=== PATIENT | male | born 1935 | race Caucasian/White ===

== ENCOUNTER 2017-01-06 12:54 | Emergency (ER) | payer MEDICARE, OTHER ==
--- NOTE | 2017-01-06 13:32 | ED Physician Chart ---
Chief Complaint/HPI - Patient Information Date Seen:: 01/06/17 Time Seen:: 13:15 Chief Complaint:: HIGH BLOOD SUGAR History of Present Illness:: BLOOD GLUCOSE IN 309 WHEN WHEN CHECKED AT [facility]. HAS A HISTORY OF DIABETES. CAME FROM [place] AND TAKES METFORMIN AT NIGHT TIME, PT DENIES AND CHEST OR ABDOMINAL PAIN. HE HAS GENERALIZED WEAKNESS WHICH IS CHRONIC. ALSO HAS CHRONIC DIZZINESS. NO DYSURIA OR URINARY FREQUENCY. NO NAUSEA, VOMITING OR DIARRHEA. Allergies:: Allergies Allergy/AdvReac Type Severity Reaction Status Date / Time No Known Allergies Allergy Verified 01/06/17 13:11 Vitals:: Vital Signs - 8 hr 01/06/17 13:11 Temp 97.7 F HR 86 RR 14 BP 131/86 O2 Sat % 96 Review of Systems - Review of Systems General/Constitutional: No fever, No chills, No diaphoresis Skin: No skin lesions Head: No headache, Light headed Eyes: No loss of vision, No diplopia ENT: No earache, No sore throat Neck: No neck pain, No swelling, No mass noted Cardio Vascular: No chest pain, No palpitations Pulmonary: No SOB, No cough, No sputum, Other (no hemoptysis.) GI: No nausea, No vomiting, No diarrhea, No pain G/U: No dysuria, No frequency, No hematuria Musculoskeletal: No bone or joint pain, No back pain, No muscle pain Psychiatric: No suicidal ideation Hematopoietic: No bruising, No lymphadenopathy Allergic/Immuno: No urticaria, No angioedema Neurological: No syncope, No focal symptoms, Weakness, No paresthesia, No seizure, No confusion, No vertigo Past Medical History - Past Medical History Past Medical History: DM Social History: Non Smoker, No Alcohol, No Drug Use, Employment:: Lives with his . Family Medical History - Family Member Daughter Other Medical History: bipolar , schizoaffective Physical Exam - Physical Examination General/Constitutional: Awake, Well-developed, well-nourished, Alert, No distress, Non-toxic appearing Other Gen/Cons comments:: Ambulatory with cane. Head: Atraumatic Eyes: Lids, conjuctiva normal, PERRL, EOMI Other Eyes comments:: Bilateral lens implants. The sclera are not icteric. No nystagmus. Skin: No rash, No skin lesions, No ecchymosis ENMT: External ears, nose nl Other ENMT comments:: Good hydration of oral mucosa. No inflammation in the posterior pharynx. Neck: Nontender, Full ROM w/o pain, No JVD, No nuchal rigidity, No mass, No stridor Respiratory: Nl effort/Exclusion (patient has occasional wheezes with no rhonchi or rales.) Cardio Vascular: RRR, No murmur, gallop, rubs, NL S1 S2 GI: No tenderness/rebounding/guarding, No organomegaly, No hernia, Normal BS's, Nondistended Other GI comments:: Well-healed surgical scar in the lower abdomen. : No CVA tenderness, No discharge Extremities: No tenderness or effusion, Full ROM, normal strength in all extremities, No edema Other Extremities comments:: No calf tenderness. Other Neuro/Psych comments:: Alert but not oriented to time. Sensation is intact to light touch. Good emergency management specialist both upper extremities. Able to lift lower extremities off the examination gurney. Labs/Radiology/EKG Results - Lab Results Results: Laboratory Tests 01/06/17 13:11 POC Glucose 317 H Laboratory Tests 01/06/17 01/06/17 01/06/17 13:11 13:26 13:26 WBC 6.9 RBC 4.83 Hgb 15.4 Hct 46.2 MCV 95.7 MCH 31.9 H MCHC Differential 33.4 RDW 14.9 Plt Count 168 MPV 7.5 Neutrophils % 77.5 Lymphocytes % 13.1 L Monocytes % 7.9 Eosinophils % 0.4 Basophils % 1.1 Sodium 134 L Potassium 4.5 Chloride 103 Carbon Dioxide 24.5 Anion Gap 11.0 BUN 30 H Creatinine 0.8 Est GFR ( Amer) TNP Est GFR (Non-Af Amer) TNP BUN/Creatinine Ratio 37.5 Glucose 321 H POC Glucose 317 H Hemoglobin A1c % Whole Bld Lactic Acid Calcium 9.5 Total Bilirubin 0.7 AST 19 ALT 22 Alkaline Phosphatase 91 Troponin I Total Protein 6.6 Albumin 4.0 L Globulin 2.6 Albumin/Globulin Ratio 1.5 Amylase 37 Lipase 12 Urine Source Urine Color Urine Clarity Urine pH Ur Specific [place] Urine Protein Urine Glucose (UA) Urine Ketones Urine Blood Urine Nitrate Urine Bilirubin Urine Urobilinogen Ur Leukocyte Esterase Urine RBC Urine WBC Ur Epithelial Cells Urine Bacteria Serum Ketones 01/06/17 01/06/17 01/06/17 13:26 13:26 13:26 WBC RBC Hgb Hct MCV MCH MCHC Differential RDW Plt Count MPV Neutrophils % Lymphocytes % Monocytes % Eosinophils % Basophils % Sodium Potassium Chloride Carbon Dioxide Anion Gap BUN Creatinine Est GFR ( Amer) Est GFR (Non-Af Amer) BUN/Creatinine Ratio Glucose POC Glucose Hemoglobin A1c % Whole Bld Lactic Acid 2.57 H* Calcium Total Bilirubin AST ALT Alkaline Phosphatase Troponin I < 0.01 L Total Protein Albumin Globulin Albumin/Globulin Ratio Amylase Lipase Urine Source Urine Color Urine Clarity Urine pH Ur Specific [place] Urine Protein Urine Glucose (UA) Urine Ketones Urine Blood Urine Nitrate Urine Bilirubin Urine Urobilinogen Ur Leukocyte Esterase Urine RBC Urine WBC Ur Epithelial Cells Urine Bacteria Serum Ketones NEGATIVE 01/06/17 01/06/17 01/06/17 13:26 13:57 14:30 WBC RBC Hgb Hct MCV MCH MCHC Differential RDW Plt Count MPV Neutrophils % Lymphocytes % Monocytes % Eosinophils % Basophils % Sodium Potassium Chloride Carbon Dioxide Anion Gap BUN Creatinine Est GFR ( Amer) Est GFR (Non-Af Amer) BUN/Creatinine Ratio Glucose POC Glucose Hemoglobin A1c % 6.7 H Whole Bld Lactic Acid 1.53 Calcium Total Bilirubin AST ALT Alkaline Phosphatase Troponin I Total Protein Albumin Globulin Albumin/Globulin Ratio Amylase Lipase Urine Source RANDOM Urine Color YELLOW Urine Clarity CLEAR Urine pH 5.5 Ur Specific [place] 1.020 Urine Protein NEGATIVE Urine Glucose (UA) >=1000 H Urine Ketones NEGATIVE Urine Blood NEGATIVE Urine Nitrate NEGATIVE Urine Bilirubin NEGATIVE Urine Urobilinogen 0.2 Ur Leukocyte Esterase NEGATIVE Urine RBC NONE SEEN Urine WBC 0-2 Ur Epithelial Cells RARE Urine Bacteria FEW Serum Ketones 01/06/17 15:28 WBC RBC Hgb Hct MCV MCH MCHC Differential RDW Plt Count MPV Neutrophils % Lymphocytes % Monocytes % Eosinophils % Basophils % Sodium Potassium Chloride Carbon Dioxide Anion Gap BUN Creatinine Est GFR ( Amer) Est GFR (Non-Af Amer) BUN/Creatinine Ratio Glucose POC Glucose 166 H Hemoglobin A1c % Whole Bld Lactic Acid Calcium Total Bilirubin AST ALT Alkaline Phosphatase Troponin I Total Protein Albumin Globulin Albumin/Globulin Ratio Amylase Lipase Urine Source Urine Color Urine Clarity Urine pH Ur Specific [place] Urine Protein Urine Glucose (UA) Urine Ketones Urine Blood Urine Nitrate Urine Bilirubin Urine Urobilinogen Ur Leukocyte Esterase Urine RBC Urine WBC Ur Epithelial Cells Urine Bacteria Serum Ketones Laboratory Tests 01/06/17 01/06/17 01/06/17 13:11 13:26 13:26 WBC 6.9 RBC 4.83 Hgb 15.4 Hct 46.2 MCV 95.7 MCH 31.9 H MCHC Differential 33.4 RDW 14.9 Plt Count 168 MPV 7.5 Neutrophils % 77.5 Lymphocytes % 13.1 L Monocytes % 7.9 Eosinophils % 0.4 Basophils % 1.1 Sodium 134 L Potassium 4.5 Chloride 103 Carbon Dioxide 24.5 Anion Gap 11.0 BUN 30 H Creatinine 0.8 Est GFR ( Amer) TNP Est GFR (Non-Af Amer) TNP BUN/Creatinine Ratio 37.5 Glucose 321 H POC Glucose 317 H Hemoglobin A1c % Whole Bld Lactic Acid Calcium 9.5 Total Bilirubin 0.7 AST 19 ALT 22 Alkaline Phosphatase 91 Troponin I Total Protein 6.6 Albumin 4.0 L Globulin 2.6 Albumin/Globulin Ratio 1.5 Amylase 37 Lipase 12 Urine Source Urine Color Urine Clarity Urine pH Ur Specific [place] Urine Protein Urine Glucose (UA) Urine Ketones Urine Blood Urine Nitrate Urine Bilirubin Urine Urobilinogen Ur Leukocyte Esterase Urine RBC Urine WBC Ur Epithelial Cells Urine Bacteria Serum Ketones 01/06/17 01/06/17 01/06/17 13:26 13:26 13:26 WBC RBC Hgb Hct MCV MCH MCHC Differential RDW Plt Count MPV Neutrophils % Lymphocytes % Monocytes % Eosinophils % Basophils % Sodium Potassium Chloride Carbon Dioxide Anion Gap BUN Creatinine Est GFR ( Amer) Est GFR (Non-Af Amer) BUN/Creatinine Ratio Glucose POC Glucose Hemoglobin A1c % Whole Bld Lactic Acid 2.57 H* Calcium Total Bilirubin AST ALT Alkaline Phosphatase Troponin I < 0.01 L Total Protein Albumin Globulin Albumin/Globulin Ratio Amylase Lipase Urine Source Urine Color Urine Clarity Urine pH Ur Specific [place] Urine Protein Urine Glucose (UA) Urine Ketones Urine Blood Urine Nitrate Urine Bilirubin Urine Urobilinogen Ur Leukocyte Esterase Urine RBC Urine WBC Ur Epithelial Cells Urine Bacteria Serum Ketones NEGATIVE 01/06/17 01/06/17 01/06/17 13:26 13:57 14:30 WBC RBC Hgb Hct MCV MCH MCHC Differential RDW Plt Count MPV Neutrophils % Lymphocytes % Monocytes % Eosinophils % Basophils % Sodium Potassium Chloride Carbon Dioxide Anion Gap BUN Creatinine Est GFR ( Amer) Est GFR (Non-Af Amer) BUN/Creatinine Ratio Glucose POC Glucose Hemoglobin A1c % 6.7 H Whole Bld Lactic Acid 1.53 Calcium Total Bilirubin AST ALT Alkaline Phosphatase Troponin I Total Protein Albumin Globulin Albumin/Globulin Ratio Amylase Lipase Urine Source RANDOM Urine Color YELLOW Urine Clarity CLEAR Urine pH 5.5 Ur Specific [place] 1.020 Urine Protein NEGATIVE Urine Glucose (UA) >=1000 H Urine Ketones NEGATIVE Urine Blood NEGATIVE Urine Nitrate NEGATIVE Urine Bilirubin NEGATIVE Urine Urobilinogen 0.2 Ur Leukocyte Esterase NEGATIVE Urine RBC NONE SEEN Urine WBC 0-2 Ur Epithelial Cells RARE Urine Bacteria FEW Serum Ketones 01/06/17 15:28 WBC RBC Hgb Hct MCV MCH MCHC Differential RDW Plt Count MPV Neutrophils % Lymphocytes % Monocytes % Eosinophils % Basophils % Sodium Potassium Chloride Carbon Dioxide Anion Gap BUN Creatinine Est GFR ( Amer) Est GFR (Non-Af Amer) BUN/Creatinine Ratio Glucose POC Glucose 166 H Hemoglobin A1c % Whole Bld Lactic Acid Calcium Total Bilirubin AST ALT Alkaline Phosphatase Troponin I Total Protein Albumin Globulin Albumin/Globulin Ratio Amylase Lipase Urine Source Urine Color Urine Clarity Urine pH Ur Specific [place] Urine Protein Urine Glucose (UA) Urine Ketones Urine Blood Urine Nitrate Urine Bilirubin Urine Urobilinogen Ur Leukocyte Esterase Urine RBC Urine WBC Ur Epithelial Cells Urine Bacteria Serum Ketones Assessment - Assessment General Assessment: CASE SUMMARY: This 81 year old male was sent to the ED for a blood glucose in the 330 range. The patient was hydrated with 2 L of normal saline. The serum glucose went from the 330 range to 166. The patient's vital signs were stable and laboratory studies showed a normal white count and hemoglobin level. Renal and liver function studies were normal. The urinalysis was negative for any evidence of UTI. Patient was referred back to [facility] and was medically cleared for admission. MDM DDX HYPER GLYCEMIA: NOT DKA BASED ON LABORATORY STUDIES. NOT HYPER OSMOLAR HYPERGLYCEMIA BASED ON LAB STUDIES. NOT UTI BASED ON YOUR UA RESULTS. NOT SEPSIS Based on vital signs and laboratory results. ED Septic Shock - . Is Septic Shock (SBP<90, OR Lactate>4 mmol\L) present?: No - <6hrs of presentation: Vital Signs: Vital Signs - 8 hr 01/06/17 13:11 Temp 97.7 F HR 86 RR 14 BP 131/86 O2 Sat % 96 Reassessment (Disposition) - Reassessment Reassessment Condition:: Improved - Diagnosis Diagnosis:: DIABETES WITH MILD HYPERGLYCEMIA - Patient Disposition Discharge/Transfer:: Residential/Boarding Care ED Discharge Plan - Patient Disposition Admit/Discharge/Transfer: PT DISCHARGED HOME Condition at Disposition: Stable Instructions: Type 2 Diabetes Mellitus, Adult
[2017-01-06 13:36] LABS: % BASOPHILS 1.1 % (0.0-2.0); % EOSINOPHILS 0.4 % (0.0-5.0); % LYMPHOCYTES 13.1 % (20.0-50.0); % MONOCYTES 7.9 % (2.0-10.0); % NEUTROPHILS 77.5 % (40.0-80.0); HEMATOCRIT 46.2 % (39.0-49.0); HEMOGLOBIN 15.4 gm/dL (12.6-17.4); MEAN CELL VOLUME 95.7 fl (80-99); MEAN CORPUSCULAR HEMOGLOBIN 31.9 pg (27.0-31.0); MEAN CORPUSCULAR HGB CONC 33.4 pg (28.0-36.0); MEAN PLATELET VOLUME 7.5 fl; NEUTROPHILE ABSOLUTE 5.4 Th/cmm (1.8-8.0); PLATELET COUNT 168 Th/cmm (150-400); RED BLOOD COUNT 4.83 Mil/cmm (3.80-5.80); RED CELL DISTRIBUTION WIDTH 14.9 % (11.5-20.0); WHITE BLOOD COUNT 6.9 Th/cmm (4.8-10.8)
[2017-01-06] MEDS ORDERED: Sodium Chloride 0.9% 1,000 ML IV ONE ×2 (13:41→14:25)
[2017-01-06 14:03] LABS: ALB/GLOB RATIO 1.5 (1.0-1.8); ALKALINE PHOSPHATASE 91 U/L (34-104); AMYLASE SERUM 37 U/L (29-103); BILIRUBIN,TOTAL 0.7 mg/dL (0.3-1.0); BUN - UREA NITROGEN 30 mg/dL (7-25); BUN/CREATININE RATIO 37.5; CALCIUM SERUM 9.5 mg/dL (8.6-10.3); CARBON DIOXIDE 24.5 mEq/L (21.0-31.0); CHLORIDE 103 mEq/L (98-107); CREATININE - SERUM 0.8 mg/dL (0.7-1.3); GLUCOSE 321 mg/dL (70-105); LIPASE 12 U/L (11-82); POTASSIUM SERUM 4.5 mEq/L (3.5-5.1); SGOT 19 U/L (13-39); SGPT/ALT 22 U/L (7-52); SODIUM SERUM 134 mEq/L (136-145)
[2017-01-06 14:58] LABS: URINE BILIRUBIN NEGATIVE (NEGATIVE); URINE BLOOD NEGATIVE (NEGATIVE); URINE COLOR YELLOW; URINE GLUCOSE (UA) >=1000 mg/dL (NEGATIVE); URINE KETONE NEGATIVE (NEGATIVE); URINE PH 5.5; URINE PROTEIN NEGATIVE (NEGATIVE); URINE UROBILINOGEN 0.2 E.U./dL (0.2 - 1.0)
[2017-01-06 14:59] LABS: URINE BACTERIA FEW /hpf (NONE SEEN); URINE EPITHELIAL CELLS RARE /lpf (FEW); URINE RBC NONE SEEN /hpf (0-5); URINE WBC 0-2 /hpf (0-5)
== END 2017-01-06 16:17 | disposition home or self-care (01) ==
LOC: ER 12:54
DX: E11.65 Type 2 diabetes mellitus with hyperglycemia (principal)
CPT/HCPCS: 36415-UA; 80053-TC; 81001-TC; 82010-TC; 82150-TC; 82948-90; 83036-90; 83605; 83690-TC; 84484-TC; 85025-TC; 93005; J7030

== ENCOUNTER 2017-01-08 14:57 | Inpatient (IN) | payer MEDICARE, OTHER ==
[2017-01-08 15:26] LABS: % EOSINOPHILS 0.4 % (0.0-5.0); % LYMPHOCYTES 18.2 % (20.0-50.0); % MONOCYTES 6.4 % (2.0-10.0); HEMATOCRIT 46.2 % (39.0-49.0); HEMOGLOBIN 15.4 gm/dL (12.6-17.4); MEAN CELL VOLUME 95.3 fl (80-99); MEAN CORPUSCULAR HEMOGLOBIN 31.8 pg (27.0-31.0); MEAN CORPUSCULAR HGB CONC 33.4 pg (28.0-36.0); MEAN PLATELET VOLUME 8.2 fl; NEUTROPHILE ABSOLUTE 5.7 Th/cmm (1.8-8.0); PLATELET COUNT 167 Th/cmm (150-400); RED BLOOD COUNT 4.85 Mil/cmm (3.80-5.80); RED CELL DISTRIBUTION WIDTH 14.3 % (11.5-20.0); WHITE BLOOD COUNT 7.6 Th/cmm (4.8-10.8)
[2017-01-08 15:39] LABS: INR 0.95 (0.5-1.4); PROTHROMBIN TIME (TEST) 9.9 SECONDS (9.5-11.5)
[2017-01-08 15:42] LABS: ALB/GLOB RATIO 1.7 (1.0-1.8); ALKALINE PHOSPHATASE 95 U/L (34-104); ANION GAP 9.6 (7.0-16.0); BUN - UREA NITROGEN 25 mg/dL (7-25); BUN/CREATININE RATIO 31.3; CALCIUM SERUM 9.7 mg/dL (8.6-10.3); CARBON DIOXIDE 22.6 mEq/L (21.0-31.0); CHLORIDE 104 mEq/L (98-107); CREATININE - SERUM 0.8 mg/dL (0.7-1.3); GLUCOSE 231 mg/dL (70-105); POTASSIUM SERUM 4.2 mEq/L (3.5-5.1); SGOT 18 U/L (13-39); SGPT/ALT 24 U/L (7-52); SODIUM SERUM 132 mEq/L (136-145)
[2017-01-08 15:43] LABS: CHOLESTEROL 162 mg/dL (<200); TRIGLYCERIDES 182 mg/dL (<150)
[2017-01-08 15:43] LABS: pH 7.45 (7.35-7.45)
[2017-01-08 15:44] LABS: ABG SOURCE Arterial; ALLEN TEST YES; BE(B) 1.2 mEq/L (-3.0-3.0); CRITICAL VALUES REPORTED BY SH; FIO2 21; HCO3 25.8 mEq/L (20.0-26.0)
[2017-01-08 16:14] LABS: URINE COLOR YELLOW
[2017-01-08 16:15] LABS: URINE BACTERIA FEW /hpf (NONE SEEN); URINE BILIRUBIN NEGATIVE (NEGATIVE); URINE BLOOD NEGATIVE (NEGATIVE); URINE EPITHELIAL CELLS RARE /lpf (FEW); URINE GLUCOSE (UA) 250 mg/dL (NEGATIVE); URINE KETONE NEGATIVE (NEGATIVE); URINE PH 5.5; URINE PROTEIN NEGATIVE (NEGATIVE); URINE RBC NONE SEEN /hpf (0-5); URINE UROBILINOGEN 0.2 E.U./dL (0.2 - 1.0); URINE WBC 0-2 /hpf (0-5)
--- NOTE | 2017-01-08 16:58 | ED Physician Chart ---
Chief Complaint/HPI - Patient Information Date Seen:: 01/08/17 Time Seen:: 15:06 Chief Complaint:: WEAKNESS History of Present Illness:: THIS IS AN 81 YEAR OLD MALE BIB HIS DAUGHTER STATING THAT SHE CAN NO LONGER TAKE CARE OF HER FATHER BECAUSE HE IS TOO ILL. THE PATIENT IS VERY WITH AND WITH A FAST HEART AND SOB. SHE STATES THAT HE HAS HYPERTENSION AND DIABETES WITH A BAD HEART. SHE WANT HIM PLACED IN A RESIDENTIAL FOR CARE. Allergies:: Allergies Allergy/AdvReac Type Severity Reaction Status Date / Time No Known Allergies Allergy Verified 01/06/17 13:11 Vitals:: Vital Signs - 8 hr 01/08/17 15:05 Temp 98.9 F HR 102 RR 21 BP 140/88 O2 Sat % 96 Historian:: Patient, Family Member (DAUGHTER) Review:: Nurse's Note Reviewed, Old Chart Reviewed Review of Systems - Review of Systems General/Constitutional: No fever, No chills, Weight loss, Weakness, No diaphoresis, No edema, No loss of appetite Skin: No skin lesions, No rash, No bruising Head: No headache, No light-headedness Eyes: No loss of vision, No pain, No diplopia ENT: No earache, No nasal drainage, No sore throat, No tinnitus Neck: No neck pain, No swelling, No thyromegaly, No stiffness, No mass noted Cardio Vascular: No chest pain, Palpitations, No PND, No orthopnea, No edema Pulmonary: SOB, No cough, No sputum, No wheezing GI: No nausea, No vomiting, No diarrhea, No pain, No melena, No hematochezia, No constipation, No hematemesis G/U: No dysuria, No frequency, No hematuria Musculoskeletal: No bone or joint pain, No back pain, No muscle pain Endocrine: No polyuria, No polydipsia Psychiatric: No prior psych history, No depression, No anxiety, No suicidal ideation Hematopoietic: No bruising, No lymphadenopathy Allergic/Immuno: No urticaria, No angioedema Neurological: No syncope, No focal symptoms, No weakness, No paresthesia, No headache, No seizure, No dizziness, No confusion, No vertigo Past Medical History - Past Medical History Obtainable: Yes Past Medical History: HTN, DM, CAD, Dyslipidemia Family History: None Social History: Non Smoker, No Alcohol, No Drug Use Surgical History: other (ABDOMINAL SURGERY) Family Medical History - Family Member Mother History Unknown: Yes Physical Exam - Physical Examination General/Constitutional: Awake, Well-developed, well-nourished, Alert, No distress, GCS 15, Non-toxic appearing, Ambulatory Other Gen/Cons comments:: WEAK AND LETHARGIC Head: Atraumatic Eyes: Lids, conjuctiva normal, PERRL, EOMI Skin: Nl inspection, No rash, No skin lesions, No ecchymosis, Well hydrated, No lymphadenopathy ENMT: External ears, nose nl, Nasal exam nl, Lips, teeth, gums nl Neck: Nontender, Full ROM w/o pain, No JVD, No nuchal rigidity, No bruit, No mass, No stridor Respiratory: Nl effort/Exclusion, Clear to Auscultation Other Respiratory comments:: BILATERAL WHEEZES HEARD Cardio Vascular: No murmur, gallop, rubs, NL S1 S2 Other Cardio Vascular comments:: TACHYCARDIA 112 GI: No tenderness/rebounding/guarding, No organomegaly, No hernia, Normal BS's, Nondistended, No mass/bruits, No McBurney tenderness : No CVA tenderness Extremities: No tenderness or effusion, Full ROM, normal strength in all extremities, No edema, Normal digits & nails Neuro/Psych: Alert/oriented, DTR's symmetric, Normal sensory exam, Normal motor strength, Judgement/insight normal, Mood normal, Normal gait, No focal deficits Misc: normal gait, Normal back, No paraspinal tenderness Labs/Radiology/EKG Results - Lab Results Results: Laboratory Tests 01/08/17 01/08/17 01/08/17 15:00 15:16 15:18 WBC RBC Hgb Hct MCV MCH MCHC Differential RDW Plt Count MPV Neutrophils % Lymphocytes % Monocytes % Eosinophils % Basophils % PT 9.9 INR 0.95 PTT (Actin FS) 22.9 L Specimen Source Sample Site pH pCO2 pO2 HCO3 Base Excess O2 Saturation Paddy Test Vent Rate Inspired O2 Tidal Volume PEEP Pressure (ins/psv/peep) Critical Value Sodium Potassium Chloride Carbon Dioxide Anion Gap BUN Creatinine Est GFR ( Amer) Est GFR (Non-Af Amer) BUN/Creatinine Ratio Glucose POC Glucose 195 H Calcium Total Bilirubin AST ALT Alkaline Phosphatase Troponin I Total Protein Albumin Globulin Albumin/Globulin Ratio Triglycerides Cholesterol LDL Cholesterol Direct HDL Cholesterol TSH Urine Source CLEAN C Urine Color YELLOW Urine Clarity CLEAR Urine pH 5.5 Ur Specific [place] 1.025 Urine Protein NEGATIVE Urine Glucose (UA) 250 H Urine Ketones NEGATIVE Urine Blood NEGATIVE Urine Nitrate NEGATIVE Urine Bilirubin NEGATIVE Urine Urobilinogen 0.2 Ur Leukocyte Esterase NEGATIVE Urine RBC NONE SEEN Urine WBC 0-2 Ur Epithelial Cells RARE Urine Bacteria FEW Urine Mucus FEW 01/08/17 01/08/17 01/08/17 15:18 15:18 15:18 WBC 7.6 RBC 4.85 Hgb 15.4 Hct 46.2 MCV 95.3 MCH 31.8 H MCHC Differential 33.4 RDW 14.3 Plt Count 167 MPV 8.2 Neutrophils % 75.0 Lymphocytes % 18.2 L Monocytes % 6.4 Eosinophils % 0.4 Basophils % 0.0 PT INR PTT (Actin FS) Specimen Source Sample Site pH pCO2 pO2 HCO3 Base Excess O2 Saturation Paddy Test Vent Rate Inspired O2 Tidal Volume PEEP Pressure (ins/psv/peep) Critical Value Sodium 132 L Potassium 4.2 Chloride 104 Carbon Dioxide 22.6 Anion Gap 9.6 BUN 25 Creatinine 0.8 Est GFR ( Amer) TNP Est GFR (Non-Af Amer) TNP BUN/Creatinine Ratio 31.3 Glucose 231 H POC Glucose Calcium 9.7 Total Bilirubin 1.0 AST 18 ALT 24 Alkaline Phosphatase 95 Troponin I Total Protein 6.9 Albumin 4.3 Globulin 2.6 Albumin/Globulin Ratio 1.7 Triglycerides 182 H Cholesterol 162 LDL Cholesterol Direct 89 HDL Cholesterol 54 TSH Urine Source Urine Color Urine Clarity Urine pH Ur Specific [place] Urine Protein Urine Glucose (UA) Urine Ketones Urine Blood Urine Nitrate Urine Bilirubin Urine Urobilinogen Ur Leukocyte Esterase Urine RBC Urine WBC Ur Epithelial Cells Urine Bacteria Urine Mucus 01/08/17 01/08/17 01/08/17 15:18 15:18 15:32 WBC RBC Hgb Hct MCV MCH MCHC Differential RDW Plt Count MPV Neutrophils % Lymphocytes % Monocytes % Eosinophils % Basophils % PT INR PTT (Actin FS) Specimen Source Arterial Sample Site Right Radial pH 7.45 pCO2 36.0 pO2 77.0 L HCO3 25.8 Base Excess 1.2 O2 Saturation 96.0 Paddy Test YES Vent Rate NAN Inspired O2 21 Tidal Volume NA PEEP NA Pressure (ins/psv/peep) NA Critical Value SH Sodium Potassium Chloride Carbon Dioxide Anion Gap BUN Creatinine Est GFR ( Amer) Est GFR (Non-Af Amer) BUN/Creatinine Ratio Glucose POC Glucose Calcium Total Bilirubin AST ALT Alkaline Phosphatase Troponin I 0.01 Total Protein Albumin Globulin Albumin/Globulin Ratio Triglycerides Cholesterol LDL Cholesterol Direct HDL Cholesterol TSH 0.07 L Urine Source Urine Color Urine Clarity Urine pH Ur Specific [place] Urine Protein Urine Glucose (UA) Urine Ketones Urine Blood Urine Nitrate Urine Bilirubin Urine Urobilinogen Ur Leukocyte Esterase Urine RBC Urine WBC Ur Epithelial Cells Urine Bacteria Urine Mucus - Radiology Results Results: CHEST X-RAY = CM - EKG Interpretations EKG Time:: 15:19 Rate & Rhythm: 93 SINUS [place]: LEFT Assessment - Assessment General Assessment: HYPOXEMIA DIABETES MELLITUS ED Septic Shock - . Is Septic Shock (SBP<90, OR Lactate>4 mmol\L) present?: No - <6hrs of presentation: Vital Signs: Vital Signs - 8 hr 01/08/17 15:05 Temp 98.9 F HR 102 RR 21 BP 140/88 O2 Sat % 96 Reassessment (Disposition) - Reassessment Reassessment Condition:: Unchanged - Diagnosis Diagnosis:: HYPOXEMIA DIABETES - Patient Disposition Discharge/Transfer:: Acute Care w/in this hosp Admitting Medical Physician:: Ryder Lorenz Condition at Disposition:: Unchanged ED Discharge Plan - Patient Disposition Admit/Discharge/Transfer: Acute Care w/in this hosp Condition at Disposition: Guarded
[2017-01-08] MEDS ORDERED: INSULIN ASPART, RECOMBINANT 100 UNITS/ML SUBQ ONE (20:45)
[2017-01-08] MEDS: INSULIN ASPART, RECOMBINANT 100 UNITS/ML SUBQ SCH (20:55)
[2017-01-09] MEDS: INSULIN ASPART, RECOMBINANT 100 UNITS/ML SUBQ SCH ×4 (06:30→20:44)
--- NOTE | 2017-01-09 09:00 | History and Physical ---
History of Present Illness - HPI Chief Complaint: weakness and fatigue HPI: 81 year old male who was brought to [facility] ER for increasing fatigue and weakness and failure to thrive. Patient's daughter is unable to care for her father. Her father has been ill for a while now. He has a history of hypertension and diabetes mellitus. While in the ER patient was found to have shortness and breath. Vital Signs: Last Vital Signs Temp 97.8 F 01/09/17 04:00 Pulse 73 01/09/17 04:00 Resp 19 01/09/17 04:00 BP 125/85 01/09/17 04:00 Pulse Ox 96 01/09/17 04:00 Past Medical History Cardiovascular: Report: CAD, HTN, Hyperlipidemia Pulmonary: Report: No Pertinent Hx [employer]: Report: No Pertinent Hx GI: Denies: Constipation, Gastritis Psych: Report: No Pertinent Hx Musculoskeletal: Report: No Pertinent Hx Rheumatologic: Report: No pertinent Hx Infectious Disease: Report: No Pertinent Hx Renal/: Report: No Pertinent Hx Endocrine: Report: Diabetes Dermatology: Report: No Pertinent Hx Family Medical History - Family Member Mother History Unknown: Yes Ethnicity: Social History Smoke: No Alcohol: None Drugs: None Lives: With Family - Medications Home Medications: Home Medication Medication Instructions Recorded Type Unobtainable [Unobtainable] 01/08/17 History - Allergies Allergies/Adverse Reactions: Allergies Allergy/AdvReac Type Severity Reaction Status Date / Time No Known Allergies Allergy Verified 01/06/17 13:11 Review of Systems - Review of Systems Constitutional: Report: Weakness, Malaise Eyes: Report: No Significant ENT: Report: No Significant Respiratory: Report: No Significant Cardiovascular: Report: No Significant Gastrointestinal: Report: No Significant Genitourinary: Report: No Significant Skin: Report: Rash Neurological: Report: No Significant Physical Exam - Physical Exam HEENT: Report: Ears Nose Throat within normal limits, Pharnyx within normal limits, Pale Conjunctiva Neck: Report: Within normal limits Cardiovascular Systems: Report: +s1/s2 noted, Regular, Rate and Rhythm Respiratory: Report: Breath Sounds are within normal limits Abdomen: Report: Non-tender to palpation Extremities: Report: Non-tender to palpation. Skin: Report: Skin Rash noted (groin and rectum) Neuro/Psych: Report: Mood affect is within normal limits - Lab Results All Lab Results last 24 hours: Laboratory Last Values WBC 7.6 Th/cmm (4.8-10.8) 01/08/17 15:18 RBC 4.85 Mil/cmm (3.80-5.80) 01/08/17 15:18 Hgb 15.4 gm/dL (12.6-17.4) 01/08/17 15:18 Hct 46.2 % (39.0-49.0) 01/08/17 15:18 MCV 95.3 fl (80-99) 01/08/17 15:18 MCH 31.8 pg (27.0-31.0) H 01/08/17 15:18 MCHC Differential 33.4 pg (28.0-36.0) 01/08/17 15:18 RDW 14.3 % (11.5-20.0) 01/08/17 15:18 Plt Count 167 Th/cmm (150-400) 01/08/17 15:18 MPV 8.2 fl 01/08/17 15:18 Neutrophils % 75.0 % (40.0-80.0) 01/08/17 15:18 Lymphocytes % 18.2 % (20.0-50.0) L 01/08/17 15:18 Monocytes % 6.4 % (2.0-10.0) 01/08/17 15:18 Eosinophils % 0.4 % (0.0-5.0) 01/08/17 15:18 Basophils % 0.0 % (0.0-2.0) 01/08/17 15:18 PT 9.9 SECONDS (9.5-11.5) 01/08/17 15:18 INR 0.95 (0.5-1.4) 01/08/17 15:18 PTT (Actin FS) 22.9 SECONDS (26.0-38.0) L 01/08/17 15:18 Specimen Source Arterial 01/08/17 15:32 Sample Site Right Radial 01/08/17 15:32 pH 7.45 (7.35-7.45) 01/08/17 15:32 pCO2 36.0 mmHg (35.0-45.0) 01/08/17 15:32 pO2 77.0 mmHg (80.0-100.0) L 01/08/17 15:32 HCO3 25.8 mEq/L (20.0-26.0) 01/08/17 15:32 Base Excess 1.2 mEq/L (-3.0-3.0) 01/08/17 15:32 O2 Saturation 96.0 % (92.0-100.0) 01/08/17 15:32 Paddy Test YES 01/08/17 15:32 Vent Rate NAN 01/08/17 15:32 Inspired O2 21 01/08/17 15:32 Tidal Volume NA 01/08/17 15:32 PEEP NA 01/08/17 15:32 Pressure (ins/psv/peep) NA 01/08/17 15:32 Critical Value SH 01/08/17 15:32 Sodium 132 mEq/L (136-145) L 01/08/17 15:18 Potassium 4.2 mEq/L (3.5-5.1) 01/08/17 15:18 Chloride 104 mEq/L (98-107) 01/08/17 15:18 Carbon Dioxide 22.6 mEq/L (21.0-31.0) 01/08/17 15:18 Anion Gap 9.6 (7.0-16.0) 01/08/17 15:18 BUN 25 mg/dL (7-25) 01/08/17 15:18 Creatinine 0.8 mg/dL (0.7-1.3) 01/08/17 15:18 Est GFR ( Amer) TNP 01/08/17 15:18 Est GFR (Non-Af Amer) TNP 01/08/17 15:18 BUN/Creatinine Ratio 31.3 01/08/17 15:18 Glucose 231 mg/dL (70-105) H 01/08/17 15:18 POC Glucose 124 MG/DL (70 - 105) H 01/09/17 06:00 Calcium 9.7 mg/dL (8.6-10.3) 01/08/17 15:18 Total Bilirubin 1.0 mg/dL (0.3-1.0) 01/08/17 15:18 AST 18 U/L (13-39) 01/08/17 15:18 ALT 24 U/L (7-52) 01/08/17 15:18 Alkaline Phosphatase 95 U/L (34-104) 01/08/17 15:18 Troponin I 0.01 ng/mL (0.01-0.05) 01/08/17 15:18 Total Protein 6.9 gm/dL (6.0-8.3) 01/08/17 15:18 Albumin 4.3 gm/dL (4.2-5.5) 01/08/17 15:18 Globulin 2.6 gm/dL 01/08/17 15:18 Albumin/Globulin Ratio 1.7 (1.0-1.8) 01/08/17 15:18 Triglycerides 182 mg/dL (<150) H 01/08/17 15:18 Cholesterol 162 mg/dL (<200) 01/08/17 15:18 LDL Cholesterol Direct 89 mg/dL (75-193) 01/08/17 15:18 HDL Cholesterol 54 mg/dL (23-92) 01/08/17 15:18 TSH 0.07 uIU/ml (0.34-5.60) L 01/08/17 15:18 Urine Source CLEAN C 01/08/17 15:00 Urine Color YELLOW 01/08/17 15:00 Urine Clarity CLEAR (CLEAR) 01/08/17 15:00 Urine pH 5.5 01/08/17 15:00 Ur Specific [place] 1.025 (1.005-1.030) 01/08/17 15:00 Urine Protein NEGATIVE mg/dL (NEGATIVE) 01/08/17 15:00 Urine Glucose (UA) 250 mg/dL (NEGATIVE) H 01/08/17 15:00 Urine Ketones NEGATIVE mg/dL (NEGATIVE) 01/08/17 15:00 Urine Blood NEGATIVE (NEGATIVE) 01/08/17 15:00 Urine Nitrate NEGATIVE (NEGATIVE) 01/08/17 15:00 Urine Bilirubin NEGATIVE (NEGATIVE) 01/08/17 15:00 Urine Urobilinogen 0.2 E.U./dL (0.2 - 1.0) 01/08/17 15:00 Ur Leukocyte Esterase NEGATIVE (NEGATIVE) 01/08/17 15:00 Urine RBC NONE SEEN /hpf (0-5) 01/08/17 15:00 Urine WBC 0-2 /hpf (0-5) 01/08/17 15:00 Ur Epithelial Cells RARE /lpf (FEW) 01/08/17 15:00 Urine Bacteria FEW /hpf (NONE SEEN) 01/08/17 15:00 Urine Mucus FEW /lpf (FEW) 01/08/17 15:00 RPR NONREACTIVE (NONREACTIVE) 01/08/17 15:18 Laboratory Results - last 24 hr 01/08/17 01/09/17 20:48 06:00 POC Glucose 240 H 124 H - Assessment Assessment: Current Active Problems Problem Status Onset MALAISE Acute fatigue weakness diabetes mellitus hypertension hyperlipidemia CAD hyponatremia tinea corporis debility - Plan Plan: fatigue and weakness -- cbc diabetes mellitus -- CMP,Hemoglobin A1c,TSH, accucheck AC HS, SSI hypertension -- continue to monitor BP hyperlipidemia -- repeat lipid profile CAD tinea corporis -- nystatin cream debility -- social service consultation
[2017-01-09 09:01] LABS: % EOSINOPHILS 0.8 % (0.0-5.0); % LYMPHOCYTES 24.1 % (20.0-50.0); % MONOCYTES 7.9 % (2.0-10.0); % NEUTROPHILS 67.2 % (40.0-80.0); HEMOGLOBIN 15.5 gm/dL (12.6-17.4); MEAN CELL VOLUME 95.8 fl (80-99); MEAN CORPUSCULAR HEMOGLOBIN 32.2 pg (27.0-31.0); MEAN CORPUSCULAR HGB CONC 33.6 pg (28.0-36.0); MEAN PLATELET VOLUME 8.7 fl; NEUTROPHILE ABSOLUTE 4.6 Th/cmm (1.8-8.0); PLATELET COUNT 156 Th/cmm (150-400); RED BLOOD COUNT 4.81 Mil/cmm (3.80-5.80); RED CELL DISTRIBUTION WIDTH 14.8 % (11.5-20.0); WHITE BLOOD COUNT 6.8 Th/cmm (4.8-10.8)
[2017-01-09 09:24] LABS: ALB/GLOB RATIO 1.5 (1.0-1.8); ALKALINE PHOSPHATASE 83 U/L (34-104); ANION GAP 11.4 (7.0-16.0); BILIRUBIN,TOTAL 1.3 mg/dL (0.3-1.0); BUN - UREA NITROGEN 23 mg/dL (7-25); BUN/CREATININE RATIO 32.9; CALCIUM SERUM 9.4 mg/dL (8.6-10.3); CARBON DIOXIDE 23.3 mEq/L (21.0-31.0); CHLORIDE 102 mEq/L (98-107); CREATININE - SERUM 0.7 mg/dL (0.7-1.3); GLUCOSE 263 mg/dL (70-105); POTASSIUM SERUM 3.7 mEq/L (3.5-5.1); SGOT 17 U/L (13-39); SGPT/ALT 20 U/L (7-52); SODIUM SERUM 133 mEq/L (136-145)
[2017-01-09 09:25] LABS: CHOLESTEROL 151 mg/dL (<200); TRIGLYCERIDES 136 mg/dL (<150)
--- NOTE | 2017-01-09 11:02 | Diagnostic Imaging Report ---
CHEST X-RAY: AP view INDICATION: Cough COMPARISON: None FINDINGS: The patient is rotated. There may be a small right effusion. Chronic lung changes are seen with areas of subsegmental atelectasis versus scarring. No focal consolidation identified. Heart size is normal. Atherosclerosis is noted. Degenerative changes of the spine are noted. IMPRESSION: Subsegmental atelectatic changes of the lungs. No focal consolidation identified. Possible small right effusion. If indicated lateral views of further clarified. Mild prominence of right paratracheal soft tissues likely related to rotation. Other etiologies may include prominent vessels or less likely lymphadenopathy. Follow-up dedicated PA and lateral views or CT chest would provide additional detail and assessment.
--- NOTE | 2017-01-09 23:49 | Admit Criteria Form ---
Admit Criteria Forms - Admit Criteria Diagnosis: DIABETES Clinical Indications for Admission to Inpatient Care (Place 'X' for any and all applicable criteria): Admission is indicated by presence of ALL (if I & II) or ANY ONE (if III or IV) of the following (1)(2)(3)(4): [ ]I. Diabetes is uncontrolled as indicated by ANY ONE of the following: [ ]a) Diabetic ketoacidosis as indicated by ALL of the following (8): [ ]i) Hyperglycemia (eg, plasma glucose greater than 200 mg/ dL (11.1 mmol/L)) [ ]ii) Acidosis (eg, arterial pH less than 7.30, serum bicarbonate level less than 15 mEq/L (mmol/L)) [ ]iii) Moderate ketonuria or ketonemia [ ]b) Hyperglycemic hyperosmolar state as indicated by ALL of the following(9)(10): [ ]i) Neurologic dysfunction (eg, stupor, coma, hemiparesis , seizure)(13) [ ]ii) Plasma glucose greater than 600 mg/dL (33.3 mmol/L) [ ]iii) Serum osmolality greater than 320 mOsm/kg (mmol/kg) [ ]c) Severe signs or symptoms secondary to hyperglycemia indicated by ANY ONE of the following: [ ]i) Altered mental status(10) [ ]ii) Significant hypovolemia or dehydration [ ]iii) Intractable nausea or vomiting [ ]iv) Unexplained fever or severe infection [ ]v) Severe electrolyte abnormality (eg, hypokalemia, hyperkalemia, hypernatremia) [ ]II. Management at other levels of care (Also use Diabetes: Observation Care as appropriate) is not feasible because of ANY ONE of the following: [ ]a) Condition was not adequately corrected with treatment at other levels of care. [ ]b) Treatment at other levels of care is not appropriate because of condition severity (eg, hyperosmolar coma). [ ]III. Contraindications and/or Inappropriate clinical situations for Observational Care in patients with Diabetes, when ANY ONE of the following is required: [ ]a) Patient require specific diagnostic workup or therapeutic intervention 22 [ ]b) Patient with abnormal vital signs or altered mental status 23 [X ]IV. General contraindications and/or Inappropriate clinical situations for Observational Care in patients with Diabetes, when ANY ONE of the following is required: [X ]a) Prediction of prolongation of LOS based on ANY ONE of the following may be considered as a contraindication for observational care 2, 3, 4, 5, 6, 7, 8, 9, 10, 11 [X ]i) Age > 65 yrs. [ ]ii) Patient arriving by ambulance [ ]iii) Patient with high acuity [ ]iv) Patient requiring vital sign monitoring [ ]v) Patient on IV medication [ ]b) Systolic blood pressures 180mmHg 3,12 [ ]c) Patient with altered mental status including delirium and other alteration of consciousness, (3) [ ]d) Patient whose discharge disposition will be to a custodial home or rehabilitation home should not be managed in Emergency Department Observation Unit. CMS rule requires 3 days hospital stay before such placement.3,13 [ ]e) Patient with failure to thrive due to broad array of etiologies 3,16,17 [ ]f) Inability to ambulate 3,14 Extended stay beyond goal length of stay may be needed for(3)(20): [ ]a) Treatment of precipitating causes [ ]b) Development of hypoglycemia [ ]c) Complications of treatment [ ]d) Complications of decompensated diabetes (eg, acute gastric dilatation, persistent metabolic or neurologic derangement) [ ]e) Active Comorbidities [ ]f) Older patients( 65 years or older) The original [facility] content created by [employer] has been revised. The portions of the content which have been revised are identified through the use of italic text or in bold,and [facility] has neither reviewed nor approved the modified material. All other unmodified content is copyright [facility] [employer]. Please see references footnoted in the original [facility] [employer] edition 2016 Admit Criteria Met?: Yes
[2017-01-10] MEDS: INSULIN ASPART, RECOMBINANT 100 UNITS/ML SUBQ SCH ×4 (06:42→21:24)
--- NOTE | 2017-01-10 08:03 | General Progress Note ---
Subjective - Review of Systems Service Date: 01/10/17 Subjective: Patient was seen and evaluated. Echo this AM. Patient having suicidal ideations per nursing. Patient is awake,alert, afebrile. Objective - Results Result Diagrams: 01/09/17 08:55 01/09/17 08:55 Recent Labs: Laboratory Last Values WBC 6.8 Th/cmm (4.8-10.8) 01/09/17 08:55 RBC 4.81 Mil/cmm (3.80-5.80) 01/09/17 08:55 Hgb 15.5 gm/dL (12.6-17.4) 01/09/17 08:55 Hct 46.0 % (39.0-49.0) 01/09/17 08:55 MCV 95.8 fl (80-99) 01/09/17 08:55 MCH 32.2 pg (27.0-31.0) H 01/09/17 08:55 MCHC Differential 33.6 pg (28.0-36.0) 01/09/17 08:55 RDW 14.8 % (11.5-20.0) 01/09/17 08:55 Plt Count 156 Th/cmm (150-400) 01/09/17 08:55 MPV 8.7 fl 01/09/17 08:55 Neutrophils % 67.2 % (40.0-80.0) 01/09/17 08:55 Lymphocytes % 24.1 % (20.0-50.0) 01/09/17 08:55 Monocytes % 7.9 % (2.0-10.0) 01/09/17 08:55 Eosinophils % 0.8 % (0.0-5.0) 01/09/17 08:55 Basophils % 0.0 % (0.0-2.0) 01/09/17 08:55 PT 9.9 SECONDS (9.5-11.5) 01/08/17 15:18 INR 0.95 (0.5-1.4) 01/08/17 15:18 PTT (Actin FS) 22.9 SECONDS (26.0-38.0) L 01/08/17 15:18 Specimen Source Arterial 01/08/17 15:32 Sample Site Right Radial 01/08/17 15:32 pH 7.45 (7.35-7.45) 01/08/17 15:32 pCO2 36.0 mmHg (35.0-45.0) 01/08/17 15:32 pO2 77.0 mmHg (80.0-100.0) L 01/08/17 15:32 HCO3 25.8 mEq/L (20.0-26.0) 01/08/17 15:32 Base Excess 1.2 mEq/L (-3.0-3.0) 01/08/17 15:32 O2 Saturation 96.0 % (92.0-100.0) 01/08/17 15:32 Paddy Test YES 01/08/17 15:32 Vent Rate NAN 01/08/17 15:32 Inspired O2 21 01/08/17 15:32 Tidal Volume NA 01/08/17 15:32 PEEP NA 01/08/17 15:32 Pressure (ins/psv/peep) NA 01/08/17 15:32 Critical Value SH 01/08/17 15:32 Sodium 133 mEq/L (136-145) L 01/09/17 08:55 Potassium 3.7 mEq/L (3.5-5.1) 01/09/17 08:55 Chloride 102 mEq/L (98-107) 01/09/17 08:55 Carbon Dioxide 23.3 mEq/L (21.0-31.0) 01/09/17 08:55 Anion Gap 11.4 (7.0-16.0) 01/09/17 08:55 BUN 23 mg/dL (7-25) 01/09/17 08:55 Creatinine 0.7 mg/dL (0.7-1.3) 01/09/17 08:55 Est GFR ( Amer) [facility] 01/09/17 08:55 Est GFR (Non-Af Amer) [facility] 01/09/17 08:55 BUN/Creatinine Ratio 32.9 01/09/17 08:55 Glucose 263 mg/dL (70-105) H 01/09/17 08:55 POC Glucose 127 MG/DL (70 - 105) H 01/10/17 05:57 Calcium 9.4 mg/dL (8.6-10.3) 01/09/17 08:55 Total Bilirubin 1.3 mg/dL (0.3-1.0) H 01/09/17 08:55 AST 17 U/L (13-39) 01/09/17 08:55 ALT 20 U/L (7-52) 01/09/17 08:55 Alkaline Phosphatase 83 U/L (34-104) 01/09/17 08:55 Troponin I 0.01 ng/mL (0.01-0.05) 01/08/17 15:18 Total Protein 6.4 gm/dL (6.0-8.3) 01/09/17 08:55 Albumin 3.8 gm/dL (4.2-5.5) L 01/09/17 08:55 Globulin 2.6 gm/dL 01/09/17 08:55 Albumin/Globulin Ratio 1.5 (1.0-1.8) 01/09/17 08:55 Triglycerides 136 mg/dL (<150) 01/09/17 08:55 Cholesterol 151 mg/dL (<200) 01/09/17 08:55 LDL Cholesterol Direct 87 mg/dL (75-193) 01/09/17 08:55 HDL Cholesterol 50 mg/dL (23-92) 01/09/17 08:55 TSH 0.07 uIU/ml (0.34-5.60) L 01/08/17 15:18 Urine Source CLEAN C 01/08/17 15:00 Urine Color YELLOW 01/08/17 15:00 Urine Clarity CLEAR (CLEAR) 01/08/17 15:00 Urine pH 5.5 01/08/17 15:00 Ur Specific [place] 1.025 (1.005-1.030) 01/08/17 15:00 Urine Protein NEGATIVE mg/dL (NEGATIVE) 01/08/17 15:00 Urine Glucose (UA) 250 mg/dL (NEGATIVE) H 01/08/17 15:00 Urine Ketones NEGATIVE mg/dL (NEGATIVE) 01/08/17 15:00 Urine Blood NEGATIVE (NEGATIVE) 01/08/17 15:00 Urine Nitrate NEGATIVE (NEGATIVE) 01/08/17 15:00 Urine Bilirubin NEGATIVE (NEGATIVE) 01/08/17 15:00 Urine Urobilinogen 0.2 E.U./dL (0.2 - 1.0) 01/08/17 15:00 Ur Leukocyte Esterase NEGATIVE (NEGATIVE) 01/08/17 15:00 Urine RBC NONE SEEN /hpf (0-5) 01/08/17 15:00 Urine WBC 0-2 /hpf (0-5) 01/08/17 15:00 Ur Epithelial Cells RARE /lpf (FEW) 01/08/17 15:00 Urine Bacteria FEW /hpf (NONE SEEN) 01/08/17 15:00 Urine Mucus FEW /lpf (FEW) 01/08/17 15:00 RPR NONREACTIVE (NONREACTIVE) 01/08/17 15:18 - Physical Exam Vitals and I&O: Vital Signs Temp 98.6 F 01/10/17 03:57 Pulse 74 01/10/17 03:57 Resp 18 01/10/17 03:57 BP 123/68 01/10/17 03:57 Pulse Ox 96 01/10/17 03:57 Intake & Output 01/09/17 01/10/17 01/10/17 18:59 06:59 18:59 Intake Total 1040 Output Total 800 Balance 240 Weight (lbs) 57.606 kg Intake: Oral 1040 Output: Urine 800 Other: # Voids 4 Active Medications: Current Medications Acetaminophen (Tylenol) 650 mg PO Q4H PRN PRN Reason: MILD PAIN Stop: 03/10/17 21:29 Last Admin: 01/10/17 00:40 Dose: 650 mg Insulin Aspart (Novolog) 0 units SUBQ ACHS ABNER PRN Reason: Protocol Stop: 03/09/17 20:59 Last Admin: 01/10/17 06:42 Dose: Not Given Metformin HCl (Glucophage) 500 mg PO DAILY [facility] Stop: 03/11/17 08:59 Nystatin (Mycostatin Cream) 1 appl TP DAILY PRN PRN Reason: Rash (BUTTOCKS) Stop: 03/10/17 09:05 General: Alert, Oriented x3, No acute distress HEENT: Atraumatic, PERRLA, EOMI Neck: Supple Cardiovascular: Regular rate Abdomen: Bowel sounds Neurological: Normal speech Assessment/Plan - Problem List Patient Problems: All Active Problems CAD (coronary artery disease) (Acute) I25.10 Debility (Acute) R53.81 Depression (Acute) F32.9 Diabetes mellitus (Acute) E11.9 Fatigue (Acute) R53.83 Hypertension (Acute) I10 Hyponatremia (Acute) E87.1 MALAISE (Acute) Tinea corporis (Acute) B35.4 - Assessment Assessment: Current Active Problems Problem Status Onset MALAISE Acute fatigue weakness diabetes mellitus hypertension hyperlipidemia CAD hyponatremia tinea corporis debility - Plan Plan: fatigue and weakness -- cbc diabetes mellitus -- CMP,Hemoglobin A1c,TSH, accucheck AC HS, SSI hypertension -- continue to monitor BP hyperlipidemia -- repeat lipid profile CAD tinea corporis -- nystatin cream debility -- social service consultation suicidal ideation -- will order psychiatric evaluation Nutritional Asmnt/Malnutr-PDOC - Dietary Evaluation Malnutrition Findings (Please click <Entered> for more info): Nutritional Asmnt/Malnutrition Start: 01/09/17 14: 43 Text: Status: Complete Freq: Document 01/09/17 14:43 GSUN (Rec: 01/09/17 15:13 GSUN [id number]) Nutritional Asmnt/Malnutrition Patient General Information Nutritional Screening High Risk Screening Diagnosis Fatigue, weakness, DM Pertinent Medical Hx/Surgical Hx CAD, HTN, hyperlipidemia, DM Subjective Information 81 [address] consult for BG >180. Pt is Vietnamese speaking, quesitonable historian, XAVIER assisted with translations. Pt stated usually fair appetite. Pt is aware of elevated glucose, when asked if pt usually follows diabetic diet, pt replied the food in [place] was better. RD briefly explained [facility] diet, pt agreeable to plan. Pt apepared appropriate for age, mild wasting to chest noted. Pt reported UBW 170lb, EMR CBW 134lb, pt said he might have lost weight but unsure duration. 100% PO intake this breakfast, met nutritional needs. Teeth intact. Current Diet Order/ Nutrition Support [id number] Pertinent Medications Novolog, Levemir Pertinent Labs 01/09: glucose 263H Nutritional Hx/Data Height 1.65 m Height (Calculated Centimeters) 165.1 Current Weight (lbs) 58.06 kg Weight (Calculated Kilograms) 58.1 Weight (Calculated Grams) 81885.8 [place] Body Weight 125 Weight Status Approriate GI Symptoms Skin Integrity/Comment: Alexey 20. Skin intact. Estimated Nutritional Goals Calories/Kcals/Kg CBW 128lb/58.2kg Kcals Calculated 1455-1746kcal (25-30kcal/kg) Protein Calculated 58g (1g/kg) Fluid: ml 1455-1746ml (1ml/kcal) Nutritional Problem 1. Problem Problem Altered nutrition related laboratory values related to Etiology DM aeb Signs/Symptoms: glucose 231 on adm Intervention/Recommendation Comments 1. Continue with current diet order. Monitor PO intake, if meeting nutritional needs, recommend [id number] to better promote glycemic control. Expected Outcomes/Goals Expected Outcomes/Goals 1. PO intake to meet at least 75% of estimated nutritional needs.
--- NOTE | 2017-01-10 08:25 | Consultation ---
DATE OF CONSULTATION: 01/10/2017 AGE: 81. SEX: Male. PHYSICIAN: Dr. Lorenz. CHIEF COMPLLAINT: Generalized weakness. HISTORY OF PRESENT ILLNESS: The patient is an 81-year-old male who was brought into the hospital by his daughter because of confusion and generalized weakness. The patient has been fatigued and had been getting weak. Also it seems like his appetite has been decreased. The patient also seems to be forgetful. The patient has been living with his daughter and seemed that the daughter has been unable to care for him because of increased care. PAST PSYCHIATRIC HISTORY: Noncontributory. PAST MEDICAL HISTORY: The patient has generalized weakness. SOCIAL HISTORY: The patient lives with his daughter. No known alcohol or street drug use or smoking cigarettes. MENTAL STATUS EXAM: The patient appears his stated age. Flat affect. Mood not depressed nor elated. Thought processes speech. The patient was not able to answer most of my questions or to carry on any coherent conversation. The patient denies suicidal or homicidal ideations or delusions, but seems to be preoccupied. The patient is alert and oriented to situation, but not the date or place or person. ASSESSMENT: PRIMARY DIAGNOSIS: Unspecified psychosis. SECONDARY DIAGNOSIS: Rule out dementia. TREATMENT PLAN: We will admit the patient to [facility] for further recommendations. We will start individual as well as milieu psychotherapy. We will also work on possible placement of the issue after getting more information from the daughter. Thanks to Dr. Lorenz. JOB# [id number]
[2017-01-10] MEDS ORDERED: Insulin Detemir 100 units/mL 10mL Vial SUBQ SCH (09:00)
[2017-01-10] MEDS: Nystatin Cream 100,000 u/gm Cream 15 gm TP PRN (09:19)
[2017-01-10] MEDS: Sodium Chloride 0.9% 1,000 ML IV SCH (09:22)
--- NOTE | 2017-01-10 16:55 | Cardiology ---
01/10/[address] Lorenz. M-MODE ECHOCARDIOGRAM: Mitral valve, anterior leaflet of mitral valve shows normal excursion, EF velocity. Posterior leaflet of the mitral valve shows normal excursion. Left ventricular posterior wall shows increased thickness, normal excursion. Interventricular septum shows increased thickness, normal excursion. There is hypertrophy of the left ventricle, ejection fraction 50%. Left atrium normal. Aortic root shows normal dimension, normal excursion of aortic leaflets. CONCLUSION: Hypertrophy of the left ventricle, ejection fraction 50%. 2D ECHO: Long axis view showed normal sized left ventricle with hypertrophy of the left ventricle. Left atrium normal. Aortic root shows normal dimension, normal excursion of aortic leaflets. Short axis view of mitral valve normal. Short axis view of aortic valve normal. Apical four chamber view showed normal sized left ventricle with hypertrophy of the left ventricle. Left atrium normal. Right ventricular cavity, right atrium normal, no pericardial effusion. CONCLUSION: Hypertrophy of the left ventricle, ejection fraction 50%. Doppler study shows mild pulmonary regurgitation, mild tricuspid regurgitation. CONCLUSION: Mild pulmonary regurgitation, mild tricuspid regurgitation, hypertrophy of the left ventricle, ejection fraction 50%. JOB# [id number]
[2017-01-11] MEDS: INSULIN ASPART, RECOMBINANT 100 UNITS/ML SUBQ SCH ×4 (06:48→20:58)
--- NOTE | 2017-01-11 07:54 | General Progress Note ---
Subjective - Review of Systems Service Date: 01/11/17 Subjective: Patient was seen and evaluated. No new changes. denies chest pain and shortness of breath. Objective - Results Result Diagrams: 01/09/17 08:55 01/09/17 08:55 Recent Labs: Laboratory Last Values WBC 6.8 Th/cmm (4.8-10.8) 01/09/17 08:55 RBC 4.81 Mil/cmm (3.80-5.80) 01/09/17 08:55 Hgb 15.5 gm/dL (12.6-17.4) 01/09/17 08:55 Hct 46.0 % (39.0-49.0) 01/09/17 08:55 MCV 95.8 fl (80-99) 01/09/17 08:55 MCH 32.2 pg (27.0-31.0) H 01/09/17 08:55 MCHC Differential 33.6 pg (28.0-36.0) 01/09/17 08:55 RDW 14.8 % (11.5-20.0) 01/09/17 08:55 Plt Count 156 Th/cmm (150-400) 01/09/17 08:55 MPV 8.7 fl 01/09/17 08:55 Neutrophils % 67.2 % (40.0-80.0) 01/09/17 08:55 Lymphocytes % 24.1 % (20.0-50.0) 01/09/17 08:55 Monocytes % 7.9 % (2.0-10.0) 01/09/17 08:55 Eosinophils % 0.8 % (0.0-5.0) 01/09/17 08:55 Basophils % 0.0 % (0.0-2.0) 01/09/17 08:55 PT 9.9 SECONDS (9.5-11.5) 01/08/17 15:18 INR 0.95 (0.5-1.4) 01/08/17 15:18 PTT (Actin FS) 22.9 SECONDS (26.0-38.0) L 01/08/17 15:18 Specimen Source Arterial 01/08/17 15:32 Sample Site Right Radial 01/08/17 15:32 pH 7.45 (7.35-7.45) 01/08/17 15:32 pCO2 36.0 mmHg (35.0-45.0) 01/08/17 15:32 pO2 77.0 mmHg (80.0-100.0) L 01/08/17 15:32 HCO3 25.8 mEq/L (20.0-26.0) 01/08/17 15:32 Base Excess 1.2 mEq/L (-3.0-3.0) 01/08/17 15:32 O2 Saturation 96.0 % (92.0-100.0) 01/08/17 15:32 Paddy Test YES 01/08/17 15:32 Vent Rate NAN 01/08/17 15:32 Inspired O2 21 01/08/17 15:32 Tidal Volume NA 01/08/17 15:32 PEEP NA 01/08/17 15:32 Pressure (ins/psv/peep) NA 01/08/17 15:32 Critical Value SH 01/08/17 15:32 Sodium 133 mEq/L (136-145) L 01/09/17 08:55 Potassium 3.7 mEq/L (3.5-5.1) 01/09/17 08:55 Chloride 102 mEq/L (98-107) 01/09/17 08:55 Carbon Dioxide 23.3 mEq/L (21.0-31.0) 01/09/17 08:55 Anion Gap 11.4 (7.0-16.0) 01/09/17 08:55 BUN 23 mg/dL (7-25) 01/09/17 08:55 Creatinine 0.7 mg/dL (0.7-1.3) 01/09/17 08:55 Est GFR ( Amer) TNP 01/09/17 08:55 Est GFR (Non-Af Amer) TNP 01/09/17 08:55 BUN/Creatinine Ratio 32.9 01/09/17 08:55 Glucose 263 mg/dL (70-105) H 01/09/17 08:55 POC Glucose 132 MG/DL (70 - 105) H 01/11/17 06:20 Calcium 9.4 mg/dL (8.6-10.3) 01/09/17 08:55 Total Bilirubin 1.3 mg/dL (0.3-1.0) H 01/09/17 08:55 AST 17 U/L (13-39) 01/09/17 08:55 ALT 20 U/L (7-52) 01/09/17 08:55 Alkaline Phosphatase 83 U/L (34-104) 01/09/17 08:55 Troponin I 0.01 ng/mL (0.01-0.05) 01/08/17 15:18 Total Protein 6.4 gm/dL (6.0-8.3) 01/09/17 08:55 Albumin 3.8 gm/dL (4.2-5.5) L 01/09/17 08:55 Globulin 2.6 gm/dL 01/09/17 08:55 Albumin/Globulin Ratio 1.5 (1.0-1.8) 01/09/17 08:55 Triglycerides 136 mg/dL (<150) 01/09/17 08:55 Cholesterol 151 mg/dL (<200) 01/09/17 08:55 LDL Cholesterol Direct 87 mg/dL (75-193) 01/09/17 08:55 HDL Cholesterol 50 mg/dL (23-92) 01/09/17 08:55 TSH 0.07 uIU/ml (0.34-5.60) L 01/08/17 15:18 Urine Source CLEAN C 01/08/17 15:00 Urine Color YELLOW 01/08/17 15:00 Urine Clarity CLEAR (CLEAR) 01/08/17 15:00 Urine pH 5.5 01/08/17 15:00 Ur Specific [place] 1.025 (1.005-1.030) 01/08/17 15:00 Urine Protein NEGATIVE mg/dL (NEGATIVE) 01/08/17 15:00 Urine Glucose (UA) 250 mg/dL (NEGATIVE) H 01/08/17 15:00 Urine Ketones NEGATIVE mg/dL (NEGATIVE) 01/08/17 15:00 Urine Blood NEGATIVE (NEGATIVE) 01/08/17 15:00 Urine Nitrate NEGATIVE (NEGATIVE) 01/08/17 15:00 Urine Bilirubin NEGATIVE (NEGATIVE) 01/08/17 15:00 Urine Urobilinogen 0.2 E.U./dL (0.2 - 1.0) 01/08/17 15:00 Ur Leukocyte Esterase NEGATIVE (NEGATIVE) 01/08/17 15:00 Urine RBC NONE SEEN /hpf (0-5) 01/08/17 15:00 Urine WBC 0-2 /hpf (0-5) 01/08/17 15:00 Ur Epithelial Cells RARE /lpf (FEW) 01/08/17 15:00 Urine Bacteria FEW /hpf (NONE SEEN) 01/08/17 15:00 Urine Mucus FEW /lpf (FEW) 01/08/17 15:00 RPR NONREACTIVE (NONREACTIVE) 01/08/17 15:18 - Physical Exam Vitals and I&O: Vital Signs Temp 98.2 F 01/11/17 04:00 Pulse 76 01/11/17 04:00 Resp 18 01/11/17 04:00 BP 136/79 01/11/17 04:00 Pulse Ox 95 01/11/17 04:00 Intake & Output 01/10/17 01/11/17 01/11/17 18:59 06:59 18:59 Intake Total 800 100 Output Total 850 Balance -50 100 Weight (lbs) 57.606 kg 58.332 kg Intake: Oral 800 100 Output: Urine 850 Other: # Voids 3 # Bowel Movements 1 0 Active Medications: Current Medications Acetaminophen (Tylenol) 650 mg PO Q4H PRN PRN Reason: MILD PAIN Stop: 03/10/17 21:29 Last Admin: 01/10/17 00:40 Dose: 650 mg Diphenhydramine HCl (Benadryl) 25 mg PO TID PRN PRN Reason: Itching Stop: 03/11/17 14:57 Last Admin: 01/10/17 17:17 Dose: 25 mg Sodium Chloride (Nacl 0.9%) 1,000 mls @ 50 mls/hr IV .Q20H [facility] Stop: 03/11/17 08:03 Last Admin: 01/10/17 09:22 Dose: 50 mls/hr Insulin Aspart (Novolog) 0 units SUBQ ACHS ABNER PRN Reason: Protocol Stop: 03/09/17 20:59 Last Admin: 01/11/17 06:48 Dose: Not Given Metformin HCl (Glucophage) 500 mg PO DAILY [facility] Stop: 03/11/17 08:59 Last Admin: 01/10/17 09:20 Dose: 500 mg Nystatin (Mycostatin Cream) 1 appl TP DAILY PRN PRN Reason: Rash (BUTTOCKS) Stop: 03/10/17 09:05 Last Admin: 01/10/17 09:19 Dose: 1 appl General: Alert, Oriented x3, No acute distress HEENT: Atraumatic, PERRLA, EOMI Neck: Supple Cardiovascular: Regular rate Abdomen: Bowel sounds Neurological: Normal speech Assessment/Plan - Problem List Patient Problems: All Active Problems CAD (coronary artery disease) (Acute) I25.10 Debility (Acute) R53.81 Depression (Acute) F32.9 Diabetes mellitus (Acute) E11.9 Fatigue (Acute) R53.83 Hypertension (Acute) I10 Hyponatremia (Acute) E87.1 MALAISE (Acute) Tinea corporis (Acute) B35.4 - Assessment Assessment: Current Active Problems Problem Status Onset MALAISE Acute fatigue weakness diabetes mellitus hypertension hyperlipidemia CAD hyponatremia tinea corporis debility - Plan Plan: fatigue and weakness -- cbc diabetes mellitus -- CMP,Hemoglobin A1c,TSH, accucheck AC HS, SSI hypertension -- continue to monitor BP hyperlipidemia -- repeat lipid profile CAD tinea corporis -- nystatin cream debility -- social service consultation suicidal ideation -- will order psychiatric evaluation Nutritional Asmnt/Malnutr-PDOC - Dietary Evaluation Malnutrition Findings (Please click <Entered> for more info): Nutritional Asmnt/Malnutrition Start: 01/09/17 14: 43 Text: Status: Complete Freq: Document 01/09/17 14:43 GSUN (Rec: 01/09/17 15:13 GSUN [id number]) Nutritional Asmnt/Malnutrition Patient General Information Nutritional Screening High Risk Screening Diagnosis Fatigue, weakness, DM Pertinent Medical Hx/Surgical Hx CAD, HTN, hyperlipidemia, DM Subjective Information 81 [address] consult for BG >180. Pt is Tristanian speaking, quesitonable historian, BELL PERSON assisted with translations. Pt stated usually fair appetite. Pt is aware of elevated glucose, when asked if pt usually follows diabetic diet, pt replied the food in [place] was better. RD briefly explained [facility] diet, pt agreeable to plan. Pt apepared appropriate for age, mild wasting to chest noted. Pt reported UBW 170lb, EMR CBW 134lb, pt said he might have lost weight but unsure duration. 100% PO intake this breakfast, met nutritional needs. Teeth intact. Current Diet Order/ Nutrition Support [address] Pertinent Medications Novolog, Levemir Pertinent Labs 01/09: glucose 263H Nutritional Hx/Data Height 1.65 m Height (Calculated Centimeters) 165.1 Current Weight (lbs) 58.06 kg Weight (Calculated Kilograms) 58.1 Weight (Calculated Grams) 35508.8 [place] Body Weight 125 Weight Status Approriate GI Symptoms Skin Integrity/Comment: Alexey 20. Skin intact. Estimated Nutritional Goals Calories/Kcals/Kg CBW 128lb/58.2kg Kcals Calculated 1455-1746kcal (25-30kcal/kg) Protein Calculated 58g (1g/kg) Fluid: ml 1455-1746ml (1ml/kcal) Nutritional Problem 1. Problem Problem Altered nutrition related laboratory values related to Etiology DM aeb Signs/Symptoms: glucose 231 on adm Intervention/Recommendation Comments 1. Continue with current diet order. Monitor PO intake, if meeting nutritional needs, recommend [id number] to better promote glycemic control. Expected Outcomes/Goals Expected Outcomes/Goals 1. PO intake to meet at least 75% of estimated nutritional needs.
[2017-01-11 10:55] LABS: ALB/GLOB RATIO 1.6 (1.0-1.8); ALKALINE PHOSPHATASE 77 U/L (34-104); ANION GAP 11.2 (7.0-16.0); BILIRUBIN,TOTAL 0.8 mg/dL (0.3-1.0); BUN - UREA NITROGEN 22 mg/dL (7-25); BUN/CREATININE RATIO 31.4; CALCIUM SERUM 8.9 mg/dL (8.6-10.3); CARBON DIOXIDE 22.8 mEq/L (21.0-31.0); CHLORIDE 105 mEq/L (98-107); CREATININE - SERUM 0.7 mg/dL (0.7-1.3); GLUCOSE 326 mg/dL (70-105); SGOT 15 U/L (13-39); SGPT/ALT 21 U/L (7-52); SODIUM SERUM 135 mEq/L (136-145)
[2017-01-11] MEDS: Nystatin Cream 100,000 u/gm Cream 15 gm TP PRN (12:22)
[2017-01-11] MEDS: Sodium Chloride 0.9% 1,000 ML IV SCH (15:45)
[2017-01-12] MEDS: INSULIN ASPART, RECOMBINANT 100 UNITS/ML SUBQ SCH ×4 (06:43→20:56)
[2017-01-12] MEDS: Sodium Chloride 0.9% 1,000 ML IV SCH ×2 (06:43→10:30)
--- NOTE | 2017-01-12 08:05 | General Progress Note ---
Subjective - Review of Systems Service Date: 01/12/17 Subjective: Patient was seen and evaluated. No new changes. denies chest pain and shortness of breath. Objective - Results Result Diagrams: 01/09/17 08:55 01/11/17 10:30 Recent Labs: Laboratory Last Values WBC 6.8 Th/cmm (4.8-10.8) 01/09/17 08:55 RBC 4.81 Mil/cmm (3.80-5.80) 01/09/17 08:55 Hgb 15.5 gm/dL (12.6-17.4) 01/09/17 08:55 Hct 46.0 % (39.0-49.0) 01/09/17 08:55 MCV 95.8 fl (80-99) 01/09/17 08:55 MCH 32.2 pg (27.0-31.0) H 01/09/17 08:55 MCHC Differential 33.6 pg (28.0-36.0) 01/09/17 08:55 RDW 14.8 % (11.5-20.0) 01/09/17 08:55 Plt Count 156 Th/cmm (150-400) 01/09/17 08:55 MPV 8.7 fl 01/09/17 08:55 Neutrophils % 67.2 % (40.0-80.0) 01/09/17 08:55 Lymphocytes % 24.1 % (20.0-50.0) 01/09/17 08:55 Monocytes % 7.9 % (2.0-10.0) 01/09/17 08:55 Eosinophils % 0.8 % (0.0-5.0) 01/09/17 08:55 Basophils % 0.0 % (0.0-2.0) 01/09/17 08:55 PT 9.9 SECONDS (9.5-11.5) 01/08/17 15:18 INR 0.95 (0.5-1.4) 01/08/17 15:18 PTT (Actin FS) 22.9 SECONDS (26.0-38.0) L 01/08/17 15:18 Specimen Source Arterial 01/08/17 15:32 Sample Site Right Radial 01/08/17 15:32 pH 7.45 (7.35-7.45) 01/08/17 15:32 pCO2 36.0 mmHg (35.0-45.0) 01/08/17 15:32 pO2 77.0 mmHg (80.0-100.0) L 01/08/17 15:32 HCO3 25.8 mEq/L (20.0-26.0) 01/08/17 15:32 Base Excess 1.2 mEq/L (-3.0-3.0) 01/08/17 15:32 O2 Saturation 96.0 % (92.0-100.0) 01/08/17 15:32 Paddy Test YES 01/08/17 15:32 Vent Rate NAN 01/08/17 15:32 Inspired O2 21 01/08/17 15:32 Tidal Volume NA 01/08/17 15:32 PEEP NA 01/08/17 15:32 Pressure (ins/psv/peep) NA 01/08/17 15:32 Critical Value SH 01/08/17 15:32 Sodium 135 mEq/L (136-145) L 01/11/17 10:30 Potassium 4.0 mEq/L (3.5-5.1) 01/11/17 10:30 Chloride 105 mEq/L (98-107) 01/11/17 10:30 Carbon Dioxide 22.8 mEq/L (21.0-31.0) 01/11/17 10:30 Anion Gap 11.2 (7.0-16.0) 01/11/17 10:30 BUN 22 mg/dL (7-25) 01/11/17 10:30 Creatinine 0.7 mg/dL (0.7-1.3) 01/11/17 10:30 Est GFR ( Amer) TNP 01/11/17 10:30 Est GFR (Non-Af Amer) TNP 01/11/17 10:30 BUN/Creatinine Ratio 31.4 01/11/17 10:30 Glucose 326 mg/dL (70-105) H 01/11/17 10:30 POC Glucose 124 MG/DL (70 - 105) H 01/12/17 06:03 Calcium 8.9 mg/dL (8.6-10.3) 01/11/17 10:30 Total Bilirubin 0.8 mg/dL (0.3-1.0) 01/11/17 10:30 AST 15 U/L (13-39) 01/11/17 10:30 ALT 21 U/L (7-52) 01/11/17 10:30 Alkaline Phosphatase 77 U/L (34-104) 01/11/17 10:30 Troponin I 0.01 ng/mL (0.01-0.05) 01/08/17 15:18 Total Protein 5.5 gm/dL (6.0-8.3) L 01/11/17 10:30 Albumin 3.4 gm/dL (4.2-5.5) L 01/11/17 10:30 Globulin 2.1 gm/dL 01/11/17 10:30 Albumin/Globulin Ratio 1.6 (1.0-1.8) 01/11/17 10:30 Triglycerides 136 mg/dL (<150) 01/09/17 08:55 Cholesterol 151 mg/dL (<200) 01/09/17 08:55 LDL Cholesterol Direct 87 mg/dL (75-193) 01/09/17 08:55 HDL Cholesterol 50 mg/dL (23-92) 01/09/17 08:55 TSH 0.07 uIU/ml (0.34-5.60) L 01/08/17 15:18 Urine Source CLEAN C 01/08/17 15:00 Urine Color YELLOW 01/08/17 15:00 Urine Clarity CLEAR (CLEAR) 01/08/17 15:00 Urine pH 5.5 01/08/17 15:00 Ur Specific [place] 1.025 (1.005-1.030) 01/08/17 15:00 Urine Protein NEGATIVE mg/dL (NEGATIVE) 01/08/17 15:00 Urine Glucose (UA) 250 mg/dL (NEGATIVE) H 01/08/17 15:00 Urine Ketones NEGATIVE mg/dL (NEGATIVE) 01/08/17 15:00 Urine Blood NEGATIVE (NEGATIVE) 01/08/17 15:00 Urine Nitrate NEGATIVE (NEGATIVE) 01/08/17 15:00 Urine Bilirubin NEGATIVE (NEGATIVE) 01/08/17 15:00 Urine Urobilinogen 0.2 E.U./dL (0.2 - 1.0) 01/08/17 15:00 Ur Leukocyte Esterase NEGATIVE (NEGATIVE) 01/08/17 15:00 Urine RBC NONE SEEN /hpf (0-5) 01/08/17 15:00 Urine WBC 0-2 /hpf (0-5) 01/08/17 15:00 Ur Epithelial Cells RARE /lpf (FEW) 01/08/17 15:00 Urine Bacteria FEW /hpf (NONE SEEN) 01/08/17 15:00 Urine Mucus FEW /lpf (FEW) 01/08/17 15:00 RPR NONREACTIVE (NONREACTIVE) 01/08/17 15:18 - Physical Exam Vitals and I&O: Vital Signs Temp 97.6 F 01/12/17 04:00 Pulse 62 01/12/17 04:00 Resp 20 01/12/17 04:00 BP 121/71 01/12/17 04:00 Pulse Ox 93 01/12/17 04:00 Intake & Output 01/11/17 01/12/17 01/12/17 18:59 06:59 18:59 Intake Total 290 Output Total 300 Balance -10 Weight (lbs) 58.332 kg 61.462 kg Intake: Oral 290 Output: Urine 300 Other: # Bowel Movements 0 Active Medications: Current Medications Acetaminophen (Tylenol) 650 mg PO Q4H PRN PRN Reason: MILD PAIN Stop: 03/10/17 21:29 Last Admin: 01/12/17 01:58 Dose: 650 mg Diphenhydramine HCl (Benadryl) 25 mg PO TID PRN PRN Reason: Itching Stop: 03/11/17 14:57 Last Admin: 01/11/17 22:50 Dose: 25 mg Glipizide (Glucotrol) 5 mg PO DAILY [facility] Stop: 03/13/17 08:59 Sodium Chloride (Nacl 0.9%) 1,000 mls @ 50 mls/hr IV .Q20H [facility] Stop: 03/11/17 08:03 Last Admin: 01/12/17 06:43 Dose: Not Given Insulin Aspart (Novolog) 0 units SUBQ ACHS ABNER PRN Reason: Protocol Stop: 03/09/17 20:59 Last Admin: 01/12/17 06:43 Dose: Not Given Metformin HCl (Glucophage) 500 mg PO DAILY [facility] Stop: 03/11/17 08:59 Last Admin: 01/11/17 09:50 Dose: 500 mg Nystatin (Mycostatin Cream) 1 appl TP DAILY PRN PRN Reason: Rash (BUTTOCKS) Stop: 03/10/17 09:05 Last Admin: 01/11/17 12:22 Dose: 1 appl General: Alert, Oriented x3, No acute distress HEENT: Atraumatic, PERRLA, EOMI Neck: Supple Cardiovascular: Regular rate Abdomen: Bowel sounds Neurological: Normal speech Assessment/Plan - Problem List Patient Problems: All Active Problems CAD (coronary artery disease) (Acute) I25.10 Debility (Acute) R53.81 Depression (Acute) F32.9 Diabetes mellitus (Acute) E11.9 Fatigue (Acute) R53.83 Hypertension (Acute) I10 Hyponatremia (Acute) E87.1 MALAISE (Acute) Tinea corporis (Acute) B35.4 - Assessment Assessment: Current Active Problems Problem Status Onset MALAISE Acute fatigue weakness diabetes mellitus hypertension hyperlipidemia CAD hyponatremia tinea corporis debility - Plan Plan: fatigue and weakness -- cbc diabetes mellitus -- CMP,Hemoglobin A1c,TSH, accucheck AC HS, SSI hypertension -- continue to monitor BP hyperlipidemia -- repeat lipid profile CAD tinea corporis -- nystatin cream debility -- social service consultation suicidal ideation -- will order psychiatric evaluation Nutritional Asmnt/Malnutr-PDOC - Dietary Evaluation Malnutrition Findings (Please click <Entered> for more info): Nutritional Asmnt/Malnutrition Start: 01/09/17 14: 43 Text: Status: Complete Freq: Document 01/09/17 14:43 GSUN (Rec: 01/09/17 15:13 GSUN [id number]) Nutritional Asmnt/Malnutrition Patient General Information Nutritional Screening High Risk Screening Diagnosis Fatigue, weakness, DM Pertinent Medical Hx/Surgical Hx CAD, HTN, hyperlipidemia, DM Subjective Information 81 [address] consult for BG >180. Pt is [place]ian speaking, quesitonable historian, BIOLOGICAL LAB TECHNICIAN assisted with translations. Pt stated usually fair appetite. Pt is aware of elevated glucose, when asked if pt usually follows diabetic diet, pt replied the food in [place] was better. RD briefly explained [facility] [place] diet, pt agreeable to plan. Pt apepared appropriate for age, mild wasting to chest noted. Pt reported UBW 170lb, EMR CBW 134lb, pt said he might have lost weight but unsure duration. 100% PO intake this breakfast, met nutritional needs. Teeth intact. Current Diet Order/ Nutrition Support [id number] Pertinent Medications Novolog, Levemir Pertinent Labs 01/09: glucose 263H Nutritional Hx/Data Height 1.65 m Height (Calculated Centimeters) 165.1 Current Weight (lbs) 58.06 kg Weight (Calculated Kilograms) 58.1 Weight (Calculated Grams) 68413.8 [place] Body Weight 125 Weight Status Approriate GI Symptoms Skin Integrity/Comment: Alexey 20. Skin intact. Estimated Nutritional Goals Calories/Kcals/Kg CBW 128lb/58.2kg Kcals Calculated 1455-1746kcal (25-30kcal/kg) Protein Calculated 58g (1g/kg) Fluid: ml 1455-1746ml (1ml/kcal) Nutritional Problem 1. Problem Problem Altered nutrition related laboratory values related to Etiology DM aeb Signs/Symptoms: glucose 231 on adm Intervention/Recommendation Comments 1. Continue with current diet order. Monitor PO intake, if meeting nutritional needs, recommend [id number] to better promote glycemic control. Expected Outcomes/Goals Expected Outcomes/Goals 1. PO intake to meet at least 75% of estimated nutritional needs.
[2017-01-13] MEDS: Nystatin Cream 100,000 u/gm Cream 15 gm TP PRN ×2 (02:26→20:53)
[2017-01-13] MEDS: INSULIN ASPART, RECOMBINANT 100 UNITS/ML SUBQ SCH ×4 (06:36→20:37)
--- NOTE | 2017-01-13 06:46 | General Progress Note ---
Subjective - Review of Systems Service Date: 01/13/17 Subjective: Patient was seen and evaluated. Resting comfortably in bed. No acute distress. Objective - Results Result Diagrams: 01/09/17 08:55 01/11/17 10:30 Recent Labs: Laboratory Last Values WBC 6.8 Th/cmm (4.8-10.8) 01/09/17 08:55 RBC 4.81 Mil/cmm (3.80-5.80) 01/09/17 08:55 Hgb 15.5 gm/dL (12.6-17.4) 01/09/17 08:55 Hct 46.0 % (39.0-49.0) 01/09/17 08:55 MCV 95.8 fl (80-99) 01/09/17 08:55 MCH 32.2 pg (27.0-31.0) H 01/09/17 08:55 MCHC Differential 33.6 pg (28.0-36.0) 01/09/17 08:55 RDW 14.8 % (11.5-20.0) 01/09/17 08:55 Plt Count 156 Th/cmm (150-400) 01/09/17 08:55 MPV 8.7 fl 01/09/17 08:55 Neutrophils % 67.2 % (40.0-80.0) 01/09/17 08:55 Lymphocytes % 24.1 % (20.0-50.0) 01/09/17 08:55 Monocytes % 7.9 % (2.0-10.0) 01/09/17 08:55 Eosinophils % 0.8 % (0.0-5.0) 01/09/17 08:55 Basophils % 0.0 % (0.0-2.0) 01/09/17 08:55 PT 9.9 SECONDS (9.5-11.5) 01/08/17 15:18 INR 0.95 (0.5-1.4) 01/08/17 15:18 PTT (Actin FS) 22.9 SECONDS (26.0-38.0) L 01/08/17 15:18 Specimen Source Arterial 01/08/17 15:32 Sample Site Right Radial 01/08/17 15:32 pH 7.45 (7.35-7.45) 01/08/17 15:32 pCO2 36.0 mmHg (35.0-45.0) 01/08/17 15:32 pO2 77.0 mmHg (80.0-100.0) L 01/08/17 15:32 HCO3 25.8 mEq/L (20.0-26.0) 01/08/17 15:32 Base Excess 1.2 mEq/L (-3.0-3.0) 01/08/17 15:32 O2 Saturation 96.0 % (92.0-100.0) 01/08/17 15:32 Paddy Test YES 01/08/17 15:32 Vent Rate NAN 01/08/17 15:32 Inspired O2 21 01/08/17 15:32 Tidal Volume NA 01/08/17 15:32 PEEP NA 01/08/17 15:32 Pressure (ins/psv/peep) NA 01/08/17 15:32 Critical Value SH 01/08/17 15:32 Sodium 135 mEq/L (136-145) L 01/11/17 10:30 Potassium 4.0 mEq/L (3.5-5.1) 01/11/17 10:30 Chloride 105 mEq/L (98-107) 01/11/17 10:30 Carbon Dioxide 22.8 mEq/L (21.0-31.0) 01/11/17 10:30 Anion Gap 11.2 (7.0-16.0) 01/11/17 10:30 BUN 22 mg/dL (7-25) 01/11/17 10:30 Creatinine 0.7 mg/dL (0.7-1.3) 01/11/17 10:30 Est GFR ( Amer) TNP 01/11/17 10:30 Est GFR (Non-Af Amer) TNP 01/11/17 10:30 BUN/Creatinine Ratio 31.4 01/11/17 10:30 Glucose 326 mg/dL (70-105) H 01/11/17 10:30 POC Glucose 127 MG/DL (70 - 105) H 01/13/17 05:58 Calcium 8.9 mg/dL (8.6-10.3) 01/11/17 10:30 Total Bilirubin 0.8 mg/dL (0.3-1.0) 01/11/17 10:30 AST 15 U/L (13-39) 01/11/17 10:30 ALT 21 U/L (7-52) 01/11/17 10:30 Alkaline Phosphatase 77 U/L (34-104) 01/11/17 10:30 Troponin I 0.01 ng/mL (0.01-0.05) 01/08/17 15:18 Total Protein 5.5 gm/dL (6.0-8.3) L 01/11/17 10:30 Albumin 3.4 gm/dL (4.2-5.5) L 01/11/17 10:30 Globulin 2.1 gm/dL 01/11/17 10:30 Albumin/Globulin Ratio 1.6 (1.0-1.8) 01/11/17 10:30 Triglycerides 136 mg/dL (<150) 01/09/17 08:55 Cholesterol 151 mg/dL (<200) 01/09/17 08:55 LDL Cholesterol Direct 87 mg/dL (75-193) 01/09/17 08:55 HDL Cholesterol 50 mg/dL (23-92) 01/09/17 08:55 TSH 0.07 uIU/ml (0.34-5.60) L 01/08/17 15:18 Urine Source CLEAN C 01/08/17 15:00 Urine Color YELLOW 01/08/17 15:00 Urine Clarity CLEAR (CLEAR) 01/08/17 15:00 Urine pH 5.5 01/08/17 15:00 Ur Specific [place] 1.025 (1.005-1.030) 01/08/17 15:00 Urine Protein NEGATIVE mg/dL (NEGATIVE) 01/08/17 15:00 Urine Glucose (UA) 250 mg/dL (NEGATIVE) H 01/08/17 15:00 Urine Ketones NEGATIVE mg/dL (NEGATIVE) 01/08/17 15:00 Urine Blood NEGATIVE (NEGATIVE) 01/08/17 15:00 Urine Nitrate NEGATIVE (NEGATIVE) 01/08/17 15:00 Urine Bilirubin NEGATIVE (NEGATIVE) 01/08/17 15:00 Urine Urobilinogen 0.2 E.U./dL (0.2 - 1.0) 01/08/17 15:00 Ur Leukocyte Esterase NEGATIVE (NEGATIVE) 01/08/17 15:00 Urine RBC NONE SEEN /hpf (0-5) 01/08/17 15:00 Urine WBC 0-2 /hpf (0-5) 01/08/17 15:00 Ur Epithelial Cells RARE /lpf (FEW) 01/08/17 15:00 Urine Bacteria FEW /hpf (NONE SEEN) 01/08/17 15:00 Urine Mucus FEW /lpf (FEW) 01/08/17 15:00 RPR NONREACTIVE (NONREACTIVE) 01/08/17 15:18 - Physical Exam Vitals and I&O: Vital Signs Temp 97.5 F 01/13/17 04:00 Pulse 55 01/13/17 04:00 Resp 20 01/13/17 04:00 BP 135/70 01/13/17 04:00 Pulse Ox 96 01/13/17 04:00 Intake & Output 01/12/17 01/12/17 01/13/17 06:59 18:59 06:59 Intake Total 290 937.5 200 Output Total 300 700 Balance -10 937.5 -500 Weight (lbs) 61.462 kg 63.639 kg Intake: Intake, IV Amount 937.5 Sodium Chloride 0.9% 1, 937.5 000 ml @ 50 mls/hr IV . Q20H [facility] Rx#:[id number] Oral 290 200 Output: Urine 300 700 Other: # Bowel Movements 0 0 Active Medications: Current Medications Acetaminophen (Tylenol) 650 mg PO Q4H PRN PRN Reason: MILD PAIN Stop: 03/10/17 21:29 Last Admin: 01/13/17 02:31 Dose: 650 mg Diphenhydramine HCl (Benadryl) 25 mg PO TID PRN PRN Reason: Itching Stop: 03/11/17 14:57 Last Admin: 01/12/17 23:05 Dose: 25 mg Glipizide (Glucotrol) 5 mg PO DAILY ABNER Stop: 03/13/17 08:59 Last Admin: 01/12/17 09:20 Dose: 5 mg Sodium Chloride (Nacl 0.9%) 1,000 mls @ 50 mls/hr IV .Q20H [facility] Stop: 03/11/17 08:03 Last Admin: 01/12/17 10:30 Dose: 50 mls/hr Insulin Aspart (Novolog) 0 units SUBQ ACHS ABNER PRN Reason: Protocol Stop: 03/09/17 20:59 Last Admin: 01/13/17 06:36 Dose: Not Given Metformin HCl (Glucophage) 500 mg PO DAILY ABNER Stop: 03/11/17 08:59 Last Admin: 01/12/17 09:21 Dose: 500 mg Nystatin (Mycostatin Cream) 1 appl TP DAILY PRN PRN Reason: Rash (BUTTOCKS) Stop: 03/10/17 09:05 Last Admin: 01/13/17 02:26 Dose: 1 appl General: Alert, Oriented x3, No acute distress HEENT: Atraumatic, PERRLA, EOMI Neck: Supple Cardiovascular: Regular rate Abdomen: Bowel sounds Neurological: Normal speech Assessment/Plan - Problem List Patient Problems: All Active Problems CAD (coronary artery disease) (Acute) I25.10 Debility (Acute) R53.81 Depression (Acute) F32.9 Diabetes mellitus (Acute) E11.9 Fatigue (Acute) R53.83 Hypertension (Acute) I10 Hyponatremia (Acute) E87.1 MALAISE (Acute) Tinea corporis (Acute) B35.4 - Assessment Assessment: Current Active Problems Problem Status Onset MALAISE Acute fatigue weakness diabetes mellitus hypertension hyperlipidemia CAD hyponatremia tinea corporis debility - Plan Plan: fatigue and weakness -- diabetes mellitus -- CMP,Hemoglobin A1c,TSH, accucheck AC HS, SSI hypertension -- continue BP meds hyperlipidemia -- on statin CAD tinea corporis -- improved. will continue current cream debility -- for detention placement suicidal ideation -- appreciate psychiatry note. Will continue current treatment hyponatremia ... continue IV fluids, will repeat BMP Nutritional Asmnt/Malnutr-PDOC - Dietary Evaluation Malnutrition Findings (Please click <Entered> for more info): Nutritional Asmnt/Malnutrition Start: 01/09/17 14: 43 Text: Status: Complete Freq: Document 01/09/17 14:43 GSUN (Rec: 01/09/17 15:13 GSUN [id number]) Nutritional Asmnt/Malnutrition Patient General Information Nutritional Screening High Risk Screening Diagnosis Fatigue, weakness, DM Pertinent Medical Hx/Surgical Hx CAD, HTN, hyperlipidemia, DM Subjective Information 81 [address] consult for BG >180. 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 Pt stated usually fair appetite. Pt is aware of elevated glucose, when asked if pt usually follows diabetic diet, pt replied the food in [place] was better. RD briefly explained [facility] diet, pt agreeable to plan. Pt apepared appropriate for age, mild wasting to chest noted. Pt reported UBW 170lb, EMR CBW 134lb, pt said he might have lost weight but unsure duration. 100% PO intake this breakfast, met nutritional needs. Teeth intact. Current Diet Order/ Nutrition Support [id number] Pertinent Medications Novolog, Levemir Pertinent Labs 01/09: glucose 263H Nutritional Hx/Data Height 1.65 m Height (Calculated Centimeters) 165.1 Current Weight (lbs) 58.06 kg Weight (Calculated Kilograms) 58.1 Weight (Calculated Grams) 22379.8 [place] Body Weight 125 Weight Status Approriate GI Symptoms Skin Integrity/Comment: Alexey 20. Skin intact. Estimated Nutritional Goals Calories/Kcals/Kg CBW 128lb/58.2kg Kcals Calculated 1455-1746kcal (25-30kcal/kg) Protein Calculated 58g (1g/kg) Fluid: ml 1455-1746ml (1ml/kcal) Nutritional Problem 1. Problem Problem Altered nutrition related laboratory values related to Etiology DM aeb Signs/Symptoms: glucose 231 on adm Intervention/Recommendation Comments 1. Continue with current diet order. Monitor PO intake, if meeting nutritional needs, recommend [id number] to better promote glycemic control. Expected Outcomes/Goals Expected Outcomes/Goals 1. PO intake to meet at least 75% of estimated nutritional needs.
[2017-01-13 07:49] LABS: ANION GAP 6.3 (7.0-16.0); BUN - UREA NITROGEN 15 mg/dL (7-25); BUN/CREATININE RATIO 21.4; CALCIUM SERUM 9.1 mg/dL (8.6-10.3); CARBON DIOXIDE 25.4 mEq/L (21.0-31.0); CHLORIDE 106 mEq/L (98-107); CREATININE - SERUM 0.7 mg/dL (0.7-1.3); GLUCOSE 155 mg/dL (70-105); POTASSIUM SERUM 3.7 mEq/L (3.5-5.1); SODIUM SERUM 134 mEq/L (136-145)
--- NOTE | 2017-01-13 11:16 | Progress Notes ---
DATE: 01/13/2017 SUBJECTIVE: The patient is an 81-year-old male brought in by daughter, confused, weak, fatigued, poor appetite, more forgetful. On [id number], the patient AO to name only, does not know where he is. He does not know why he is here, he does not know the year or the month for example. PAST PSYCH HISTORY: Unclear, possible demented. PAST MEDICAL HISTORY: Generalized weakness. Please see full H and P. SOCIAL HISTORY: Living with daughter. MENTAL STATUS EXAMINATION: Stated age, staring blankly. Speech: Decreased content. Mood "okay." No distress. Affect flat. Thought processes were confused, disoriented. No overt SI or HI. No psychotic symptoms, poor insight, poor judgment. PROVISIONAL DIAGNOSES: Likely dementia, also mood unspecified. RECOMMENDATIONS AND PLAN: There are concerns for safety in regards to his mood decompensation, weight loss, and behaviors. We will continue to monitor and follow up. Dr. Izaguirre is recommending a Geropsych placement. We will adjust medications as the patient becomes more medically stable. JOB# [id number]
[2017-01-13] MEDS: Sodium Chloride 0.9% 1,000 ML IV SCH ×2 (16:36→16:37)
--- NOTE | 2017-01-14 07:02 | General Progress Note ---
Subjective - Review of Systems Service Date: 01/14/17 Subjective: Patient was seen and evaluated. Resting comfortably in bed. No acute distress. No new changes. Objective - Results Result Diagrams: 01/09/17 08:55 01/13/17 07:15 Recent Labs: Laboratory Last Values WBC 6.8 Th/cmm (4.8-10.8) 01/09/17 08:55 RBC 4.81 Mil/cmm (3.80-5.80) 01/09/17 08:55 Hgb 15.5 gm/dL (12.6-17.4) 01/09/17 08:55 Hct 46.0 % (39.0-49.0) 01/09/17 08:55 MCV 95.8 fl (80-99) 01/09/17 08:55 MCH 32.2 pg (27.0-31.0) H 01/09/17 08:55 MCHC Differential 33.6 pg (28.0-36.0) 01/09/17 08:55 RDW 14.8 % (11.5-20.0) 01/09/17 08:55 Plt Count 156 Th/cmm (150-400) 01/09/17 08:55 MPV 8.7 fl 01/09/17 08:55 Neutrophils % 67.2 % (40.0-80.0) 01/09/17 08:55 Lymphocytes % 24.1 % (20.0-50.0) 01/09/17 08:55 Monocytes % 7.9 % (2.0-10.0) 01/09/17 08:55 Eosinophils % 0.8 % (0.0-5.0) 01/09/17 08:55 Basophils % 0.0 % (0.0-2.0) 01/09/17 08:55 PT 9.9 SECONDS (9.5-11.5) 01/08/17 15:18 INR 0.95 (0.5-1.4) 01/08/17 15:18 PTT (Actin FS) 22.9 SECONDS (26.0-38.0) L 01/08/17 15:18 Specimen Source Arterial 01/08/17 15:32 Sample Site Right Radial 01/08/17 15:32 pH 7.45 (7.35-7.45) 01/08/17 15:32 pCO2 36.0 mmHg (35.0-45.0) 01/08/17 15:32 pO2 77.0 mmHg (80.0-100.0) L 01/08/17 15:32 HCO3 25.8 mEq/L (20.0-26.0) 01/08/17 15:32 Base Excess 1.2 mEq/L (-3.0-3.0) 01/08/17 15:32 O2 Saturation 96.0 % (92.0-100.0) 01/08/17 15:32 Paddy Test YES 01/08/17 15:32 Vent Rate NAN 01/08/17 15:32 Inspired O2 21 01/08/17 15:32 Tidal Volume NA 01/08/17 15:32 PEEP NA 01/08/17 15:32 Pressure (ins/psv/peep) NA 01/08/17 15:32 Critical Value SH 01/08/17 15:32 Sodium 134 mEq/L (136-145) L 01/13/17 07:15 Potassium 3.7 mEq/L (3.5-5.1) 01/13/17 07:15 Chloride 106 mEq/L (98-107) 01/13/17 07:15 Carbon Dioxide 25.4 mEq/L (21.0-31.0) 01/13/17 07:15 Anion Gap 6.3 (7.0-16.0) L 01/13/17 07:15 BUN 15 mg/dL (7-25) 01/13/17 07:15 Creatinine 0.7 mg/dL (0.7-1.3) 01/13/17 07:15 Est GFR ( Amer) TNP 01/13/17 07:15 Est GFR (Non-Af Amer) TNP 01/13/17 07:15 BUN/Creatinine Ratio 21.4 01/13/17 07:15 Glucose 155 mg/dL (70-105) H 01/13/17 07:15 POC Glucose 122 MG/DL (70 - 105) H 01/14/17 06:44 Calcium 9.1 mg/dL (8.6-10.3) 01/13/17 07:15 Total Bilirubin 0.8 mg/dL (0.3-1.0) 01/11/17 10:30 AST 15 U/L (13-39) 01/11/17 10:30 ALT 21 U/L (7-52) 01/11/17 10:30 Alkaline Phosphatase 77 U/L (34-104) 01/11/17 10:30 Troponin I 0.01 ng/mL (0.01-0.05) 01/08/17 15:18 Total Protein 5.5 gm/dL (6.0-8.3) L 01/11/17 10:30 Albumin 3.4 gm/dL (4.2-5.5) L 01/11/17 10:30 Globulin 2.1 gm/dL 01/11/17 10:30 Albumin/Globulin Ratio 1.6 (1.0-1.8) 01/11/17 10:30 Triglycerides 136 mg/dL (<150) 01/09/17 08:55 Cholesterol 151 mg/dL (<200) 01/09/17 08:55 LDL Cholesterol Direct 87 mg/dL (75-193) 01/09/17 08:55 HDL Cholesterol 50 mg/dL (23-92) 01/09/17 08:55 TSH 0.07 uIU/ml (0.34-5.60) L 01/08/17 15:18 Urine Source CLEAN C 01/08/17 15:00 Urine Color YELLOW 01/08/17 15:00 Urine Clarity CLEAR (CLEAR) 01/08/17 15:00 Urine pH 5.5 01/08/17 15:00 Ur Specific [place] 1.025 (1.005-1.030) 01/08/17 15:00 Urine Protein NEGATIVE mg/dL (NEGATIVE) 01/08/17 15:00 Urine Glucose (UA) 250 mg/dL (NEGATIVE) H 01/08/17 15:00 Urine Ketones NEGATIVE mg/dL (NEGATIVE) 01/08/17 15:00 Urine Blood NEGATIVE (NEGATIVE) 01/08/17 15:00 Urine Nitrate NEGATIVE (NEGATIVE) 01/08/17 15:00 Urine Bilirubin NEGATIVE (NEGATIVE) 01/08/17 15:00 Urine Urobilinogen 0.2 E.U./dL (0.2 - 1.0) 01/08/17 15:00 Ur Leukocyte Esterase NEGATIVE (NEGATIVE) 01/08/17 15:00 Urine RBC NONE SEEN /hpf (0-5) 01/08/17 15:00 Urine WBC 0-2 /hpf (0-5) 01/08/17 15:00 Ur Epithelial Cells RARE /lpf (FEW) 01/08/17 15:00 Urine Bacteria FEW /hpf (NONE SEEN) 01/08/17 15:00 Urine Mucus FEW /lpf (FEW) 01/08/17 15:00 RPR NONREACTIVE (NONREACTIVE) 01/08/17 15:18 - Physical Exam Vitals and I&O: Vital Signs Temp 97.3 F 01/14/17 04:00 Pulse 61 01/14/17 04:00 Resp 18 01/14/17 04:00 BP 122/72 01/14/17 04:00 Pulse Ox 94 01/14/17 04:00 Intake & Output 01/13/17 01/14/17 01/14/17 18:59 06:59 18:59 Intake Total 600.833 Output Total 1000 Balance -399.167 Weight (lbs) 63.503 kg Intake: Intake, IV Amount 0.833 Sodium Chloride 0.9% 1, 0.833 000 ml @ 50 mls/hr IV . Q20H [facility] Rx#:[id number] Oral 600 Output: Urine 1000 Active Medications: Current Medications Acetaminophen (Tylenol) 650 mg PO Q4H PRN PRN Reason: MILD PAIN Stop: 03/10/17 21:29 Last Admin: 01/13/17 20:51 Dose: 650 mg Diphenhydramine HCl (Benadryl) 25 mg PO TID PRN PRN Reason: Itching Stop: 03/11/17 14:57 Last Admin: 01/13/17 16:36 Dose: 25 mg Glipizide (Glucotrol) 5 mg PO DAILY [facility] Stop: 03/13/17 08:59 Last Admin: 01/13/17 08:25 Dose: 5 mg Sodium Chloride (Nacl 0.9%) 1,000 mls @ 50 mls/hr IV .Q20H [facility] Stop: 03/11/17 08:03 Last Admin: 01/13/17 16:37 Dose: 50 mls/hr Insulin Aspart (Novolog) 0 units SUBQ ACHS ABNER PRN Reason: Protocol Stop: 03/09/17 20:59 Last Admin: 01/13/17 20:37 Dose: 4 units Metformin HCl (Glucophage) 500 mg PO DAILY [facility] Stop: 03/11/17 08:59 Last Admin: 01/13/17 08:25 Dose: 500 mg Nystatin (Mycostatin Cream) 1 appl TP DAILY PRN PRN Reason: Rash (BUTTOCKS) Stop: 03/10/17 09:05 Last Admin: 01/13/17 20:53 Dose: 1 appl General: Alert, Oriented x3, No acute distress HEENT: Atraumatic, PERRLA, EOMI Neck: Supple Cardiovascular: Regular rate Abdomen: Bowel sounds Neurological: Normal speech Assessment/Plan - Problem List Patient Problems: All Active Problems CAD (coronary artery disease) (Acute) I25.10 Debility (Acute) R53.81 Depression (Acute) F32.9 Diabetes mellitus (Acute) E11.9 Fatigue (Acute) R53.83 Hypertension (Acute) I10 Hyponatremia (Acute) E87.1 MALAISE (Acute) Tinea corporis (Acute) B35.4 - Assessment Assessment: Current Active Problems Problem Status Onset MALAISE Acute fatigue weakness diabetes mellitus hypertension hyperlipidemia CAD hyponatremia tinea corporis debility - Plan Plan: fatigue and weakness -- diabetes mellitus -- CMP,Hemoglobin A1c,TSH, accucheck AC HS, SSI hypertension -- continue BP meds hyperlipidemia -- on statin CAD tinea corporis -- improved. will continue current cream debility -- for [facility] placement suicidal ideation -- appreciate psychiatry note. Will continue current treatment hyponatremia ... continue IV fluids, will repeat BMP discharge planning Nutritional Asmnt/Malnutr-PDOC - Dietary Evaluation Malnutrition Findings (Please click <Entered> for more info): Nutritional Asmnt/Malnutrition Start: 01/09/17 14: 43 Text: Status: Complete Freq: Document 01/09/17 14:43 GSUN (Rec: 01/09/17 15:13 GSUN [id number]) Nutritional Asmnt/Malnutrition Patient General Information Nutritional Screening High Risk Screening Diagnosis Fatigue, weakness, DM Pertinent Medical Hx/Surgical Hx CAD, HTN, hyperlipidemia, DM Subjective Information 81 [address] consult for BG >180. 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 Pt stated usually fair appetite. Pt is aware of elevated glucose, when asked if pt usually follows diabetic diet, pt replied the food in [place] was better. RD briefly explained [facility] diet, pt agreeable to plan. Pt apepared appropriate for age, mild wasting to chest noted. Pt reported UBW 170lb, EMR CBW 134lb, pt said he might have lost weight but unsure duration. 100% PO intake this breakfast, met nutritional needs. Teeth intact. Current Diet Order/ Nutrition Support [id number] Pertinent Medications Novolog, Levemir Pertinent Labs 01/09: glucose 263H Nutritional Hx/Data Height 1.65 m Height (Calculated Centimeters) 165.1 Current Weight (lbs) 58.06 kg Weight (Calculated Kilograms) 58.1 Weight (Calculated Grams) 01231.8 [place] Body Weight 125 Weight Status Approriate GI Symptoms Skin Integrity/Comment: Alexey 20. Skin intact. Estimated Nutritional Goals Calories/Kcals/Kg CBW 128lb/58.2kg Kcals Calculated 1455-1746kcal (25-30kcal/kg) Protein Calculated 58g (1g/kg) Fluid: ml 1455-1746ml (1ml/kcal) Nutritional Problem 1. Problem Problem Altered nutrition related laboratory values related to Etiology DM aeb Signs/Symptoms: glucose 231 on adm Intervention/Recommendation Comments 1. Continue with current diet order. Monitor PO intake, if meeting nutritional needs, recommend [id number] to better promote glycemic control. Expected Outcomes/Goals Expected Outcomes/Goals 1. PO intake to meet at least 75% of estimated nutritional needs.
[2017-01-14] MEDS: INSULIN ASPART, RECOMBINANT 100 UNITS/ML SUBQ SCH ×4 (08:05→20:34)
[2017-01-14] MEDS: Sodium Chloride 0.9% 1,000 ML IV SCH (20:36)
--- NOTE | 2017-01-15 00:59 | Progress Notes ---
DATE: 01/14/2017 HISTORY OF PRESENT ILLNESS: The patient is seen, chart reviewed, discussed with staff. An 81-year-old male, confused, remains confused, concerns for appetite, forgetful. On [id number], he does not really know why he is here, ____, denying depression, denying anxiety, sleep "so-so," poor appetite. PAST MEDICAL HISTORY: Unclear, possibly dementia. SOCIAL HISTORY: Noted. MENTAL STATUS EXAMINATION: Stated age, flat affect, speech decreased content. Mood "okay." Affect flat. Thought processes disoriented. No SI, no HI, no overt psychotic symptoms. PROVISIONAL DIAGNOSIS: Rule out dementia, also mood unspecified. MEDICAL DIAGNOSIS: As noted. RECOMMENDATIONS AND PLAN: Continue to monitor. The patient may need Geropsych placement ____ further medical stabilization and likely make medication adjustments and recommendations. JOB# [id number]
[2017-01-15] MEDS: INSULIN ASPART, RECOMBINANT 100 UNITS/ML SUBQ SCH ×4 (06:30→21:56)
--- NOTE | 2017-01-15 08:13 | General Progress Note ---
Subjective - Review of Systems Service Date: 01/15/17 Subjective: Patient was seen and evaluated. Resting comfortably in bed. No acute distress. No new changes. flat affect. Objective - Results Result Diagrams: 01/09/17 08:55 01/13/17 07:15 Recent Labs: Laboratory Last Values WBC 6.8 Th/cmm (4.8-10.8) 01/09/17 08:55 RBC 4.81 Mil/cmm (3.80-5.80) 01/09/17 08:55 Hgb 15.5 gm/dL (12.6-17.4) 01/09/17 08:55 Hct 46.0 % (39.0-49.0) 01/09/17 08:55 MCV 95.8 fl (80-99) 01/09/17 08:55 MCH 32.2 pg (27.0-31.0) H 01/09/17 08:55 MCHC Differential 33.6 pg (28.0-36.0) 01/09/17 08:55 RDW 14.8 % (11.5-20.0) 01/09/17 08:55 Plt Count 156 Th/cmm (150-400) 01/09/17 08:55 MPV 8.7 fl 01/09/17 08:55 Neutrophils % 67.2 % (40.0-80.0) 01/09/17 08:55 Lymphocytes % 24.1 % (20.0-50.0) 01/09/17 08:55 Monocytes % 7.9 % (2.0-10.0) 01/09/17 08:55 Eosinophils % 0.8 % (0.0-5.0) 01/09/17 08:55 Basophils % 0.0 % (0.0-2.0) 01/09/17 08:55 PT 9.9 SECONDS (9.5-11.5) 01/08/17 15:18 INR 0.95 (0.5-1.4) 01/08/17 15:18 PTT (Actin FS) 22.9 SECONDS (26.0-38.0) L 01/08/17 15:18 Specimen Source Arterial 01/08/17 15:32 Sample Site Right Radial 01/08/17 15:32 pH 7.45 (7.35-7.45) 01/08/17 15:32 pCO2 36.0 mmHg (35.0-45.0) 01/08/17 15:32 pO2 77.0 mmHg (80.0-100.0) L 01/08/17 15:32 HCO3 25.8 mEq/L (20.0-26.0) 01/08/17 15:32 Base Excess 1.2 mEq/L (-3.0-3.0) 01/08/17 15:32 O2 Saturation 96.0 % (92.0-100.0) 01/08/17 15:32 Paddy Test YES 01/08/17 15:32 Vent Rate NAN 01/08/17 15:32 Inspired O2 21 01/08/17 15:32 Tidal Volume NA 01/08/17 15:32 PEEP NA 01/08/17 15:32 Pressure (ins/psv/peep) NA 01/08/17 15:32 Critical Value SH 01/08/17 15:32 Sodium 134 mEq/L (136-145) L 01/13/17 07:15 Potassium 3.7 mEq/L (3.5-5.1) 01/13/17 07:15 Chloride 106 mEq/L (98-107) 01/13/17 07:15 Carbon Dioxide 25.4 mEq/L (21.0-31.0) 01/13/17 07:15 Anion Gap 6.3 (7.0-16.0) L 01/13/17 07:15 BUN 15 mg/dL (7-25) 01/13/17 07:15 Creatinine 0.7 mg/dL (0.7-1.3) 01/13/17 07:15 Est GFR ( Amer) TNP 01/13/17 07:15 Est GFR (Non-Af Amer) TNP 01/13/17 07:15 BUN/Creatinine Ratio 21.4 01/13/17 07:15 Glucose 155 mg/dL (70-105) H 01/13/17 07:15 POC Glucose 119 MG/DL (70 - 105) H 01/15/17 06:12 Calcium 9.1 mg/dL (8.6-10.3) 01/13/17 07:15 Total Bilirubin 0.8 mg/dL (0.3-1.0) 01/11/17 10:30 AST 15 U/L (13-39) 01/11/17 10:30 ALT 21 U/L (7-52) 01/11/17 10:30 Alkaline Phosphatase 77 U/L (34-104) 01/11/17 10:30 Troponin I 0.01 ng/mL (0.01-0.05) 01/08/17 15:18 Total Protein 5.5 gm/dL (6.0-8.3) L 01/11/17 10:30 Albumin 3.4 gm/dL (4.2-5.5) L 01/11/17 10:30 Globulin 2.1 gm/dL 01/11/17 10:30 Albumin/Globulin Ratio 1.6 (1.0-1.8) 01/11/17 10:30 Triglycerides 136 mg/dL (<150) 01/09/17 08:55 Cholesterol 151 mg/dL (<200) 01/09/17 08:55 LDL Cholesterol Direct 87 mg/dL (75-193) 01/09/17 08:55 HDL Cholesterol 50 mg/dL (23-92) 01/09/17 08:55 TSH 0.07 uIU/ml (0.34-5.60) L 01/08/17 15:18 Urine Source CLEAN C 01/08/17 15:00 Urine Color YELLOW 01/08/17 15:00 Urine Clarity CLEAR (CLEAR) 01/08/17 15:00 Urine pH 5.5 01/08/17 15:00 Ur Specific [place] 1.025 (1.005-1.030) 01/08/17 15:00 Urine Protein NEGATIVE mg/dL (NEGATIVE) 01/08/17 15:00 Urine Glucose (UA) 250 mg/dL (NEGATIVE) H 01/08/17 15:00 Urine Ketones NEGATIVE mg/dL (NEGATIVE) 01/08/17 15:00 Urine Blood NEGATIVE (NEGATIVE) 01/08/17 15:00 Urine Nitrate NEGATIVE (NEGATIVE) 01/08/17 15:00 Urine Bilirubin NEGATIVE (NEGATIVE) 01/08/17 15:00 Urine Urobilinogen 0.2 E.U./dL (0.2 - 1.0) 01/08/17 15:00 Ur Leukocyte Esterase NEGATIVE (NEGATIVE) 01/08/17 15:00 Urine RBC NONE SEEN /hpf (0-5) 01/08/17 15:00 Urine WBC 0-2 /hpf (0-5) 01/08/17 15:00 Ur Epithelial Cells RARE /lpf (FEW) 01/08/17 15:00 Urine Bacteria FEW /hpf (NONE SEEN) 01/08/17 15:00 Urine Mucus FEW /lpf (FEW) 01/08/17 15:00 RPR NONREACTIVE (NONREACTIVE) 01/08/17 15:18 - Physical Exam Vitals and I&O: Vital Signs Temp 98.2 F 01/15/17 07:36 Pulse 62 01/15/17 07:36 Resp 18 01/15/17 07:36 BP 143/75 01/15/17 07:36 Pulse Ox 99 01/15/17 07:36 Intake & Output 01/14/17 01/15/17 01/15/17 18:59 06:59 18:59 Intake Total 1200 Balance 1200 Weight (lbs) 63.503 kg Intake: Intake, IV Amount 1000 Sodium Chloride 0.9% 1, 1000 000 ml @ 50 mls/hr IV . Q20H [facility] Rx#:[id number] Oral 200 Other: # Voids 2 # Bowel Movements 1 Active Medications: Current Medications Acetaminophen (Tylenol) 650 mg PO Q4H PRN PRN Reason: MILD PAIN Stop: 03/10/17 21:29 Last Admin: 01/13/17 20:51 Dose: 650 mg Diphenhydramine HCl (Benadryl) 25 mg PO TID PRN PRN Reason: Itching Stop: 03/11/17 14:57 Last Admin: 01/13/17 16:36 Dose: 25 mg Glipizide (Glucotrol) 5 mg PO DAILY [facility] Stop: 03/13/17 08:59 Last Admin: 01/14/17 08:16 Dose: 5 mg Sodium Chloride (Nacl 0.9%) 1,000 mls @ 50 mls/hr IV .Q20H [facility] Stop: 03/11/17 08:03 Last Admin: 01/14/17 20:36 Dose: 50 mls/hr Insulin Aspart (Novolog) 0 units SUBQ ACHS AB[facility] PRN Reason: Protocol Stop: 03/09/17 20:59 Last Admin: 01/15/17 06:30 Dose: Not Given Metformin HCl (Glucophage) 500 mg PO DAILY [facility] Stop: 03/11/17 08:59 Last Admin: 01/14/17 08:16 Dose: 500 mg Nystatin (Mycostatin Cream) 1 appl TP DAILY PRN PRN Reason: Rash (BUTTOCKS) Stop: 03/10/17 09:05 Last Admin: 01/13/17 20:53 Dose: 1 appl General: Alert, Oriented x3, No acute distress HEENT: Atraumatic, PERRLA, EOMI Neck: Supple Cardiovascular: Regular rate Abdomen: Bowel sounds Neurological: Normal speech Assessment/Plan - Problem List Patient Problems: All Active Problems Alzheimer disease (Acute) G30.9 CAD (coronary artery disease) (Acute) I25.10 Debility (Acute) R53.81 Dementia (Acute) F03.90 Depression (Acute) F32.9 Diabetes mellitus (Acute) E11.9 Fatigue (Acute) R53.83 Hypertension (Acute) I10 Hyponatremia (Acute) E87.1 MALAISE (Acute) Tinea corporis (Acute) B35.4 - Assessment Assessment: Current Active Problems Problem Status Onset MALAISE Acute fatigue weakness diabetes mellitus hypertension hyperlipidemia CAD hyponatremia tinea corporis debility depression Dementia Alzheimer's disease - Plan Plan: fatigue and weakness -- diabetes mellitus -- on diabetic diet, continue metformin and Glipizide. SSI hypertension -- improved. hyperlipidemia -- continue statin tinea corporis -- improved. will continue current cream hyponatremia ... improved. dementia/Alzheimer's ... patient started on Aricept 5mg PO daily Nutritional Asmnt/Malnutr-PDOC - Dietary Evaluation Malnutrition Findings (Please click <Entered> for more info): Nutritional Asmnt/Malnutrition Start: 01/09/17 14: 43 Text: Status: Complete Freq: Document 01/09/17 14:43 GSUN (Rec: 01/09/17 15:13 GSUN [id number]) Nutritional Asmnt/Malnutrition Patient General Information Nutritional Screening High Risk Screening Diagnosis Fatigue, weakness, DM Pertinent Medical Hx/Surgical Hx CAD, HTN, hyperlipidemia, DM Subjective Information 81 [address] consult for BG >180. 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 Pt stated usually fair appetite. Pt is aware of elevated glucose, when asked if pt usually follows diabetic diet, pt replied the food in [place] was better. RD briefly explained [facility] diet, pt agreeable to plan. Pt apepared appropriate for age, mild wasting to chest noted. Pt reported UBW 170lb, EMR CBW 134lb, pt said he might have lost weight but unsure duration. 100% PO intake this breakfast, met nutritional needs. Teeth intact. Current Diet Order/ Nutrition Support [id number] Pertinent Medications Novolog, Levemir Pertinent Labs 01/09: glucose 263H Nutritional Hx/Data Height 1.65 m Height (Calculated Centimeters) 165.1 Current Weight (lbs) 58.06 kg Weight (Calculated Kilograms) 58.1 Weight (Calculated Grams) 78177.8 [place] Body Weight 125 Weight Status Approriate GI Symptoms Skin Integrity/Comment: Alexey 20. Skin intact. Estimated Nutritional Goals Calories/Kcals/Kg CBW 128lb/58.2kg Kcals Calculated 1455-1746kcal (25-30kcal/kg) Protein Calculated 58g (1g/kg) Fluid: ml 1455-1746ml (1ml/kcal) Nutritional Problem 1. Problem Problem Altered nutrition related laboratory values related to Etiology DM aeb Signs/Symptoms: glucose 231 on adm Intervention/Recommendation Comments 1. Continue with current diet order. Monitor PO intake, if meeting nutritional needs, recommend [id number] to better promote glycemic control. Expected Outcomes/Goals Expected Outcomes/Goals 1. PO intake to meet at least 75% of estimated nutritional needs.
[2017-01-15] MEDS ORDERED: HYDROXYZINE HCL 10 MG/5 ML PO PRN (08:26)
[2017-01-15 09:05] LABS: % BASOPHILS 0.3 % (0.0-2.0); % LYMPHOCYTES 26.2 % (20.0-50.0); % MONOCYTES 7.6 % (2.0-10.0); % NEUTROPHILS 64.9 % (40.0-80.0); HEMOGLOBIN 14.8 gm/dL (12.6-17.4); MEAN CELL VOLUME 95.2 fl (80-99); MEAN CORPUSCULAR HEMOGLOBIN 31.4 pg (27.0-31.0); MEAN PLATELET VOLUME 8.2 fl; PLATELET COUNT 186 Th/cmm (150-400); RED BLOOD COUNT 4.72 Mil/cmm (3.80-5.80); RED CELL DISTRIBUTION WIDTH 14.7 % (11.5-20.0); WHITE BLOOD COUNT 6.2 Th/cmm (4.8-10.8)
[2017-01-15 09:20] LABS: ALB/GLOB RATIO 1.6 (1.0-1.8); ALKALINE PHOSPHATASE 76 U/L (34-104); ANION GAP 9.7 (7.0-16.0); BILIRUBIN,TOTAL 0.7 mg/dL (0.3-1.0); BUN - UREA NITROGEN 16 mg/dL (7-25); BUN/CREATININE RATIO 22.9; CALCIUM SERUM 9.1 mg/dL (8.6-10.3); CARBON DIOXIDE 25.1 mEq/L (21.0-31.0); CHLORIDE 104 mEq/L (98-107); CREATININE - SERUM 0.7 mg/dL (0.7-1.3); GLUCOSE 242 mg/dL (70-105); POTASSIUM SERUM 3.8 mEq/L (3.5-5.1); SGOT 18 U/L (13-39); SGPT/ALT 21 U/L (7-52); SODIUM SERUM 135 mEq/L (136-145)
[2017-01-15] MEDS: Nystatin Cream 100,000 u/gm Cream 15 gm TP PRN (14:15)
[2017-01-15] MEDS ORDERED: VTE Chemical Prophylaxis Screen/Admission MC PRN (17:06)
--- NOTE | 2017-01-16 00:20 | Progress Notes ---
DATE: 01/15/2017 COVERING FOR: Dr. Izaguirre. SUBJECTIVE: Case was discussed with staff of the patient, reviewed records. The patient is demented, confused, unable to make safe plan for self-care. Dr. Izaguirre, according to his notes wants him to be transferred to [facility] when medically cleared. So far he is on Aricept 5 mg at bedtime with no side effects and continues to have episodes of agitation and unable to meaningful conversation. Thank you very much for allowing me to participate in the care of this most interesting gentleman. JOB# [id number]
[2017-01-16] MEDS: Sodium Chloride 0.9% 1,000 ML IV SCH (03:59)
--- NOTE | 2017-01-16 08:46 | General Progress Note ---
Subjective - Review of Systems Service Date: 01/16/17 Subjective: Patient was seen and evaluated. Resting comfortably in bed. No acute distress. No new changes. Appreciate Psychiatric evaluation. Objective - Results Result Diagrams: 01/15/17 08:35 01/15/17 08:35 Recent Labs: Laboratory Last Values WBC 6.2 Th/cmm (4.8-10.8) 01/15/17 08:35 RBC 4.72 Mil/cmm (3.80-5.80) 01/15/17 08:35 Hgb 14.8 gm/dL (12.6-17.4) 01/15/17 08:35 Hct 45.0 % (39.0-49.0) 01/15/17 08:35 MCV 95.2 fl (80-99) 01/15/17 08:35 MCH 31.4 pg (27.0-31.0) H 01/15/17 08:35 MCHC Differential 33.0 pg (28.0-36.0) 01/15/17 08:35 RDW 14.7 % (11.5-20.0) 01/15/17 08:35 Plt Count 186 Th/cmm (150-400) 01/15/17 08:35 MPV 8.2 fl 01/15/17 08:35 Neutrophils % 64.9 % (40.0-80.0) 01/15/17 08:35 Lymphocytes % 26.2 % (20.0-50.0) 01/15/17 08:35 Monocytes % 7.6 % (2.0-10.0) 01/15/17 08:35 Eosinophils % 1.0 % (0.0-5.0) 01/15/17 08:35 Basophils % 0.3 % (0.0-2.0) 01/15/17 08:35 PT 9.9 SECONDS (9.5-11.5) 01/08/17 15:18 INR 0.95 (0.5-1.4) 01/08/17 15:18 PTT (Actin FS) 22.9 SECONDS (26.0-38.0) L 01/08/17 15:18 Specimen Source Arterial 01/08/17 15:32 Sample Site Right Radial 01/08/17 15:32 pH 7.45 (7.35-7.45) 01/08/17 15:32 pCO2 36.0 mmHg (35.0-45.0) 01/08/17 15:32 pO2 77.0 mmHg (80.0-100.0) L 01/08/17 15:32 HCO3 25.8 mEq/L (20.0-26.0) 01/08/17 15:32 Base Excess 1.2 mEq/L (-3.0-3.0) 01/08/17 15:32 O2 Saturation 96.0 % (92.0-100.0) 01/08/17 15:32 Padyd Test YES 01/08/17 15:32 Vent Rate NAN 01/08/17 15:32 Inspired O2 21 01/08/17 15:32 Tidal Volume NA 01/08/17 15:32 PEEP NA 01/08/17 15:32 Pressure (ins/psv/peep) NA 01/08/17 15:32 Critical Value SH 01/08/17 15:32 Sodium 135 mEq/L (136-145) L 01/15/17 08:35 Potassium 3.8 mEq/L (3.5-5.1) 01/15/17 08:35 Chloride 104 mEq/L (98-107) 01/15/17 08:35 Carbon Dioxide 25.1 mEq/L (21.0-31.0) 01/15/17 08:35 Anion Gap 9.7 (7.0-16.0) 01/15/17 08:35 BUN 16 mg/dL (7-25) 01/15/17 08:35 Creatinine 0.7 mg/dL (0.7-1.3) 01/15/17 08:35 Est GFR ( Amer) TNP 01/15/17 08:35 Est GFR (Non-Af Amer) TNP 01/15/17 08:35 BUN/Creatinine Ratio 22.9 01/15/17 08:35 Glucose 242 mg/dL (70-105) H 01/15/17 08:35 POC Glucose 113 MG/DL (70 - 105) H 01/16/17 06:54 Calcium 9.1 mg/dL (8.6-10.3) 01/15/17 08:35 Total Bilirubin 0.7 mg/dL (0.3-1.0) 01/15/17 08:35 AST 18 U/L (13-39) 01/15/17 08:35 ALT 21 U/L (7-52) 01/15/17 08:35 Alkaline Phosphatase 76 U/L (34-104) 01/15/17 08:35 Troponin I 0.01 ng/mL (0.01-0.05) 01/08/17 15:18 Total Protein 5.9 gm/dL (6.0-8.3) L 01/15/17 08:35 Albumin 3.6 gm/dL (4.2-5.5) L 01/15/17 08:35 Globulin 2.3 gm/dL 01/15/17 08:35 Albumin/Globulin Ratio 1.6 (1.0-1.8) 01/15/17 08:35 Triglycerides 136 mg/dL (<150) 01/09/17 08:55 Cholesterol 151 mg/dL (<200) 01/09/17 08:55 LDL Cholesterol Direct 87 mg/dL (75-193) 01/09/17 08:55 HDL Cholesterol 50 mg/dL (23-92) 01/09/17 08:55 TSH 0.07 uIU/ml (0.34-5.60) L 01/08/17 15:18 Urine Source CLEAN C 01/08/17 15:00 Urine Color YELLOW 01/08/17 15:00 Urine Clarity CLEAR (CLEAR) 01/08/17 15:00 Urine pH 5.5 01/08/17 15:00 Ur Specific [place] 1.025 (1.005-1.030) 01/08/17 15:00 Urine Protein NEGATIVE mg/dL (NEGATIVE) 01/08/17 15:00 Urine Glucose (UA) 250 mg/dL (NEGATIVE) H 01/08/17 15:00 Urine Ketones NEGATIVE mg/dL (NEGATIVE) 01/08/17 15:00 Urine Blood NEGATIVE (NEGATIVE) 01/08/17 15:00 Urine Nitrate NEGATIVE (NEGATIVE) 01/08/17 15:00 Urine Bilirubin NEGATIVE (NEGATIVE) 01/08/17 15:00 Urine Urobilinogen 0.2 E.U./dL (0.2 - 1.0) 01/08/17 15:00 Ur Leukocyte Esterase NEGATIVE (NEGATIVE) 01/08/17 15:00 Urine RBC NONE SEEN /hpf (0-5) 01/08/17 15:00 Urine WBC 0-2 /hpf (0-5) 01/08/17 15:00 Ur Epithelial Cells RARE /lpf (FEW) 01/08/17 15:00 Urine Bacteria FEW /hpf (NONE SEEN) 01/08/17 15:00 Urine Mucus FEW /lpf (FEW) 01/08/17 15:00 RPR NONREACTIVE (NONREACTIVE) 01/08/17 15:18 - Physical Exam Vitals and I&O: Vital Signs Temp 98.6 F 01/16/17 04:00 Pulse 59 01/16/17 04:00 Resp 19 01/16/17 04:00 BP 140/70 01/16/17 04:00 Pulse Ox 98 01/16/17 04:00 Intake & Output 01/15/17 01/16/17 01/16/17 18:59 06:59 18:59 Intake Total 300 1000 Balance 300 1000 Weight (lbs) 63.503 kg Intake: Intake, IV Amount 1000 Sodium Chloride 0.9% 1, 1000 000 ml @ 50 mls/hr IV . Q20H [facility] Rx#:[id number] Oral 300 Other: # Voids 2 # Bowel Movements 1 Active Medications: Current Medications Acetaminophen (Tylenol) 650 mg PO Q4H PRN PRN Reason: MILD PAIN Stop: 03/10/17 21:29 Last Admin: 01/13/17 20:51 Dose: 650 mg Diphenhydramine HCl (Benadryl) 25 mg PO TID PRN PRN Reason: Itching Stop: 03/11/17 14:57 Last Admin: 01/15/17 22:32 Dose: 25 mg Donepezil HCl (Aricept) 5 mg PO HS [facility] Stop: 03/16/17 20:59 Last Admin: 01/15/17 21:51 Dose: 5 mg Glipizide (Glucotrol) 5 mg PO DAILY [facility] Stop: 03/13/17 08:59 Last Admin: 01/15/17 08:54 Dose: 5 mg Hydroxyzine HCl (Atarax) 10 mg PO Q6H PRN PRN Reason: ITCHING Stop: 03/16/17 08:39 Last Admin: 01/15/17 12:11 Dose: 10 mg Sodium Chloride (Nacl 0.9%) 1,000 mls @ 50 mls/hr IV .Q20H [facility] Stop: 03/11/17 08:03 Last Admin: 01/16/17 03:59 Dose: 50 mls/hr Insulin Aspart (Novolog) 0 units SUBQ ACHS [facility] PRN Reason: Protocol Stop: 03/09/17 20:59 Last Admin: 01/15/17 21:56 Dose: 2 units Metformin HCl (Glucophage) 500 mg PO DAILY [facility] Stop: 03/11/17 08:59 Last Admin: 01/15/17 08:54 Dose: 500 mg Miscellaneous (Vte Chemical Prophylaxis Screen/ Admission) 1 ea MC PRN PRN PRN Reason: PROTOCOL Stop: 03/16/17 17:05 Nystatin (Mycostatin Cream) 1 appl TP DAILY PRN PRN Reason: Rash (BUTTOCKS) Stop: 03/10/17 09:05 Last Admin: 01/15/17 14:15 Dose: 1 appl General: Alert, Oriented x3, No acute distress HEENT: Atraumatic, PERRLA, EOMI Neck: Supple Cardiovascular: Regular rate Abdomen: Bowel sounds Neurological: Normal speech Assessment/Plan - Problem List Patient Problems: All Active Problems Alzheimer disease (Acute) G30.9 CAD (coronary artery disease) (Acute) I25.10 Debility (Acute) R53.81 Dementia (Acute) F03.90 Depression (Acute) F32.9 Diabetes mellitus (Acute) E11.9 Fatigue (Acute) R53.83 Hypertension (Acute) I10 Hyponatremia (Acute) E87.1 MALAISE (Acute) Tinea corporis (Acute) B35.4 - Assessment Assessment: Current Active Problems Problem Status Onset MALAISE Acute fatigue weakness diabetes mellitus hypertension hyperlipidemia CAD hyponatremia tinea corporis debility depression Dementia Alzheimer's disease - Plan Plan: fatigue and weakness -- diabetes mellitus -- on diabetic diet, continue metformin and Glipizide. SSI hypertension -- improved. hyperlipidemia -- continue statin tinea corporis -- improved. will continue current cream hyponatremia ... improved. dementia/Alzheimer's ... patient started on Aricept 5mg PO daily depression ... awaiting for placement to [facility] Nutritional Asmnt/Malnutr-PDOC - Dietary Evaluation Malnutrition Findings (Please click <Entered> for more info): Nutritional Asmnt/Malnutrition Start: 01/09/17 14: 43 Text: Status: Complete Freq: Document 01/09/17 14:43 GSUN (Rec: 01/09/17 15:13 GSUN [id number]) Nutritional Asmnt/Malnutrition Patient General Information Nutritional Screening High Risk Screening Diagnosis Fatigue, weakness, DM Pertinent Medical Hx/Surgical Hx CAD, HTN, hyperlipidemia, DM Subjective Information 81 [address] consult for BG >180. 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 Pt stated usually fair appetite. Pt is aware of elevated glucose, when asked if pt usually follows diabetic diet, pt replied the food in [place] was better. RD briefly explained [facility] diet, pt agreeable to plan. Pt apepared appropriate for age, mild wasting to chest noted. Pt reported UBW 170lb, EMR CBW 134lb, pt said he might have lost weight but unsure duration. 100% PO intake this breakfast, met nutritional needs. Teeth intact. Current Diet Order/ Nutrition Support [id number] Pertinent Medications Novolog, Levemir Pertinent Labs 01/09: glucose 263H Nutritional Hx/Data Height 1.65 m Height (Calculated Centimeters) 165.1 Current Weight (lbs) 58.06 kg Weight (Calculated Kilograms) 58.1 Weight (Calculated Grams) 45476.8 [place] Body Weight 125 Weight Status Approriate GI Symptoms Skin Integrity/Comment: Alexey 20. Skin intact. Estimated Nutritional Goals Calories/Kcals/Kg CBW 128lb/58.2kg Kcals Calculated 1455-1746kcal (25-30kcal/kg) Protein Calculated 58g (1g/kg) Fluid: ml 1455-1746ml (1ml/kcal) Nutritional Problem 1. Problem Problem Altered nutrition related laboratory values related to Etiology DM aeb Signs/Symptoms: glucose 231 on adm Intervention/Recommendation Comments 1. Continue with current diet order. Monitor PO intake, if meeting nutritional needs, recommend [id number] to better promote glycemic control. Expected Outcomes/Goals Expected Outcomes/Goals 1. PO intake to meet at least 75% of estimated nutritional needs.
[2017-01-16] MEDS: INSULIN ASPART, RECOMBINANT 100 UNITS/ML SUBQ SCH ×2 (10:34→12:49)
[2017-01-16] MEDS: Nystatin Cream 100,000 u/gm Cream 15 gm TP PRN (13:22)
== END 2017-01-16 17:30 | DRG 948 ==
LOC: ER 14:57 → TELE 17:01 → MSI 01-10 16:33
PROVIDERS: ADMIT Family Medicine; ATTEND Family Medicine
DX: R53.1 Weakness (principal); R45.851 Suicidal ideations; G30.9 Alzheimer's disease, unspecified; E87.1 Hypo-osmolality and hyponatremia; I10 Essential (primary) hypertension; B35.4 Tinea corporis; F02.80 Dementia in other diseases classified elsewhere, unspecified severity, without behavioral disturbance, psychotic disturbance, mood disturbance, and anxiety; E11.9 Type 2 diabetes mellitus without complications; I25.10 Atherosclerotic heart disease of native coronary artery without angina pectoris; R53.83 Other fatigue; E78.5 Hyperlipidemia, unspecified; R53.81 Other malaise; R09.02 Hypoxemia; R62.7 Adult failure to thrive; F29 Unspecified psychosis not due to a substance or known physiological condition
CPT/HCPCS: 36415-UA; 36600-90; 71010-TC; 80048-TC; 80053-TC; 80061-TC; 81001-TC; 82803-TC; 82948-90; 84443-TC; 84484-TC; 85025-TC; 85610-TC; 85730-TC; 86592-TC; 93005; J1815; J7030; J7042; Z7610

== ENCOUNTER 2017-01-16 17:40 | Inpatient (IN) | payer OTHER, MEDICARE ==
[2017-01-16] MEDS ORDERED: Magnesium Hydroxide (MOM) 30 mL UDC PO PRN (20:00)
[2017-01-16] MEDS ORDERED: Maalox 30 mL Cup PO PRN (20:00)
[2017-01-16] MEDS ORDERED: Nystatin Cream 100,000 u/gm Cream 15 gm TP PRN (20:18)
[2017-01-16] MEDS: INSULIN ASPART SLIDING SCALE 100 UNITS/ML UNIT SUBQ SCH (21:22)
--- NOTE | 2017-01-16 23:31 | Progress Notes ---
DATE: 01/16/2017 SUBJECTIVE: Case was discussed with staff of the patient, reviewed records. The patient has a euthymic mood, flat affect. He is confused. He denies any intent to harm himself or anybody. No delusions. The patient needs to be transferred to [facility] when medically cleared to further treat him and Dr. Izaguirre had him on Aricept 5 mg at bedtime with no side effects. I will continue to work with the patient in group therapy, milieu therapy, and adjust medication as needed. JOB# [id number]
[2017-01-17 01:37] VITALS: BP 152/83
[2017-01-17] MEDS: INSULIN ASPART SLIDING SCALE 100 UNITS/ML UNIT SUBQ SCH ×4 (06:33→20:37)
--- NOTE | 2017-01-17 08:31 | History and Physical ---
History of Present Illness - HPI Chief Complaint: psychosis HPI: 81 year old male who was brought to [facility] ER for increased fatigue and weakness and failure to thrive. Patient's daughter was unable to care for her father who has been ill for a while. He has a history of diabetes mellitus, hypertension not well controlled. He was initially seen in [facility] but was transferred to [facility] when he reported suicidal ideations noted by nursing staff. Patient was subsequently transferred to [facility] for further evaluation and treatment. Vital Signs: Last Vital Signs Temp 98.6 F 01/17/17 05:46 Pulse 79 01/17/17 05:46 Resp 20 01/17/17 05:46 BP 132/78 01/17/17 05:46 Pulse Ox 95 01/17/17 05:46 Past Medical History Cardiovascular: Report: CAD, HTN, Hyperlipidemia Pulmonary: Report: No Pertinent Hx ENGINEERING LEADER: Report: No Pertinent Hx GI: Report: Constipation, Gastritis Psych: Report: No Pertinent Hx Musculoskeletal: Report: No Pertinent Hx Rheumatologic: Report: No pertinent Hx Infectious Disease: Report: No Pertinent Hx Renal/: Report: No Pertinent Hx Endocrine: Report: Diabetes Dermatology: Report: No Pertinent Hx - Past Surgical History Past Surgical History: No pertinent Hx Family Medical History - Family Member Mother History Unknown: Yes Ethnicity: Living Status: Social History Smoke: No Alcohol: None Drugs: None Lives: Alone, With Family - Medications Home Medications: Home Medication Medication Instructions Recorded Type Unobtainable [Unobtainable] 01/08/17 History - Allergies Allergies/Adverse Reactions: Allergies Allergy/AdvReac Type Severity Reaction Status Date / Time No Known Allergies Allergy Verified 01/06/17 13:11 Review of Systems - Review of Systems Constitutional: Report: Weakness, Malaise Eyes: Report: No Significant ENT: Report: No Significant Respiratory: Report: No Significant Cardiovascular: Report: No Significant Gastrointestinal: Report: No Significant Genitourinary: Report: No Significant Musculoskeletal: Report: No Significant Skin: Report: No Significant Neurological: Report: No Significant Physical Exam - Physical Exam HEENT: Report: Ears Nose Throat within normal limits, Pharnyx within normal limits Neck: Report: Within normal limits Cardiovascular Systems: Report: +s1/s2 noted, Regular, Rate and Rhythm Respiratory: Report: Breath Sounds are within normal limits, Clear to Auscultation of lung izaguirre Abdomen: Report: Non-tender to palpation Back: Report: Inspection of back is within normal limits. Extremities: Report: Non-tender to palpation. - Lab Results All Lab Results last 24 hours: Laboratory Last Values POC Glucose 133 MG/DL (70 - 105) H 01/17/17 05:44 Laboratory Results - last 24 hr 01/16/17 01/17/17 21:14 05:44 POC Glucose 273 H 133 H - Assessment Assessment: psychosis diabetes mellitus hypertension hyperlipidemia CAD tinea corporis debility - Plan Plan: continue current treatment
[2017-01-17] MEDS: Multivitamin Tab PO SCH (09:57)
--- NOTE | 2017-01-17 21:37 | Psychosocial Evaluation ---
DATE OF SERVICE: 01/17/2017 CHIEF COMPLAINT: Depression and confusion. HISTORY OF PRESENT ILLNESS: The patient is transferred from [facility] because of increased depression and because of forgetfulness. The patient has been in a depressed mood and has been isolative and withdrawn. The patient also has not been able to follow staff directions and wants to be left alone because of his severe level of depression. The patient also has been anxious. The patient also has poor appetite. The patient also has lack of motivation and lack of energy. He has been taking Aricept 5 mg everyday. PAST PSYCHIATRIC HISTORY: The patient has history of dementia. PAST MEDICAL HISTORY: The patient has multiple medical problems and has been monitored by Dr. Lorenz. SOCIAL HISTORY: The patient lives in [facility]. No known alcohol or drug use. ALLERGIES: No known allergies. MENTAL STATUS EXAMINATION: The patient appears his stated age. Anxious. Sad affect. In a depressed mood. Disheveled. Thought processes are with poverty of speech. The patient did not answer questions regarding hallucinations or delusions, but seems to be preoccupied. The patient did not answer questions regarding suicide or homicide. The patient is alert, but confused and disoriented to time, place, person and situation. Impaired immediate, recent, and remote memories. Poor insight. Poor judgment. ASSESSMENT: PRIMARY DIAGNOSIS: Depressive disorder, unspecified. SECONDARY DIAGNOSIS: Dementia, moderate to severe, with psychotic features. TREATMENT PLAN AND RECOMMENDATIONS: We will start the patient on Remeron and we will adjust the dose. Also, we will continue Aricept. ESTIMATED LENGTH OF STAY: 7-10 days. THE PATIENT'S STRENGTHS AND WEAKNESSES: The patient's strength is not clear at this time. Weaknesses: Ineffective coping and his isolation. AFTER DISCHARGE PLAN: Outpatient treatment and followup will continue as an outpatient. CRITERIA FOR DISCHARGE: The patient will not be suicidal and will stabilize on psychotropic medications and will establish outpatient treatment plans. JOB# [id number]
[2017-01-18] MEDS: INSULIN ASPART SLIDING SCALE 100 UNITS/ML UNIT SUBQ SCH ×4 (06:47→20:50)
[2017-01-18] MEDS: Multivitamin Tab PO SCH (08:10)
--- NOTE | 2017-01-18 08:19 | General Progress Note ---
Subjective - Review of Systems Service Date: 01/18/17 Subjective: Awake,Alert,Afebrile Objective - Results Recent Labs: Laboratory Last Values POC Glucose 125 MG/DL (70 - 105) H 01/18/17 06:26 - Physical Exam Vitals and I&O: Vital Signs Temp 98.1 F 01/18/17 06:48 Pulse 720 01/18/17 06:48 Resp 20 01/18/17 06:48 BP 147/88 01/18/17 06:48 Pulse Ox 96 01/18/17 06:48 Intake & Output 01/17/17 01/18/17 01/18/17 18:59 06:59 18:59 Intake Total 700 120 Balance 700 120 Intake: Oral 700 120 Other: # Voids 3 3 # Bowel Movements 1 Active Medications: Current Medications Acetaminophen (Tylenol) 650 mg PO Q4HR PRN PRN Reason: Mild Pain / Temp above 100 Stop: 03/17/17 19:59 Al Hydrox/Mg Hydrox/Simethicone (Maalox) 30 ml PO Q4HR PRN PRN Reason: GI DISTRESS Stop: 03/17/17 19:59 Diphenhydramine HCl (Benadryl) 25 mg PO TID PRN PRN Reason: Itching Stop: 03/17/17 20:59 Last Admin: 01/16/17 21:20 Dose: 25 mg Donepezil HCl (Aricept) 5 mg PO HS ABNER Stop: 03/17/17 20:59 Last Admin: 01/17/17 20:40 Dose: 5 mg Glipizide (Glucotrol) 5 mg PO DAILY [facility] Stop: 03/18/17 08:59 Last Admin: 01/18/17 08:10 Dose: 5 mg Hydroxyzine HCl (Atarax) 10 mg PO Q6H PRN; Protocol PRN Reason: Itching Stop: 03/17/17 20:16 Insulin Aspart (Novolog Insulin Sliding Scale) 100 units SUBQ ACHS ABNER PRN Reason: Protocol Stop: 03/17/17 20:59 Last Admin: 01/18/17 06:47 Dose: Not Given Lorazepam (Ativan) 0.5 mg PO Q4HR PRN; Protocol PRN Reason: Anxiety Stop: 02/15/17 19:59 Magnesium Hydroxide (Milk Of Magnesia) 30 ml PO HS PRN PRN Reason: Constipation Metformin HCl (Glucophage) 500 mg PO DAILY ABNER Stop: 03/18/17 08:59 Last Admin: 01/18/17 08:09 Dose: 500 mg Mirtazapine (Remeron) 7.5 mg PO HS ABNER PRN Reason: Protocol Stop: 03/18/17 20:59 Last Admin: 01/17/17 20:40 Dose: 7.5 mg Multivitamins/Vitamin C (Theragran) 1 tab PO DAILY [facility] Stop: 03/18/17 08:59 Last Admin: 01/18/17 08:10 Dose: 1 tab Nystatin (Mycostatin Cream) 1 appl TP DAILY PRN PRN Reason: Rash Stop: 03/17/17 20:17 Zolpidem Tartrate (Ambien) 5 mg PO HS PRN PRN Reason: Insomnia Stop: 03/17/17 19:59 General: Alert, No acute distress HEENT: Atraumatic, PERRLA, EOMI Neck: Supple Cardiovascular: Regular rate, Normal S1, Normal S2 Lungs: Clear to auscultation Abdomen: Bowel sounds, Soft Extremities: no Clubbing, no Cyanosis, no Edema Assessment/Plan - Problem List Patient Problems: All Active Problems Alzheimer disease (Acute) G30.9 CAD (coronary artery disease) (Acute) I25.10 Debility (Acute) R53.81 Dementia (Acute) F03.90 Depression (Acute) F32.9 Diabetes mellitus (Acute) E11.9 Fatigue (Acute) R53.83 Hypertension (Acute) I10 Hyponatremia (Acute) E87.1 MALAISE (Acute) Tinea corporis (Acute) B35.4 - Assessment Assessment: psychosis diabetes mellitus hypertension hyperlipidemia CAD tinea corporis debility BP slightly elevated - Plan Plan: continue current treatment. continue to monitor BP. will add clonidine PRN
--- NOTE | 2017-01-19 01:30 | Progress Notes ---
DATE: 01/18/2017 SUBJECTIVE: Chart reviewed and the patient interviewed. Also discussed the patient's condition with the staff and reviewed records and labs. The patient continued to be severely depressed. The patient also is anxious and he is still guarded and withdrawn. The patient also is interacting minimally with others. The patient also still has lack of appetite, lack of energy, and tends to isolate himself. During interview, the patient had flat affect and mood appeared depressed. Also low tone and rate of speech, also slightly confused and forgetful. ASSESSMENT: The patient is still depressed. TREATMENT PLAN: We will continue Remeron at a dose of 7.5 mg at bedtime and we will continue to follow up closely. Also, encouraged the patient to interact more with others. JOB# [id number]
[2017-01-19] MEDS: INSULIN ASPART SLIDING SCALE 100 UNITS/ML UNIT SUBQ SCH ×4 (06:43→21:44)
--- NOTE | 2017-01-19 08:14 | General Progress Note ---
Subjective - Review of Systems Service Date: 01/19/17 Subjective: Awake,Alert,Afebrile. No new changes Objective - Results Recent Labs: Laboratory Last Values POC Glucose 134 MG/DL (70 - 105) H 01/19/17 06:07 - Physical Exam Vitals and I&O: Vital Signs Temp 98.2 F 01/18/17 14:00 Pulse 69 01/18/17 14:00 Resp 20 01/18/17 14:00 BP 140/84 01/18/17 14:00 Pulse Ox 95 01/18/17 14:00 Intake & Output 01/18/17 01/19/17 01/19/17 18:59 06:59 18:59 Intake Total 1200 Balance 1200 Intake: Oral 1200 Other: # Bowel Movements 1 Active Medications: Current Medications Acetaminophen (Tylenol) 650 mg PO Q4HR PRN PRN Reason: Mild Pain / Temp above 100 Stop: 03/17/17 19:59 Al Hydrox/Mg Hydrox/Simethicone (Maalox) 30 ml PO Q4HR PRN PRN Reason: GI DISTRESS Stop: 03/17/17 19:59 Diphenhydramine HCl (Benadryl) 25 mg PO TID PRN PRN Reason: Itching Stop: 03/17/17 20:59 Last Admin: 01/16/17 21:20 Dose: 25 mg Donepezil HCl (Aricept) 10 mg PO HS [facility] Stop: 03/17/17 20:59 Glipizide (Glucotrol) 5 mg PO DAILY [facility] Stop: 03/18/17 08:59 Last Admin: 01/18/17 08:10 Dose: 5 mg Hydroxyzine HCl (Atarax) 10 mg PO Q6H PRN; Protocol PRN Reason: Itching Stop: 03/17/17 20:16 Insulin Aspart (Novolog Insulin Sliding Scale) 100 units SUBQ ACHS ABNER PRN Reason: Protocol Stop: 03/17/17 20:59 Last Admin: 01/19/17 06:43 Dose: Not Given Lorazepam (Ativan) 0.5 mg PO Q4HR PRN; Protocol PRN Reason: Anxiety Stop: 02/15/17 19:59 Magnesium Hydroxide (Milk Of Magnesia) 30 ml PO HS PRN PRN Reason: Constipation Metformin HCl (Glucophage) 500 mg PO DAILY [facility] Stop: 03/18/17 08:59 Last Admin: 01/18/17 08:09 Dose: 500 mg Mirtazapine (Remeron) 7.5 mg PO HS ABNER PRN Reason: Protocol Stop: 03/18/17 20:59 Last Admin: 01/18/17 20:49 Dose: 7.5 mg Multivitamins/Vitamin C (Theragran) 1 tab PO DAILY [facility] Stop: 03/18/17 08:59 Last Admin: 01/18/17 08:10 Dose: 1 tab Nystatin (Mycostatin Cream) 1 appl TP DAILY PRN PRN Reason: Rash Stop: 03/17/17 20:17 Zolpidem Tartrate (Ambien) 5 mg PO HS PRN PRN Reason: Insomnia Stop: 03/17/17 19:59 Last Admin: 01/18/17 20:55 Dose: 5 mg General: Alert, No acute distress HEENT: Atraumatic, PERRLA, EOMI Neck: Supple Cardiovascular: Regular rate, Normal S1, Normal S2 Lungs: Clear to auscultation Abdomen: Bowel sounds, Soft Extremities: no Clubbing, no Cyanosis, no Edema Assessment/Plan - Problem List Patient Problems: All Active Problems Alzheimer disease (Acute) G30.9 CAD (coronary artery disease) (Acute) I25.10 Debility (Acute) R53.81 Dementia (Acute) F03.90 Depression (Acute) F32.9 Diabetes mellitus (Acute) E11.9 Fatigue (Acute) R53.83 Hypertension (Acute) I10 Hyponatremia (Acute) E87.1 MALAISE (Acute) Tinea corporis (Acute) B35.4 - Assessment Assessment: psychosis diabetes mellitus hypertension hyperlipidemia CAD tinea corporis debility BP slightly elevated low TSH rule out hyperthyroidism - Plan Plan: continue current treatment. continue to monitor BP. will add clonidine PRN. Will repeat TSH, T3 and Free T4 to rule our hyperthyroid.
[2017-01-19] MEDS: Multivitamin Tab PO SCH (09:03)
[2017-01-19 11:50] LABS: CHOLESTEROL 157 mg/dL (<200); TRIGLYCERIDES 226 mg/dL (<150)
--- NOTE | 2017-01-19 21:10 | Progress Notes ---
DATE: 01/19/2017 SUBJECTIVE: Chart reviewed and the patient interviewed. Also discussed the patient's condition with the staff and reviewed records and labs. The patient remains severely confused and restless. The patient yesterday called the police because of his fear and anxiety. Also, has been withdrawn, guarded, and needs lots of redirections. The patient is also was almost tearful and was very confused. At the same time, the patient still gets agitated when staff tries to help him with his ADLs. ASSESSMENT: The patient is still psychotic and depressed. TREATMENT PLAN: Continue Remeron in a dose of 7.5 mg at bedtime. Also, we will increase Aricept to 10 mg at bedtime. Also, continue to work on ineffective coping and on his irritability. JOB# [id number]
[2017-01-20] MEDS: INSULIN ASPART SLIDING SCALE 100 UNITS/ML UNIT SUBQ SCH ×4 (06:38→20:26)
--- NOTE | 2017-01-20 07:44 | General Progress Note ---
Subjective - Review of Systems Service Date: 01/20/17 Subjective: Awake,Alert,Afebrile. No new changes Objective - Results Recent Labs: Laboratory Last Values POC Glucose 136 MG/DL (70 - 105) H 01/20/17 06:10 Hemoglobin A1c % 6.6 % (4.0-6.0) H 01/19/17 11:23 Triglycerides 226 mg/dL (<150) H 01/19/17 11:23 Cholesterol 157 mg/dL (<200) 01/19/17 11:23 LDL Cholesterol Direct 86 mg/dL (75-193) 01/19/17 11:23 HDL Cholesterol 46 mg/dL (23-92) 01/19/17 11:23 Reverse T3 0.93 ng/mL (0.87-1.78) 01/19/17 11:23 TSH 0.02 uIU/ml (0.34-5.60) L 01/19/17 11:23 - Physical Exam Vitals and I&O: Vital Signs Temp 97.8 F 01/20/17 05:49 Pulse 79 01/20/17 05:49 Resp 18 01/20/17 05:49 BP 147/82 01/20/17 05:49 Pulse Ox 96 01/20/17 05:49 Intake & Output 01/19/17 01/20/17 01/20/17 18:59 06:59 18:59 Intake Total 850 480 Balance 850 480 Intake: Oral 850 480 Other: # Voids 3 1 # Bowel Movements 2 Active Medications: Current Medications Acetaminophen (Tylenol) 650 mg PO Q4HR PRN PRN Reason: Mild Pain / Temp above 100 Stop: 03/17/17 19:59 Al Hydrox/Mg Hydrox/Simethicone (Maalox) 30 ml PO Q4HR PRN PRN Reason: GI DISTRESS Stop: 03/17/17 19:59 Diphenhydramine HCl (Benadryl) 25 mg PO TID PRN PRN Reason: Itching Stop: 03/17/17 20:59 Last Admin: 01/16/17 21:20 Dose: 25 mg Donepezil HCl (Aricept) 10 mg PO HS [facility] Stop: 03/17/17 20:59 Last Admin: 01/19/17 21:42 Dose: 10 mg Glipizide (Glucotrol) 5 mg PO DAILY [facility] Stop: 03/18/17 08:59 Last Admin: 01/19/17 09:07 Dose: 5 mg Hydroxyzine HCl (Atarax) 10 mg PO Q6H PRN; Protocol PRN Reason: Itching Stop: 03/17/17 20:16 Insulin Aspart (Novolog Insulin Sliding Scale) 100 units SUBQ ACHS ABNER PRN Reason: Protocol Stop: 03/17/17 20:59 Last Admin: 01/20/17 06:38 Dose: Not Given Lorazepam (Ativan) 0.5 mg PO Q4HR PRN; Protocol PRN Reason: Anxiety Stop: 02/15/17 19:59 Magnesium Hydroxide (Milk Of Magnesia) 30 ml PO HS PRN PRN Reason: Constipation Metformin HCl (Glucophage) 500 mg PO DAILY [facility] Stop: 03/18/17 08:59 Last Admin: 01/19/17 09:03 Dose: 500 mg Mirtazapine (Remeron) 7.5 mg PO HS ABNER PRN Reason: Protocol Stop: 03/18/17 20:59 Last Admin: 01/19/17 21:42 Dose: 7.5 mg Multivitamins/Vitamin C (Theragran) 1 tab PO DAILY [facility] Stop: 03/18/17 08:59 Last Admin: 01/19/17 09:03 Dose: 1 tab Nystatin (Mycostatin Cream) 1 appl TP DAILY PRN PRN Reason: Rash Stop: 03/17/17 20:17 Zolpidem Tartrate (Ambien) 5 mg PO HS PRN PRN Reason: Insomnia Stop: 03/17/17 19:59 Last Admin: 01/18/17 20:55 Dose: 5 mg General: Alert, No acute distress HEENT: Atraumatic, PERRLA, EOMI Neck: Supple Cardiovascular: Regular rate, Normal S1, Normal S2 Lungs: Clear to auscultation Abdomen: Bowel sounds, Soft Extremities: no Clubbing, no Cyanosis, no Edema Assessment/Plan - Problem List Patient Problems: All Active Problems Hyperthyroidism (Acute) E05.90 Alzheimer disease (Acute) G30.9 CAD (coronary artery disease) (Acute) I25.10 Debility (Acute) R53.81 Dementia (Acute) F03.90 Depression (Acute) F32.9 Diabetes mellitus (Acute) E11.9 Fatigue (Acute) R53.83 Hypertension (Acute) I10 Hyponatremia (Acute) E87.1 MALAISE (Acute) Tinea corporis (Acute) B35.4 - Assessment Assessment: psychosis diabetes mellitus hypertension hyperlipidemia CAD tinea corporis debility BP slightly elevated hyperthyroidism -- will add tapazole 5mg PO daily - Plan Plan: .psychosis diabetes mellitus hypertension hyperlipidemia CAD tinea corporis debility BP slightly elevated hyperthyroidism -- will add tapazole 5mg PO daily Nutritional Asmnt/Malnutr-PDOC - Dietary Evaluation Malnutrition Findings (Please click <Entered> for more info): Nutritional Asmnt/Malnutrition Start: 01/17/17 11: 00 Text: Status: Complete Freq: Document 01/19/17 18:38 [facility] (Rec: 01/19/17 18:45 [facility] [id number]) Nutritional Asmnt/Malnutrition Patient General Information Nutritional Screening High Risk Screening Diagnosis Psychosis Pertinent Medical Hx/Surgical Hx CAD, HTN, hyperlipidemia, constipation, gastritis, DM Subjective Information Pt is a 81-year-old male admitted with chief complaint of psychosis. Per H&P, pt has hx failure to thrive. Pt speaks Arabic and understands minimal Serbian. Current Diet Order/ Nutrition Support CCHO-75 GM Pertinent Medications Glipizide, Novolog, Glucophage , Theragran Pertinent Labs (01/19) Triglycerides 226H, A1C 6.6H, POC Glucose 141-215H. Nutritional Hx/Data Height 1.65 m Height (Calculated Centimeters) 165.1 Current Weight (lbs) 63.503 kg Weight (Calculated Kilograms) 63.5 Weight (Calculated Grams) 14043.9 Peck Body Weight 136 % Peck Body Weight 103 Recent Weight Change No Weight Status Approriate GI Symptoms GI Symptoms None Food Allergies No Skin Integrity/Comment: Alexey 15. Skin intact but rash to buttocks noted. Current %PO Good (75-100%) Estimated Nutritional Goals BEE in Kcals: Using Current wt Kcals Calculated 2469-0406 kcals/day (25-30 kcals/kg) Protein: Using Current wt Protein g/kg: Based on current wt 63.6 kg Protein Calculated 64 gm/day (1 gm/kg) Fluid: ml 6699-3370 ml/day (30-35 ml/kg) Nutritional Problem 1. Problem Problem Altered nutrition-related laboratory values related to Etiology DM, possible inconsistent carbohydrate intake as evidenced by Signs/Symptoms: A1C 6.6%, admitting glucose 242 mg/dl. Malnutrition Related to Morbid Obesity Malnutrition related to morbid obesity No Intervention/Recommendation Recommendations by RD Dietary Education by RD1 Comments 1. Recommend CCHO-60 GM diet to prevent excessive carbohydrate intake. 2. Educate pt or family on CCHO, as able. Expected Outcomes/Goals Expected Outcomes/Goals Blood glucose will trend towards desired parameters. Physician Parameters for PEM Normal Weight % 90% - 110% (Normal) Body Mass Index (BMI) 19 - 24 (Normal)
[2017-01-20] MEDS: Multivitamin Tab PO SCH (08:33)
--- NOTE | 2017-01-20 21:34 | Progress Notes ---
DATE: 01/20/2017 The patient was seen, chart reviewed, and discussed with staff. The patient continues to be very disoriented, confused, restless, and often quite irritable; however, the patient has not been calling 911 from the unit. Does require continuous redirections. He has been compliant with medications, denying any undue side effects. PLAN: The patient continues to be very psychotic, unpredictable, so he will require treatment. We will monitor the patient on a daily basis for response to treatment and titrate him as needed. JOB# [id number]
[2017-01-21] MEDS: INSULIN ASPART SLIDING SCALE 100 UNITS/ML UNIT SUBQ SCH ×4 (06:32→21:31)
--- NOTE | 2017-01-21 08:04 | General Progress Note ---
Subjective - Review of Systems Service Date: 01/21/17 Subjective: Awake,Alert,Afebrile. No new changes Objective - Results Recent Labs: Laboratory Last Values POC Glucose 127 MG/DL (70 - 105) H 01/21/17 06:08 Hemoglobin A1c % 6.6 % (4.0-6.0) H 01/19/17 11:23 Triglycerides 226 mg/dL (<150) H 01/19/17 11:23 Cholesterol 157 mg/dL (<200) 01/19/17 11:23 LDL Cholesterol Direct 86 mg/dL (75-193) 01/19/17 11:23 HDL Cholesterol 46 mg/dL (23-92) 01/19/17 11:23 Free T4 1.82 ng/dL (0.82-1.77) H 01/19/17 11:23 Reverse T3 0.93 ng/mL (0.87-1.78) 01/19/17 11:23 TSH 0.02 uIU/ml (0.34-5.60) L 01/19/17 11:23 - Physical Exam Vitals and I&O: Vital Signs Temp 97.3 F 01/21/17 06:55 Pulse 74 01/21/17 06:55 Resp 20 01/21/17 06:55 BP 113/65 01/21/17 06:55 Pulse Ox 99 01/21/17 06:55 Intake & Output 01/20/17 01/21/17 01/21/17 18:59 06:59 18:59 Intake Total 120 Balance 120 Intake: Oral 120 Other: # Voids 3 Active Medications: Current Medications Acetaminophen (Tylenol) 650 mg PO Q4HR PRN PRN Reason: Mild Pain / Temp above 100 Stop: 03/17/17 19:59 Al Hydrox/Mg Hydrox/Simethicone (Maalox) 30 ml PO Q4HR PRN PRN Reason: GI DISTRESS Stop: 03/17/17 19:59 Diphenhydramine HCl (Benadryl) 25 mg PO TID PRN PRN Reason: Itching Stop: 03/17/17 20:59 Last Admin: 01/16/17 21:20 Dose: 25 mg Donepezil HCl (Aricept) 10 mg PO HS [facility] Stop: 03/17/17 20:59 Last Admin: 01/20/17 20:25 Dose: 10 mg Glipizide (Glucotrol) 5 mg PO DAILY [facility] Stop: 03/18/17 08:59 Last Admin: 01/20/17 08:32 Dose: 5 mg Hydroxyzine HCl (Atarax) 10 mg PO Q6H PRN; Protocol PRN Reason: Itching Stop: 03/17/17 20:16 Insulin Aspart (Novolog Insulin Sliding Scale) 100 units SUBQ ACHS ABNER PRN Reason: Protocol Stop: 03/17/17 20:59 Last Admin: 01/21/17 06:32 Dose: Not Given Lorazepam (Ativan) 0.5 mg PO Q4HR PRN; Protocol PRN Reason: Anxiety Stop: 02/15/17 19:59 Magnesium Hydroxide (Milk Of Magnesia) 30 ml PO HS PRN PRN Reason: Constipation Metformin HCl (Glucophage) 500 mg PO DAILY [facility] Stop: 03/18/17 08:59 Last Admin: 01/20/17 08:38 Dose: 500 mg Methimazole (Tapazole) 5 mg PO DAILY [facility] Stop: 03/21/17 08:59 Last Admin: 01/20/17 08:32 Dose: 5 mg Mirtazapine (Remeron) 7.5 mg PO HS ABNER PRN Reason: Protocol Stop: 03/18/17 20:59 Last Admin: 01/20/17 20:25 Dose: 7.5 mg Multivitamins/Vitamin C (Theragran) 1 tab PO DAILY [facility] Stop: 03/18/17 08:59 Last Admin: 01/20/17 08:33 Dose: 1 tab Nystatin (Mycostatin Cream) 1 appl TP DAILY PRN PRN Reason: Rash Stop: 03/17/17 20:17 Zolpidem Tartrate (Ambien) 5 mg PO HS PRN PRN Reason: Insomnia Stop: 03/17/17 19:59 Last Admin: 01/18/17 20:55 Dose: 5 mg General: Alert, No acute distress HEENT: Atraumatic, PERRLA, EOMI Neck: Supple Cardiovascular: Regular rate, Normal S1, Normal S2 Lungs: Clear to auscultation Abdomen: Bowel sounds, Soft Extremities: no Clubbing, no Cyanosis, no Edema Assessment/Plan - Problem List Patient Problems: All Active Problems Hyperthyroidism (Acute) E05.90 Alzheimer disease (Acute) G30.9 CAD (coronary artery disease) (Acute) I25.10 Debility (Acute) R53.81 Dementia (Acute) F03.90 Depression (Acute) F32.9 Diabetes mellitus (Acute) E11.9 Fatigue (Acute) R53.83 Hypertension (Acute) I10 Hyponatremia (Acute) E87.1 MALAISE (Acute) Tinea corporis (Acute) B35.4 - Assessment Assessment: psychosis diabetes mellitus hypertension hyperlipidemia CAD tinea corporis debility BP slightly elevated hyperthyroidism -- will add tapazole 5mg PO daily - Plan Plan: .psychosis diabetes mellitus hypertension hyperlipidemia CAD tinea corporis debility BP slightly elevated hyperthyroidism -- will add tapazole 5mg PO daily Nutritional Asmnt/Malnutr-PDOC - Dietary Evaluation Malnutrition Findings (Please click <Entered> for more info): Nutritional Asmnt/Malnutrition Start: 01/17/17 11: 00 Text: Status: Complete Freq: Document 01/19/17 18:38 [facility] (Rec: 01/19/17 18:45 [facility] [id number]) Nutritional Asmnt/Malnutrition Patient General Information Nutritional Screening High Risk Screening Diagnosis Psychosis Pertinent Medical Hx/Surgical Hx CAD, HTN, hyperlipidemia, constipation, gastritis, DM Subjective Information Pt is a 81-year-old male admitted with chief complaint of psychosis. Per H&P, pt has hx failure to thrive. Pt speaks Angolan and understands minimal Hungarian. Current Diet Order/ Nutrition Support CCHO-75 GM Pertinent Medications Glipizide, Novolog, Glucophage , Theragran Pertinent Labs (01/19) Triglycerides 226H, A1C 6.6H, POC Glucose 141-215H. Nutritional Hx/Data Height 1.65 m Height (Calculated Centimeters) 165.1 Current Weight (lbs) 63.503 kg Weight (Calculated Kilograms) 63.5 Weight (Calculated Grams) 80437.9 [place]obbins Body Weight 136 % [place] Body Weight 103 Recent Weight Change No Weight Status Approriate GI Symptoms GI Symptoms None Food Allergies No Skin Integrity/Comment: Alexey 15. Skin intact but rash to buttocks noted. Current %PO Good (75-100%) Estimated Nutritional Goals BEE in Kcals: Using Current wt Kcals Calculated 7335-9761 kcals/day (25-30 kcals/kg) Protein: Using Current wt Protein g/kg: Based on current wt 63.6 kg Protein Calculated 64 gm/day (1 gm/kg) Fluid: ml 7788-6733 ml/day (30-35 ml/kg) Nutritional Problem 1. Problem Problem Altered nutrition-related laboratory values related to Etiology DM, possible inconsistent carbohydrate intake as evidenced by Signs/Symptoms: A1C 6.6%, admitting glucose 242 mg/dl. Malnutrition Related to Morbid Obesity Malnutrition related to morbid obesity No Intervention/Recommendation Recommendations by RD Dietary Education by RD1 Comments 1. Recommend CCHO-60 GM diet to prevent excessive carbohydrate intake. 2. Educate pt or family on CCHO, as able. Expected Outcomes/Goals Expected Outcomes/Goals Blood glucose will trend towards desired parameters. Physician Parameters for PEM Normal Weight % 90% - 110% (Normal) Body Mass Index (BMI) 19 - 24 (Normal)
[2017-01-21] MEDS: Multivitamin Tab PO SCH (08:37)
--- NOTE | 2017-01-21 22:20 | Progress Notes ---
DATE: 01/21/2017 SUBJECTIVE: The patient was seen, chart reviewed, discussed with staff. The patient is currently in the hospital, [place] only. States he is not suicidal, but apparently he had worsening depression, forgetfulness, isolative, withdrawn, anxious, restless, states he wants to go home, but also at the same time states he does not have a home to go to, but per documentation living in [facility]. saw this patient yesterday, noted that he remains depressed, confused, irritable, still requiring a lot of redirection and prompting. ASSESSMENT: The patient remains unpredictable, somewhat confused, disoriented and depressed. He is fixated on leaving, but there are continued concerns about his ability to function a lower level of care. PLAN: Continue to monitor and adjust medications as tolerated. Monitor for side effects. Coordinate care with social work regarding safe discharge planning and good psychiatric followup. [facility]# [id number]
[2017-01-22] MEDS: INSULIN ASPART SLIDING SCALE 100 UNITS/ML UNIT SUBQ SCH ×4 (06:45→21:14)
--- NOTE | 2017-01-22 08:32 | General Progress Note ---
Subjective - Review of Systems Service Date: 01/22/17 Subjective: Awake,Alert,Afebrile. No new changes Objective - Results Recent Labs: Laboratory Last Values POC Glucose 197 MG/DL (70 - 105) H 01/21/17 19:59 Hemoglobin A1c % 6.6 % (4.0-6.0) H 01/19/17 11:23 Triglycerides 226 mg/dL (<150) H 01/19/17 11:23 Cholesterol 157 mg/dL (<200) 01/19/17 11:23 LDL Cholesterol Direct 86 mg/dL (75-193) 01/19/17 11:23 HDL Cholesterol 46 mg/dL (23-92) 01/19/17 11:23 Free T4 1.82 ng/dL (0.82-1.77) H 01/19/17 11:23 Reverse T3 0.93 ng/mL (0.87-1.78) 01/19/17 11:23 TSH 0.02 uIU/ml (0.34-5.60) L 01/19/17 11:23 - Physical Exam Vitals and I&O: Vital Signs Temp 97.8 F 01/22/17 05:38 Pulse 81 01/22/17 05:38 Resp 20 01/22/17 05:38 BP 149/91 01/22/17 05:38 Pulse Ox 95 01/22/17 05:38 Intake & Output 01/21/17 01/22/17 01/22/17 18:59 06:59 18:59 Intake Total 2550 120 Balance 2550 120 Intake: Oral 2550 120 Other: # Voids 3 4 # Bowel Movements 2 0 Active Medications: Current Medications Acetaminophen (Tylenol) 650 mg PO Q4HR PRN PRN Reason: Mild Pain / Temp above 100 Stop: 03/17/17 19:59 Al Hydrox/Mg Hydrox/Simethicone (Maalox) 30 ml PO Q4HR PRN PRN Reason: GI DISTRESS Stop: 03/17/17 19:59 Diphenhydramine HCl (Benadryl) 25 mg PO TID PRN PRN Reason: Itching Stop: 03/17/17 20:59 Last Admin: 01/16/17 21:20 Dose: 25 mg Donepezil HCl (Aricept) 10 mg PO HS ABNER Stop: 03/17/17 20:59 Last Admin: 01/21/17 21:31 Dose: 10 mg Glipizide (Glucotrol) 5 mg PO DAILY ABNER Stop: 03/18/17 08:59 Last Admin: 01/21/17 08:37 Dose: 5 mg Hydroxyzine HCl (Atarax) 10 mg PO Q6H PRN; Protocol PRN Reason: Itching Stop: 03/17/17 20:16 Insulin Aspart (Novolog Insulin Sliding Scale) 100 units SUBQ ACHS ABNER PRN Reason: Protocol Stop: 03/17/17 20:59 Last Admin: 01/22/17 06:45 Dose: Not Given Lorazepam (Ativan) 0.5 mg PO Q4HR PRN; Protocol PRN Reason: Anxiety Stop: 02/15/17 19:59 Magnesium Hydroxide (Milk Of Magnesia) 30 ml PO HS PRN PRN Reason: Constipation Metformin HCl (Glucophage) 500 mg PO DAILY ABNER Stop: 03/18/17 08:59 Last Admin: 01/21/17 08:37 Dose: 500 mg Methimazole (Tapazole) 5 mg PO DAILY ABNER Stop: 03/21/17 08:59 Last Admin: 01/21/17 09:20 Dose: Not Given Mirtazapine (Remeron) 7.5 mg PO HS ABNER PRN Reason: Protocol Stop: 03/18/17 20:59 Last Admin: 01/21/17 21:31 Dose: 7.5 mg Multivitamins/Vitamin C (Theragran) 1 tab PO DAILY ABNER Stop: 03/18/17 08:59 Last Admin: 01/21/17 08:37 Dose: 1 tab Nystatin (Mycostatin Cream) 1 appl TP DAILY PRN PRN Reason: Rash Stop: 03/17/17 20:17 Zolpidem Tartrate (Ambien) 5 mg PO HS PRN PRN Reason: Insomnia Stop: 03/17/17 19:59 Last Admin: 01/18/17 20:55 Dose: 5 mg General: Alert, No acute distress HEENT: Atraumatic, PERRLA, EOMI Neck: Supple Cardiovascular: Regular rate, Normal S1, Normal S2 Lungs: Clear to auscultation Abdomen: Bowel sounds, Soft Extremities: no Clubbing, no Cyanosis, no Edema Assessment/Plan - Problem List Patient Problems: All Active Problems Hyperthyroidism (Acute) E05.90 Alzheimer disease (Acute) G30.9 CAD (coronary artery disease) (Acute) I25.10 Debility (Acute) R53.81 Dementia (Acute) F03.90 Depression (Acute) F32.9 Diabetes mellitus (Acute) E11.9 Fatigue (Acute) R53.83 Hypertension (Acute) I10 Hyponatremia (Acute) E87.1 MALAISE (Acute) Tinea corporis (Acute) B35.4 - Assessment Assessment: psychosis diabetes mellitus hypertension hyperlipidemia CAD tinea corporis debility hypertension ... will add atenolol 25 mg PO daily. on clonidine. hyperthyroidism -- will add tapazole 5mg PO daily - Plan Plan: psychosis diabetes mellitus hypertension hyperlipidemia CAD tinea corporis debility hypertension ... will add atenolol 25 mg PO daily. on clonidine. hyperthyroidism -- will add tapazole 5mg PO daily Nutritional Asmnt/Malnutr-PDOC - Dietary Evaluation Malnutrition Findings (Please click <Entered> for more info): Nutritional Asmnt/Malnutrition Start: 01/17/17 11: 00 Text: Status: Complete Freq: Document 01/19/17 18:38 [facility] (Rec: 01/19/17 18:45 [facility] [id number]) Nutritional Asmnt/Malnutrition Patient General Information Nutritional Screening High Risk Screening Diagnosis Psychosis Pertinent Medical Hx/Surgical Hx CAD, HTN, hyperlipidemia, constipation, gastritis, DM Subjective Information Pt is a 81-year-old male admitted with chief complaint of psychosis. Per H&P, pt has hx failure to thrive. Pt speaks Ukrainian and understands minimal Mohawk. Current Diet Order/ Nutrition Support CCHO-75 GM Pertinent Medications Glipizide, Novolog, Glucophage , Theragran Pertinent Labs (01/19) Triglycerides 226H, A1C 6.6H, POC Glucose 141-215H. Nutritional Hx/Data Height 1.65 m Height (Calculated Centimeters) 165.1 Current Weight (lbs) 63.503 kg Weight (Calculated Kilograms) 63.5 Weight (Calculated Grams) 30234.9 [place] Body Weight 136 % [place] Body Weight 103 Recent Weight Change No Weight Status Approriate GI Symptoms GI Symptoms None Food Allergies No Skin Integrity/Comment: Alexey 15. Skin intact but rash to buttocks noted. Current %PO Good (75-100%) Estimated Nutritional Goals BEE in Kcals: Using Current wt Kcals Calculated 0830-0117 kcals/day (25-30 kcals/kg) Protein: Using Current wt Protein g/kg: Based on current wt 63.6 kg Protein Calculated 64 gm/day (1 gm/kg) Fluid: ml 0467-1342 ml/day (30-35 ml/kg) Nutritional Problem 1. Problem Problem Altered nutrition-related laboratory values related to Etiology DM, possible inconsistent carbohydrate intake as evidenced by Signs/Symptoms: A1C 6.6%, admitting glucose 242 mg/dl. Malnutrition Related to Morbid Obesity Malnutrition related to morbid obesity No Intervention/Recommendation Recommendations by RD Dietary Education by RD1 Comments 1. Recommend CCHO-60 GM diet to prevent excessive carbohydrate intake. 2. Educate pt or family on CCHO, as able. Expected Outcomes/Goals Expected Outcomes/Goals Blood glucose will trend towards desired parameters. Physician Parameters for PEM Normal Weight % 90% - 110% (Normal) Body Mass Index (BMI) 19 - 24 (Normal)
[2017-01-22] MEDS: Multivitamin Tab PO SCH (08:48)
--- NOTE | 2017-01-23 01:12 | Progress Notes ---
DATE: 01/22/2017 SUBJECTIVE: Chart reviewed and the patient interviewed. Also discussed the patient's condition with the staff and reviewed records and labs. The patient continued to be severely depressed and he is still withdrawn and guarded. The patient also still has lack of motivation and isolative and wants to be left alone. Also, has difficulty with interacting with others and difficulty expressing himself and his feelings. Otherwise, the patient continued to comply with taking his medications with no side effects of medications. During interview, the patient has poor eye contact and low tone and rate of speech. Also, the patient is disheveled. ASSESSMENT: The patient is still depressed. TREATMENT PLAN: We will continue Remeron 7.5 mg at bedtime and Aricept 10 mg every day. Also discussed with catalytic case operator discharge plans and the patient will need placement and he is working with the family in regard to placement issues. JOB# [id number]
[2017-01-23] MEDS: INSULIN ASPART SLIDING SCALE 100 UNITS/ML UNIT SUBQ SCH ×4 (06:31→21:16)
--- NOTE | 2017-01-23 08:32 | General Progress Note ---
Subjective - Review of Systems Service Date: 01/23/17 Subjective: Awake,Alert,Afebrile. No new changes Objective - Results Recent Labs: Laboratory Last Values POC Glucose 120 MG/DL (70 - 105) H 01/23/17 06:20 Hemoglobin A1c % 6.6 % (4.0-6.0) H 01/19/17 11:23 Triglycerides 226 mg/dL (<150) H 01/19/17 11:23 Cholesterol 157 mg/dL (<200) 01/19/17 11:23 LDL Cholesterol Direct 86 mg/dL (75-193) 01/19/17 11:23 HDL Cholesterol 46 mg/dL (23-92) 01/19/17 11:23 Free T4 1.82 ng/dL (0.82-1.77) H 01/19/17 11:23 Reverse T3 0.93 ng/mL (0.87-1.78) 01/19/17 11:23 TSH 0.02 uIU/ml (0.34-5.60) L 01/19/17 11:23 - Physical Exam Vitals and I&O: Vital Signs Temp 98.5 F 01/23/17 06:26 Pulse 51 01/23/17 06:26 Resp 20 01/23/17 06:26 BP 162/71 01/23/17 06:26 Pulse Ox 98 01/23/17 06:26 Intake & Output 01/22/17 01/23/17 01/23/17 18:59 06:59 18:59 Intake Total 700 300 Balance 700 300 Intake: Oral 700 300 Other: # Voids 3 2 # Bowel Movements 1 0 Active Medications: Current Medications Acetaminophen (Tylenol) 650 mg PO Q4HR PRN PRN Reason: Mild Pain / Temp above 100 Stop: 03/17/17 19:59 Al Hydrox/Mg Hydrox/Simethicone (Maalox) 30 ml PO Q4HR PRN PRN Reason: GI DISTRESS Stop: 03/17/17 19:59 Atenolol (Tenormin) 25 mg PO DAILY ABNER Stop: 03/23/17 12:29 Last Admin: 01/22/17 12:50 Dose: 25 mg Diphenhydramine HCl (Benadryl) 25 mg PO TID PRN PRN Reason: Itching Stop: 03/17/17 20:59 Last Admin: 01/16/17 21:20 Dose: 25 mg Donepezil HCl (Aricept) 10 mg PO HS ABNER Stop: 03/17/17 20:59 Last Admin: 01/22/17 21:14 Dose: Not Given Glipizide (Glucotrol) 5 mg PO DAILY ABNER Stop: 03/18/17 08:59 Last Admin: 01/22/17 08:48 Dose: 5 mg Hydroxyzine HCl (Atarax) 10 mg PO Q6H PRN; Protocol PRN Reason: Itching Stop: 03/17/17 20:16 Insulin Aspart (Novolog Insulin Sliding Scale) 100 units SUBQ ACHS ABNER PRN Reason: Protocol Stop: 03/17/17 20:59 Last Admin: 01/23/17 06:31 Dose: Not Given Lorazepam (Ativan) 0.5 mg PO Q4HR PRN; Protocol PRN Reason: Anxiety Stop: 02/15/17 19:59 Magnesium Hydroxide (Milk Of Magnesia) 30 ml PO HS PRN PRN Reason: Constipation Metformin HCl (Glucophage) 500 mg PO DAILY ABNER Stop: 03/18/17 08:59 Last Admin: 01/22/17 08:47 Dose: 500 mg Methimazole (Tapazole) 5 mg PO DAILY ABNER Stop: 03/21/17 08:59 Last Admin: 01/22/17 12:51 Dose: 5 mg Mirtazapine (Remeron) 7.5 mg PO HS ABNER PRN Reason: Protocol Stop: 03/18/17 20:59 Last Admin: 01/22/17 21:15 Dose: Not Given Multivitamins/Vitamin C (Theragran) 1 tab PO DAILY ABNER Stop: 03/18/17 08:59 Last Admin: 01/22/17 08:48 Dose: 1 tab Nystatin (Mycostatin Cream) 1 appl TP DAILY PRN PRN Reason: Rash Stop: 03/17/17 20:17 Zolpidem Tartrate (Ambien) 5 mg PO HS PRN PRN Reason: Insomnia Stop: 03/17/17 19:59 Last Admin: 01/18/17 20:55 Dose: 5 mg General: Alert, No acute distress HEENT: Atraumatic, PERRLA, EOMI Neck: Supple Cardiovascular: Regular rate, Normal S1, Normal S2 Lungs: Clear to auscultation Abdomen: Bowel sounds, Soft Extremities: no Clubbing, no Cyanosis, no Edema Assessment/Plan - Problem List Patient Problems: All Active Problems Hyperthyroidism (Acute) E05.90 Alzheimer disease (Acute) G30.9 CAD (coronary artery disease) (Acute) I25.10 Debility (Acute) R53.81 Dementia (Acute) F03.90 Depression (Acute) F32.9 Diabetes mellitus (Acute) E11.9 Fatigue (Acute) R53.83 Hypertension (Acute) I10 Hyponatremia (Acute) E87.1 MALAISE (Acute) Tinea corporis (Acute) B35.4 - Assessment Assessment: psychosis diabetes mellitus hypertension hyperlipidemia CAD tinea corporis debility hypertension ... will add atenolol 25 mg PO daily. on clonidine. hyperthyroidism -- will add tapazole 5mg PO daily - Plan Plan: psychosis diabetes mellitus hypertension hyperlipidemia CAD tinea corporis debility hypertension ... will add atenolol 25 mg PO daily. on clonidine. hyperthyroidism -- will add tapazole 5mg PO daily Nutritional Asmnt/Malnutr-PDOC - Dietary Evaluation Malnutrition Findings (Please click <Entered> for more info): Nutritional Asmnt/Malnutrition Start: 01/17/17 11: 00 Text: Status: Complete Freq: Document 01/19/17 18:38 [facility] (Rec: 01/19/17 18:45 [facility] [id number]) Nutritional Asmnt/Malnutrition Patient General Information Nutritional Screening High Risk Screening Diagnosis Psychosis Pertinent Medical Hx/Surgical Hx CAD, HTN, hyperlipidemia, constipation, gastritis, DM Subjective Information Pt is a 81-year-old male admitted with chief complaint of psychosis. Per H&P, pt has hx failure to thrive. Pt speaks Khmer and understands minimal Macedonian. Current Diet Order/ Nutrition Support CCHO-75 GM Pertinent Medications Glipizide, Novolog, Glucophage , Theragran Pertinent Labs (01/19) Triglycerides 226H, A1C 6.6H, POC Glucose 141-215H. Nutritional Hx/Data Height 1.65 m Height (Calculated Centimeters) 165.1 Current Weight (lbs) 63.503 kg Weight (Calculated Kilograms) 63.5 Weight (Calculated Grams) 63631.9 [place] Body Weight 136 % [place] Body Weight 103 Recent Weight Change No Weight Status Approriate GI Symptoms GI Symptoms None Food Allergies No Skin Integrity/Comment: Alexey 15. Skin intact but rash to buttocks noted. Current %PO Good (75-100%) Estimated Nutritional Goals BEE in Kcals: Using Current wt Kcals Calculated 5444-3399 kcals/day (25-30 kcals/kg) Protein: Using Current wt Protein g/kg: Based on current wt 63.6 kg Protein Calculated 64 gm/day (1 gm/kg) Fluid: ml 4430-4475 ml/day (30-35 ml/kg) Nutritional Problem 1. Problem Problem Altered nutrition-related laboratory values related to Etiology DM, possible inconsistent carbohydrate intake as evidenced by Signs/Symptoms: A1C 6.6%, admitting glucose 242 mg/dl. Malnutrition Related to Morbid Obesity Malnutrition related to morbid obesity No Intervention/Recommendation Recommendations by RD Dietary Education by RD1 Comments 1. Recommend CCHO-60 GM diet to prevent excessive carbohydrate intake. 2. Educate pt or family on CCHO, as able. Expected Outcomes/Goals Expected Outcomes/Goals Blood glucose will trend towards desired parameters. Physician Parameters for PEM Normal Weight % 90% - 110% (Normal) Body Mass Index (BMI) 19 - 24 (Normal)
[2017-01-23] MEDS: Multivitamin Tab PO SCH (09:52)
--- NOTE | 2017-01-23 12:04 | Progress Notes ---
DATE: 01/23/2017 SUBJECTIVE: Chart reviewed and the patient interviewed. Also discussed the patient's condition with the staff and reviewed records and labs. The patient is still in a depressed mood and is still guarded and withdrawn. The patient also is still anxious and easily agitated. The patient also has refused to take his medications last night and I tried to convince him to take his medications, but the patient refused according to the staff and wants to be left alone. The patient is guarded and is feeling hopeless and helpless. He also is having difficulty with his mood and difficulty with socialization and wants to be left alone and gets angry when the staff tried to approach him. During interview, the patient is tired and slightly sedated and did not want to answer any of my questions. Also, is disheveled and personal hygiene is poor. ASSESSMENT: The patient is still depressed and considered to be gravely disabled to me. TREATMENT PLAN: We will continue monitoring his behavior and his condition closely. Also, we will continue adjusting psychotropic medications and working on placement issue. Also, encouraged the patient to take his medications. JOB# [id number]
[2017-01-24] MEDS: INSULIN ASPART SLIDING SCALE 100 UNITS/ML UNIT SUBQ SCH ×4 (06:56→20:44)
--- NOTE | 2017-01-24 08:29 | General Progress Note ---
Subjective - Review of Systems Service Date: 01/24/17 Subjective: Awake,Alert,Afebrile. Objective - Results Recent Labs: Laboratory Last Values POC Glucose 111 MG/DL (70 - 105) H 01/24/17 05:44 Hemoglobin A1c % 6.6 % (4.0-6.0) H 01/19/17 11:23 Triglycerides 226 mg/dL (<150) H 01/19/17 11:23 Cholesterol 157 mg/dL (<200) 01/19/17 11:23 LDL Cholesterol Direct 86 mg/dL (75-193) 01/19/17 11:23 HDL Cholesterol 46 mg/dL (23-92) 01/19/17 11:23 Free T4 1.82 ng/dL (0.82-1.77) H 01/19/17 11:23 Reverse T3 0.93 ng/mL (0.87-1.78) 01/19/17 11:23 TSH 0.02 uIU/ml (0.34-5.60) L 01/19/17 11:23 - Physical Exam Vitals and I&O: Vital Signs Temp 97.7 F 01/24/17 06:45 Pulse 59 01/24/17 06:45 Resp 20 01/24/17 06:45 BP 103/70 01/24/17 06:45 Pulse Ox 95 01/24/17 06:45 Intake & Output 01/23/17 01/24/17 01/24/17 18:59 06:59 18:59 Intake Total 900 120 Balance 900 120 Intake: Oral 900 120 Other: # Voids 4 2 # Bowel Movements 1 0 Active Medications: Current Medications Acetaminophen (Tylenol) 650 mg PO Q4HR PRN PRN Reason: Mild Pain / Temp above 100 Stop: 03/17/17 19:59 Al Hydrox/Mg Hydrox/Simethicone (Maalox) 30 ml PO Q4HR PRN PRN Reason: GI DISTRESS Stop: 03/17/17 19:59 Atenolol (Tenormin) 25 mg PO DAILY ABNER Stop: 03/23/17 12:29 Last Admin: 01/23/17 09:52 Dose: 25 mg Diphenhydramine HCl (Benadryl) 25 mg PO TID PRN PRN Reason: Itching Stop: 03/17/17 20:59 Last Admin: 01/23/17 17:41 Dose: 25 mg Donepezil HCl (Aricept) 10 mg PO HS ABNER Stop: 03/17/17 20:59 Last Admin: 01/23/17 21:15 Dose: 10 mg Glipizide (Glucotrol) 5 mg PO DAILY ABNER Stop: 03/18/17 08:59 Last Admin: 01/23/17 09:52 Dose: 5 mg Hydroxyzine HCl (Atarax) 10 mg PO Q6H PRN; Protocol PRN Reason: Itching Stop: 03/17/17 20:16 Insulin Aspart (Novolog Insulin Sliding Scale) 100 units SUBQ ACHS ABNER PRN Reason: Protocol Stop: 03/17/17 20:59 Last Admin: 01/24/17 06:56 Dose: Not Given Lorazepam (Ativan) 0.5 mg PO Q4HR PRN; Protocol PRN Reason: Anxiety Stop: 02/15/17 19:59 Last Admin: 01/23/17 17:41 Dose: 0.5 mg Magnesium Hydroxide (Milk Of Magnesia) 30 ml PO HS PRN PRN Reason: Constipation Metformin HCl (Glucophage) 500 mg PO DAILY ABNER Stop: 03/18/17 08:59 Last Admin: 01/23/17 09:52 Dose: 500 mg Methimazole (Tapazole) 5 mg PO DAILY ABNER Stop: 03/21/17 08:59 Last Admin: 01/23/17 09:52 Dose: 5 mg Mirtazapine (Remeron) 15 mg PO HS ABNER PRN Reason: Protocol Stop: 03/18/17 20:59 Multivitamins/Vitamin C (Theragran) 1 tab PO DAILY ABNER Stop: 03/18/17 08:59 Last Admin: 01/23/17 09:52 Dose: 1 tab Nystatin (Mycostatin Cream) 1 appl TP DAILY PRN PRN Reason: Rash Stop: 03/17/17 20:17 Zolpidem Tartrate (Ambien) 5 mg PO HS PRN PRN Reason: Insomnia Stop: 03/17/17 19:59 Last Admin: 01/18/17 20:55 Dose: 5 mg General: Alert, No acute distress HEENT: Atraumatic, PERRLA, EOMI Neck: Supple Cardiovascular: Regular rate, Normal S1, Normal S2 Lungs: Clear to auscultation Abdomen: Bowel sounds, Soft Extremities: no Clubbing, no Cyanosis, no Edema Assessment/Plan - Problem List Patient Problems: All Active Problems Hyperthyroidism (Acute) E05.90 Alzheimer disease (Acute) G30.9 CAD (coronary artery disease) (Acute) I25.10 Debility (Acute) R53.81 Dementia (Acute) F03.90 Depression (Acute) F32.9 Diabetes mellitus (Acute) E11.9 Fatigue (Acute) R53.83 Hypertension (Acute) I10 Hyponatremia (Acute) E87.1 MALAISE (Acute) Tinea corporis (Acute) B35.4 - Assessment Assessment: psychosis diabetes mellitus hypertension hyperlipidemia CAD tinea corporis debility hypertension ... will add atenolol 25 mg PO daily. on clonidine. hyperthyroidism -- will add tapazole 5mg PO daily - Plan Plan: psychosis diabetes mellitus hypertension hyperlipidemia CAD tinea corporis debility hypertension ... better controlled. will add atenolol 25 mg PO daily. on clonidine. hyperthyroidism -- will add tapazole 5mg PO daily Nutritional Asmnt/Malnutr-PDOC - Dietary Evaluation Malnutrition Findings (Please click <Entered> for more info): Nutritional Asmnt/Malnutrition Start: 01/17/17 11: 00 Text: Status: Complete Freq: Document 01/19/17 18:38 [facility] (Rec: 01/19/17 18:45 [facility] [id number]) Nutritional Asmnt/Malnutrition Patient General Information Nutritional Screening High Risk Screening Diagnosis Psychosis Pertinent Medical Hx/Surgical Hx CAD, HTN, hyperlipidemia, constipation, gastritis, DM Subjective Information Pt is a 81-year-old male admitted with chief complaint of psychosis. Per H&P, pt has hx failure to thrive. Pt speaks German and understands minimal Hungarian. Current Diet Order/ Nutrition Support CCHO-75 GM Pertinent Medications Glipizide, Novolog, Glucophage , Theragran Pertinent Labs (01/19) Triglycerides 226H, A1C 6.6H, POC Glucose 141-215H. Nutritional Hx/Data Height 1.65 m Height (Calculated Centimeters) 165.1 Current Weight (lbs) 63.503 kg Weight (Calculated Kilograms) 63.5 Weight (Calculated Grams) 81775.9 [place] Body Weight 136 % [place] Body Weight 103 Recent Weight Change No Weight Status Approriate GI Symptoms GI Symptoms None Food Allergies No Skin Integrity/Comment: Alexey 15. Skin intact but rash to buttocks noted. Current %PO Good (75-100%) Estimated Nutritional Goals BEE in Kcals: Using Current wt Kcals Calculated 9620-0149 kcals/day (25-30 kcals/kg) Protein: Using Current wt Protein g/kg: Based on current wt 63.6 kg Protein Calculated 64 gm/day (1 gm/kg) Fluid: ml 5269-5839 ml/day (30-35 ml/kg) Nutritional Problem 1. Problem Problem Altered nutrition-related laboratory values related to Etiology DM, possible inconsistent carbohydrate intake as evidenced by Signs/Symptoms: A1C 6.6%, admitting glucose 242 mg/dl. Malnutrition Related to Morbid Obesity Malnutrition related to morbid obesity No Intervention/Recommendation Recommendations by RD Dietary Education by RD1 Comments 1. Recommend CCHO-60 GM diet to prevent excessive carbohydrate intake. 2. Educate pt or family on CCHO, as able. Expected Outcomes/Goals Expected Outcomes/Goals Blood glucose will trend towards desired parameters. Physician Parameters for PEM Normal Weight % 90% - 110% (Normal) Body Mass Index (BMI) 19 - 24 (Normal)
--- NOTE | 2017-01-24 08:37 | Progress Notes ---
DATE: 01/24/2017 SUBJECTIVE: Chart reviewed and the patient interviewed. Also discussed the patient's condition with the staff and reviewed records and labs. The patient remains severely depressed and he is still withdrawn. The patient also is still interacting minimally with others. The patient also is still guarded and he is still not talking much about himself, and wants to be left alone. Also, the patient is disheveled. 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 He also is still withdrawn and guarded. ASSESSMENT: The patient is still depressed. TREATMENT PLAN: We will continue monitoring his behavior and his condition closely. Also, we will increase Remeron to 15 mg at bedtime and we will continue to follow up. Also, working with senior case manager in regard to placement issue and discharge plans. JOB# [id number]
[2017-01-24] MEDS: Multivitamin Tab PO SCH (09:11)
[2017-01-25] MEDS: INSULIN ASPART SLIDING SCALE 100 UNITS/ML UNIT SUBQ SCH ×2 (06:32→12:21)
--- NOTE | 2017-01-25 08:23 | General Progress Note ---
Subjective - Review of Systems Service Date: 01/25/17 Subjective: Awake,Alert,Afebrile. Objective - Results Recent Labs: Laboratory Last Values POC Glucose 147 MG/DL (70 - 105) H 01/25/17 05:10 Hemoglobin A1c % 6.6 % (4.0-6.0) H 01/19/17 11:23 Triglycerides 226 mg/dL (<150) H 01/19/17 11:23 Cholesterol 157 mg/dL (<200) 01/19/17 11:23 LDL Cholesterol Direct 86 mg/dL (75-193) 01/19/17 11:23 HDL Cholesterol 46 mg/dL (23-92) 01/19/17 11:23 Free T4 1.82 ng/dL (0.82-1.77) H 01/19/17 11:23 Reverse T3 0.93 ng/mL (0.87-1.78) 01/19/17 11:23 TSH 0.02 uIU/ml (0.34-5.60) L 01/19/17 11:23 - Physical Exam Vitals and I&O: Vital Signs Temp 97.3 F 01/24/17 20:00 Pulse 72 01/24/17 20:00 Resp 19 01/24/17 20:00 BP 127/71 01/24/17 20:00 Pulse Ox 98 01/24/17 20:00 Intake & Output 01/24/17 01/25/17 01/25/17 18:59 06:59 18:59 Intake Total 1200 Balance 1200 Intake: Oral 1200 Other: # Bowel Movements 1 Active Medications: Current Medications Acetaminophen (Tylenol) 650 mg PO Q4HR PRN PRN Reason: Mild Pain / Temp above 100 Stop: 03/17/17 19:59 Al Hydrox/Mg Hydrox/Simethicone (Maalox) 30 ml PO Q4HR PRN PRN Reason: GI DISTRESS Stop: 03/17/17 19:59 Atenolol (Tenormin) 25 mg PO DAILY ABNER Stop: 03/23/17 12:29 Last Admin: 01/24/17 09:11 Dose: Not Given Diphenhydramine HCl (Benadryl) 25 mg PO TID PRN PRN Reason: Itching Stop: 03/17/17 20:59 Last Admin: 01/24/17 18:04 Dose: 25 mg Donepezil HCl (Aricept) 10 mg PO HS ABNER Stop: 03/17/17 20:59 Last Admin: 01/24/17 20:44 Dose: 10 mg Glipizide (Glucotrol) 5 mg PO DAILY ABNER Stop: 03/18/17 08:59 Last Admin: 01/24/17 09:12 Dose: 5 mg Hydroxyzine HCl (Atarax) 10 mg PO Q6H PRN; Protocol PRN Reason: Itching Stop: 03/17/17 20:16 Insulin Aspart (Novolog Insulin Sliding Scale) 100 units SUBQ ACHS ABNER PRN Reason: Protocol Stop: 03/17/17 20:59 Last Admin: 01/25/17 06:32 Dose: Not Given Lorazepam (Ativan) 0.5 mg PO Q4HR PRN; Protocol PRN Reason: Anxiety Stop: 02/15/17 19:59 Last Admin: 01/24/17 09:12 Dose: 0.5 mg Magnesium Hydroxide (Milk Of Magnesia) 30 ml PO HS PRN PRN Reason: Constipation Metformin HCl (Glucophage) 500 mg PO DAILY ABNER Stop: 03/18/17 08:59 Last Admin: 01/24/17 09:11 Dose: 500 mg Methimazole (Tapazole) 5 mg PO DAILY ABNER Stop: 03/21/17 08:59 Last Admin: 01/24/17 09:12 Dose: 5 mg Mirtazapine (Remeron) 15 mg PO HS ABNER PRN Reason: Protocol Stop: 03/18/17 20:59 Last Admin: 01/24/17 20:45 Dose: 15 mg Multivitamins/Vitamin C (Theragran) 1 tab PO DAILY ABNER Stop: 03/18/17 08:59 Last Admin: 01/24/17 09:11 Dose: 1 tab Nystatin (Mycostatin Cream) 1 appl TP DAILY PRN PRN Reason: Rash Stop: 03/17/17 20:17 Zolpidem Tartrate (Ambien) 5 mg PO HS PRN PRN Reason: Insomnia Stop: 03/17/17 19:59 Last Admin: 01/18/17 20:55 Dose: 5 mg General: Alert, No acute distress HEENT: Atraumatic, PERRLA, EOMI Neck: Supple Cardiovascular: Regular rate, Normal S1, Normal S2 Lungs: Clear to auscultation Abdomen: Bowel sounds, Soft Extremities: no Clubbing, no Cyanosis, no Edema Assessment/Plan - Problem List Patient Problems: All Active Problems Hyperthyroidism (Acute) E05.90 Alzheimer disease (Acute) G30.9 CAD (coronary artery disease) (Acute) I25.10 Debility (Acute) R53.81 Dementia (Acute) F03.90 Depression (Acute) F32.9 Diabetes mellitus (Acute) E11.9 Fatigue (Acute) R53.83 Hypertension (Acute) I10 Hyponatremia (Acute) E87.1 MALAISE (Acute) Tinea corporis (Acute) B35.4 - Assessment Assessment: psychosis diabetes mellitus hypertension hyperlipidemia CAD tinea corporis debility hypertension ... will add atenolol 25 mg PO daily. on clonidine. hyperthyroidism -- will add tapazole 5mg PO daily - Plan Plan: psychosis diabetes mellitus hypertension hyperlipidemia CAD tinea corporis debility hypertension ... better controlled. will add atenolol 25 mg PO daily. on clonidine. hyperthyroidism -- will add tapazole 5mg PO daily Nutritional Asmnt/Malnutr-PDOC - Dietary Evaluation Malnutrition Findings (Please click <Entered> for more info): Nutritional Asmnt/Malnutrition Start: 01/17/17 11: 00 Text: Status: Complete Freq: Document 01/19/17 18:38 [facility] (Rec: 01/19/17 18:45 [facility] [id number]) Nutritional Asmnt/Malnutrition Patient General Information Nutritional Screening High Risk Screening Diagnosis Psychosis Pertinent Medical Hx/Surgical Hx CAD, HTN, hyperlipidemia, constipation, gastritis, DM Subjective Information Pt is a 81-year-old male admitted with chief complaint of psychosis. Per H&P, pt has hx failure to thrive. Pt speaks Togolese and understands minimal Ivorian. Current Diet Order/ Nutrition Support CCHO-75 GM Pertinent Medications Glipizide, Novolog, Glucophage , Theragran Pertinent Labs (01/19) Triglycerides 226H, A1C 6.6H, POC Glucose 141-215H. Nutritional Hx/Data Height 1.65 m Height (Calculated Centimeters) 165.1 Current Weight (lbs) 63.503 kg Weight (Calculated Kilograms) 63.5 Weight (Calculated Grams) 87724.9 Nada Body Weight 136 % Nada Body Weight 103 Recent Weight Change No Weight Status Approriate GI Symptoms GI Symptoms None Food Allergies No Skin Integrity/Comment: Alexey 15. Skin intact but rash to buttocks noted. Current %PO Good (75-100%) Estimated Nutritional Goals BEE in Kcals: Using Current wt Kcals Calculated 9278-4795 kcals/day (25-30 kcals/kg) Protein: Using Current wt Protein g/kg: Based on current wt 63.6 kg Protein Calculated 64 gm/day (1 gm/kg) Fluid: ml 8951-8950 ml/day (30-35 ml/kg) Nutritional Problem 1. Problem Problem Altered nutrition-related laboratory values related to Etiology DM, possible inconsistent carbohydrate intake as evidenced by Signs/Symptoms: A1C 6.6%, admitting glucose 242 mg/dl. Malnutrition Related to Morbid Obesity Malnutrition related to morbid obesity No Intervention/Recommendation Recommendations by RD Dietary Education by RD1 Comments 1. Recommend CCHO-60 GM diet to prevent excessive carbohydrate intake. 2. Educate pt or family on CCHO, as able. Expected Outcomes/Goals Expected Outcomes/Goals Blood glucose will trend towards desired parameters. Physician Parameters for PEM Normal Weight % 90% - 110% (Normal) Body Mass Index (BMI) 19 - 24 (Normal)
--- NOTE | 2017-01-25 08:39 | Discharge Summary ---
DATE OF DISCHARGE: 01/24/2017 FINAL DIAGNOSIS/PRIMARY DIAGNOSIS: Unspecified psychosis. SECONDARY DIAGNOSES: 1. Dementia, moderate to severe, with psychotic features. 2. Depressive disorder, unspecified. REASON FOR HOSPITALIZATION: The patient was admitted to the hospital because of depression and decreased appetite, poor intake, and depressed mood. HOSPITAL COURSE: The patient continued to be severely anxious and depressed. The patient also wanted to be left alone and he was guarded and withdrawn. The patient also was feeling hopeless and helpless. He also was showing poor appetite. The patient started on Remeron and Remeron dose adjusted to 15 mg at bedtime. Gradually, the patient's affect was brighter. The patient was less depressed and less agitated. The patient's appetite was better and he was eating better. The patient also was calmer. The patient was discharged from the hospital to nursing facility. Physical exam of the patient showed no major medical problems. AFTER DISCHARGE PLANS: The patient discharged from the hospital with plans to continue his treatment as an outpatient. LABS: No major abnormal labs. EXPECTED OUTCOME AFTER DISCHARGE: Fair if the patient continues with his medications and continues to follow up with discharge plans. [facility]# [id number]
[2017-01-25] MEDS: Multivitamin Tab PO SCH (10:00)
== END 2017-01-25 16:20 | DRG 885 ==
LOC: GERO 17:40
PROVIDERS: ADMIT Psychiatry & Neurology Psychiatry; ATTEND Psychiatry & Neurology Psychiatry
DX: F29 Unspecified psychosis not due to a substance or known physiological condition (principal); F03.91 Unspecified dementia, unspecified severity, with behavioral disturbance; E11.9 Type 2 diabetes mellitus without complications; F32.9 Major depressive disorder, single episode, unspecified; I10 Essential (primary) hypertension; B35.4 Tinea corporis; R62.7 Adult failure to thrive; E05.90 Thyrotoxicosis, unspecified without thyrotoxic crisis or storm; I25.10 Atherosclerotic heart disease of native coronary artery without angina pectoris; E78.5 Hyperlipidemia, unspecified; F41.9 Anxiety disorder, unspecified
CPT/HCPCS: 36415-UA; 80061-TC; 82948-90; 83036-90; 84439-90; 84443-TC; 84479-TC; J1815; Z7610

== ENCOUNTER 2017-04-22 21:16 | Inpatient (IN) | payer MEDICARE, MEDICAID ==
[2017-04-22] MEDS ORDERED: Lactulose 10 Gm/15 mL 30mL UDC PO STA (22:04)
[2017-04-22 22:17] LABS: % EOSINOPHILS 4.1 % (0.0-5.0); % LYMPHOCYTES 29.3 % (20.0-50.0); % MONOCYTES 9.5 % (2.0-10.0); % NEUTROPHILS 56.1 % (40.0-80.0); HEMOGLOBIN 13.1 gm/dL (12-16); MEAN CORPUSCULAR HEMOGLOBIN 30.1 pg (27.0-31.0); MEAN CORPUSCULAR HGB CONC 33.1 pg (28.0-36.0); MEAN PLATELET VOLUME 7.9 fl; NEUTROPHILE ABSOLUTE 3.2 Th/cmm (1.8-8.0); PLATELET COUNT 160 Th/cmm (150-400); RED BLOOD COUNT 4.35 Mil/cmm (3.80-5.80); RED CELL DISTRIBUTION WIDTH 14.2 % (11.5-20.0); WHITE BLOOD COUNT 5.6 Th/cmm (4.8-10.8)
[2017-04-22 22:19] LABS: HEMATOCRIT 39.6 % (41.0-60)
[2017-04-22] MEDS ORDERED: Potassium Chloride 20 mEq ER Tab PO ONE ×2 (22:27→23:15)
[2017-04-22] MEDS ORDERED: Pantoprazole 40 mg EC Tab PO STA (22:29)
[2017-04-22 22:34] LABS: CHOLESTEROL 147 mg/dL (<200); TRIGLYCERIDES 151 mg/dL (<150)
[2017-04-22] MEDS ORDERED: Lactulose 10 Gm/15 mL 30mL UDC ONE (23:09)
[2017-04-22] MEDS ORDERED: Pantoprazole 40 mg EC Tab PO ONE (23:16)
--- NOTE | 2017-04-22 23:39 | ER Physician Documentation ---
DATE OF SERVICE: 04/22/2017 EMERGENCY ROOM EVALUATION TREATMENT REPORT, HISTORY AND PHYSICAL The history was taken from the patient with a Yemeni speaking agri business agent. Emergency Room, male patient, an 81-year-old. He was sent here by Dr. Amin from [facility] . The patient has generalized body itching for past month and he says he is having constipation for past more than a month, ever since he went to that [facility], he is complaining of the symptoms. HISTORY OF PRESENT ILLNESS: The patient has these complaints and he has some low back pain. He has constipation. He says he is getting a lot of medication that is making him constipation and itching. The patient does not have any other significant complaints. His history of present illness is essentially the same. I mentioned, he has a history of previous ulcer disease and he had a surgery for that. He has a scar in the abdomen for that. His past history is positive for diabetes mellitus type 2, depression, hypertension, coronary artery disease, dementia, Alzheimer's disease. PERSONAL HISTORY: He is not . His may have . He does not mention much about the children. VITAL SIGNS DONE IN THE TRIAGE: Shows temperature of 97.8, pulse of 62, respirations 18, blood pressure 127/69, oxygen saturation 98%, height of 5 feet 5 inches, weight 150 pounds. He does not give me anymore history. The patient does not have any stroke, paralysis, blindness, TB, ulcers, cancers. No heart disease. No evidence of any chest pain, but there is a questionable mentioning of patient being having coronary artery disease since I auscultated bilateral basal carotid rales in both the lung izaguirre. I found him to be short of breath. We got the EKG done on him and this EKG showed that the patient has left axis deviation, normal sinus rhythm and a minor T-wave changes in lead V4-V6 nonspecific and there is some T-wave flattening seen in aVL. We have ordered some labs. We do not have any report as yet. The patient's old records that came from the halfway, psychosocial evaluation showed that the patient was in the med-surg floor. The patient has some depression because of forgetfulness, depressed mood, isolative, withdrawn. The patient has been anxious. The patient has been taking Aricept 5 mg daily. He has a history of dementia, multiple medical problems, was monitored by Dr. Lorenz. In the past, he lived in [facility]. No known alcohol or drug abuse. ALLERGIES: No known allergies. MENTAL STATUS: The patient appears to be of the stated age. Anxious. The patient has itching all over the body. I gave Atarax, give Benadryl 50 mg to the patient. There is some rash christ on the body, but no definite evidence of cellulitis or any other pathology is seen. The patient is answering questions to the nurse who spoke Yemeni. On physical examination, the patient has no evidence of any meningeal signs, no edema, no cyanosis, no petechia, ecchymosis. Chest is clear anteriorly, but posteriorly bilateral crackles or rales audible both the lung izaguirre. No bronchial breathing. Abdomen is soft, benign, negative liver and spleen not enlarged. No free fluid in the abdominal cavity. Heart reveals normal heart sounds. Soft fourth heart sounds, third heart sound is absent. Second heart sound is physiologically split. Genitourinary is benign and negative. FINAL IMPRESSION: The patient came with itching, the cause of itching could be secondary to some medication that he is getting. The other diagnosis, the patient has depression. The other diagnoses that patient carries includes , coronary artery disease, where I see on the EKG, minor nonspecific ST-T changes. The lab results are not back. He has a history of hypertension, but right now when the blood pressure was done, it was 127/69, saturation 98%. Height is 5 feet 5 inches, hyperlipidemia. We will check the lipid levels for morning and current medications that he came from the [facility] include Tylenol 325 mg 2 tablet every 4 hours for pain, not to exceed 3 grams in 24 hours, Aricept tablet 10 mg for Alzheimer's disease, atenolol 25 mg 1 tablet by mouth, clonidine tablet 0.1 mg by mouth every 8 hours. Dulcolax tablets, Fleet enema, glipizide 5 mg by mouth one time a day, hydroxyzine 50 mg 1 tablet by mouth every 8 hours as needed, insulin injection, methimazole 10 mg 1 tablet by mouth in the morning for hyperthyroidism, multivitamin tablets, magnesium hydroxide 30 mL by mouth as needed for constipation. The patient is on Remeron 15 mg, Zofran p.r.n. for nausea and vomiting. JOB# [id number]
--- NOTE | 2017-04-23 00:42 | ER Physician Documentation ---
DATE OF SERVICE: 04/22/[address] Amin. An 81-year-old male patient. Troponin level is normal at 0.1, white count is normal 5.6, hemoglobin is 13.1, hematocrit is 39.6 and platelet count is normal. Magnesium is 2. The patient's lipid profile shows cholesterol 147, triglyceride 151, HDL is 55, LDL is 75. Chest x-ray does not show any evidence of pneumonia. Hence, the patient will be admitted under Dr. Amin with the same diagnosis, but there is no evidence of any myocardial infarction. JOB# [id number]
[2017-04-23] MEDS ORDERED: cefTRIAXone 1 GM in Sodium Chloride 0.9% 50 ML IV ONE (01:00)
[2017-04-23] MEDS ORDERED: Pneumococcal Vaccine 0.5 mL Vial IM ONE (01:55)
[2017-04-23 05:34] LABS: % BASOPHILS 0.5 % (0.0-2.0); % EOSINOPHILS 4.6 % (0.0-5.0); % LYMPHOCYTES 31.1 % (20.0-50.0); % MONOCYTES 9.6 % (2.0-10.0); % NEUTROPHILS 54.2 % (40.0-80.0); HEMATOCRIT 40.7 % (41.0-60); HEMOGLOBIN 13.4 gm/dL (12-16); MEAN CELL VOLUME 90.4 fl (80-99); MEAN CORPUSCULAR HEMOGLOBIN 29.7 pg (27.0-31.0); MEAN CORPUSCULAR HGB CONC 32.8 pg (28.0-36.0); MEAN PLATELET VOLUME 7.8 fl; NEUTROPHILE ABSOLUTE 3.3 Th/cmm (1.8-8.0); PLATELET COUNT 180 Th/cmm (150-400); RED CELL DISTRIBUTION WIDTH 14.3 % (11.5-20.0); WHITE BLOOD COUNT 6.1 Th/cmm (4.8-10.8)
[2017-04-23 06:13] LABS: ALB/GLOB RATIO 1.2 (1.0-1.8); ALKALINE PHOSPHATASE 124 U/L (34-104); ANION GAP 9.2 (7.0-16.0); BILIRUBIN,TOTAL 0.6 mg/dL (0.3-1.0); BUN - UREA NITROGEN 25 mg/dL (7-25); BUN/CREATININE RATIO 27.8; CALCIUM SERUM 9.2 mg/dL (8.6-10.3); CARBON DIOXIDE 25.2 mEq/L (21.0-31.0); CHLORIDE 105 mEq/L (98-107); CHOLESTEROL 155 mg/dL (<200); CREATININE - SERUM 0.9 mg/dL (0.7-1.3); GLUCOSE 128 mg/dL (70-105); POTASSIUM SERUM 4.4 mEq/L (3.5-5.1); SGOT 17 U/L (13-39); SGPT/ALT 19 U/L (7-52); SODIUM SERUM 135 mEq/L (136-145); TRIGLYCERIDES 68 mg/dL (<150)
--- NOTE | 2017-04-23 07:47 | Diagnostic Imaging Report ---
CHEST X-RAY: AP view INDICATION: CHF/pneumonia COMPARISON: 01/08/2017 FINDINGS: Chronic lung changes are seen with linear densities noted. No focal consolidation or effusions. Heart size is normal. Atherosclerosis is noted. Degenerative changes of the spine are noted. IMPRESSION: Chronic lung changes and linear densities which may be due to subsegmental atelectasis versus scarring. No focal consolidation identified. Atherosclerotic vascular disease.
[2017-04-23] MEDS ORDERED: Magnesium Hydroxide (MOM) 30 mL UDC PO PRN (08:01)
[2017-04-23] MEDS: Multivitamin Tab PO SCH (09:51)
[2017-04-23] MEDS: INSULIN ASPART SLIDING SCALE 100 UNITS/ML UNIT SUBQ SCH ×3 (12:41→21:28)
--- NOTE | 2017-04-23 14:04 | History & Physical ---
ADMIT DATE: 04/23/2017 CHIEF COMPLAINT: The patient was admitted on 04/22/2017, I saw this patient in [facility] [place]. The patient previously been complaining for last 2 days severe pain to his left jaw, swelling of the left jaw, he was also complaining of rash on the right arm as well as itching all over the body and severe pain all over his body. The patient also was complaining of constipation and was complaining of some shortness of breath, and the patient was evaluated in the Emergency Room, was admitted for possible pneumonia with EKG changes, possible CHF and history of hypertension, history of diabetes, history of coronary artery disease, dementia. The patient was admitted for the above reasons. HISTORY OF PRESENT ILLNESS: The patient has been complaining of pain to his left jaw for the last 2-3 days, complaining of swelling, complaining of low back pain, complaining of constipation, complaining of shortness of breath. PAST MEDICAL HISTORY: Known to have history of hypertension, diabetes type 2, history of peptic ulcer disease, coronary artery disease, history of dementia, history of Alzheimer disease. PHYSICAL EXAMINATION: VITAL SIGNS: Stable. HEENT: Head examination normal. ENT normal. LUNGS: Bilateral rales. CARDIOVASCULAR SYSTEM: S1, S2 heard. ABDOMEN: Soft. Bowel sounds are heard. CENTRAL NERVOUS SYSTEM: Decreased sensorium. The patient has swelling in his left side of the jaw area and also has erythema and tenderness and also swelling going onto the left side of the neck. The patient has some rashes in the right arm as well as complaining of itching all over the body. LABORATORY AND DIAGNOSTIC DATA: A chest x-ray showed some possible infiltrate and possible atelectasis bilaterally and EKG showed ST-T changes. IMPRESSION: The diagnoses of: 1. Shortness of breath. 2. Possible bilateral pneumonia, rule out CHF, ST-T changes, history of hyperlipidemia, history of hypertension, history of diabetes type 2, history of Alzheimer disease, history of possible allergic reaction, history of hypothyroidism, and history of depression was made. The patient is going to be admitted. I will go ahead and do blood cultures x 2, urine culture, we will do a BNP, BMP, do an echocardiogram. I will do cardiac enzymes q.8 hours x 3 and I will have Cardiology, Dr. Dale White see the patient as well as Infectious Disease, Dr. John White see the patient and I will follow the patient. JOB# [id number]
[2017-04-23] MEDS: Levofloxacin 500mg/100mL 500 MG/100 ML BAG IV SCH (16:24)
--- NOTE | 2017-04-23 20:57 | Consultation ---
DATE OF CONSULTATION: 04/22/2017 REFERRING PHYSICIAN: Dr. Amin. REASON FOR CONSULTATION: Generalized rash. HISTORY OF PRESENT ILLNESS: The patient is an 81-year-old male with a past medical history of diabetes mellitus type 2, dementia, depression, hypertension, coronary artery disease, hyperlipidemia, anxiety disorder, brought in ____ for generalized redness with itchiness. Otherwise, the patient has no fever, no chills. No choking, no shortness of breath. MEDICATIONS: As per medication reconciliation sheet. Antibiotic albarran, the patient is on Rocephin. ALLERGIES: NKDA. PAST MEDICAL HISTORY: As mentioned above, depression, dementia, diabetes mellitus type 2, anxiety disorder, hypertension, hyperlipidemia, coronary artery disease. FAMILY HISTORY: Noncontributory. SOCIAL HISTORY: The patient lives at nursing facility. No history of smoking, alcohol or drug use. REVIEW OF SYSTEMS: GENERAL: The patient has no fever, no chills. HEENT: No diplopia, no photophobia, no sore throat. RESPIRATORY: No cough, no shortness of breath. CVS: No chest pain. No palpitations. GASTROINTESTINAL: No nausea, no vomiting, no diarrhea, no constipation. GENITOURINARY: No dysuria. NEUROLOGIC: No headache, no dizziness, no focal weakness. SKIN: The patient has generalized erythematous rash on different parts of body with itching. PHYSICAL EXAMINATION: VITAL SIGNS: Shows temperature is 97.8, pulse is 66, respirations 18, blood pressure 128/50. GENERAL: The patient is comfortable, well-nourished, well-developed. HEENT: Head is normocephalic, atraumatic. Oral cavity moist. Catarina tongue. Eyes: No pallor, no icterus. PERRLA. EOMI. NECK: Supple, no JVD, no carotid bruit. Trachea in midline. CHEST: Bilateral breath sounds. No crackles or wheezing. CARDIOVASCULAR: S1, S2 within normal limits. Regular rhythm. No murmur, no gallop. ABDOMEN: Soft, nontender, nondistended. Bowel sounds present. EXTREMITIES: No cyanosis, no clubbing, no edema. NEUROLOGIC: Alert, awake, oriented x 3. SKIN: Generalized erythematous rash with itching. No tenderness. No Wheal. LABORATORY DATA: Current labs shows WBC 77794, hemoglobin 13.1, hematocrit 39.6, platelets are 168,000, neutrophils 56%. Glucose is 125, hemoglobin A1c 6.6. IMPRESSION: 1. Generalized rash most likely allergic reaction. 2. Diabetes mellitus type 2. 3. Hypertension. 4. Hyperlipidemia. RECOMMENDATIONS: Gave Benadryl. Follow up CBC and CMP in the morning. Continue Benadryl. If needed, might start Solu-Medrol also. Thank you Dr. Amin for involving me in taking care of this patient. JOB# [id number]
[2017-04-23] MEDS ORDERED: cefTRIAXone 1 GM in 0.9% NS 50 ML IV SCH (21:00)
[2017-04-24] MEDS: INSULIN ASPART SLIDING SCALE 100 UNITS/ML UNIT SUBQ SCH ×4 (06:48→21:46)
[2017-04-24] MEDS: Multivitamin Tab PO SCH (08:43)
--- NOTE | 2017-04-24 09:11 | General Progress Note ---
Subjective - Review of Systems Events since last encounter: patient c/o sob no acute distress Objective - Results Result Diagrams: 04/23/17 05:20 04/23/17 05:20 Recent Labs: Laboratory Last Values WBC 6.1 Th/cmm (4.8-10.8) 04/23/17 05:20 RBC 4.50 Mil/cmm (3.80-5.80) 04/23/17 05:20 Hgb 13.4 gm/dL (12-16) 04/23/17 05:20 Hct 40.7 % (41.0-60) L 04/23/17 05:20 MCV 90.4 fl (80-99) 04/23/17 05:20 MCH 29.7 pg (27.0-31.0) 04/23/17 05:20 MCHC Differential 32.8 pg (28.0-36.0) 04/23/17 05:20 RDW 14.3 % (11.5-20.0) 04/23/17 05:20 Plt Count 180 Th/cmm (150-400) 04/23/17 05:20 MPV 7.8 fl 04/23/17 05:20 Neutrophils % 54.2 % (40.0-80.0) 04/23/17 05:20 Lymphocytes % 31.1 % (20.0-50.0) 04/23/17 05:20 Monocytes % 9.6 % (2.0-10.0) 04/23/17 05:20 Eosinophils % 4.6 % (0.0-5.0) 04/23/17 05:20 Basophils % 0.5 % (0.0-2.0) 04/23/17 05:20 Sodium 135 mEq/L (136-145) L 04/23/17 05:20 Potassium 4.4 mEq/L (3.5-5.1) 04/23/17 05:20 Chloride 105 mEq/L (98-107) 04/23/17 05:20 Carbon Dioxide 25.2 mEq/L (21.0-31.0) 04/23/17 05:20 Anion Gap 9.2 (7.0-16.0) 04/23/17 05:20 BUN 25 mg/dL (7-25) 04/23/17 05:20 Creatinine 0.9 mg/dL (0.7-1.3) 04/23/17 05:20 Est GFR ( Amer) TNP 04/23/17 05:20 Est GFR (Non-Af Amer) TNP 04/23/17 05:20 BUN/Creatinine Ratio 27.8 04/23/17 05:20 Glucose 128 mg/dL (70-105) H 04/23/17 05:20 POC Glucose 140 MG/DL (70 - 105) H 04/24/17 06:45 Hemoglobin A1c % 6.6 % (4.0-6.0) H 04/22/17 22:09 Calcium 9.2 mg/dL (8.6-10.3) 04/23/17 05:20 Magnesium 2.2 mg/dL (1.9-2.7) 04/22/17 22:09 Total Bilirubin 0.6 mg/dL (0.3-1.0) 04/23/17 05:20 AST 17 U/L (13-39) 04/23/17 05:20 ALT 19 U/L (7-52) 04/23/17 05:20 Alkaline Phosphatase 124 U/L (34-104) H 04/23/17 05:20 Troponin I ng/mL (0.01-0.05) 04/23/17 21:22 Total Protein 7.1 gm/dL (6.0-8.3) 04/23/17 05:20 Albumin 3.9 gm/dL (4.2-5.5) L 04/23/17 05:20 Globulin 3.2 gm/dL 04/23/17 05:20 Albumin/Globulin Ratio 1.2 (1.0-1.8) 04/23/17 05:20 Triglycerides 68 mg/dL (<150) 04/23/17 05:20 Cholesterol 155 mg/dL (<200) 04/23/17 05:20 LDL Cholesterol Direct 83 mg/dL (75-193) 04/23/17 05:20 HDL Cholesterol 61 mg/dL (23-92) 04/23/17 05:20 Free T4 0.92 ng/dL (0.82-1.77) 04/22/17 22:09 TSH uIU/ml (0.34-5.60) 04/23/17 05:20 - Physical Exam Vitals and I&O: Vital Signs Temp 98.4 F 04/24/17 04:00 Pulse 58 04/24/17 08:43 Resp 18 04/24/17 04:00 BP 127/70 04/24/17 08:43 Pulse Ox 98 04/24/17 04:00 Intake & Output 04/23/17 04/24/17 04/24/17 18:59 06:59 18:59 Intake Total 1120 150 Output Total 650 Balance 1120 -500 Weight (lbs) 68.039 kg 69.49 kg Intake: Intake, IV Amount 100 Levofloxacin 500mg/100mL 100 500 mg In 100 ml @ 100 mls/hr IV Q24HR [facility] Rx#: [id number] Oral 1020 150 Output: Urine 650 Other: # Voids 3 # Bowel Movements 1 Active Medications: Current Medications Acetaminophen (Tylenol) 650 mg PO Q4HR PRN PRN Reason: Mild Pain / Temp above 100 Stop: 06/22/17 08:00 Last Admin: 04/24/17 01:26 Dose: 650 mg Atenolol (Tenormin) 25 mg PO DAILY [facility] Stop: 06/22/17 08:59 Last Admin: 04/24/17 08:43 Dose: 25 mg Bisacodyl (Dulcolax 10 Mg Supp) 10 mg RC DAILY PRN PRN Reason: IF MOM INEFFECTIVE Stop: 06/22/17 08:00 Diphenhydramine HCl (Benadryl 50 Mg/Ml) 25 mg IVP Q8HR ABNER Stop: 06/22/17 01:59 Last Admin: 04/24/17 05:12 Dose: 25 mg Donepezil HCl (Aricept) 10 mg PO HS [facility] Stop: 06/22/17 20:59 Last Admin: 04/23/17 21:17 Dose: 10 mg Glipizide (Glucotrol) 5 mg PO DAILY ABNER Stop: 06/22/17 08:59 Last Admin: 04/24/17 08:43 Dose: 5 mg Hydroxyzine HCl (Atarax) 50 mg PO Q8HR PRN PRN Reason: Itching Last Admin: 04/23/17 09:50 Dose: 50 mg Levofloxacin (Levaquin Pb) 500 mg in 100 mls @ 100 mls/hr IV Q24HR ABNER Stop: 06/22/17 15:59 Last Infusion: 04/23/17 17:25 Dose: Infused Insulin Aspart (Novolog Insulin Sliding Scale) 0 units SUBQ ACHS ABNER PRN Reason: Protocol Stop: 06/22/17 11:29 Last Admin: 04/24/17 06:48 Dose: Not Given Magnesium Hydroxide (Milk Of Magnesia) 30 ml PO HS PRN PRN Reason: Constipation Stop: 06/22/17 08:00 Methimazole (Tapazole) 10 mg PO DAILY ABNER Stop: 06/22/17 08:59 Last Admin: 04/24/17 08:42 Dose: 10 mg Mirtazapine (Remeron) 15 mg PO HS ABNER PRN Reason: Protocol Stop: 06/22/17 20:59 Multivitamins/Vitamin C (Theragran) 1 tab PO DAILY ABNER Stop: 06/22/17 08:59 Last Admin: 04/24/17 08:43 Dose: 1 tab General: No acute distress HEENT: Atraumatic Neck: Thyromegaly Cardiovascular: Regular rate, Normal S1, Normal S2 Lungs: Clear to auscultation Assessment/Plan - Problem List Patient Problems: All Active Problems Alzheimer disease (Acute) G30.9 CAD (coronary artery disease) (Acute) I25.10 Debility (Acute) R53.81 Dementia (Acute) F03.90 Depression (Acute) F32.9 Diabetes mellitus (Acute) E11.9 Fatigue (Acute) R53.83 Hypertension (Acute) I10 Hyperthyroidism (Acute) E05.90 Hyponatremia (Acute) E87.1 MALAISE (Acute) Tinea corporis (Acute) B35.4 - Plan Plan: cpm
--- NOTE | 2017-04-24 11:00 | Infectious Disease Prog Note ---
Infectious Disease Subjective - Review of Systems Service Date: 04/24/17 Events since last encounter: doing the same. Subjective: no fever Infectious Disease Objective - Results Result Diagrams: 04/23/17 05:20 04/23/17 05:20 Recent Labs: Laboratory Last Values WBC 6.1 Th/cmm (4.8-10.8) 04/23/17 05:20 RBC 4.50 Mil/cmm (3.80-5.80) 04/23/17 05:20 Hgb 13.4 gm/dL (12-16) 04/23/17 05:20 Hct 40.7 % (41.0-60) L 04/23/17 05:20 MCV 90.4 fl (80-99) 04/23/17 05:20 MCH 29.7 pg (27.0-31.0) 04/23/17 05:20 MCHC Differential 32.8 pg (28.0-36.0) 04/23/17 05:20 RDW 14.3 % (11.5-20.0) 04/23/17 05:20 Plt Count 180 Th/cmm (150-400) 04/23/17 05:20 MPV 7.8 fl 04/23/17 05:20 Neutrophils % 54.2 % (40.0-80.0) 04/23/17 05:20 Lymphocytes % 31.1 % (20.0-50.0) 04/23/17 05:20 Monocytes % 9.6 % (2.0-10.0) 04/23/17 05:20 Eosinophils % 4.6 % (0.0-5.0) 04/23/17 05:20 Basophils % 0.5 % (0.0-2.0) 04/23/17 05:20 Sodium 135 mEq/L (136-145) L 04/23/17 05:20 Potassium 4.4 mEq/L (3.5-5.1) 04/23/17 05:20 Chloride 105 mEq/L (98-107) 04/23/17 05:20 Carbon Dioxide 25.2 mEq/L (21.0-31.0) 04/23/17 05:20 Anion Gap 9.2 (7.0-16.0) 04/23/17 05:20 BUN 25 mg/dL (7-25) 04/23/17 05:20 Creatinine 0.9 mg/dL (0.7-1.3) 04/23/17 05:20 Est GFR ( Amer) TNP 04/23/17 05:20 Est GFR (Non-Af Amer) TNP 04/23/17 05:20 BUN/Creatinine Ratio 27.8 04/23/17 05:20 Glucose 128 mg/dL (70-105) H 04/23/17 05:20 POC Glucose 140 MG/DL (70 - 105) H 04/24/17 06:45 Hemoglobin A1c % 6.6 % (4.0-6.0) H 04/22/17 22:09 Calcium 9.2 mg/dL (8.6-10.3) 04/23/17 05:20 Magnesium 2.2 mg/dL (1.9-2.7) 04/22/17 22:09 Total Bilirubin 0.6 mg/dL (0.3-1.0) 04/23/17 05:20 AST 17 U/L (13-39) 04/23/17 05:20 ALT 19 U/L (7-52) 04/23/17 05:20 Alkaline Phosphatase 124 U/L (34-104) H 04/23/17 05:20 Troponin I ng/mL (0.01-0.05) 04/23/17 21:22 Total Protein 7.1 gm/dL (6.0-8.3) 04/23/17 05:20 Albumin 3.9 gm/dL (4.2-5.5) L 04/23/17 05:20 Globulin 3.2 gm/dL 04/23/17 05:20 Albumin/Globulin Ratio 1.2 (1.0-1.8) 04/23/17 05:20 Triglycerides 68 mg/dL (<150) 04/23/17 05:20 Cholesterol 155 mg/dL (<200) 04/23/17 05:20 LDL Cholesterol Direct 83 mg/dL (75-193) 04/23/17 05:20 HDL Cholesterol 61 mg/dL (23-92) 04/23/17 05:20 Free T4 0.92 ng/dL (0.82-1.77) 04/22/17 22:09 TSH uIU/ml (0.34-5.60) 04/23/17 05:20 - Physical Exam Vitals and I&O: Vital Signs Temp 97.2 F 04/24/17 08:00 Pulse 58 04/24/17 08:43 Resp 16 04/24/17 08:00 BP 127/70 04/24/17 08:43 Pulse Ox 95 04/24/17 08:00 Intake & Output 04/23/17 04/24/17 04/24/17 18:59 06:59 18:59 Intake Total 1120 150 Output Total 650 Balance 1120 -500 Weight (lbs) 68.039 kg 69.49 kg Intake: Intake, IV Amount 100 Levofloxacin 500mg/100mL 100 500 mg In 100 ml @ 100 mls/hr IV Q24HR [facility] Rx#: [id number] Oral 1020 150 Output: Urine 650 Other: # Voids 3 # Bowel Movements 1 Active Medications: Current Medications Acetaminophen (Tylenol) 650 mg PO Q4HR PRN PRN Reason: Mild Pain / Temp above 100 Stop: 06/22/17 08:00 Last Admin: 04/24/17 01:26 Dose: 650 mg Atenolol (Tenormin) 25 mg PO DAILY [facility] Stop: 06/22/17 08:59 Last Admin: 04/24/17 08:43 Dose: 25 mg Bisacodyl (Dulcolax 10 Mg Supp) 10 mg RC DAILY PRN PRN Reason: IF MOM INEFFECTIVE Stop: 06/22/17 08:00 Diphenhydramine HCl (Benadryl 50 Mg/Ml) 25 mg IVP Q8HR [facility] Stop: 06/22/17 01:59 Last Admin: 04/24/17 05:12 Dose: 25 mg Donepezil HCl (Aricept) 10 mg PO HS [facility] Stop: 06/22/17 20:59 Last Admin: 04/23/17 21:17 Dose: 10 mg Glipizide (Glucotrol) 5 mg PO DAILY [facility] Stop: 06/22/17 08:59 Last Admin: 04/24/17 08:43 Dose: 5 mg Hydroxyzine HCl (Atarax) 50 mg PO Q8HR PRN PRN Reason: Itching Last Admin: 04/23/17 09:50 Dose: 50 mg Levofloxacin (Levaquin Pb) 500 mg in 100 mls @ 100 mls/hr IV Q24HR [facility] Stop: 06/22/17 15:59 Last Infusion: 04/23/17 17:25 Dose: Infused Insulin Aspart (Novolog Insulin Sliding Scale) 0 units SUBQ ACHS [facility] PRN Reason: Protocol Stop: 06/22/17 11:29 Last Admin: 04/24/17 06:48 Dose: Not Given Magnesium Hydroxide (Milk Of Magnesia) 30 ml PO HS PRN PRN Reason: Constipation Stop: 06/22/17 08:00 Methimazole (Tapazole) 10 mg PO DAILY [facility] Stop: 06/22/17 08:59 Last Admin: 04/24/17 08:42 Dose: 10 mg Mirtazapine (Remeron) 15 mg PO HS [facility] PRN Reason: Protocol Stop: 06/22/17 20:59 Multivitamins/Vitamin C (Theragran) 1 tab PO DAILY [facility] Stop: 06/22/17 08:59 Last Admin: 04/24/17 08:43 Dose: 1 tab General: no acute distress, well developed, well nourished HEENT: atraumatic, normocephalic, PERRLA, EOMI Neck: supple, no thyromegaly Cardiovascular: S1S2, regular Lungs: clear to auscultation bilaterally, clear to percussion Abdomen: soft, no tender, no distended, no mass Extremities: no cyanosis, no clubbing, no edema Neurological: awake, alert, oriented Skin: rash Infectious Disease Assmt/Plan - Problem List Patient Problems: All Active Problems Alzheimer disease (Acute) G30.9 CAD (coronary artery disease) (Acute) I25.10 Debility (Acute) R53.81 Dementia (Acute) F03.90 Depression (Acute) F32.9 Diabetes mellitus (Acute) E11.9 Fatigue (Acute) R53.83 Hypertension (Acute) I10 Hyperthyroidism (Acute) E05.90 Hyponatremia (Acute) E87.1 MALAISE (Acute) Tinea corporis (Acute) B35.4 - Assessment Assessment: IMPRESSION: 1. Generalized rash most likely allergic reaction. 2. Diabetes mellitus type 2. 3. Hypertension. 4. Hyperlipidemia. RECOMMENDATIONS: Gave Benadryl.
--- NOTE | 2017-04-24 12:48 | Internal Medicine Prog Note ---
Internal Medicine Subjective - Subjective Service Date: 04/24/17 Patient seen and examined:: with staff Patient is:: awake Per staff patient has:: tolerating meds Internal Medicine Objective - Results Result Diagrams: 04/23/17 05:20 04/23/17 05:20 Recent Labs: Laboratory Last Values WBC 6.1 Th/cmm (4.8-10.8) 04/23/17 05:20 RBC 4.50 Mil/cmm (3.80-5.80) 04/23/17 05:20 Hgb 13.4 gm/dL (12-16) 04/23/17 05:20 Hct 40.7 % (41.0-60) L 04/23/17 05:20 MCV 90.4 fl (80-99) 04/23/17 05:20 MCH 29.7 pg (27.0-31.0) 04/23/17 05:20 MCHC Differential 32.8 pg (28.0-36.0) 04/23/17 05:20 RDW 14.3 % (11.5-20.0) 04/23/17 05:20 Plt Count 180 Th/cmm (150-400) 04/23/17 05:20 MPV 7.8 fl 04/23/17 05:20 Neutrophils % 54.2 % (40.0-80.0) 04/23/17 05:20 Lymphocytes % 31.1 % (20.0-50.0) 04/23/17 05:20 Monocytes % 9.6 % (2.0-10.0) 04/23/17 05:20 Eosinophils % 4.6 % (0.0-5.0) 04/23/17 05:20 Basophils % 0.5 % (0.0-2.0) 04/23/17 05:20 Sodium 135 mEq/L (136-145) L 04/23/17 05:20 Potassium 4.4 mEq/L (3.5-5.1) 04/23/17 05:20 Chloride 105 mEq/L (98-107) 04/23/17 05:20 Carbon Dioxide 25.2 mEq/L (21.0-31.0) 04/23/17 05:20 Anion Gap 9.2 (7.0-16.0) 04/23/17 05:20 BUN 25 mg/dL (7-25) 04/23/17 05:20 Creatinine 0.9 mg/dL (0.7-1.3) 04/23/17 05:20 Est GFR ( Amer) TNP 04/23/17 05:20 Est GFR (Non-Af Amer) TNP 04/23/17 05:20 BUN/Creatinine Ratio 27.8 04/23/17 05:20 Glucose 128 mg/dL (70-105) H 04/23/17 05:20 POC Glucose 313 MG/DL (70 - 105) H 04/24/17 10:51 Hemoglobin A1c % 6.6 % (4.0-6.0) H 04/22/17 22:09 Calcium 9.2 mg/dL (8.6-10.3) 04/23/17 05:20 Magnesium 2.2 mg/dL (1.9-2.7) 04/22/17 22:09 Total Bilirubin 0.6 mg/dL (0.3-1.0) 04/23/17 05:20 AST 17 U/L (13-39) 04/23/17 05:20 ALT 19 U/L (7-52) 04/23/17 05:20 Alkaline Phosphatase 124 U/L (34-104) H 04/23/17 05:20 Troponin I ng/mL (0.01-0.05) 04/23/17 21:22 Total Protein 7.1 gm/dL (6.0-8.3) 04/23/17 05:20 Albumin 3.9 gm/dL (4.2-5.5) L 04/23/17 05:20 Globulin 3.2 gm/dL 04/23/17 05:20 Albumin/Globulin Ratio 1.2 (1.0-1.8) 04/23/17 05:20 Triglycerides 68 mg/dL (<150) 04/23/17 05:20 Cholesterol 155 mg/dL (<200) 04/23/17 05:20 LDL Cholesterol Direct 83 mg/dL (75-193) 04/23/17 05:20 HDL Cholesterol 61 mg/dL (23-92) 04/23/17 05:20 Free T4 0.92 ng/dL (0.82-1.77) 04/22/17 22:09 TSH uIU/ml (0.34-5.60) 04/23/17 05:20 - Physical Exam Vitals and I&O: Vital Signs Temp 97.2 F 04/24/17 08:00 Pulse 58 04/24/17 08:43 Resp 16 04/24/17 08:00 BP 127/70 04/24/17 08:43 Pulse Ox 95 04/24/17 08:00 Intake & Output 04/23/17 04/24/17 04/24/17 18:59 06:59 18:59 Intake Total 1120 150 Output Total 650 Balance 1120 -500 Weight (lbs) 150 lb 153 lb 3.2 oz Intake: Intake, IV Amount 100 Levofloxacin 500mg/100mL 100 500 mg In 100 ml @ 100 mls/hr IV Q24HR [facility] Rx#: [id number] Oral 1020 150 Output: Urine 650 Other: # Voids 3 # Bowel Movements 1 Active Medications: Current Medications Acetaminophen (Tylenol) 650 mg PO Q4HR PRN PRN Reason: Mild Pain / Temp above 100 Stop: 06/22/17 08:00 Last Admin: 04/24/17 01:26 Dose: 650 mg Atenolol (Tenormin) 25 mg PO DAILY [facility] Stop: 06/22/17 08:59 Last Admin: 04/24/17 08:43 Dose: 25 mg Bisacodyl (Dulcolax 10 Mg Supp) 10 mg RC DAILY PRN PRN Reason: IF MOM INEFFECTIVE Stop: 06/22/17 08:00 Diphenhydramine HCl (Benadryl 50 Mg/Ml) 25 mg IVP Q8HR [facility] Stop: 06/22/17 01:59 Last Admin: 04/24/17 05:12 Dose: 25 mg Donepezil HCl (Aricept) 10 mg PO HS [facility] Stop: 06/22/17 20:59 Last Admin: 04/23/17 21:17 Dose: 10 mg Glipizide (Glucotrol) 5 mg PO DAILY [facility] Stop: 06/22/17 08:59 Last Admin: 04/24/17 08:43 Dose: 5 mg Hydroxyzine HCl (Atarax) 50 mg PO Q8HR PRN PRN Reason: Itching Last Admin: 04/23/17 09:50 Dose: 50 mg Levofloxacin (Levaquin Pb) 500 mg in 100 mls @ 100 mls/hr IV Q24HR [facility] Stop: 06/22/17 15:59 Last Infusion: 04/23/17 17:25 Dose: Infused Insulin Aspart (Novolog Insulin Sliding Scale) 0 units SUBQ ACHS [facility] PRN Reason: Protocol Stop: 06/22/17 11:29 Last Admin: 04/24/17 12:28 Dose: 8 units Magnesium Hydroxide (Milk Of Magnesia) 30 ml PO HS PRN PRN Reason: Constipation Stop: 06/22/17 08:00 Methimazole (Tapazole) 10 mg PO DAILY [facility] Stop: 06/22/17 08:59 Last Admin: 04/24/17 08:42 Dose: 10 mg Mirtazapine (Remeron) 15 mg PO HS [facility] PRN Reason: Protocol Stop: 06/22/17 20:59 Multivitamins/Vitamin C (Theragran) 1 tab PO DAILY [facility] Stop: 06/22/17 08:59 Last Admin: 04/24/17 08:43 Dose: 1 tab General: alert HEENT: NC/AT, EOMI Neck: Supple Lungs: CTAB Cardiovascular: RRR, Normal S1, Normal S2, without murmur Abdomen: soft, non-distended, positive bowel sound Neurological: alert Internal Medicine Assmt/Plan - Assessment Assessment: Alzheimer disease (Acute) G30.9 CAD (coronary artery disease) (Acute) I25.10 Debility (Acute) R53.81 Dementia (Acute) F03.90 Depression (Acute) F32.9 Diabetes mellitus (Acute) E11.9 Fatigue (Acute) R53.83 Hypertension (Acute) I10 Hyperthyroidism (Acute) E05.90 Hyponatremia (Acute) E87.1 MALAISE (Acute) Tinea corporis (Acute) B35.4 - Plan Plan: ivf for hydration am labs ivabx continue current plan of care
[2017-04-24] MEDS ORDERED: Probiotic Screen MC PRN (15:41)
--- NOTE | 2017-04-24 16:37 | Cardiology ---
04/23/[address] Maryjo Amin. PROCEDURE: Echocardiogram. M-MODE ECHOCARDIOGRAM: Mitral valve, anterior leaflet of the mitral valve shows normal excursion, EF velocity. Posterior mitral valve shows normal excursion. Left ventricular posterior wall shows increased thickness, normal excursion. Interventricular septum shows increased thickness, normal excursion. Hypertrophy of the left ventricle, ejection fraction 55%. Left atrium normal. Aortic root shows normal dimension, normal excursion of aortic leaflets. Short axis view of mitral valve normal. Short axis view of aortic valve normal. Apical 4-chamber view showed normal sized left ventricle, left atrium, right ventricle, right atrium, tricuspid and mitral valve. Ejection fraction 55%. Conclusion, normal 2D echo ejection fraction 55%. Doppler study shows mild tricuspid regurgitation, mild pulmonary regurgitation. CONCLUSION: Hypertrophy of the left ventricle, mild tricuspid regurgitation, mild pulmonary regurgitation, ejection fraction 55%. [facility]# [id number]
[2017-04-24] MEDS: Lactobacillus Rhamnosus 10 Billion CFU Capsule PO SCH (16:43)
[2017-04-24] MEDS: Levofloxacin 500mg/100mL 500 MG/100 ML BAG IV SCH (16:45)
--- NOTE | 2017-04-24 17:25 | Cardiology ---
04/23/2017 PROCEDURE: Echocardiogram. Patient of Dr. Amin. M-MODE ECHOCARDIOGRAM: Mitral valve, anterior leaflet of mitral valve shows normal excursion, EF velocity. Posterior leaflet of the mitral valve shows normal excursion. Left ventricular posterior wall shows increased thickness, normal excursion. Interventricular septum showed increased thickness, normal excursion, hypertrophy of the left ventricle, ejection fraction 55%. Left atrium normal. Aortic root shows normal dimension, normal excursion of aortic leaflets. CONCLUSION: Hypertrophy of the left ventricle, ejection fraction 55%. 2D ECHO: Long axis view showed normal sized left ventricle with hypertrophy of the left ventricle. Left atrium normal. Aortic root shows normal dimension, normal excursion of aortic leaflets. Short axis view of mitral valve normal. Short axis view of aortic valve normal. Apical four chamber view showed normal sized left ventricle with hypertrophy of the left ventricle. Left atrium normal. Right ventricular cavity, right atrium normal, no pericardial effusion. CONCLUSION: Hypertrophy of the left ventricle, ejection fraction 55%. Doppler study shows mild tricuspid regurgitation, mild pulmonary regurgitation. JOB# [id number]
--- NOTE | 2017-04-25 06:08 | Consultation ---
DATE OF CONSULTATION: 04/23/2017 DATE OF CONSULTATION: 04/23/2017 HISTORY AND PHYSICAL: This 81-year-old male patient who was transferred from . The patient has been complaining of weakness, tiredness, dizziness. The patient is depressed and complaining of jaw pain. Following this, the patient was seen in the Emergency Room and the patient is admitted. No history of PND or orthopnea. PAST MEDICAL HISTORY: Angina, diabetes mellitus type 2, insulin dependent diabetes mellitus, major depression, hypertension, hyperlipidemia, and dementia. FAMILY HISTORY: Unremarkable. SOCIAL HISTORY: No history of smoking or alcohol abuse. ALLERGIES: None. PHYSICAL EXAMINATION: VITAL SIGNS: Blood pressure 128/82, pulse 78, respirations 28. HEAD: Normocephalic. No lumps or bumps. EYES: Pupils equal, reactive to light. Fundi show AV nicking, sclerae white, conjunctivae pink. NECK: Carotid 2+. Normal upstroke. JVD flat. Thyroid not palpable. Lymph nodes not palpable. CHEST: Shows increased AP diameter. No kyphosis, scoliosis. LUNGS: Bilateral bronchovesicular breath sounds. HEART: PMI fifth intercostal space with lateral to midclavicular line. S1, S2. No S3, soft S4. Systolic murmur, grade 2/6, lower left sternal border without radiation. ABDOMEN: Soft. Liver, spleen not palpable. No organomegaly. Bowel sounds are active. NEUROLOGIC: Unremarkable. EXTREMITIES: Peripheral pulses 2+. No pedal edema. CLINICAL IMPRESSION: Atypical chest pain, hypertension, diabetes mellitus type 2, hyperlipidemia. The patient had an echocardiogram which showed hypertrophy of the left ventricle, mild tricuspid regurgitation, mild pulmonary regurgitation. Ejection fraction 55%. JOB# [id number]
[2017-04-25] MEDS: INSULIN ASPART SLIDING SCALE 100 UNITS/ML UNIT SUBQ SCH ×2 (06:50→11:56)
[2017-04-25] MEDS: Multivitamin Tab PO SCH (08:22)
[2017-04-25] MEDS: Lactobacillus Rhamnosus 10 Billion CFU Capsule PO SCH (08:22)
--- NOTE | 2017-04-25 08:58 | General Progress Note ---
Subjective - Review of Systems Events since last encounter: chart reviewed vitals reviewed no distress Objective - Results Result Diagrams: 04/23/17 05:20 04/23/17 05:20 Recent Labs: Laboratory Last Values WBC 6.1 Th/cmm (4.8-10.8) 04/23/17 05:20 RBC 4.50 Mil/cmm (3.80-5.80) 04/23/17 05:20 Hgb 13.4 gm/dL (12-16) 04/23/17 05:20 Hct 40.7 % (41.0-60) L 04/23/17 05:20 MCV 90.4 fl (80-99) 04/23/17 05:20 MCH 29.7 pg (27.0-31.0) 04/23/17 05:20 MCHC Differential 32.8 pg (28.0-36.0) 04/23/17 05:20 RDW 14.3 % (11.5-20.0) 04/23/17 05:20 Plt Count 180 Th/cmm (150-400) 04/23/17 05:20 MPV 7.8 fl 04/23/17 05:20 Neutrophils % 54.2 % (40.0-80.0) 04/23/17 05:20 Lymphocytes % 31.1 % (20.0-50.0) 04/23/17 05:20 Monocytes % 9.6 % (2.0-10.0) 04/23/17 05:20 Eosinophils % 4.6 % (0.0-5.0) 04/23/17 05:20 Basophils % 0.5 % (0.0-2.0) 04/23/17 05:20 Sodium 135 mEq/L (136-145) L 04/23/17 05:20 Potassium 4.4 mEq/L (3.5-5.1) 04/23/17 05:20 Chloride 105 mEq/L (98-107) 04/23/17 05:20 Carbon Dioxide 25.2 mEq/L (21.0-31.0) 04/23/17 05:20 Anion Gap 9.2 (7.0-16.0) 04/23/17 05:20 BUN 25 mg/dL (7-25) 04/23/17 05:20 Creatinine 0.9 mg/dL (0.7-1.3) 04/23/17 05:20 Est GFR ( Amer) TNP 04/23/17 05:20 Est GFR (Non-Af Amer) TNP 04/23/17 05:20 BUN/Creatinine Ratio 27.8 04/23/17 05:20 Glucose 128 mg/dL (70-105) H 04/23/17 05:20 POC Glucose 124 MG/DL (70 - 105) H 04/25/17 06:49 Hemoglobin A1c % 6.6 % (4.0-6.0) H 04/22/17 22:09 Calcium 9.2 mg/dL (8.6-10.3) 04/23/17 05:20 Magnesium 2.2 mg/dL (1.9-2.7) 04/22/17 22:09 Total Bilirubin 0.6 mg/dL (0.3-1.0) 04/23/17 05:20 AST 17 U/L (13-39) 04/23/17 05:20 ALT 19 U/L (7-52) 04/23/17 05:20 Alkaline Phosphatase 124 U/L (34-104) H 04/23/17 05:20 Troponin I ng/mL (0.01-0.05) 04/23/17 21:22 Total Protein 7.1 gm/dL (6.0-8.3) 04/23/17 05:20 Albumin 3.9 gm/dL (4.2-5.5) L 04/23/17 05:20 Globulin 3.2 gm/dL 04/23/17 05:20 Albumin/Globulin Ratio 1.2 (1.0-1.8) 04/23/17 05:20 Triglycerides 68 mg/dL (<150) 04/23/17 05:20 Cholesterol 155 mg/dL (<200) 04/23/17 05:20 LDL Cholesterol Direct 83 mg/dL (75-193) 04/23/17 05:20 HDL Cholesterol 61 mg/dL (23-92) 04/23/17 05:20 Free T4 0.92 ng/dL (0.82-1.77) 04/22/17 22:09 TSH uIU/ml (0.34-5.60) 04/23/17 05:20 - Physical Exam Vitals and I&O: Vital Signs Temp 98.4 F 04/25/17 04:00 Pulse 67 04/25/17 08:21 Resp 19 04/25/17 04:00 BP 110/46 04/25/17 08:21 Pulse Ox 97 04/25/17 04:00 Intake & Output 04/24/17 04/25/17 04/25/17 18:59 06:59 18:59 Intake Total 100 200 Output Total 250 Balance 100 -50 Weight (lbs) 69.4 kg 70.67 kg Intake: Intake, IV Amount 100 Levofloxacin 500mg/100mL 100 500 mg In 100 ml @ 100 mls/hr IV Q24HR [facility] Rx#: [id number] Oral 200 Output: Urine 250 Other: # Voids 4 # Bowel Movements 1 Active Medications: Current Medications Acetaminophen (Tylenol) 650 mg PO Q4HR PRN PRN Reason: Mild Pain / Temp above 100 Stop: 06/22/17 08:00 Last Admin: 04/25/17 01:01 Dose: 650 mg Atenolol (Tenormin) 25 mg PO DAILY [facility] Stop: 06/22/17 08:59 Last Admin: 04/25/17 08:21 Dose: 25 mg Bisacodyl (Dulcolax 10 Mg Supp) 10 mg RC DAILY PRN PRN Reason: IF MOM INEFFECTIVE Stop: 06/22/17 08:00 Diphenhydramine HCl (Benadryl 50 Mg/Ml) 25 mg IVP Q8HR [facility] Stop: 06/22/17 01:59 Last Admin: 04/25/17 04:19 Dose: 25 mg Donepezil HCl (Aricept) 10 mg PO HS [facility] Stop: 06/22/17 20:59 Last Admin: 04/24/17 21:33 Dose: 10 mg Glipizide (Glucotrol) 5 mg PO DAILY [facility] Stop: 06/22/17 08:59 Last Admin: 04/25/17 08:22 Dose: 5 mg Hydroxyzine HCl (Atarax) 50 mg PO Q8HR PRN PRN Reason: Itching Last Admin: 04/23/17 09:50 Dose: 50 mg Levofloxacin (Levaquin Pb) 500 mg in 100 mls @ 100 mls/hr IV Q24HR [facility] Stop: 06/22/17 15:59 Last Infusion: 04/24/17 18:25 Dose: Infused Insulin Aspart (Novolog Insulin Sliding Scale) 0 units SUBQ ACHS [facility] PRN Reason: Protocol Stop: 06/22/17 11:29 Last Admin: 04/25/17 06:50 Dose: Not Given Lactobacillus Rhamnosus (Culturelle) 1 each PO DAILY [facility] Stop: 06/23/17 15:59 Last Admin: 04/25/17 08:22 Dose: 1 each Magnesium Hydroxide (Milk Of Magnesia) 30 ml PO HS PRN PRN Reason: Constipation Stop: 06/22/17 08:00 Methimazole (Tapazole) 10 mg PO DAILY [facility] Stop: 06/22/17 08:59 Last Admin: 04/25/17 08:22 Dose: 10 mg Mirtazapine (Remeron) 15 mg PO HS [facility] PRN Reason: Protocol Stop: 06/22/17 20:59 Miscellaneous (Probiotic Screen) 1 ea MC PRN PRN PRN Reason: PROTOCOL Stop: 06/23/17 15:40 Multivitamins/Vitamin C (Theragran) 1 tab PO DAILY [facility] Stop: 06/22/17 08:59 Last Admin: 04/25/17 08:22 Dose: 1 tab General: No acute distress HEENT: Atraumatic Neck: Thyromegaly Cardiovascular: Regular rate, Normal S1, Normal S2 Lungs: Clear to auscultation Assessment/Plan - Problem List Patient Problems: All Active Problems Alzheimer disease (Acute) G30.9 CAD (coronary artery disease) (Acute) I25.10 Debility (Acute) R53.81 Dementia (Acute) F03.90 Depression (Acute) F32.9 Diabetes mellitus (Acute) E11.9 Fatigue (Acute) R53.83 Hypertension (Acute) I10 Hyperthyroidism (Acute) E05.90 Hyponatremia (Acute) E87.1 MALAISE (Acute) Tinea corporis (Acute) B35.4 - Plan Plan: cpm
--- NOTE | 2017-04-25 13:05 | Infectious Disease Prog Note ---
Infectious Disease Subjective - Review of Systems Service Date: 04/25/17 Subjective: no fever Infectious Disease Objective - Results Result Diagrams: 04/23/17 05:20 04/23/17 05:20 Recent Labs: Laboratory Last Values WBC 6.1 Th/cmm (4.8-10.8) 04/23/17 05:20 RBC 4.50 Mil/cmm (3.80-5.80) 04/23/17 05:20 Hgb 13.4 gm/dL (12-16) 04/23/17 05:20 Hct 40.7 % (41.0-60) L 04/23/17 05:20 MCV 90.4 fl (80-99) 04/23/17 05:20 MCH 29.7 pg (27.0-31.0) 04/23/17 05:20 MCHC Differential 32.8 pg (28.0-36.0) 04/23/17 05:20 RDW 14.3 % (11.5-20.0) 04/23/17 05:20 Plt Count 180 Th/cmm (150-400) 04/23/17 05:20 MPV 7.8 fl 04/23/17 05:20 Neutrophils % 54.2 % (40.0-80.0) 04/23/17 05:20 Lymphocytes % 31.1 % (20.0-50.0) 04/23/17 05:20 Monocytes % 9.6 % (2.0-10.0) 04/23/17 05:20 Eosinophils % 4.6 % (0.0-5.0) 04/23/17 05:20 Basophils % 0.5 % (0.0-2.0) 04/23/17 05:20 Sodium 135 mEq/L (136-145) L 04/23/17 05:20 Potassium 4.4 mEq/L (3.5-5.1) 04/23/17 05:20 Chloride 105 mEq/L (98-107) 04/23/17 05:20 Carbon Dioxide 25.2 mEq/L (21.0-31.0) 04/23/17 05:20 Anion Gap 9.2 (7.0-16.0) 04/23/17 05:20 BUN 25 mg/dL (7-25) 04/23/17 05:20 Creatinine 0.9 mg/dL (0.7-1.3) 04/23/17 05:20 Est GFR ( Amer) TNP 04/23/17 05:20 Est GFR (Non-Af Amer) TNP 04/23/17 05:20 BUN/Creatinine Ratio 27.8 04/23/17 05:20 Glucose 128 mg/dL (70-105) H 04/23/17 05:20 POC Glucose 138 MG/DL (70 - 105) H 04/25/17 11:55 Hemoglobin A1c % 6.6 % (4.0-6.0) H 04/22/17 22:09 Calcium 9.2 mg/dL (8.6-10.3) 04/23/17 05:20 Magnesium 2.2 mg/dL (1.9-2.7) 04/22/17 22:09 Total Bilirubin 0.6 mg/dL (0.3-1.0) 04/23/17 05:20 AST 17 U/L (13-39) 04/23/17 05:20 ALT 19 U/L (7-52) 04/23/17 05:20 Alkaline Phosphatase 124 U/L (34-104) H 04/23/17 05:20 Troponin I ng/mL (0.01-0.05) 04/23/17 21:22 Total Protein 7.1 gm/dL (6.0-8.3) 04/23/17 05:20 Albumin 3.9 gm/dL (4.2-5.5) L 04/23/17 05:20 Globulin 3.2 gm/dL 04/23/17 05:20 Albumin/Globulin Ratio 1.2 (1.0-1.8) 04/23/17 05:20 Triglycerides 68 mg/dL (<150) 04/23/17 05:20 Cholesterol 155 mg/dL (<200) 04/23/17 05:20 LDL Cholesterol Direct 83 mg/dL (75-193) 04/23/17 05:20 HDL Cholesterol 61 mg/dL (23-92) 04/23/17 05:20 Free T4 0.92 ng/dL (0.82-1.77) 04/22/17 22:09 TSH uIU/ml (0.34-5.60) 04/23/17 05:20 - Physical Exam Vitals and I&O: Vital Signs Temp 97.2 F 04/25/17 08:00 Pulse 67 04/25/17 08:21 Resp 20 04/25/17 08:00 BP 110/46 04/25/17 08:21 Pulse Ox 95 04/25/17 08:00 Intake & Output 04/24/17 04/25/17 04/25/17 18:59 06:59 18:59 Intake Total 100 200 Output Total 250 Balance 100 -50 Weight (lbs) 69.4 kg 70.67 kg Intake: Intake, IV Amount 100 Levofloxacin 500mg/100mL 100 500 mg In 100 ml @ 100 mls/hr IV Q24HR [facility] Rx#: [id number] Oral 200 Output: Urine 250 Other: # Voids 4 # Bowel Movements 1 Active Medications: Current Medications Acetaminophen (Tylenol) 650 mg PO Q4HR PRN PRN Reason: Mild Pain / Temp above 100 Stop: 06/22/17 08:00 Last Admin: 04/25/17 01:01 Dose: 650 mg Atenolol (Tenormin) 25 mg PO DAILY [facility] Stop: 06/22/17 08:59 Last Admin: 04/25/17 08:21 Dose: 25 mg Bisacodyl (Dulcolax 10 Mg Supp) 10 mg RC DAILY PRN PRN Reason: IF MOM INEFFECTIVE Stop: 06/22/17 08:00 Diphenhydramine HCl (Benadryl 50 Mg/Ml) 25 mg IVP Q8HR [facility] Stop: 06/22/17 01:59 Last Admin: 04/25/17 12:31 Dose: 25 mg Donepezil HCl (Aricept) 10 mg PO HS [facility] Stop: 06/22/17 20:59 Last Admin: 04/24/17 21:33 Dose: 10 mg Glipizide (Glucotrol) 5 mg PO DAILY [facility] Stop: 06/22/17 08:59 Last Admin: 04/25/17 08:22 Dose: 5 mg Hydroxyzine HCl (Atarax) 50 mg PO Q8HR PRN PRN Reason: Itching Last Admin: 04/23/17 09:50 Dose: 50 mg Levofloxacin (Levaquin Pb) 500 mg in 100 mls @ 100 mls/hr IV Q24HR [facility] Stop: 06/22/17 15:59 Last Infusion: 04/24/17 18:25 Dose: Infused Insulin Aspart (Novolog Insulin Sliding Scale) 0 units SUBQ ACHS [facility] PRN Reason: Protocol Stop: 06/22/17 11:29 Last Admin: 04/25/17 11:56 Dose: Not Given Lactobacillus Rhamnosus (Culturelle) 1 each PO DAILY [facility] Stop: 06/23/17 15:59 Last Admin: 04/25/17 08:22 Dose: 1 each Magnesium Hydroxide (Milk Of Magnesia) 30 ml PO HS PRN PRN Reason: Constipation Stop: 06/22/17 08:00 Methimazole (Tapazole) 10 mg PO DAILY [facility] Stop: 06/22/17 08:59 Last Admin: 04/25/17 08:22 Dose: 10 mg Mirtazapine (Remeron) 15 mg PO HS [facility] PRN Reason: Protocol Stop: 06/22/17 20:59 Miscellaneous (Probiotic Screen) 1 ea MC PRN PRN PRN Reason: PROTOCOL Stop: 06/23/17 15:40 Multivitamins/Vitamin C (Theragran) 1 tab PO DAILY [facility] Stop: 06/22/17 08:59 Last Admin: 04/25/17 08:22 Dose: 1 tab General: no acute distress, well developed, well nourished HEENT: atraumatic, normocephalic, PERRLA, EOMI, moist mucous membrane Neck: supple, no thyromegaly, no lymphadenopathy Cardiovascular: S1S2, regular Lungs: no clear to auscultation bilaterally, no clear to percussion Abdomen: soft, bowel sounds, no tender, no distended, no mass, no rebound, no hepatomegaly, no splenomegaly, no ascites Extremities: no cyanosis, no clubbing, no edema Neurological: awake, alert Skin: intact Infectious Disease Assmt/Plan - Problem List Patient Problems: All Active Problems Alzheimer disease (Acute) G30.9 CAD (coronary artery disease) (Acute) I25.10 Debility (Acute) R53.81 Dementia (Acute) F03.90 Depression (Acute) F32.9 Diabetes mellitus (Acute) E11.9 Fatigue (Acute) R53.83 Hypertension (Acute) I10 Hyperthyroidism (Acute) E05.90 Hyponatremia (Acute) E87.1 MALAISE (Acute) Tinea corporis (Acute) B35.4 - Assessment Assessment: IMPRESSION: 1. Generalized rash most likely allergic reaction. improved. 2. Diabetes mellitus type 2. 3. Hypertension. 4. Hyperlipidemia. RECOMMENDATIONS: Gave Siobhan.
--- NOTE | 2017-04-28 03:01 | Discharge Summary ---
DATE OF DISCHARGE: 04/25/2017 SUMMARY: This is a very well known patient to me. The patient is from [facility]. Apparently had a swelling of his left jaw as well as rashes, was evaluated and admitted at the [facility] on 04/22/2017. The patient was discharged on 04/25/2017. The patient had a complaint of shortness of breath, possible pneumonia, and ST-T changes, possible cardiac history, history of diabetes, allergic reaction and depression. The patient was seen by multiple specialists including Dr. Dale White, Dr. John White, and eventually the patient improved. The patient was in stable condition on 04/25/2017 and was discharged back on antihistamines, and I will follow the patient. JOB# [id number]
== END 2017-04-25 14:36 | disposition home or self-care (01) | DRG 194 ==
LOC: ER 21:16 → MSI 23:40
PROVIDERS: ADMIT Internal Medicine; ATTEND Internal Medicine
DX: J18.9 Pneumonia, unspecified organism (principal); E87.1 Hypo-osmolality and hyponatremia; E11.9 Type 2 diabetes mellitus without complications; G30.9 Alzheimer's disease, unspecified; I07.1 Rheumatic tricuspid insufficiency; E05.90 Thyrotoxicosis, unspecified without thyrotoxic crisis or storm; B35.4 Tinea corporis; R21 Rash and other nonspecific skin eruption; T50.995A Adverse effect of other drugs, medicaments and biological substances, initial encounter; R68.84 Jaw pain; I37.1 Nonrheumatic pulmonary valve insufficiency; E03.9 Hypothyroidism, unspecified; F02.80 Dementia in other diseases classified elsewhere, unspecified severity, without behavioral disturbance, psychotic disturbance, mood disturbance, and anxiety; E78.5 Hyperlipidemia, unspecified; I25.10 Atherosclerotic heart disease of native coronary artery without angina pectoris; K27.9 Peptic ulcer, site unspecified, unspecified as acute or chronic, without hemorrhage or perforation; K59.00 Constipation, unspecified; M54.9 Dorsalgia, unspecified; F41.9 Anxiety disorder, unspecified; R07.89 Other chest pain; F32.9 Major depressive disorder, single episode, unspecified; I11.9 Hypertensive heart disease without heart failure; Y92.89 Other specified places as the place of occurrence of the external cause
CPT/HCPCS: 36415-UA; 71010-TC; 80053-TC; 80061-TC; 82948-90; 83036-90; 83735-TC; 84439-90; 84443-TC; 84484-TC; 85025-TC; 87086-90; 93005; 96374; J0696; J1200; J1815; J1940; J1956; Z7610

== ENCOUNTER 2017-06-30 11:06 | Inpatient (IN) | payer MEDICARE, MEDICAID ==
[2017-06-30] MEDS ORDERED: Enoxaparin 40 mg/0.4 mL 0.4mL Syr SUBQ STA (11:44)
--- NOTE | 2017-06-30 11:51 | ED Physician Chart ---
ED Chief Complaint/HPI - Patient Information Date Seen:: 06/30/17 Time Seen:: 11:30 Chief Complaint:: BILATERAL FEMORAL VEIN THROMBOSIS History of Present Illness:: PT WITH PAIN IN BOTH LEGS. HE HAS DEMENTIA AND IS UNABLE TO GIVE ME A PAIN SCORE. PT HAD ULTRASOUND OF BOTH LOWER EXTREMITIES AND THEY SHOWED BILATERAL FEMORAL VEIN THROMBOSIS. Allergies:: Allergies Allergy/AdvReac Type Severity Reaction Status Date / Time No Known Allergies Allergy Verified 04/22/17 21:19 Vitals:: Vital Signs - 8 hr 06/30/17 11:14 Temp 97.7 F HR 55 RR 18 BP 135/56 O2 Sat % 99 Review:: Nurse's Note Reviewed, EMS run form Reviewed, Transfer documents Reviewed ED Review of Systems - Review of Systems General/Constitutional: No fever, No chills, No weakness, No diaphoresis, Edema , Other (reliability of patient's review of systems is questionable due to dementia.) Skin: Rash, No bruising Head: No headache, No light-headedness Eyes: Diplopia ENT: No earache, No sore throat, No tinnitus Neck: No neck pain, No stiffness Pulmonary: No SOB, No cough GI: No nausea, No vomiting, No diarrhea, Other (patient states that he has a ball-like mass in the rectal region.) G/U: Dysuria, No hematuria, Other (patient complains of itching in the genital region.) Musculoskeletal: Bone or joint pain, No back pain, No muscle pain Hematopoietic: No lymphadenopathy Allergic/Immuno: No urticaria, No angioedema Neurological: No focal symptoms, No weakness, No paresthesia, No headache, Confusion ED Past Medical History - Past Medical History Past Medical History: HTN, DM, DVT/PE, Dyslipidemia, Thyroid disorder, Dementia Social History: Non Smoker, No Alcohol, No Drug Use, Single, Care Facility Surgical History: other (patient with bilateral cataract surgery and surgery for a gastric ulcer.) Psychiatricy History: Dementia Other PMH History: Thyrotoxicosis. Family Medical History - Family Member Mother History Unknown: Yes Ethnicity: Living Status: ED Physical Exam - Physical Examination General/Constitutional: Awake, Well-developed, well-nourished, Alert, No distress, Non-toxic appearing Other Gen/Cons comments:: Patient's gait not tested due to history of bilateral lower extremity thrombosis. Head: Atraumatic Eyes: Lids, conjuctiva normal Other Eyes comments:: Right pupil much larger than the left pupil. Patient has lens implants in both eyes. Sclerae anicteric. Other Skin comments:: Patient has skin changes consistent with venous stasis in both lower extremities. Hyperpigmentation and erythema bilaterally in the lower extremities. ENMT: External ears, nose nl, Nasal exam nl, Oropharynx nl Other ENMT comments:: Patient is edentulous with both upper and lower dentures. Neck: Nontender, Full ROM w/o pain, No JVD, No nuchal rigidity, No mass Cardio Vascular: No murmur, gallop, rubs, NL S1 S2 Other Cardio Vascular comments:: Patient has a regular rhythm with bradycardia in the low 50 range. Distal pulses adequate in all 4 extremities. GI: No tenderness/rebounding/guarding, No organomegaly, Normal BS's, Nondistended, No McBurney tenderness Other GI comments:: Patient notes mild bilateral CVA tenderness. : No discharge Other comments:: Normal genitalia with circumcision. Patient has bilateral calf and thigh tenderness to palpation. He has decreased personal injury paralegal in both upper extremities and is able to lift each leg off of the examination gurney approximately 6-8 inches. Patient has trace pretibial edema in both lower extremities. ED Labs/Radiology/EKG Results - Lab Results Results: Laboratory Tests 06/30/17 06/30/17 06/30/17 12:03 12:03 12:03 WBC 5.0 RBC 4.58 Hgb 13.5 Hct 39.9 L MCV 87.1 MCH 29.4 MCHC Differential 33.8 RDW 14.6 Plt Count 162 MPV 7.6 Neutrophils % 62.7 Lymphocytes % 24.8 Monocytes % 9.3 Eosinophils % 2.5 Basophils % 0.7 PT 9.9 INR 0.95 PTT (Actin FS) 25.4 L Sodium 135 L Potassium 4.1 Chloride 106 Carbon Dioxide 24.7 Anion Gap 8.4 BUN 30 H Creatinine 0.8 Est GFR ( Amer) TNP Est GFR (Non-Af Amer) TNP BUN/Creatinine Ratio 37.5 Glucose 154 H Calcium 8.9 Total Bilirubin 0.6 AST 15 ALT 16 Alkaline Phosphatase 94 Total Protein 6.6 Albumin 4.0 L Globulin 2.6 Albumin/Globulin Ratio 1.5 Urine Source Urine Color Urine Clarity Urine pH Ur Specific [place] Urine Protein Urine Glucose (UA) Urine Ketones Urine Blood Urine Nitrate Urine Bilirubin Urine Urobilinogen Ur Leukocyte Esterase Urine RBC Urine WBC Ur Epithelial Cells Urine Bacteria Urine Mucus 06/30/17 12:12 WBC RBC Hgb Hct MCV MCH MCHC Differential RDW Plt Count MPV Neutrophils % Lymphocytes % Monocytes % Eosinophils % Basophils % PT INR PTT (Actin FS) Sodium Potassium Chloride Carbon Dioxide Anion Gap BUN Creatinine Est GFR ( Amer) Est GFR (Non-Af Amer) BUN/Creatinine Ratio Glucose Calcium Total Bilirubin AST ALT Alkaline Phosphatase Total Protein Albumin Globulin Albumin/Globulin Ratio Urine Source RANDOM Urine Color YELLOW Urine Clarity CLEAR Urine pH 5.5 Ur Specific [place] 1.025 Urine Protein NEGATIVE Urine Glucose (UA) NEGATIVE Urine Ketones NEGATIVE Urine Blood TRACE Urine Nitrate NEGATIVE Urine Bilirubin NEGATIVE Urine Urobilinogen 0.2 Ur Leukocyte Esterase NEGATIVE Urine RBC 0-2 H Urine WBC 0-2 Ur Epithelial Cells OCCASIONAL Urine Bacteria FEW Urine Mucus FEW Lab interpretation: The CBC is unremarkable and that there is no leukocytosis, anemia or thrombocytopenia. Laboratory Tests 06/30/17 06/30/17 06/30/17 12:03 12:03 12:03 WBC 5.0 RBC 4.58 Hgb 13.5 Hct 39.9 L MCV 87.1 MCH 29.4 MCHC Differential 33.8 RDW 14.6 Plt Count 162 MPV 7.6 Neutrophils % 62.7 Lymphocytes % 24.8 Monocytes % 9.3 Eosinophils % 2.5 Basophils % 0.7 PT 9.9 INR 0.95 PTT (Actin FS) 25.4 L Sodium 135 L Potassium 4.1 Chloride 106 Carbon Dioxide 24.7 Anion Gap 8.4 BUN 30 H Creatinine 0.8 Est GFR ( Amer) TNP Est GFR (Non-Af Amer) TNP BUN/Creatinine Ratio 37.5 Glucose 154 H Calcium 8.9 Total Bilirubin 0.6 AST 15 ALT 16 Alkaline Phosphatase 94 Total Protein 6.6 Albumin 4.0 L Globulin 2.6 Albumin/Globulin Ratio 1.5 Urine Source Urine Color Urine Clarity Urine pH Ur Specific [place] Urine Protein Urine Glucose (UA) Urine Ketones Urine Blood Urine Nitrate Urine Bilirubin Urine Urobilinogen Ur Leukocyte Esterase Urine RBC Urine WBC Ur Epithelial Cells Urine Bacteria Urine Mucus 06/30/17 12:12 WBC RBC Hgb Hct MCV MCH MCHC Differential RDW Plt Count MPV Neutrophils % Lymphocytes % Monocytes % Eosinophils % Basophils % PT INR PTT (Actin FS) Sodium Potassium Chloride Carbon Dioxide Anion Gap BUN Creatinine Est GFR ( Amer) Est GFR (Non-Af Amer) BUN/Creatinine Ratio Glucose Calcium Total Bilirubin AST ALT Alkaline Phosphatase Total Protein Albumin Globulin Albumin/Globulin Ratio Urine Source RANDOM Urine Color YELLOW Urine Clarity CLEAR Urine pH 5.5 Ur Specific [place] 1.025 Urine Protein NEGATIVE Urine Glucose (UA) NEGATIVE Urine Ketones NEGATIVE Urine Blood TRACE Urine Nitrate NEGATIVE Urine Bilirubin NEGATIVE Urine Urobilinogen 0.2 Ur Leukocyte Esterase NEGATIVE Urine RBC 0-2 H Urine WBC 0-2 Ur Epithelial Cells OCCASIONAL Urine Bacteria FEW Urine Mucus FEW The CBC was unremarkable with no leukocytosis, anemia or abnormal platelet count. Metabolic studies showed a mild hyponatremia of 135 with the other electrolytes being within normal parameters. The serum glucose of 154 his high but not clinically important in this patient. Renal function studies were within normal limits and the urinalysis was negative for a urinary tract infection. ED Assessment - Assessment General Assessment: CASE SUMMARY: This 81-year-old male was sent to the emergency department for evaluation of bilateral deep and superficial femoral vein thrombosis. He was awake and alert and in no acute distress. Patient suffers from dementia but is able to tell that he has pain in both legs and that he has had surgery for ulcer disease. Patient moves all 4 extremities with weakness consistent with his age and build. Auditory studies are pending at the present time. The case was discussed with Dr. Amin and he will admit the patient for further evaluation and treatment as indicated. MDM DDX BILATERAL LEG PAIN: NOT long bone fractures based on the patient's history and physical examination. NOT cellulitis in the lower extremities based on history and physical examination. NOT necrotizing fasciitis based on physical examination. NOT arterial occlusion based on physical examination. ED Septic Shock - . Is Septic Shock (SBP<90, OR Lactate>4 mmol\L) present?: No - <6hrs of presentation: Vital Signs: Vital Signs - 8 hr 06/30/17 11:14 Temp 97.7 F HR 55 RR 18 BP 135/56 O2 Sat % 99 ED Reassessment (Disposition) - Reassessment Reassessment Condition:: Unchanged - Diagnosis Diagnosis:: Bilateral combination of both deep femoral and superficial vein femoral thrombosis. Hypertension, insulin-dependent diabetes, atherosclerotic heart disease and dementia - Aftercare/Follow up Instructions Aftercare/Follow-Up Instructions:: Counseled pt regarding lab results/diagnosis & need follow up - Patient Disposition Accepting Physician:: Dr. Amin ED Discharge Plan - Patient Disposition Admit/Discharge/Transfer: Acute Care w/in this hosp
[2017-06-30] MEDS ORDERED: Enoxaparin 40 mg/0.4 mL 0.4mL Syr SUBQ ONE (12:01)
[2017-06-30 12:08] LABS: % BASOPHILS 0.7 % (0.0-2.0); % EOSINOPHILS 2.5 % (0.0-5.0); % LYMPHOCYTES 24.8 % (20.0-50.0); % MONOCYTES 9.3 % (2.0-10.0); % NEUTROPHILS 62.7 % (40.0-80.0); EOSINOPHILE ABSOLUTE 0.1 Th/cmm (0.1-0.4); HEMATOCRIT 39.9 % (41.0-60); HEMOGLOBIN 13.5 gm/dL (12-16); LYMPHOCYTE ABSOLUTE 1.2 Th/cmm (1.5-3.0); MEAN CELL VOLUME 87.1 fl (80-99); MEAN CORPUSCULAR HEMOGLOBIN 29.4 pg (27.0-31.0); MEAN CORPUSCULAR HGB CONC 33.8 pg (28.0-36.0); MEAN PLATELET VOLUME 7.6 fl; MONOCYTE ABSOLUTE 0.5 Th/cmm (0.3-1.0); NEUTROPHILE ABSOLUTE 3.2 Th/cmm (1.8-8.0); PLATELET COUNT 162 Th/cmm (150-400); RED BLOOD COUNT 4.58 Mil/cmm (3.80-5.80); RED CELL DISTRIBUTION WIDTH 14.6 % (11.5-20.0)
[2017-06-30 12:16] LABS: URINE MICROSCOPIC INDICATED? YES; URINE SOURCE RANDOM
[2017-06-30 12:18] LABS: URINE BILIRUBIN NEGATIVE (NEGATIVE); URINE BLOOD TRACE (NEGATIVE); URINE GLUCOSE (UA) NEGATIVE (NEGATIVE); URINE KETONE NEGATIVE (NEGATIVE); URINE LEUKOCYTE ESTERASE NEGATIVE (NEGATIVE); URINE NITRATE NEGATIVE (NEGATIVE); URINE PH 5.5 (4.6 - 8.0); URINE PROTEIN NEGATIVE (NEGATIVE); URINE UROBILINOGEN 0.2 E.U./dL (0.2 - 1.0)
[2017-06-30 12:20] LABS: URINE CLARITY CLEAR (CLEAR); URINE COLOR YELLOW
[2017-06-30 12:21] LABS: INR 0.95 (0.5-1.4); PROTHROMBIN TIME (TEST) 9.9 SECONDS (9.5-11.5)
[2017-06-30 12:24] LABS: URINE BACTERIA FEW /hpf (NONE SEEN); URINE EPITHELIAL CELLS OCCASIONAL /lpf (FEW); URINE RBC 0-2 /hpf (0-5); URINE WBC 0-2 /hpf (0-5)
[2017-06-30 12:25] LABS: ALB/GLOB RATIO 1.5 (1.0-1.8); ALKALINE PHOSPHATASE 94 U/L (34-104); ANION GAP 8.4 (7.0-16.0); BILIRUBIN,TOTAL 0.6 mg/dL (0.3-1.0); BUN - UREA NITROGEN 30 mg/dL (7-25); CALCIUM SERUM 8.9 mg/dL (8.6-10.3); CARBON DIOXIDE 24.7 mEq/L (21.0-31.0); CHLORIDE 106 mEq/L (98-107); CREATININE - SERUM 0.8 mg/dL (0.7-1.3); GLUCOSE 154 mg/dL (70-105); POTASSIUM SERUM 4.1 mEq/L (3.5-5.1); SGOT 15 U/L (13-39); SGPT/ALT 16 U/L (7-52); SODIUM SERUM 135 mEq/L (136-145); TOTAL PROTEIN,SERUM 6.6 gm/dL (6.0-8.3)
[2017-06-30] MEDS ORDERED: Pneumococcal Vaccine 0.5 mL Vial IM ONE (14:05)
[2017-06-30 14:27] VITALS: BP 139/64
[2017-06-30] MEDS ORDERED: HYDROXYZINE HCL 50 MG PO PRN (15:23)
[2017-06-30] MEDS ORDERED: Magnesium Hydroxide (MOM) 30 mL UDC PO PRN (15:23)
[2017-06-30 15:55] LABS: CHOLESTEROL 150 mg/dL (<200); HDL -HIGH DENSITY LIPOPROTEIN 50 mg/dL (23-92); TRIGLYCERIDES 176 mg/dL (<150)
--- NOTE | 2017-06-30 16:10 | History and Physical ---
History of Present Illness - HPI Chief Complaint: bilateral lower ext dvt HPI: This is a 81 year old male resident of [facility] admitted to the medsur unit due to doppler positive for dvt. Vital Signs: Last Vital Signs Temp 97.3 F 06/30/17 15:24 Pulse 58 06/30/17 15:24 Resp 19 06/30/17 15:24 BP 132/61 06/30/17 15:24 Pulse Ox 97 06/30/17 15:24 Past Medical History Other History: htn dm dvt pe hypothyroid dementia Family Medical History - Family Member Mother History Unknown: Yes Ethnicity: Living Status: Social History Smoke: No Alcohol: None Drugs: None Lives: Correction - Medications Home Medications: Home Medication Medication Instructions Recorded Type Acetaminophen [Tylenol] 650 mg PO Q4HR PRN tab 01/25/17 Rx Atenolol [Tenormin*] 25 mg PO DAILY tab 01/25/17 Rx Donepezil Hcl [Aricept] 10 mg PO HS tab 01/25/17 Rx Glipizide [Glucotrol] 5 mg PO DAILY tab 01/25/17 Rx Magnesium Hydroxide [Milk of 30 ml PO HS PRN udc 01/25/17 Rx Magnesia] Mirtazapine [Remeron] 15 mg PO HS tab 01/25/17 Rx Multivitamin [Theragran] 1 tab PO DAILY tab 01/25/17 Rx Bisacodyl [Dulcolax 10 Mg Supp] 10 mg RC DAILY PRN 04/22/17 History Hydroxyzine HCl 50 mg PO Q8HR PRN 04/22/17 History Insulin Aspart Sliding Scale See Protocol SUBQ ACHS 04/22/17 History [NovoLOG INSULIN SLIDING SCALE] Methimazole [Tapazole] 10 mg PO DAILY 04/22/17 History cloNIDine HCl [Catapres] 0.1 mg PO Q8HR PRN 04/22/17 History Lorazepam [Ativan] 0.5 mg PO Q6H PRN 06/30/17 History - Allergies Allergies/Adverse Reactions: Allergies Allergy/AdvReac Type Severity Reaction Status Date / Time No Known Allergies Allergy Verified 04/22/17 21:19 Review of Systems - Review of Systems Constitutional: Report: Weakness Eyes: Report: No Significant ENT: Report: No Significant Respiratory: Report: No Significant Cardiovascular: Report: No Significant Gastrointestinal: Report: No Significant Genitourinary: Report: No Significant Musculoskeletal: Report: No Significant Skin: Report: No Significant Neurological: Report: No Significant Physical Exam - Physical Exam HEENT: Report: Ears Nose Throat within normal limits Neck: Report: Within normal limits Cardiovascular Systems: Report: +s1/s2 noted Respiratory: Report: Breath Sounds are within normal limits Abdomen: Report: Non-tender to palpation Back: Report: Inspection of back is within normal limits. Extremities: Report: Non-tender to palpation. Skin: Report: Color of skin is within normal limits Neuro/Psych: Report: Mood affect is within normal limits - Assessment Assessment: Current Active Problems Problem Status Onset BY ULTRASOUND BILATERAL DVT LOWER EXT Acute htn dm hx-pe hypothyroid dementia - Plan Plan: lovenox follow up labs in am continue current orders
[2017-06-30] MEDS: INSULIN ASPART SLIDING SCALE 100 UNITS/ML UNIT SUBQ SCH ×2 (17:33→21:13)
[2017-06-30] MEDS ORDERED: INSULIN ASPART SLIDING SCALE 100 UNITS/ML UNIT SUBQ SCH (18:00)
[2017-07-01 05:58] LABS: % BASOPHILS 0.4 % (0.0-2.0); % LYMPHOCYTES 31.6 % (20.0-50.0); % MONOCYTES 9.5 % (2.0-10.0); % NEUTROPHILS 54.5 % (40.0-80.0); EOSINOPHILE ABSOLUTE 0.2 Th/cmm (0.1-0.4); HEMATOCRIT 40.8 % (41.0-60); HEMOGLOBIN 13.5 gm/dL (12-16); LYMPHOCYTE ABSOLUTE 1.6 Th/cmm (1.5-3.0); MEAN CELL VOLUME 87.5 fl (80-99); MEAN CORPUSCULAR HGB CONC 33.1 pg (28.0-36.0); MEAN PLATELET VOLUME 7.5 fl; MONOCYTE ABSOLUTE 0.5 Th/cmm (0.3-1.0); NEUTROPHILE ABSOLUTE 2.8 Th/cmm (1.8-8.0); PLATELET COUNT 154 Th/cmm (150-400); RED BLOOD COUNT 4.66 Mil/cmm (3.80-5.80); RED CELL DISTRIBUTION WIDTH 14.5 % (11.5-20.0); WHITE BLOOD COUNT 5.1 Th/cmm (4.8-10.8)
[2017-07-01 06:13] LABS: ANION GAP 9.7 (7.0-16.0); BUN - UREA NITROGEN 26 mg/dL (7-25); CALCIUM SERUM 8.9 mg/dL (8.6-10.3); CARBON DIOXIDE 24.5 mEq/L (21.0-31.0); CHLORIDE 110 mEq/L (98-107); CREATININE - SERUM 0.9 mg/dL (0.7-1.3); GLUCOSE 141 mg/dL (70-105); POTASSIUM SERUM 4.2 mEq/L (3.5-5.1); SODIUM SERUM 140 mEq/L (136-145)
--- NOTE | 2017-07-01 07:06 | Consultation ---
DATE OF CONSULTATION: 06/30/2017 HISTORY OF PRESENT ILLNESS: This 81-year-old male was seen and examined with the courtesy of Dr. Amin. The patient was admitted here to the Emergency Room, was admitted with diagnosis of DVT, bilateral lower extremities. The patient does have history of coronary artery disease, history of hypertension, history of peptic ulcer disease, history of hyperlipidemia, diabetes, and a history of ____ and dementia. There is no proper history available from the patient. On questioning him, he does not complain of any chest pains. There is no history of respiratory distress. No history of seizure. No history of dizziness. No history of syncope. No history of peptic ulcer disease. No history of cough. No history of fever. No history of hemoptysis. No history of hematuria. PAST MEDICAL HISTORY: Usual childhood diseases. No history of rheumatic fever. No history of scarlet fever. Past history as mentioned above that includes hypertension, diabetes type 2, history of peptic ulcer disease, coronary artery disease, dementia, and Alzheimer disease. FAMILY HISTORY: Not available to me. PHYSICAL EXAMINATION: VITAL SIGNS: Heart rate was 80, blood pressure was 140/70. SKIN: Normal. HEAD: Normocephalic. EYES: Conjunctivae were pink. No icterus in the eyes. Pupils reacting to light. NECK: There was no increased jugular venous distention. No thyromegaly. No lymphadenopathy. Carotids equal on both sides. CHEST: Bilaterally symmetrical. Moves well with respirations. Respiratory movements equal both sides. Trachea is central. There is note to percussion. Breath sounds, few scattered rales. CARDIOVASCULAR SYSTEM: PMI not well localized, and no pulsation or thrill. No parasternal heave. S1 normal, S2 physiologic. There was no S3, no rub. ABDOMEN: Soft. No tenderness, no rigidity, no guarding, and no organomegaly. Bowel sounds normal. EXTREMITIES: Bilateral lower extremity edema, no calf tenderness. Peripheral pulses diminished. LABORATORY DATA: Sodium was 135, potassium 4.1, chloride 106, CO2 24.7, glucose 154. BUN 30, creatinine 0.8, WBC count was 5, hemoglobin 13.5, hematocrit 39.9, and platelets 162. Urinalysis was unremarkable. IMPRESSION: Deep venous thrombosis, bilateral lower extremities, rule out pulmonary embolism, elevated D-dimer, hypertension, diabetes type 2, coronary artery disease, peptic ulcer disease, ____, history of hyperlipidemia, dementia. PLAN: To continue medications. The patient is already on Lovenox as per pharmacy, to continue that. We will also get lung scan to rule out pulmonary embolism. Add Lipitor 10 mg daily and add Pepcid 20 mg daily. Further recommendation will be made depending on the rest of the tests available and also to get an EKG. JOB# [id number]
[2017-07-01] MEDS: INSULIN ASPART SLIDING SCALE 100 UNITS/ML UNIT SUBQ SCH ×3 (07:23→22:02)
--- NOTE | 2017-07-01 08:29 | Diagnostic Imaging Report ---
Exam: Portable chest x-ray. HISTORY: Findings: Portable examination of the chest at 1437 hours reviewed compared to the prior exam of 01/08/2017. The study demonstrates right basilar atelectasis. Mediastinal structures midline. The heart is not enlarged. Bony thorax intact. The costophrenic angles are clear. Mild congestion cannot be excluded. IMPRESSION: Mild right basilar atelectasis, question of mild congestive heart failure.
[2017-07-01] MEDS ORDERED: Enoxaparin Subq per Pharmacy MC PRN (08:33)
[2017-07-01] MEDS: Enoxaparin 100 mg/mL 1mL Syr SUBQ SCH (08:55)
[2017-07-01] MEDS: Multivitamin Tab PO SCH (08:56)
[2017-07-01] MEDS: Atorvastatin Calcium 10 MG TAB PO SCH (08:56)
--- NOTE | 2017-07-01 10:33 | General Progress Note ---
Subjective - Review of Systems Events since last encounter: patient admitted with dvp lower ext bilateral Objective - Results Result Diagrams: 07/01/17 05:30 07/01/17 05:30 Recent Labs: Laboratory Last Values WBC 5.1 Th/cmm (4.8-10.8) 07/01/17 05:30 RBC 4.66 Mil/cmm (3.80-5.80) 07/01/17 05:30 Hgb 13.5 gm/dL (12-16) 07/01/17 05:30 Hct 40.8 % (41.0-60) L 07/01/17 05:30 MCV 87.5 fl (80-99) 07/01/17 05:30 MCH 29.0 pg (27.0-31.0) 07/01/17 05:30 MCHC Differential 33.1 pg (28.0-36.0) 07/01/17 05:30 RDW 14.5 % (11.5-20.0) 07/01/17 05:30 Plt Count 154 Th/cmm (150-400) 07/01/17 05:30 MPV 7.5 fl 07/01/17 05:30 Neutrophils % 54.5 % (40.0-80.0) 07/01/17 05:30 Lymphocytes % 31.6 % (20.0-50.0) 07/01/17 05:30 Monocytes % 9.5 % (2.0-10.0) 07/01/17 05:30 Eosinophils % 4.0 % (0.0-5.0) 07/01/17 05:30 Basophils % 0.4 % (0.0-2.0) 07/01/17 05:30 PT 9.9 SECONDS (9.5-11.5) 06/30/17 12:03 INR 0.95 (0.5-1.4) 06/30/17 12:03 PTT (Actin FS) 25.4 SECONDS (26.0-38.0) L 06/30/17 12:03 D-Dimer 2330 ng/mL (100-400) H 07/01/17 05:30 Sodium 140 mEq/L (136-145) 07/01/17 05:30 Potassium 4.2 mEq/L (3.5-5.1) 07/01/17 05:30 Chloride 110 mEq/L (98-107) H 07/01/17 05:30 Carbon Dioxide 24.5 mEq/L (21.0-31.0) 07/01/17 05:30 Anion Gap 9.7 (7.0-16.0) 07/01/17 05:30 BUN 26 mg/dL (7-25) H 07/01/17 05:30 Creatinine 0.9 mg/dL (0.7-1.3) 07/01/17 05:30 Est GFR ( Amer) TNP 07/01/17 05:30 Est GFR (Non-Af Amer) TNP 07/01/17 05:30 BUN/Creatinine Ratio 28.9 07/01/17 05:30 Glucose 141 mg/dL (70-105) H 07/01/17 05:30 POC Glucose 129 MG/DL (70 - 105) H 07/01/17 06:17 Calcium 8.9 mg/dL (8.6-10.3) 07/01/17 05:30 Total Bilirubin 0.6 mg/dL (0.3-1.0) 06/30/17 12:03 AST 15 U/L (13-39) 06/30/17 12:03 ALT 16 U/L (7-52) 06/30/17 12:03 Alkaline Phosphatase 94 U/L (34-104) 06/30/17 12:03 Total Protein 6.6 gm/dL (6.0-8.3) 06/30/17 12:03 Albumin 4.0 gm/dL (4.2-5.5) L 06/30/17 12:03 Globulin 2.6 gm/dL 06/30/17 12:03 Albumin/Globulin Ratio 1.5 (1.0-1.8) 06/30/17 12:03 Triglycerides 176 mg/dL (<150) H 06/30/17 12:12 Cholesterol 150 mg/dL (<200) 06/30/17 12:12 LDL Cholesterol Direct 80 mg/dL (75-193) 06/30/17 12:12 HDL Cholesterol 50 mg/dL (23-92) 06/30/17 12:12 TSH 4.30 uIU/ml (0.34-5.60) 07/01/17 05:30 Urine Source RANDOM 06/30/17 12:12 Urine Color YELLOW 06/30/17 12:12 Urine Clarity CLEAR (CLEAR) 06/30/17 12:12 Urine pH 5.5 (4.6 - 8.0) 06/30/17 12:12 Ur Specific [place] 1.025 (1.005-1.030) 06/30/17 12:12 Urine Protein NEGATIVE mg/dL (NEGATIVE) 06/30/17 12:12 Urine Glucose (UA) NEGATIVE mg/dL (NEGATIVE) 06/30/17 12:12 Urine Ketones NEGATIVE mg/dL (NEGATIVE) 06/30/17 12:12 Urine Blood TRACE (NEGATIVE) 06/30/17 12:12 Urine Nitrate NEGATIVE (NEGATIVE) 06/30/17 12:12 Urine Bilirubin NEGATIVE (NEGATIVE) 06/30/17 12:12 Urine Urobilinogen 0.2 E.U./dL (0.2 - 1.0) 06/30/17 12:12 Ur Leukocyte Esterase NEGATIVE (NEGATIVE) 06/30/17 12:12 Urine RBC 0-2 /hpf (0-5) H 06/30/17 12:12 Urine WBC 0-2 /hpf (0-5) 06/30/17 12:12 Ur Epithelial Cells OCCASIONAL /lpf (FEW) 06/30/17 12:12 Urine Bacteria FEW /hpf (NONE SEEN) 06/30/17 12:12 Urine Mucus FEW /lpf (FEW) 06/30/17 12:12 - Physical Exam Vitals and I&O: Vital Signs Temp 98.4 F 07/01/17 07:54 Pulse 52 07/01/17 08:55 Resp 18 07/01/17 07:54 BP 153/67 07/01/17 08:55 Pulse Ox 96 07/01/17 07:54 Intake & Output 06/30/17 07/01/17 07/01/17 18:59 06:59 18:59 Intake Total 800 200 Balance 800 200 Weight (lbs) 70.307 kg 70.307 kg Intake: Oral 800 200 Other: # Voids 2 3 # Bowel Movements 0 0 Active Medications: Current Medications Acetaminophen (Tylenol) 650 mg PO Q4HR PRN PRN Reason: Mild Pain / Temp above 100 Stop: 08/29/17 15:22 Atenolol (Tenormin) 25 mg PO DAILY [facility] Stop: 08/30/17 08:59 Last Admin: 07/01/17 08:55 Dose: 25 mg Atorvastatin Calcium (Lipitor) 10 mg PO DAILY [facility] PRN Reason: Protocol Stop: 08/30/17 08:59 Last Admin: 07/01/17 08:56 Dose: 10 mg Bisacodyl (Dulcolax 10 Mg Supp) 10 mg RC DAILY PRN PRN Reason: Constipation Stop: 08/29/17 15:22 Donepezil HCl (Aricept) 10 mg PO HS [facility] Stop: 08/29/17 20:59 Last Admin: 06/30/17 21:12 Dose: 10 mg Enoxaparin Sodium (Lovenox) 100 mg SUBQ DAILY [facility] Stop: 08/30/17 08:59 Last Admin: 07/01/17 08:55 Dose: 100 mg Glipizide (Glucotrol) 5 mg PO DAILY [facility] Stop: 08/30/17 08:59 Last Admin: 07/01/17 08:55 Dose: 5 mg Hydroxyzine HCl (Atarax) 50 mg PO Q8HR PRN PRN Reason: ITCHING Stop: 08/29/17 15:39 Last Admin: 06/30/17 19:55 Dose: 50 mg Insulin Aspart (Novolog Insulin Sliding Scale) 0 units SUBQ ACHS [facility] PRN Reason: Protocol Stop: 08/29/17 16:29 Last Admin: 07/01/17 07:23 Dose: Not Given Lorazepam (Ativan) 0.5 mg PO Q6H PRN; Protocol PRN Reason: Anxiety Stop: 08/29/17 15:22 Magnesium Hydroxide (Milk Of Magnesia) 30 ml PO HS PRN PRN Reason: Constipation Stop: 08/29/17 15:22 Methimazole (Tapazole) 10 mg PO DAILY [facility] Stop: 08/30/17 08:59 Last Admin: 07/01/17 08:56 Dose: 10 mg Mirtazapine (Remeron) 15 mg PO HS [facility]NER PRN Reason: Protocol Stop: 08/29/17 20:59 Last Admin: 06/30/17 21:12 Dose: 15 mg Miscellaneous (Lovenox Subq Per Pharmacy) 1 ea [facility] DAILY PRN PRN Reason: PHARMACY TO DOSE Stop: 08/30/17 08:32 Multivitamins/Vitamin C (Theragran) 1 tab PO DAILY [facility] Stop: 08/30/17 08:59 Last Admin: 07/01/17 08:56 Dose: 1 tab General: No acute distress HEENT: Atraumatic Neck: Supple Cardiovascular: Regular rate, Normal S1, Normal S2 Lungs: Clear to auscultation Abdomen: Bowel sounds Assessment/Plan - Problem List Patient Problems: All Active Problems BY ULTRASOUND BILATERAL DVT LOWER EXT (Acute) Alzheimer disease (Acute) G30.9 CAD (coronary artery disease) (Acute) I25.10 Debility (Acute) R53.81 Dementia (Acute) F03.90 Depression (Acute) F32.9 Diabetes mellitus (Acute) E11.9 Fatigue (Acute) R53.83 Hypertension (Acute) I10 Hyperthyroidism (Acute) E05.90 Hyponatremia (Acute) E87.1 MALAISE (Acute) Tinea corporis (Acute) B35.4 - Plan Plan: as per order sheet
[2017-07-02] MEDS: INSULIN ASPART SLIDING SCALE 100 UNITS/ML UNIT SUBQ SCH ×4 (06:45→20:59)
[2017-07-02] MEDS: Enoxaparin 100 mg/mL 1mL Syr SUBQ SCH (10:07)
[2017-07-02] MEDS: Multivitamin Tab PO SCH (10:07)
[2017-07-02] MEDS: Atorvastatin Calcium 10 MG TAB PO SCH (10:07)
--- NOTE | 2017-07-02 12:41 | General Progress Note ---
Subjective - Review of Systems Events since last encounter: c/o lower ext pain in no acute distress Objective - Results Result Diagrams: 07/01/17 05:30 07/01/17 05:30 Recent Labs: Laboratory Last Values WBC 5.1 Th/cmm (4.8-10.8) 07/01/17 05:30 RBC 4.66 Mil/cmm (3.80-5.80) 07/01/17 05:30 Hgb 13.5 gm/dL (12-16) 07/01/17 05:30 Hct 40.8 % (41.0-60) L 07/01/17 05:30 MCV 87.5 fl (80-99) 07/01/17 05:30 MCH 29.0 pg (27.0-31.0) 07/01/17 05:30 MCHC Differential 33.1 pg (28.0-36.0) 07/01/17 05:30 RDW 14.5 % (11.5-20.0) 07/01/17 05:30 Plt Count 154 Th/cmm (150-400) 07/01/17 05:30 MPV 7.5 fl 07/01/17 05:30 Neutrophils % 54.5 % (40.0-80.0) 07/01/17 05:30 Lymphocytes % 31.6 % (20.0-50.0) 07/01/17 05:30 Monocytes % 9.5 % (2.0-10.0) 07/01/17 05:30 Eosinophils % 4.0 % (0.0-5.0) 07/01/17 05:30 Basophils % 0.4 % (0.0-2.0) 07/01/17 05:30 PT 9.9 SECONDS (9.5-11.5) 06/30/17 12:03 INR 0.95 (0.5-1.4) 06/30/17 12:03 PTT (Actin FS) 25.4 SECONDS (26.0-38.0) L 06/30/17 12:03 D-Dimer 2330 ng/mL (100-400) H 07/01/17 05:30 Sodium 140 mEq/L (136-145) 07/01/17 05:30 Potassium 4.2 mEq/L (3.5-5.1) 07/01/17 05:30 Chloride 110 mEq/L (98-107) H 07/01/17 05:30 Carbon Dioxide 24.5 mEq/L (21.0-31.0) 07/01/17 05:30 Anion Gap 9.7 (7.0-16.0) 07/01/17 05:30 BUN 26 mg/dL (7-25) H 07/01/17 05:30 Creatinine 0.9 mg/dL (0.7-1.3) 07/01/17 05:30 Est GFR ( Amer) TNP 07/01/17 05:30 Est GFR (Non-Af Amer) TNP 07/01/17 05:30 BUN/Creatinine Ratio 28.9 07/01/17 05:30 Glucose 141 mg/dL (70-105) H 07/01/17 05:30 POC Glucose 200 MG/DL (70 - 105) H 07/02/17 11:49 Calcium 8.9 mg/dL (8.6-10.3) 07/01/17 05:30 Total Bilirubin 0.6 mg/dL (0.3-1.0) 06/30/17 12:03 AST 15 U/L (13-39) 06/30/17 12:03 ALT 16 U/L (7-52) 06/30/17 12:03 Alkaline Phosphatase 94 U/L (34-104) 06/30/17 12:03 Total Protein 6.6 gm/dL (6.0-8.3) 06/30/17 12:03 Albumin 4.0 gm/dL (4.2-5.5) L 06/30/17 12:03 Globulin 2.6 gm/dL 06/30/17 12:03 Albumin/Globulin Ratio 1.5 (1.0-1.8) 06/30/17 12:03 Triglycerides 176 mg/dL (<150) H 06/30/17 12:12 Cholesterol 150 mg/dL (<200) 06/30/17 12:12 LDL Cholesterol Direct 80 mg/dL (75-193) 06/30/17 12:12 HDL Cholesterol 50 mg/dL (23-92) 06/30/17 12:12 TSH 4.30 uIU/ml (0.34-5.60) 07/01/17 05:30 Urine Source RANDOM 06/30/17 12:12 Urine Color YELLOW 06/30/17 12:12 Urine Clarity CLEAR (CLEAR) 06/30/17 12:12 Urine pH 5.5 (4.6 - 8.0) 06/30/17 12:12 Ur Specific [place] 1.025 (1.005-1.030) 06/30/17 12:12 Urine Protein NEGATIVE mg/dL (NEGATIVE) 06/30/17 12:12 Urine Glucose (UA) NEGATIVE mg/dL (NEGATIVE) 06/30/17 12:12 Urine Ketones NEGATIVE mg/dL (NEGATIVE) 06/30/17 12:12 Urine Blood TRACE (NEGATIVE) 06/30/17 12:12 Urine Nitrate NEGATIVE (NEGATIVE) 06/30/17 12:12 Urine Bilirubin NEGATIVE (NEGATIVE) 06/30/17 12:12 Urine Urobilinogen 0.2 E.U./dL (0.2 - 1.0) 06/30/17 12:12 Ur Leukocyte Esterase NEGATIVE (NEGATIVE) 06/30/17 12:12 Urine RBC 0-2 /hpf (0-5) H 06/30/17 12:12 Urine WBC 0-2 /hpf (0-5) 06/30/17 12:12 Ur Epithelial Cells OCCASIONAL /lpf (FEW) 06/30/17 12:12 Urine Bacteria FEW /hpf (NONE SEEN) 06/30/17 12:12 Urine Mucus FEW /lpf (FEW) 06/30/17 12:12 - Physical Exam Vitals and I&O: Vital Signs Temp 98.6 F 07/02/17 08:00 Pulse 52 07/02/17 10:06 Resp 18 07/02/17 08:00 BP 139/59 07/02/17 10:06 Pulse Ox 96 07/02/17 08:00 Intake & Output 07/01/17 07/02/17 07/02/17 18:59 06:59 18:59 Intake Total 1000 100 Output Total 400 Balance 1000 -300 Weight (lbs) 70.307 kg 76.657 kg Intake: Oral 1000 100 Output: Urine 400 Other: # Voids 4 3 # Bowel Movements 1 0 Active Medications: Current Medications Acetaminophen (Tylenol) 650 mg PO Q4HR PRN PRN Reason: Mild Pain / Temp above 100 Stop: 08/29/17 15:22 Atenolol (Tenormin) 25 mg PO DAILY [facility] Stop: 08/30/17 08:59 Last Admin: 07/02/17 10:06 Dose: 25 mg Atorvastatin Calcium (Lipitor) 10 mg PO DAILY [facility] PRN Reason: Protocol Stop: 08/30/17 08:59 Last Admin: 07/02/17 10:07 Dose: 10 mg Bisacodyl (Dulcolax 10 Mg Supp) 10 mg RC DAILY PRN PRN Reason: Constipation Stop: 08/29/17 15:22 Donepezil HCl (Aricept) 10 mg PO HS [facility] Stop: 08/29/17 20:59 Last Admin: 07/01/17 21:31 Dose: 10 mg Enoxaparin Sodium (Lovenox) 100 mg SUBQ DAILY [facility] Stop: 08/30/17 08:59 Last Admin: 07/02/17 10:07 Dose: 100 mg Glipizide (Glucotrol) 5 mg PO DAILY [facility] Stop: 08/30/17 08:59 Last Admin: 07/02/17 10:06 Dose: 5 mg Hydroxyzine HCl (Atarax) 50 mg PO Q8HR PRN PRN Reason: ITCHING Stop: 08/29/17 15:39 Last Admin: 07/01/17 21:31 Dose: 50 mg Insulin Aspart (Novolog Insulin Sliding Scale) 0 units SUBQ ACHS [facility] PRN Reason: Protocol Stop: 08/29/17 16:29 Last Admin: 07/02/17 11:52 Dose: 2 units Lorazepam (Ativan) 0.5 mg PO Q6H PRN; Protocol PRN Reason: Anxiety Stop: 08/29/17 15:22 Magnesium Hydroxide (Milk Of Magnesia) 30 ml PO HS PRN PRN Reason: Constipation Stop: 08/29/17 15:22 Methimazole (Tapazole) 10 mg PO DAILY [facility] Stop: 08/30/17 08:59 Last Admin: 07/02/17 10:06 Dose: 10 mg Mirtazapine (Remeron) 15 mg PO HS [facility]NER PRN Reason: Protocol Stop: 08/29/17 20:59 Last Admin: 07/01/17 21:31 Dose: 15 mg Miscellaneous (Lovenox Subq Per Pharmacy) 1 ea [facility] DAILY PRN PRN Reason: PHARMACY TO DOSE Stop: 08/30/17 08:32 Multivitamins/Vitamin C (Theragran) 1 tab PO DAILY [facility] Stop: 08/30/17 08:59 Last Admin: 07/02/17 10:07 Dose: 1 tab Mupirocin (Bactroban Oint) 1 appl NS BID [facility] Stop: 07/07/17 09:01 General: No acute distress HEENT: Atraumatic Neck: Supple Cardiovascular: Regular rate, Normal S1, Normal S2 Lungs: Clear to auscultation Abdomen: Bowel sounds Assessment/Plan - Problem List Patient Problems: All Active Problems BY ULTRASOUND BILATERAL DVT LOWER EXT (Acute) Alzheimer disease (Acute) G30.9 CAD (coronary artery disease) (Acute) I25.10 Debility (Acute) R53.81 Dementia (Acute) F03.90 Depression (Acute) F32.9 Diabetes mellitus (Acute) E11.9 Fatigue (Acute) R53.83 Hypertension (Acute) I10 Hyperthyroidism (Acute) E05.90 Hyponatremia (Acute) E87.1 MALAISE (Acute) Tinea corporis (Acute) B35.4 - Plan Plan: as per order sheet
--- NOTE | 2017-07-02 13:51 | Diagnostic Imaging Report ---
Nuclear medicine VQ scan HISTORY: Elevated d-dimer COMPARISON: Chest x-ray on 06/30/2017 Technique/procedure: For the ventilation portion of examination 37.7 mCi of technetium labeled DTPA was administered via aerosol and multiple scintigraphic images of the lungs were obtained. For the perfusion portion of examination 5.4 millicuries of technetium 99 labeled MAA was administered intravenously and multiple scintigraphic images of the lungs were obtained. Slight patchy ventilation is noted. No perfusion defects identified. No VQ mismatches identified. IMPRESSION: No scintigraphic evidence of pulmonary embolus.
[2017-07-03] MEDS: INSULIN ASPART SLIDING SCALE 100 UNITS/ML UNIT SUBQ SCH ×5 (08:05→20:33)
[2017-07-03] MEDS: Atorvastatin Calcium 10 MG TAB PO SCH (10:08)
[2017-07-03] MEDS: Multivitamin Tab PO SCH (10:09)
[2017-07-03] MEDS: Enoxaparin 100 mg/mL 1mL Syr SUBQ SCH (10:10)
--- NOTE | 2017-07-03 14:03 | Cardiology ---
07/02/2017 PATIENT OF: Dr. Amin. M-MODE ECHOCARDIOGRAM: Mitral valve, anterior leaflet of mitral valve shows normal excursion, EF velocity. Posterior leaflet of mitral valve shows normal excursion. Left ventricular posterior shows increased thickness, normal excursion. Interventricular septum shows increased thickness, normal excursion, hypertrophy of the left ventricle, ejection fraction 55%. Left atrium normal. Aortic root shows normal dimension, normal excursion of aortic leaflets. CONCLUSION: Hypertrophy of the left ventricle, ejection fraction 55%. 2D ECHO: Long axis view showed normal sized left ventricle with hypertrophy of the left ventricle. Left atrium enlarged. Aortic root showed normal dimension, normal excursion of aortic leaflets. Short axis view of mitral valve normal. Short axis view of aortic valve normal. Apical four chamber view showed normal sized left ventricle with hypertrophy of the left ventricle. Left atrium enlarged. Right ventricular cavity normal. Right atrium enlargement, ejection fraction 55%. CONCLUSION: Hypertrophy of the left ventricle. Left atrial enlargement, right atrial enlargement, ejection fraction 55%. Doppler study shows mild left ventricular hypertrophy with prominent A wave consistent with poor compliance of left ventricle. JOB# [id number]
--- NOTE | 2017-07-03 18:52 | Internal Medicine Prog Note ---
Internal Medicine Subjective - Subjective Service Date: 07/03/17 Patient seen and examined:: with staff Patient is:: awake Per staff patient has:: no adverse event Internal Medicine Objective - Results Result Diagrams: 07/01/17 05:30 07/01/17 05:30 Recent Labs: Laboratory Last Values WBC 5.1 Th/cmm (4.8-10.8) 07/01/17 05:30 RBC 4.66 Mil/cmm (3.80-5.80) 07/01/17 05:30 Hgb 13.5 gm/dL (12-16) 07/01/17 05:30 Hct 40.8 % (41.0-60) L 07/01/17 05:30 MCV 87.5 fl (80-99) 07/01/17 05:30 MCH 29.0 pg (27.0-31.0) 07/01/17 05:30 MCHC Differential 33.1 pg (28.0-36.0) 07/01/17 05:30 RDW 14.5 % (11.5-20.0) 07/01/17 05:30 Plt Count 154 Th/cmm (150-400) 07/01/17 05:30 MPV 7.5 fl 07/01/17 05:30 Neutrophils % 54.5 % (40.0-80.0) 07/01/17 05:30 Lymphocytes % 31.6 % (20.0-50.0) 07/01/17 05:30 Monocytes % 9.5 % (2.0-10.0) 07/01/17 05:30 Eosinophils % 4.0 % (0.0-5.0) 07/01/17 05:30 Basophils % 0.4 % (0.0-2.0) 07/01/17 05:30 PT 9.9 SECONDS (9.5-11.5) 06/30/17 12:03 INR 0.95 (0.5-1.4) 06/30/17 12:03 PTT (Actin FS) 25.4 SECONDS (26.0-38.0) L 06/30/17 12:03 D-Dimer 2330 ng/mL (100-400) H 07/01/17 05:30 Sodium 140 mEq/L (136-145) 07/01/17 05:30 Potassium 4.2 mEq/L (3.5-5.1) 07/01/17 05:30 Chloride 110 mEq/L (98-107) H 07/01/17 05:30 Carbon Dioxide 24.5 mEq/L (21.0-31.0) 07/01/17 05:30 Anion Gap 9.7 (7.0-16.0) 07/01/17 05:30 BUN 26 mg/dL (7-25) H 07/01/17 05:30 Creatinine 0.9 mg/dL (0.7-1.3) 07/01/17 05:30 Est GFR ( Amer) TNP 07/01/17 05:30 Est GFR (Non-Af Amer) TNP 07/01/17 05:30 BUN/Creatinine Ratio 28.9 07/01/17 05:30 Glucose 141 mg/dL (70-105) H 07/01/17 05:30 POC Glucose 84 MG/DL (70 - 105) 07/03/17 16:36 Calcium 8.9 mg/dL (8.6-10.3) 07/01/17 05:30 Total Bilirubin 0.6 mg/dL (0.3-1.0) 06/30/17 12:03 AST 15 U/L (13-39) 06/30/17 12:03 ALT 16 U/L (7-52) 06/30/17 12:03 Alkaline Phosphatase 94 U/L (34-104) 06/30/17 12:03 Total Protein 6.6 gm/dL (6.0-8.3) 06/30/17 12:03 Albumin 4.0 gm/dL (4.2-5.5) L 06/30/17 12:03 Globulin 2.6 gm/dL 06/30/17 12:03 Albumin/Globulin Ratio 1.5 (1.0-1.8) 06/30/17 12:03 Triglycerides 176 mg/dL (<150) H 06/30/17 12:12 Cholesterol 150 mg/dL (<200) 06/30/17 12:12 LDL Cholesterol Direct 80 mg/dL (75-193) 06/30/17 12:12 HDL Cholesterol 50 mg/dL (23-92) 06/30/17 12:12 TSH 4.30 uIU/ml (0.34-5.60) 07/01/17 05:30 Urine Source RANDOM 06/30/17 12:12 Urine Color YELLOW 06/30/17 12:12 Urine Clarity CLEAR (CLEAR) 06/30/17 12:12 Urine pH 5.5 (4.6 - 8.0) 06/30/17 12:12 Ur Specific [place] 1.025 (1.005-1.030) 06/30/17 12:12 Urine Protein NEGATIVE mg/dL (NEGATIVE) 06/30/17 12:12 Urine Glucose (UA) NEGATIVE mg/dL (NEGATIVE) 06/30/17 12:12 Urine Ketones NEGATIVE mg/dL (NEGATIVE) 06/30/17 12:12 Urine Blood TRACE (NEGATIVE) 06/30/17 12:12 Urine Nitrate NEGATIVE (NEGATIVE) 06/30/17 12:12 Urine Bilirubin NEGATIVE (NEGATIVE) 06/30/17 12:12 Urine Urobilinogen 0.2 E.U./dL (0.2 - 1.0) 06/30/17 12:12 Ur Leukocyte Esterase NEGATIVE (NEGATIVE) 06/30/17 12:12 Urine RBC 0-2 /hpf (0-5) H 06/30/17 12:12 Urine WBC 0-2 /hpf (0-5) 06/30/17 12:12 Ur Epithelial Cells OCCASIONAL /lpf (FEW) 06/30/17 12:12 Urine Bacteria FEW /hpf (NONE SEEN) 06/30/17 12:12 Urine Mucus FEW /lpf (FEW) 06/30/17 12:12 - Physical Exam Vitals and I&O: Vital Signs Temp 98.4 F 07/03/17 16:00 Pulse 59 07/03/17 16:00 Resp 18 07/03/17 16:00 BP 135/83 07/03/17 16:00 Pulse Ox 99 07/03/17 12:00 Intake & Output 07/02/17 07/03/17 07/03/17 18:59 06:59 18:59 Intake Total 250 240 Balance 250 240 Weight (lbs) 80.104 kg 77.111 kg 77.111 kg Intake: Oral 250 240 Other: # Voids 3 # Bowel Movements 0 Active Medications: Current Medications Acetaminophen (Tylenol) 650 mg PO Q4HR PRN PRN Reason: Mild Pain / Temp above 100 Stop: 08/29/17 15:22 Atenolol (Tenormin) 25 mg PO DAILY [facility] Stop: 08/30/17 08:59 Last Admin: 07/03/17 10:09 Dose: Not Given Atorvastatin Calcium (Lipitor) 10 mg PO DAILY [facility] PRN Reason: Protocol Stop: 08/30/17 08:59 Last Admin: 07/03/17 10:08 Dose: 10 mg Bisacodyl (Dulcolax 10 Mg Supp) 10 mg RC DAILY PRN PRN Reason: Constipation Stop: 08/29/17 15:22 Donepezil HCl (Aricept) 10 mg PO HS [facility] Stop: 08/29/17 20:59 Last Admin: 07/02/17 20:52 Dose: 10 mg Enoxaparin Sodium (Lovenox) 100 mg SUBQ DAILY [facility] Stop: 08/30/17 08:59 Last Admin: 07/03/17 10:10 Dose: 100 mg Glipizide (Glucotrol) 5 mg PO DAILY [facility] Stop: 08/30/17 08:59 Last Admin: 07/03/17 10:07 Dose: 5 mg Hydroxyzine HCl (Atarax) 50 mg PO Q8HR PRN PRN Reason: ITCHING Stop: 08/29/17 15:39 Last Admin: 07/01/17 21:31 Dose: 50 mg Insulin Aspart (Novolog Insulin Sliding Scale) 0 units SUBQ ACHS [facility] PRN Reason: Protocol Stop: 08/29/17 16:29 Last Admin: 07/03/17 16:39 Dose: Not Given Lorazepam (Ativan) 0.5 mg PO Q6H PRN; Protocol PRN Reason: Anxiety Stop: 08/29/17 15:22 Magnesium Hydroxide (Milk Of Magnesia) 30 ml PO HS PRN PRN Reason: Constipation Stop: 08/29/17 15:22 Methimazole (Tapazole) 10 mg PO DAILY [facility] Stop: 08/30/17 08:59 Last Admin: 07/03/17 10:09 Dose: 10 mg Mirtazapine (Remeron) 15 mg PO HS [facility] PRN Reason: Protocol Stop: 08/29/17 20:59 Last Admin: 07/02/17 20:52 Dose: 15 mg Miscellaneous (Lovenox Subq Per Pharmacy) 1 ea [facility] DAILY PRN PRN Reason: PHARMACY TO DOSE Stop: 08/30/17 08:32 Multivitamins/Vitamin C (Theragran) 1 tab PO DAILY [facility] Stop: 08/30/17 08:59 Last Admin: 07/03/17 10:09 Dose: 1 tab Mupirocin (Bactroban Oint) 1 appl NS BID [facility] Stop: 07/07/17 09:01 Last Admin: 07/03/17 18:13 Dose: Not Given Internal Medicine Assmt/Plan - Assessment Assessment: Current Active Problems Problem Status Onset BY ULTRASOUND BILATERAL DVT LOWER EXT Acute htn dm [id number] hypothyroid dementia - Plan Plan: as per order sheet
[2017-07-04] MEDS: INSULIN ASPART SLIDING SCALE 100 UNITS/ML UNIT SUBQ SCH ×4 (06:39→20:55)
[2017-07-04] MEDS: Multivitamin Tab PO SCH (09:29)
[2017-07-04] MEDS: Atorvastatin Calcium 10 MG TAB PO SCH (09:29)
[2017-07-04] MEDS: Enoxaparin 100 mg/mL 1mL Syr SUBQ SCH (09:30)
--- NOTE | 2017-07-04 09:52 | General Progress Note ---
Subjective - Review of Systems Events since last encounter: in no acute distress Objective - Results Result Diagrams: 07/01/17 05:30 07/01/17 05:30 Recent Labs: Laboratory Last Values WBC 5.1 Th/cmm (4.8-10.8) 07/01/17 05:30 RBC 4.66 Mil/cmm (3.80-5.80) 07/01/17 05:30 Hgb 13.5 gm/dL (12-16) 07/01/17 05:30 Hct 40.8 % (41.0-60) L 07/01/17 05:30 MCV 87.5 fl (80-99) 07/01/17 05:30 MCH 29.0 pg (27.0-31.0) 07/01/17 05:30 MCHC Differential 33.1 pg (28.0-36.0) 07/01/17 05:30 RDW 14.5 % (11.5-20.0) 07/01/17 05:30 Plt Count 154 Th/cmm (150-400) 07/01/17 05:30 MPV 7.5 fl 07/01/17 05:30 Neutrophils % 54.5 % (40.0-80.0) 07/01/17 05:30 Lymphocytes % 31.6 % (20.0-50.0) 07/01/17 05:30 Monocytes % 9.5 % (2.0-10.0) 07/01/17 05:30 Eosinophils % 4.0 % (0.0-5.0) 07/01/17 05:30 Basophils % 0.4 % (0.0-2.0) 07/01/17 05:30 PT 9.9 SECONDS (9.5-11.5) 06/30/17 12:03 INR 0.95 (0.5-1.4) 06/30/17 12:03 PTT (Actin FS) 25.4 SECONDS (26.0-38.0) L 06/30/17 12:03 D-Dimer 2330 ng/mL (100-400) H 07/01/17 05:30 Sodium 140 mEq/L (136-145) 07/01/17 05:30 Potassium 4.2 mEq/L (3.5-5.1) 07/01/17 05:30 Chloride 110 mEq/L (98-107) H 07/01/17 05:30 Carbon Dioxide 24.5 mEq/L (21.0-31.0) 07/01/17 05:30 Anion Gap 9.7 (7.0-16.0) 07/01/17 05:30 BUN 26 mg/dL (7-25) H 07/01/17 05:30 Creatinine 0.9 mg/dL (0.7-1.3) 07/01/17 05:30 Est GFR ( Amer) TNP 07/01/17 05:30 Est GFR (Non-Af Amer) TNP 07/01/17 05:30 BUN/Creatinine Ratio 28.9 07/01/17 05:30 Glucose 141 mg/dL (70-105) H 07/01/17 05:30 POC Glucose 102 MG/DL (70 - 105) 07/04/17 05:23 Calcium 8.9 mg/dL (8.6-10.3) 07/01/17 05:30 Total Bilirubin 0.6 mg/dL (0.3-1.0) 06/30/17 12:03 AST 15 U/L (13-39) 06/30/17 12:03 ALT 16 U/L (7-52) 06/30/17 12:03 Alkaline Phosphatase 94 U/L (34-104) 06/30/17 12:03 Total Protein 6.6 gm/dL (6.0-8.3) 06/30/17 12:03 Albumin 4.0 gm/dL (4.2-5.5) L 06/30/17 12:03 Globulin 2.6 gm/dL 06/30/17 12:03 Albumin/Globulin Ratio 1.5 (1.0-1.8) 06/30/17 12:03 Triglycerides 176 mg/dL (<150) H 06/30/17 12:12 Cholesterol 150 mg/dL (<200) 06/30/17 12:12 LDL Cholesterol Direct 80 mg/dL (75-193) 06/30/17 12:12 HDL Cholesterol 50 mg/dL (23-92) 06/30/17 12:12 TSH 4.30 uIU/ml (0.34-5.60) 07/01/17 05:30 Urine Source RANDOM 06/30/17 12:12 Urine Color YELLOW 06/30/17 12:12 Urine Clarity CLEAR (CLEAR) 06/30/17 12:12 Urine pH 5.5 (4.6 - 8.0) 06/30/17 12:12 Ur Specific [place] 1.025 (1.005-1.030) 06/30/17 12:12 Urine Protein NEGATIVE mg/dL (NEGATIVE) 06/30/17 12:12 Urine Glucose (UA) NEGATIVE mg/dL (NEGATIVE) 06/30/17 12:12 Urine Ketones NEGATIVE mg/dL (NEGATIVE) 06/30/17 12:12 Urine Blood TRACE (NEGATIVE) 06/30/17 12:12 Urine Nitrate NEGATIVE (NEGATIVE) 06/30/17 12:12 Urine Bilirubin NEGATIVE (NEGATIVE) 06/30/17 12:12 Urine Urobilinogen 0.2 E.U./dL (0.2 - 1.0) 06/30/17 12:12 Ur Leukocyte Esterase NEGATIVE (NEGATIVE) 06/30/17 12:12 Urine RBC 0-2 /hpf (0-5) H 06/30/17 12:12 Urine WBC 0-2 /hpf (0-5) 06/30/17 12:12 Ur Epithelial Cells OCCASIONAL /lpf (FEW) 06/30/17 12:12 Urine Bacteria FEW /hpf (NONE SEEN) 06/30/17 12:12 Urine Mucus FEW /lpf (FEW) 06/30/17 12:12 - Physical Exam Vitals and I&O: Vital Signs Temp 97.4 F 07/04/17 08:20 Pulse 57 07/04/17 09:36 Resp 18 07/04/17 08:20 BP 126/63 07/04/17 09:36 Pulse Ox 95 07/04/17 08:20 Intake & Output 07/03/17 07/04/17 07/04/17 18:59 06:59 18:59 Intake Total 240 240 Balance 240 240 Weight (lbs) 77.111 kg 77.111 kg Intake: Oral 240 240 Other: # Voids 2 # Bowel Movements 0 Active Medications: Current Medications Acetaminophen (Tylenol) 650 mg PO Q4HR PRN PRN Reason: Mild Pain / Temp above 100 Stop: 08/29/17 15:22 Atenolol (Tenormin) 25 mg PO DAILY ABNER Stop: 08/30/17 08:59 Last Admin: 07/04/17 09:36 Dose: Not Given Atorvastatin Calcium (Lipitor) 10 mg PO DAILY ABNER PRN Reason: Protocol Stop: 08/30/17 08:59 Last Admin: 07/04/17 09:29 Dose: 10 mg Bisacodyl (Dulcolax 10 Mg Supp) 10 mg RC DAILY PRN PRN Reason: Constipation Stop: 08/29/17 15:22 Donepezil HCl (Aricept) 10 mg PO HS ABNER Stop: 08/29/17 20:59 Last Admin: 07/03/17 20:33 Dose: 10 mg Enoxaparin Sodium (Lovenox) 100 mg SUBQ DAILY ABNER Stop: 08/30/17 08:59 Last Admin: 07/04/17 09:30 Dose: 100 mg Glipizide (Glucotrol) 5 mg PO DAILY ABNER Stop: 08/30/17 08:59 Last Admin: 07/04/17 09:29 Dose: 5 mg Hydroxyzine HCl (Atarax) 50 mg PO Q8HR PRN PRN Reason: ITCHING Stop: 08/29/17 15:39 Last Admin: 07/04/17 09:29 Dose: 50 mg Insulin Aspart (Novolog Insulin Sliding Scale) 0 units SUBQ ACHS ABNER PRN Reason: Protocol Stop: 08/29/17 16:29 Last Admin: 07/04/17 06:39 Dose: Not Given Lorazepam (Ativan) 0.5 mg PO Q6H PRN; Protocol PRN Reason: Anxiety Stop: 08/29/17 15:22 Last Admin: 07/04/17 09:29 Dose: 0.5 mg Magnesium Hydroxide (Milk Of Magnesia) 30 ml PO HS PRN PRN Reason: Constipation Stop: 08/29/17 15:22 Methimazole (Tapazole) 10 mg PO DAILY ABNER Stop: 08/30/17 08:59 Last Admin: 07/04/17 09:29 Dose: 10 mg Mirtazapine (Remeron) 15 mg PO HS ABNER PRN Reason: Protocol Stop: 08/29/17 20:59 Last Admin: 07/03/17 20:33 Dose: 15 mg Miscellaneous (Lovenox Subq Per Pharmacy) 1 ea MC DAILY PRN PRN Reason: PHARMACY TO DOSE Stop: 03/22/18 08:32 Multivitamins/Vitamin C (Theragran) 1 tab PO DAILY ABNER Stop: 08/30/17 08:59 Last Admin: 07/04/17 09:29 Dose: 1 tab Mupirocin (Bactroban Oint) 1 appl NS BID ABNER Stop: 07/07/17 09:01 Last Admin: 07/04/17 09:30 Dose: 1 appl General: No acute distress HEENT: Atraumatic Neck: Supple Cardiovascular: Regular rate, Normal S1, Normal S2 Lungs: Clear to auscultation Abdomen: Bowel sounds Assessment/Plan - Problem List Patient Problems: All Active Problems BY ULTRASOUND BILATERAL DVT LOWER EXT (Acute) Alzheimer disease (Acute) G30.9 CAD (coronary artery disease) (Acute) I25.10 Debility (Acute) R53.81 Dementia (Acute) F03.90 Depression (Acute) F32.9 Diabetes mellitus (Acute) E11.9 Fatigue (Acute) R53.83 Hypertension (Acute) I10 Hyperthyroidism (Acute) E05.90 Hyponatremia (Acute) E87.1 MALAISE (Acute) Tinea corporis (Acute) B35.4 - Assessment Assessment: Current Active Problems Problem Status Onset BY ULTRASOUND BILATERAL DVT LOWER EXT Acute htn dm hx-pe hypothyroid dementia - Plan Plan: as per order sheet
[2017-07-04 13:53] LABS: HEMATOCRIT 43.8 % (41.0-60); HEMOGLOBIN 14.2 gm/dL (12-16)
[2017-07-04 14:04] LABS: INR 0.96 (0.5-1.4)
[2017-07-05 06:46] LABS: INR 0.95 (0.5-1.4); PROTHROMBIN TIME (TEST) 9.9 SECONDS (9.5-11.5)
[2017-07-05] MEDS: INSULIN ASPART SLIDING SCALE 100 UNITS/ML UNIT SUBQ SCH ×3 (06:49→17:08)
[2017-07-05] MEDS: Enoxaparin 100 mg/mL 1mL Syr SUBQ SCH (08:50)
[2017-07-05] MEDS: Multivitamin Tab PO SCH (08:51)
[2017-07-05] MEDS: Atorvastatin Calcium 10 MG TAB PO SCH (08:51)
--- NOTE | 2017-07-05 09:06 | General Progress Note ---
Subjective - Review of Systems Events since last encounter: awake in no distress Objective - Results Result Diagrams: 07/04/17 13:46 07/01/17 05:30 Recent Labs: Laboratory Last Values WBC 5.1 Th/cmm (4.8-10.8) 07/01/17 05:30 RBC 4.66 Mil/cmm (3.80-5.80) 07/01/17 05:30 Hgb 14.2 gm/dL (12-16) 07/04/17 13:46 Hct 43.8 % (41.0-60) 07/04/17 13:46 MCV 87.5 fl (80-99) 07/01/17 05:30 MCH 29.0 pg (27.0-31.0) 07/01/17 05:30 MCHC Differential 33.1 pg (28.0-36.0) 07/01/17 05:30 RDW 14.5 % (11.5-20.0) 07/01/17 05:30 Plt Count 176 Th/cmm (150-400) 07/04/17 13:46 MPV 7.5 fl 07/01/17 05:30 Neutrophils % 54.5 % (40.0-80.0) 07/01/17 05:30 Lymphocytes % 31.6 % (20.0-50.0) 07/01/17 05:30 Monocytes % 9.5 % (2.0-10.0) 07/01/17 05:30 Eosinophils % 4.0 % (0.0-5.0) 07/01/17 05:30 Basophils % 0.4 % (0.0-2.0) 07/01/17 05:30 PT 9.9 SECONDS (9.5-11.5) 07/05/17 05:48 INR 0.95 (0.5-1.4) 07/05/17 05:48 PTT (Actin FS) 25.4 SECONDS (26.0-38.0) L 06/30/17 12:03 D-Dimer 2330 ng/mL (100-400) H 07/01/17 05:30 Sodium 140 mEq/L (136-145) 07/01/17 05:30 Potassium 4.2 mEq/L (3.5-5.1) 07/01/17 05:30 Chloride 110 mEq/L (98-107) H 07/01/17 05:30 Carbon Dioxide 24.5 mEq/L (21.0-31.0) 07/01/17 05:30 Anion Gap 9.7 (7.0-16.0) 07/01/17 05:30 BUN 26 mg/dL (7-25) H 07/01/17 05:30 Creatinine 0.9 mg/dL (0.7-1.3) 07/01/17 05:30 Est GFR ( Amer) TNP 07/01/17 05:30 Est GFR (Non-Af Amer) TNP 07/01/17 05:30 BUN/Creatinine Ratio 28.9 07/01/17 05:30 Glucose 141 mg/dL (70-105) H 07/01/17 05:30 POC Glucose 82 MG/DL (70 - 105) 07/04/17 16:38 Calcium 8.9 mg/dL (8.6-10.3) 07/01/17 05:30 Total Bilirubin 0.6 mg/dL (0.3-1.0) 06/30/17 12:03 AST 15 U/L (13-39) 06/30/17 12:03 ALT 16 U/L (7-52) 06/30/17 12:03 Alkaline Phosphatase 94 U/L (34-104) 06/30/17 12:03 Total Protein 6.6 gm/dL (6.0-8.3) 06/30/17 12:03 Albumin 4.0 gm/dL (4.2-5.5) L 06/30/17 12:03 Globulin 2.6 gm/dL 06/30/17 12:03 Albumin/Globulin Ratio 1.5 (1.0-1.8) 06/30/17 12:03 Triglycerides 176 mg/dL (<150) H 06/30/17 12:12 Cholesterol 150 mg/dL (<200) 06/30/17 12:12 LDL Cholesterol Direct 80 mg/dL (75-193) 06/30/17 12:12 HDL Cholesterol 50 mg/dL (23-92) 06/30/17 12:12 TSH 4.30 uIU/ml (0.34-5.60) 07/01/17 05:30 Urine Source RANDOM 06/30/17 12:12 Urine Color YELLOW 06/30/17 12:12 Urine Clarity CLEAR (CLEAR) 06/30/17 12:12 Urine pH 5.5 (4.6 - 8.0) 06/30/17 12:12 Ur Specific [place] 1.025 (1.005-1.030) 06/30/17 12:12 Urine Protein NEGATIVE mg/dL (NEGATIVE) 06/30/17 12:12 Urine Glucose (UA) NEGATIVE mg/dL (NEGATIVE) 06/30/17 12:12 Urine Ketones NEGATIVE mg/dL (NEGATIVE) 06/30/17 12:12 Urine Blood TRACE (NEGATIVE) 06/30/17 12:12 Urine Nitrate NEGATIVE (NEGATIVE) 06/30/17 12:12 Urine Bilirubin NEGATIVE (NEGATIVE) 06/30/17 12:12 Urine Urobilinogen 0.2 E.U./dL (0.2 - 1.0) 06/30/17 12:12 Ur Leukocyte Esterase NEGATIVE (NEGATIVE) 06/30/17 12:12 Urine RBC 0-2 /hpf (0-5) H 06/30/17 12:12 Urine WBC 0-2 /hpf (0-5) 06/30/17 12:12 Ur Epithelial Cells OCCASIONAL /lpf (FEW) 06/30/17 12:12 Urine Bacteria FEW /hpf (NONE SEEN) 06/30/17 12:12 Urine Mucus FEW /lpf (FEW) 06/30/17 12:12 - Physical Exam Vitals and I&O: Vital Signs Temp 97.8 F 07/05/17 08:00 Pulse 66 07/05/17 08:51 Resp 18 07/05/17 08:00 BP 123/70 07/05/17 08:51 Pulse Ox 98 07/05/17 08:00 Intake & Output 07/04/17 07/05/17 07/05/17 18:59 06:59 18:59 Intake Total 250 400 Balance 250 400 Weight (lbs) 77.428 kg 77.111 kg Intake: Oral 250 400 Other: # Voids 3 3 # Bowel Movements 0 0 Active Medications: Current Medications Acetaminophen (Tylenol) 650 mg PO Q4HR PRN PRN Reason: Mild Pain / Temp above 100 Stop: 08/29/17 15:22 Atenolol (Tenormin) 25 mg PO DAILY ABNER Stop: 08/30/17 08:59 Last Admin: 07/05/17 08:51 Dose: 25 mg Atorvastatin Calcium (Lipitor) 10 mg PO DAILY ABNER PRN Reason: Protocol Stop: 08/30/17 08:59 Last Admin: 07/05/17 08:51 Dose: 10 mg Bisacodyl (Dulcolax 10 Mg Supp) 10 mg RC DAILY PRN PRN Reason: Constipation Stop: 08/29/17 15:22 Donepezil HCl (Aricept) 10 mg PO HS ABNER Stop: 08/29/17 20:59 Last Admin: 07/04/17 20:55 Dose: 10 mg Enoxaparin Sodium (Lovenox) 100 mg SUBQ DAILY ABNER Stop: 08/30/17 08:59 Last Admin: 07/05/17 08:50 Dose: 100 mg Glipizide (Glucotrol) 5 mg PO DAILY ABNER Stop: 08/30/17 08:59 Last Admin: 07/05/17 08:51 Dose: 5 mg Hydroxyzine HCl (Atarax) 50 mg PO Q8HR PRN PRN Reason: ITCHING Stop: 08/29/17 15:39 Last Admin: 07/04/17 09:29 Dose: 50 mg Insulin Aspart (Novolog Insulin Sliding Scale) 0 units SUBQ ACHS ABNER PRN Reason: Protocol Stop: 08/29/17 16:29 Last Admin: 07/05/17 06:49 Dose: Not Given Lorazepam (Ativan) 0.5 mg PO Q6H PRN; Protocol PRN Reason: Anxiety Stop: 08/29/17 15:22 Last Admin: 07/04/17 09:29 Dose: 0.5 mg Magnesium Hydroxide (Milk Of Magnesia) 30 ml PO HS PRN PRN Reason: Constipation Stop: 08/29/17 15:22 Methimazole (Tapazole) 10 mg PO DAILY ABNER Stop: 08/30/17 08:59 Last Admin: 07/05/17 08:51 Dose: 10 mg Mirtazapine (Remeron) 15 mg PO HS ABNER PRN Reason: Protocol Stop: 08/29/17 20:59 Last Admin: 07/04/17 20:55 Dose: 15 mg Miscellaneous (Lovenox Subq Per Pharmacy) 1 ea MC DAILY PRN PRN Reason: PHARMACY TO DOSE Stop: 08/30/17 08:32 Multivitamins/Vitamin C (Theragran) 1 tab PO DAILY ABNER Stop: 08/30/17 08:59 Last Admin: 07/05/17 08:51 Dose: 1 tab Mupirocin (Bactroban Oint) 1 appl NS BID ABNER Stop: 07/07/17 09:01 Last Admin: 07/05/17 08:50 Dose: 1 appl Warfarin Sodium (Coumadin Per Pharmacy) 1 ea PRN PRN; Protocol PRN Reason: RX MONITORING Stop: 09/02/17 11:59 General: No acute distress HEENT: Atraumatic Neck: Supple Cardiovascular: Regular rate, Normal S1, Normal S2 Lungs: Clear to auscultation Abdomen: Bowel sounds Assessment/Plan - Problem List Patient Problems: All Active Problems BY ULTRASOUND BILATERAL DVT LOWER EXT (Acute) Alzheimer disease (Acute) G30.9 CAD (coronary artery disease) (Acute) I25.10 Debility (Acute) R53.81 Dementia (Acute) F03.90 Depression (Acute) F32.9 Diabetes mellitus (Acute) E11.9 Fatigue (Acute) R53.83 Hypertension (Acute) I10 Hyperthyroidism (Acute) E05.90 Hyponatremia (Acute) E87.1 MALAISE (Acute) Tinea corporis (Acute) B35.4 - Assessment Assessment: Current Active Problems Problem Status Onset BY ULTRASOUND BILATERAL DVT LOWER EXT Acute htn dm hx-pe hypothyroid dementia - Plan Plan: as per order sheet
--- NOTE | 2017-07-07 20:38 | Discharge Summary ---
DATE OF DISCHARGE: 07/05/2017 HOSPITAL COURSE: The patient was admitted from [facility]. An 81-year-old patient, found to have leg pain and found to have bilateral DVT and history of hypertension, diabetes, hypothyroidism, and dementia. The patient was started initially on Lovenox and later on given Coumadin. The patient improved. The patient was in stable condition on 07/05/2017, was discharged on Coumadin. I will be following the patient ____. The patient's condition at the time of discharge is stable. MEDICATIONS: Please see the reconciliation sheet. ACTIVITY: As tolerated. JOB# [id number]
== END 2017-07-05 17:35 | disposition home or self-care (01) | DRG 300 ==
LOC: ER 11:06 → MSI 12:41
PROVIDERS: ADMIT Internal Medicine; ATTEND Internal Medicine
DX: I82.413 Acute embolism and thrombosis of femoral vein, bilateral (principal); D68.69 Other thrombophilia; E11.9 Type 2 diabetes mellitus without complications; G30.9 Alzheimer's disease, unspecified; F02.80 Dementia in other diseases classified elsewhere, unspecified severity, without behavioral disturbance, psychotic disturbance, mood disturbance, and anxiety; E03.9 Hypothyroidism, unspecified; I10 Essential (primary) hypertension; I25.10 Atherosclerotic heart disease of native coronary artery without angina pectoris; K27.9 Peptic ulcer, site unspecified, unspecified as acute or chronic, without hemorrhage or perforation; E78.5 Hyperlipidemia, unspecified; Z86.711 Personal history of pulmonary embolism; Z98.42 Cataract extraction status, left eye; Z98.41 Cataract extraction status, right eye; Z79.4 Long term (current) use of insulin
CPT/HCPCS: 36415-UA; 71045-TC; 80048-TC; 80053-TC; 80061-TC; 81001-TC; 82948-90; 84443-TC; 85014-TC; 85018-TC; 85025-TC; 85049-TC; 85379-TC; 85610-TC; 93005; A9540; A9567; J1650; J1815; Z7610

== ENCOUNTER 2017-09-05 21:14 | Inpatient (IN) | payer MEDICAID, MEDICARE ==
[2017-09-05] MEDS ORDERED: Sodium Chloride 0.9% 1,000 ML IV ONE (21:55)
--- NOTE | 2017-09-05 22:00 | ED Physician Chart ---
ED Chief Complaint/HPI - Patient Information Date Seen:: 09/05/17 Time Seen:: 21:20 Chief Complaint:: Abdominal Pain History of Present Illness:: onset x one day of diffuse, intermittent, crampy abdominal pain; no report of trauma, H/As, neck pain, C/P, SOB, cough, A/N/V/D/C, fever, chills, or urinary s /s Allergies:: Allergies Allergy/AdvReac Type Severity Reaction Status Date / Time No Known Allergies Allergy Verified 09/05/17 21:28 Vitals:: Vital Signs - 8 hr 09/05/17 21:20 Temp 97.5 F HR 60 RR 18 BP 129/65 O2 Sat % 96 Historian:: Patient, EMS Review:: Nurse's Note Reviewed, Old Chart Reviewed, EMS run form Reviewed ED Review of Systems - Review of Systems General/Constitutional: No fever, No chills, No weight loss, No weakness, No diaphoresis, No edema, No loss of appetite Skin: No skin lesions, No rash, No bruising Head: No headache, No light-headedness Eyes: No loss of vision, No pain, No diplopia ENT: No earache, No nasal drainage, No sore throat, No tinnitus Neck: No neck pain, No swelling, No thyromegaly, No stiffness, No mass noted Cardio Vascular: No chest pain, No palpitations, No PND, No orthopnea, No edema Pulmonary: No SOB, No cough, No sputum, No wheezing GI: Nausea, Vomiting, Diarrhea, Pain, No melena, No hematochezia, No constipation, No hematemesis G/U: No dysuria, No frequency, No hematuria, No nacturia Musculoskeletal: No bone or joint pain, No back pain, No muscle pain Endocrine: No polyuria, No polydipsia Psychiatric: No prior psych history, No depression, No anxiety, No suicidal ideation, No homicidal ideation, No auditory hallucination, No visual hallucination Hematopoietic: No bruising, No lymphadenopathy Allergic/Immuno: No urticaria, No angioedema Neurological: No syncope, No focal symptoms, No weakness, No paresthesia, No headache, No seizure, No dizziness, Confusion, No vertigo ED Past Medical History - Past Medical History Obtainable: Yes Past Medical History: HTN, DM, Dyslipidemia, Thyroid disorder, Arthritis, Dementia, Other (Alzheimer's Disease) Family History: Diabetes Melitus, HTN Social History: Non Smoker, No Alcohol, No Drug Use, Single, Care Facility Surgical History: None Psychiatricy History: None Medication: Reviewed Family Medical History - Family Member Mother History Unknown: Yes Ethnicity: Living Status: ED Physical Exam - Physical Examination General/Constitutional: Awake, Well-developed, well-nourished, Alert, No distress, GCS 15, Non-toxic appearing, Ambulatory Head: Atraumatic Eyes: Lids, conjuctiva normal, PERRL, EOMI Skin: Nl inspection, No rash, No skin lesions, No ecchymosis, Well hydrated, No lymphadenopathy ENMT: External ears, nose nl, TM canals nl, Nasal exam nl, Lips, teeth, gums nl , Oropharynx nl, Tonsils nl Neck: Nontender, Full ROM w/o pain, No JVD, No nuchal rigidity, No bruit, No mass, No stridor Respiratory: Nl effort/Exclusion, Clear to Auscultation, No Wheeze/Rhonchi/Rales Cardio Vascular: RRR, No murmur, gallop, rubs, NL S1 S2, Carotid/Femoral/Distal pulses equal bilaterally GI: No tenderness/rebounding/guarding, No organomegaly, No hernia, Normal BS's, Nondistended, No mass/bruits, No McBurney tenderness, Rectum exam nl : No CVA tenderness Extremities: No tenderness or effusion, Full ROM, normal strength in all extremities, No edema, Normal digits & nails Neuro/Psych: DTR's symmetric, Normal sensory exam, Normal motor strength, Judgement/insight normal, Mood normal, Normal gait, No focal deficits Other Neuro/Psych comments:: Disoriented and Confused Misc: Normal back, No paraspinal tenderness ED Labs/Radiology/EKG Results - Lab Results Comments:: Glucose: 241; BUN: 30 - EKG Interpretations EKG Time:: 21:56 Rate & Rhythm: 54; SB Comments:: LAD; non-specific st-t changes ED Septic Shock - . Is Septic Shock (SBP<90, OR Lactate>4 mmol\L) present?: No - <6hrs of presentation: Vital Signs: Vital Signs - 8 hr 09/05/17 21:20 Temp 97.5 F HR 60 RR 18 BP 129/65 O2 Sat % 96 ED Reassessment (Disposition) - Reassessment Reassessment Condition:: Improved - Diagnosis Diagnosis:: Hyperglycemia; DM; Dehydration; Abdominal Pain - Aftercare/Follow up Instructions Aftercare/Follow-Up Instructions:: Counseled pt regarding lab results/diagnosis & need follow up, Counseled pt & family regarding lab results/diagnosis & need follow up - Patient Disposition Discharge/Transfer:: Acute Care w/in this hosp Accepting Physician:: Dr. Amin Time Called:: 0 Time Responded:: 23:00 Admitted to:: Med/Surg Spoke to:: Dr. Amin Admitting Medical Physician:: Dr. Amin Condition at Disposition:: Stable, Improved
[2017-09-05 22:33] LABS: % EOSINOPHILS 3.6 % (0.0-5.0); % LYMPHOCYTES 34.2 % (20.0-50.0); % MONOCYTES 9.3 % (2.0-10.0); % NEUTROPHILS 51.9 % (40.0-80.0); EOSINOPHILE ABSOLUTE 0.2 Th/cmm (0.1-0.4); HEMATOCRIT 39.7 % (41.0-60); HEMOGLOBIN 13.1 gm/dL (12-16); LYMPHOCYTE ABSOLUTE 1.5 Th/cmm (1.5-3.0); MEAN CELL VOLUME 87.9 fl (80-99); MEAN PLATELET VOLUME 8.2 fl; MONOCYTE ABSOLUTE 0.4 Th/cmm (0.3-1.0); NEUTROPHILE ABSOLUTE 2.4 Th/cmm (1.8-8.0); PLATELET COUNT 139 Th/cmm (150-400); RED BLOOD COUNT 4.51 Mil/cmm (3.80-5.80); WHITE BLOOD COUNT 4.5 Th/cmm (4.8-10.8)
[2017-09-05 22:40] LABS: INR 0.95 (0.5-1.4); PROTHROMBIN TIME (TEST) 9.9 SECONDS (9.5-11.5)
[2017-09-05 22:47] LABS: ANION GAP 11.3 (7.0-16.0); BUN - UREA NITROGEN 30 mg/dL (7-25); CALCIUM SERUM 9.3 mg/dL (8.6-10.3); CARBON DIOXIDE 24.2 mEq/L (21.0-31.0); CHLORIDE 108 mEq/L (98-107); CHOLESTEROL 112 mg/dL (<200); CREATININE - SERUM 1.1 mg/dL (0.7-1.3); CREATININE KINASE 37 U/L (30-223); GLUCOSE 241 mg/dL (70-105); HDL -HIGH DENSITY LIPOPROTEIN 44 mg/dL (23-92); POTASSIUM SERUM 4.5 mEq/L (3.5-5.1); SODIUM SERUM 139 mEq/L (136-145); TRIGLYCERIDES 122 mg/dL (<150)
[2017-09-05 23:07] LABS: AMYLASE SERUM 52 U/L (29-103); LIPASE 22 U/L (11-82)
[2017-09-06] MEDS: Sodium Chloride 0.9% 1,000 ML IV SCH ×3 (03:24→21:10)
[2017-09-06 07:17] LABS: URINE MICROSCOPIC INDICATED? YES; URINE SOURCE MIDSTREAM
[2017-09-06 07:25] LABS: HEMATOCRIT 39.1 % (41.0-60); MEAN CELL VOLUME 88.6 fl (80-99); MEAN CORPUSCULAR HEMOGLOBIN 29.5 pg (27.0-31.0); MEAN CORPUSCULAR HGB CONC 33.3 pg (28.0-36.0); MEAN PLATELET VOLUME 8.1 fl; PLATELET COUNT 121 Th/cmm (150-400); RED BLOOD COUNT 4.41 Mil/cmm (3.80-5.80); RED CELL DISTRIBUTION WIDTH 14.9 % (11.5-20.0); WHITE BLOOD COUNT 4.3 Th/cmm (4.8-10.8)
[2017-09-06 07:29] LABS: URINE BILIRUBIN NEGATIVE (NEGATIVE); URINE BLOOD TRACE (NEGATIVE); URINE GLUCOSE (UA) NEGATIVE (NEGATIVE); URINE KETONE NEGATIVE (NEGATIVE); URINE LEUKOCYTE ESTERASE NEGATIVE (NEGATIVE); URINE NITRATE NEGATIVE (NEGATIVE); URINE PH 5.5 (4.6 - 8.0); URINE PROTEIN NEGATIVE (NEGATIVE); URINE UROBILINOGEN 0.2 E.U./dL (0.2 - 1.0)
[2017-09-06 07:31] LABS: MANUAL DIFF REQUIRED? YES
[2017-09-06 07:41] LABS: ANION GAP 7.1 (7.0-16.0); BUN - UREA NITROGEN 22 mg/dL (7-25); CARBON DIOXIDE 25.1 mEq/L (21.0-31.0); CHLORIDE 111 mEq/L (98-107); CHOLESTEROL 101 mg/dL (<200); CREATININE - SERUM 0.8 mg/dL (0.7-1.3); HDL -HIGH DENSITY LIPOPROTEIN 44 mg/dL (23-92); POTASSIUM SERUM 4.2 mEq/L (3.5-5.1); SODIUM SERUM 139 mEq/L (136-145); TRIGLYCERIDES 64 mg/dL (<150)
[2017-09-06 07:45] LABS: GLUCOSE 128 mg/dL (70-105)
[2017-09-06 08:20] LABS: BASOPHIL 1 % (0-3); EOSINOPHIL 3 % (0-5); LYMPHOCYTE 38 % (20-50); MONOCYTE 12 % (2-10); NEUTROPHILS 46 % (40-80); PLATELET ESTIMATE SLIGHT DECREASED (NORMAL); TOTAL CELLS COUNTED 100
[2017-09-06 08:28] LABS: URINE CLARITY HAZY (CLEAR); URINE COLOR YELLOW; URINE EPITHELIAL CELLS FEW /lpf (FEW); URINE RBC 0-2 /hpf (0-5)
[2017-09-06 08:29] LABS: URINE BACTERIA 1+ /hpf (NONE SEEN)
--- NOTE | 2017-09-06 10:45 | Diagnostic Imaging Report ---
Head CT without intravenous contrast Indication: pain Comparison: None Technique: Axial images were obtained from the vertex to the skull base without IV contrast. Coronal reconstructions were made. Total DLP: 568, [id number] FINDINGS: Images of the brain obtained without contrast demonstrate no acute hemorrhage. No mass lesions identified. The ventricles and basal cisterns are patent. The valente-white matter differentiation is preserved. There is no mass effect or midline shift. No skull fractures identified. No soft tissue swelling. There is mucosal thickening or pain sinuses. Atherosclerosis is noted. IMPRESSION: No acute intracranial abnormality. Atrophy. Atherosclerotic vascular disease.
[2017-09-06] MEDS: Pantoprazole 40 mg/Packet PO SCH (14:58)
[2017-09-06] MEDS ORDERED: INSULIN ASPART, RECOMBINANT 100 UNITS/ML SUBQ SCH (16:30)
[2017-09-06 20:07] LABS: A1C % 7.7 % (4.0-6.0)
--- NOTE | 2017-09-06 21:52 | Consultation ---
DATE OF CONSULTATION: 09/06/2017 REASON FOR CONSULTATION: Electrolyte imbalance, fluid management, and prerenal azotemia. HISTORY OF PRESENT ILLNESS: This is an 81-year-old male with past medical history of type 2 diabetes mellitus, was brought in because of crampy abdominal pain. A few hours prior to admission, the patient developed intermittent, diffuse, crampy abdominal pain. This was associated with nausea, but there was no vomiting, diarrhea, fever/chills. No dysuria. The patient had CT scan of the head which revealed no acute disease. His white count remained stable at 4.5. He came in with a BUN/creatinine of 30/1.1. He was hydrated aggressively and his BUN/creatinine today were 22/0.8. PAST MEDICAL HISTORY: 1. Type 2 diabetes mellitus. 2. Coronary artery disease. 3. Essential hypertension. 4. Dyslipidemia. 5. Hypothyroidism. 6. Alzheimer dementia. 7. Anxiety. 8. Bilateral lower extremity thromboembolism. CURRENT MEDICATIONS: The patient is currently off medications. He is currently on normal saline. ALLERGIES: No known drug allergies. SOCIAL AND FAMILY HISTORY: I was not able to obtain from the patient because of his dementia. REVIEW OF SYSTEMS: Again, I was unable to decipher directly from the patient and unable to provide adequate information. PHYSICAL EXAMINATION: GENERAL: The patient is awake, somewhat agitated, hungry at this point, wants to eat. VITAL SIGNS: Blood pressure 128/72, pulse 50, temperature 97.1 degrees. SKIN: Poor turgor, warm, no rash, no jaundice appreciated. HEENT: Head normocephalic, atraumatic. Eyes: Extraocular muscles intact. Pupils equal, round, reactive to light and accommodates. Anicteric sclerae. Pale conjunctivae. Nose, midline nasal septum. Mouth: Dry mucosa, adequate dentition. NECK: Supple, no adenopathy, no thyromegaly, no bruits. Trachea palpated in the midline. CHEST AND CVS: S1, S2. No rub, murmur, no gallop appreciated. Point of maximal impulse fifth intercostal space, left midclavicular line. No abdominal or femoral bruits appreciated. LUNGS: Equal expansion. No use of accessory muscles. No supraclavicular retractions. Decreased breath sounds, but clear to auscultation without any wheeze. ABDOMEN: Mildly globular, soft. Positive for bowel sounds. He keeps on kicking the door overnight. CHEST AND CARDIOVASCULAR: S1, S2, bradycardic. No rub, murmur, or gallop appreciated. Point of maximal impulse fifth intercostal space, left midclavicular line. No abdominal or femoral bruits appreciated. LUNGS: Equal expansion. No use of accessory muscles. No supraclavicular retractions. Decreased breath sounds, but clear to auscultation without any wheeze. ABDOMEN: Mildly globular, soft. Positive for bowel sounds. No bruits, either diastolic or systolic, no tenderness on palpation, no guarding, no rebound on deep palpation. RECTAL: Lax sphincter tone. GENITOURINARY: Normal appearing male genitalia. MUSCULOSKELETAL: No effusions present in his joints, but unable to assess his range of motion. EXTREMITIES: No evidence of edema, cyanosis, or clubbing with palpable femoral, popliteal and dorsalis pedis pulses. NEUROLOGIC: The patient is awake, but because of his dementia, unable to follow my neuro commands and I was unable to pursue further my neuro commands. LABORATORY DATA: Did reveal white count of 4.3, hemoglobin 13, hematocrit 39.1, platelets 121. Sodium 139, potassium 4.2, chloride 111, bicarbonate 25, BUN 22, creatinine 0.8. IMPRESSION: 1. Crampy abdominal pain, possibly due to acute gastroenteritis with significant improvement. 2. Acute kidney injury, prerenal in nature secondary to dehydration due to markedly diminished oral intake brought about by his abdominal pain. 3. Dehydration. 4. Sinus bradycardia. 5. Type 2 diabetes mellitus. 6. Essential hypertension. 7. Coronary artery disease. 8. Dyslipidemia. 9. Hypothyroidism. 10. Anemia. 11. Alzheimer dementia. 12. Anxiety disorder. 13. Bilateral lower extremity thromboembolism. PLAN: 1. Continue with IV fluids. 2. Antiemetics. 3. PPI. 4. Start the patient on a clear liquid diet. 5. Follow up electrolytes, hemoglobin A1c. Thank you Dr. Amni for this consult. I will follow the patient closely with you. JOB# [id number]
[2017-09-06] MEDS: INSULIN ASPART SLIDING SCALE 100 UNITS/ML UNIT SUBQ SCH (22:58)
--- NOTE | 2017-09-06 23:46 | History & Physical ---
ADMIT DATE: 09/06/2017 HISTORY OF PRESENT ILLNESS: The patient came in because of diffuse, intermittent abdominal pain and the patient was admitted for evaluation and also the patient has a history of dementia. The patient's past medical history is history of dementia, history of hypertension, history of diabetes, thyroid disorder, arthritis and the patient is complaining of more weakness and dizziness and altered according to the staff. REVIEW OF SYSTEMS: Essentially negative except for abdominal pain. PAST MEDICAL HISTORY: As enumerated above. PAST SURGICAL HISTORY: As enumerated above. PHYSICAL EXAMINATION: GENERAL: The patient is awake, alert, elderly male patient complaining of pain all over the place and also neuropathic pain in both arms and the legs. HEAD: Normal. ENT: Normal. NECK: Supple, nontender. LUNGS: Clear. CARDIOVASCULAR SYSTEM: S1 and S2 heard. ABDOMEN: Soft. CENTRAL NERVOUS SYSTEM: The patient is disoriented and confused. LABORATORY DATA: BUN was 30, creatinine was a little bit high and glucose is 241. EKG showed a left anterior LAD and nonspecific ST-T changes. DIAGNOSES: Dehydration, prerenal azotemia, kidney failure, abdominal pain, diabetes, hyperglycemia, history of confusion, encephalopathy, and underlying dementia. PLAN: The patient is going to be admitted and we will work up for dehydration, possibly rule out sepsis. Continue workup for abdominal pain. Do the ultrasound of the abdomen as well as get a hot walker to see the patient and also neurologist to see the patient. I will follow the patient. JOB# [id number]
[2017-09-07] MEDS: INSULIN ASPART SLIDING SCALE 100 UNITS/ML UNIT SUBQ SCH ×3 (06:44→16:43)
[2017-09-07 07:00] LABS: ALB/GLOB RATIO 1.7 (1.0-1.8); ALBUMIN 3.7 gm/dL (4.2-5.5); ALKALINE PHOSPHATASE 73 U/L (34-104); ANION GAP 10.9 (7.0-16.0); BILIRUBIN,TOTAL 0.9 mg/dL (0.3-1.0); BUN - UREA NITROGEN 14 mg/dL (7-25); CALCIUM SERUM 8.9 mg/dL (8.6-10.3); CARBON DIOXIDE 21.1 mEq/L (21.0-31.0); CHLORIDE 110 mEq/L (98-107); CREATININE - SERUM 0.8 mg/dL (0.7-1.3); GLUCOSE 121 mg/dL (70-105); MAGNESIUM 2.2 mg/dL (1.9-2.7); SGOT 17 U/L (13-39); SGPT/ALT 22 U/L (7-52); SODIUM SERUM 138 mEq/L (136-145); TOTAL PROTEIN,SERUM 5.9 gm/dL (6.0-8.3)
[2017-09-07] MEDS: Pantoprazole 40 mg/Packet PO SCH (08:33)
[2017-09-07] MEDS ORDERED: Atorvastatin Calcium 10 MG TAB PO SCH (09:00)
[2017-09-07] MEDS ORDERED: Multivitamin Tab PO SCH (09:00)
[2017-09-07] MEDS ORDERED: Enoxaparin 100 mg/mL 1mL Syr SUBQ SCH (09:00)
--- NOTE | 2017-09-07 12:44 | General Progress Note ---
Subjective - Review of Systems Service Date: 09/07/17 Subjective: alert, burning sensation right groin/testes Objective - Results Result Diagrams: 09/06/17 06:33 09/07/17 05:56 Recent Labs: Laboratory Last Values WBC 4.3 Th/cmm (4.8-10.8) L 09/06/17 06:33 RBC 4.41 Mil/cmm (3.80-5.80) 09/06/17 06:33 Hgb 13.0 gm/dL (12-16) 09/06/17 06:33 Hct 39.1 % (41.0-60) L 09/06/17 06:33 MCV 88.6 fl (80-99) 09/06/17 06:33 MCH 29.5 pg (27.0-31.0) 09/06/17 06:33 MCHC Differential 33.3 pg (28.0-36.0) 09/06/17 06:33 RDW 14.9 % (11.5-20.0) 09/06/17 06:33 Plt Count 121 Th/cmm (150-400) L 09/06/17 06:33 MPV 8.1 fl 09/06/17 06:33 Neutrophils % 51.9 % (40.0-80.0) 09/05/17 20:10 Lymphocytes % 34.2 % (20.0-50.0) 09/05/17 20:10 Monocytes % 9.3 % (2.0-10.0) 09/05/17 20:10 Eosinophils % 3.6 % (0.0-5.0) 09/05/17 20:10 Basophils % 1.0 % (0.0-2.0) 09/05/17 20:10 Neutrophils (Manual) 46 % (40-80) 09/06/17 06:33 Lymphocytes 38 % (20-50) 09/06/17 06:33 Monocytes 12 % (2-10) H 09/06/17 06:33 Eosinophils 3 % (0-5) 09/06/17 06:33 Basophils 1 % (0-3) 09/06/17 06:33 Platelet Estimate SLIGHT DECREASED (NORMAL) 09/06/17 06:33 PT 9.9 SECONDS (9.5-11.5) 09/05/17 20:10 INR 0.95 (0.5-1.4) 09/05/17 20:10 PTT (Actin FS) 23.8 SECONDS (26.0-38.0) L 09/05/17 20:10 Sodium 138 mEq/L (136-145) 09/07/17 05:56 Potassium 4.0 mEq/L (3.5-5.1) 09/07/17 05:56 Chloride 110 mEq/L (98-107) H 09/07/17 05:56 Carbon Dioxide 21.1 mEq/L (21.0-31.0) 09/07/17 05:56 Anion Gap 10.9 (7.0-16.0) 09/07/17 05:56 BUN 14 mg/dL (7-25) 09/07/17 05:56 Creatinine 0.8 mg/dL (0.7-1.3) 09/07/17 05:56 Est GFR ( Amer) TNP 09/07/17 05:56 Est GFR (Non-Af Amer) TNP 09/07/17 05:56 BUN/Creatinine Ratio 17.5 09/07/17 05:56 Glucose 121 mg/dL (70-105) H 09/07/17 05:56 POC Glucose 106 MG/DL (70 - 105) H 09/07/17 12:23 Hemoglobin A1c % 7.7 % (4.0-6.0) H 09/05/17 20:10 Whole Bld Lactic Acid 1.53 mmol/L (0.60-1.99) 09/05/17 20:10 Calcium 8.9 mg/dL (8.6-10.3) 09/07/17 05:56 Phosphorus 2.0 mg/dL (2.5-5.0) L 09/07/17 05:56 Magnesium 2.2 mg/dL (1.9-2.7) 09/07/17 05:56 Total Bilirubin 0.9 mg/dL (0.3-1.0) 09/07/17 05:56 AST 17 U/L (13-39) 09/07/17 05:56 ALT 22 U/L (7-52) 09/07/17 05:56 Alkaline Phosphatase 73 U/L (34-104) 09/07/17 05:56 Creatine Kinase 37 U/L (30-223) 09/05/17 20:10 Troponin I < 0.01 ng/mL (0.01-0.05) L 09/05/17 20:10 B-Natriuretic Peptide 34.9 pg/mL (5.0-100.0) 09/05/17 20:10 Total Protein 5.9 gm/dL (6.0-8.3) L 09/07/17 05:56 Albumin 3.7 gm/dL (4.2-5.5) L 09/07/17 05:56 Globulin 2.2 gm/dL 09/07/17 05:56 Albumin/Globulin Ratio 1.7 (1.0-1.8) 09/07/17 05:56 Triglycerides 64 mg/dL (<150) 09/06/17 06:33 Cholesterol 101 mg/dL (<200) 09/06/17 06:33 LDL Cholesterol Direct 44 mg/dL (75-193) L 09/06/17 06:33 HDL Cholesterol 44 mg/dL (23-92) 09/06/17 06:33 Amylase 52 U/L (29-103) 09/05/17 20:10 Lipase 22 U/L (11-82) 09/05/17 20:10 TSH 1.70 uIU/ml (0.34-5.60) 09/06/17 06:33 Urine Source MIDSTREAM 09/06/17 06:15 Urine Color YELLOW 09/06/17 06:15 Urine Clarity HAZY (CLEAR) 09/06/17 06:15 Urine pH 5.5 (4.6 - 8.0) 09/06/17 06:15 Ur Specific [place] 1.025 (1.005-1.030) 09/06/17 06:15 Urine Protein NEGATIVE mg/dL (NEGATIVE) 09/06/17 06:15 Urine Glucose (UA) NEGATIVE mg/dL (NEGATIVE) 09/06/17 06:15 Urine Ketones NEGATIVE mg/dL (NEGATIVE) 09/06/17 06:15 Urine Blood TRACE (NEGATIVE) 09/06/17 06:15 Urine Nitrate NEGATIVE (NEGATIVE) 09/06/17 06:15 Urine Bilirubin NEGATIVE (NEGATIVE) 09/06/17 06:15 Urine Urobilinogen 0.2 E.U./dL (0.2 - 1.0) 09/06/17 06:15 Ur Leukocyte Esterase NEGATIVE (NEGATIVE) 09/06/17 06:15 Urine RBC 0-2 /hpf (0-5) H 09/06/17 06:15 Urine WBC 10-25 /hpf (0-5) H 09/06/17 06:15 Ur Epithelial Cells FEW /lpf (FEW) 09/06/17 06:15 Urine Bacteria 1+ /hpf (NONE SEEN) H 09/06/17 06:15 Urine Creatinine 72.2 mg/dl (39.0-259.0) 09/06/17 15:55 - Physical Exam Vitals and I&O: Vital Signs Temp 97.0 F 09/07/17 04:06 Pulse 60 09/07/17 08:33 Resp 17 09/07/17 04:06 BP 149/62 09/07/17 08:33 Pulse Ox 95 09/07/17 04:06 Intake & Output 09/06/17 09/07/17 09/07/17 18:59 06:59 18:59 Intake Total 1895.833 Output Total 600 Balance 1895.833 -600 Weight (lbs) 78.063 kg Intake: Intake, IV Amount 1895.833 Sodium Chloride 0.9% 1, 1895.833 000 ml @ 125 mls/hr IV . Q8H [facility] Rx#:[id number] Output: Urine 600 Stool 0 Other: Weight Source Bedscale Active Medications: Current Medications Atenolol (Tenormin) 25 mg PO DAILY [facility] Stop: 11/06/17 08:59 Last Admin: 09/07/17 08:33 Dose: 25 mg Atorvastatin Calcium (Lipitor) 10 mg PO DAILY [facility] PRN Reason: Protocol Stop: 11/06/17 08:59 Last Admin: 09/07/17 08:32 Dose: 10 mg Diphenhydramine HCl (Benadryl) 25 mg PO Q8HR PRN PRN Reason: Itching Stop: 11/05/17 16:45 Donepezil HCl (Aricept) 10 mg PO HS [facility] Stop: 11/05/17 20:59 Last Admin: 09/06/17 22:58 Dose: 10 mg Enoxaparin Sodium (Lovenox) 100 mg SUBQ DAILY [facility] Stop: 11/06/17 08:59 Last Admin: 09/07/17 08:33 Dose: 100 mg Glipizide (Glucotrol) 5 mg PO DAILY [facility] Stop: 11/06/17 08:59 Last Admin: 09/07/17 12:35 Dose: 5 mg Sodium Chloride (Nacl 0.9%) 1,000 mls @ 125 mls/hr IV .Q8H [facility] Stop: 11/05/17 01:14 Last Admin: 09/06/17 21:10 Dose: 125 mls/hr Insulin Aspart (Novolog Insulin Sliding Scale) 0 units SUBQ ACHS [facility] PRN Reason: Protocol Stop: 11/05/17 20:59 Last Admin: 09/07/17 12:33 Dose: Not Given Lorazepam (Ativan) 0.5 mg PO Q6H PRN; Protocol PRN Reason: Anxiety Stop: 11/05/17 16:45 Methimazole (Tapazole) 10 mg PO DAILY [facility] Stop: 11/06/17 08:59 Last Admin: 09/07/17 08:32 Dose: 10 mg Mirtazapine (Remeron) 15 mg PO HS [facility] PRN Reason: Protocol Stop: 11/05/17 20:59 Multivitamins/Vitamin C (Theragran) 1 tab PO DAILY [facility] Stop: 11/06/17 08:59 Last Admin: 09/07/17 08:32 Dose: 1 tab Ondansetron HCl (Zofran) 4 mg IV Q4H PRN PRN Reason: Nausea / Vomiting Stop: 11/05/17 13:59 Pantoprazole Sodium (Protonix) 40 mg PO DAILY [facility] Stop: 11/05/17 13:59 Last Admin: 09/07/17 08:33 Dose: 40 mg General: Alert, No acute distress HEENT: Atraumatic, PERRLA, EOMI, Mucous membr. moist/pink Neck: Supple, +2 carotid pulse wo bruit Cardiovascular: Regular rate, Normal S1, Normal S2 Lungs: Clear to auscultation Abdomen: Bowel sounds, Soft Extremities: no Edema Neurological: Sensation intact Skin: no Rash Psych/Mental Status: Mood NL Other physical findings: right groin, testicle tender/burning sesation upon palpation Assessment/Plan - Assessment Assessment: CARROLL resolved Abd Pain ? gastroenteritis improved Dehydration Sinus Rene Type 2 DM Ess Htn CAD Dyslipidemia Tinea Cruris - Plan Plan: Lab - Result Diagrams 09/06/17 06:33 09/07/17 05:56 Current Medications Atenolol (Tenormin) 25 mg PO DAILY [facility] Stop: 11/06/17 08:59 Last Admin: 09/07/17 08:33 Dose: 25 mg Atorvastatin Calcium (Lipitor) 10 mg PO DAILY [facility] PRN Reason: Protocol Stop: 11/06/17 08:59 Last Admin: 09/07/17 08:32 Dose: 10 mg Diphenhydramine HCl (Benadryl) 25 mg PO Q8HR PRN PRN Reason: Itching Stop: 11/05/17 16:45 Donepezil HCl (Aricept) 10 mg PO HS [facility] Stop: 11/05/17 20:59 Last Admin: 09/06/17 22:58 Dose: 10 mg Enoxaparin Sodium (Lovenox) 100 mg SUBQ DAILY [facility] Stop: 11/06/17 08:59 Last Admin: 09/07/17 08:33 Dose: 100 mg Glipizide (Glucotrol) 5 mg PO DAILY [facility] Stop: 11/06/17 08:59 Last Admin: 09/07/17 12:35 Dose: 5 mg Sodium Chloride (Nacl 0.9%) 1,000 mls @ 125 mls/hr IV .Q8H [facility] Stop: 11/05/17 01:14 Last Admin: 09/06/17 21:10 Dose: 125 mls/hr Insulin Aspart (Novolog Insulin Sliding Scale) 0 units SUBQ ACHS [facility] PRN Reason: Protocol Stop: 11/05/17 20:59 Last Admin: 09/07/17 12:33 Dose: Not Given Lorazepam (Ativan) 0.5 mg PO Q6H PRN; Protocol PRN Reason: Anxiety Stop: 11/05/17 16:45 Methimazole (Tapazole) 10 mg PO DAILY [facility] Stop: 11/06/17 08:59 Last Admin: 09/07/17 08:32 Dose: 10 mg Mirtazapine (Remeron) 15 mg PO HS [facility] PRN Reason: Protocol Stop: 11/05/17 20:59 Multivitamins/Vitamin C (Theragran) 1 tab PO DAILY [facility] Stop: 11/06/17 08:59 Last Admin: 09/07/17 08:32 Dose: 1 tab Ondansetron HCl (Zofran) 4 mg IV Q4H PRN PRN Reason: Nausea / Vomiting Stop: 11/05/17 13:59 Pantoprazole Sodium (Protonix) 40 mg PO DAILY [facility] Stop: 11/05/17 13:59 Last Admin: 09/07/17 08:33 Dose: 40 mg Lab - Result Diagrams 09/06/17 06:33 09/07/17 05:56 kidney fnc much improved hungry & wants to eat more; advance to 1800 tyrone ADA, 2 gm Na start Clotrimazole Nutritional Asmnt/Malnutr-PDOC - Dietary Evaluation Malnutrition Findings (Please click <Entered> for more info): Nutritional Asmnt/Malnutrition Start: 09/06/17 15: 24 Text: Status: Complete Freq: Document 09/06/17 15:24 MIRANDA (Rec: 09/06/17 15:40 LCADONAY [id number]) Nutritional Asmnt/Malnutrition Patient General Information Nutritional Screening Moderate Risk Diagnosis encephalopathy, dehydration Pertinent Medical Hx/Surgical Hx HTN, DM, dyslipidemia, thyroid disorder, arthritis, dementia , alzheimer Subjective Information Pt seen sitting up in bed, awake, Maori speaking noted. blood sugar 241 at admission noted. No diet order at this time. A diet order of clear liquid was added after lunch. Current Diet Order/ Nutrition Support no diet order Pertinent Medications novolog, protonix, nacl 0.9% Pertinent Labs 09/06 na 139, K 4.2, cl 111, bun 22, Cr 0.8, Glucose 128 09/05 glucose 241 Nutritional Hx/Data Height 1.65 m Height (Calculated Centimeters) 165.1 Current Weight (lbs) 77.111 kg Weight (Calculated Kilograms) 77.1 Weight (Calculated Grams) 14855.7 [place] Body Weight 136 % [place] Body Weight 125 Body Mass Index (BMI) 28.3 Weight Status Overweight GI Symptoms GI Symptoms None Last BM no record Difficult in: None Skin Integrity/Comment: intact Estimated Nutritional Goals BEE in Kcals: Adj wt of IBW Calories/Kcals/Kg 25-30 Kcals Calculated 6335-0016 Protein: Adj wt of IBW Protein g/k-1.2 Protein Calculated 66-79 Fluid: ml 1650-1980ml (1ml/kcal) Nutritional Problem 1. Problem Problem altered nutrition related lab value Etiology hx of DM Signs/Symptoms: Glucose 128-241 Malnutrition Alert Protein-Calorie Malnutrition N/A Is there a minimum of two criteria No selected? Query Text:Check all the applicable criteria. A minimum of two criteria are recommended for diagnosis of either severe or non-severe malnutrition. Intervention/Recommendation Comments 1. Continue with current diet as ordered. If diet advanced, recommend CCHO-60gm diet to better control blood sugar. 2. Monitor PO intake, wt, labs and skin integrity 3. F/U as high risk in 2-3 days, 09/08-09/09 Expected Outcomes/Goals Expected Outcomes/Goals 1. PO intake to meet at least 75% of nutritional needs. 2. Wt stability, skin to remain intact, labs to approach WNL.
--- NOTE | 2017-09-07 13:33 | Internal Medicine Prog Note ---
Internal Medicine Subjective - Subjective Service Date: 09/07/17 Patient is:: awake Per staff patient has:: tolerating meds Internal Medicine Objective - Results Result Diagrams: 09/06/17 06:33 09/07/17 05:56 Recent Labs: Laboratory Last Values WBC 4.3 Th/cmm (4.8-10.8) L 09/06/17 06:33 RBC 4.41 Mil/cmm (3.80-5.80) 09/06/17 06:33 Hgb 13.0 gm/dL (12-16) 09/06/17 06:33 Hct 39.1 % (41.0-60) L 09/06/17 06:33 MCV 88.6 fl (80-99) 09/06/17 06:33 MCH 29.5 pg (27.0-31.0) 09/06/17 06:33 MCHC Differential 33.3 pg (28.0-36.0) 09/06/17 06:33 RDW 14.9 % (11.5-20.0) 09/06/17 06:33 Plt Count 121 Th/cmm (150-400) L 09/06/17 06:33 MPV 8.1 fl 09/06/17 06:33 Neutrophils % 51.9 % (40.0-80.0) 09/05/17 20:10 Lymphocytes % 34.2 % (20.0-50.0) 09/05/17 20:10 Monocytes % 9.3 % (2.0-10.0) 09/05/17 20:10 Eosinophils % 3.6 % (0.0-5.0) 09/05/17 20:10 Basophils % 1.0 % (0.0-2.0) 09/05/17 20:10 Neutrophils (Manual) 46 % (40-80) 09/06/17 06:33 Lymphocytes 38 % (20-50) 09/06/17 06:33 Monocytes 12 % (2-10) H 09/06/17 06:33 Eosinophils 3 % (0-5) 09/06/17 06:33 Basophils 1 % (0-3) 09/06/17 06:33 Platelet Estimate SLIGHT DECREASED (NORMAL) 09/06/17 06:33 PT 9.9 SECONDS (9.5-11.5) 09/05/17 20:10 INR 0.95 (0.5-1.4) 09/05/17 20:10 PTT (Actin FS) 23.8 SECONDS (26.0-38.0) L 09/05/17 20:10 Sodium 138 mEq/L (136-145) 09/07/17 05:56 Potassium 4.0 mEq/L (3.5-5.1) 09/07/17 05:56 Chloride 110 mEq/L (98-107) H 09/07/17 05:56 Carbon Dioxide 21.1 mEq/L (21.0-31.0) 09/07/17 05:56 Anion Gap 10.9 (7.0-16.0) 09/07/17 05:56 BUN 14 mg/dL (7-25) 09/07/17 05:56 Creatinine 0.8 mg/dL (0.7-1.3) 09/07/17 05:56 Est GFR ( Amer) TNP 09/07/17 05:56 Est GFR (Non-Af Amer) TNP 09/07/17 05:56 BUN/Creatinine Ratio 17.5 09/07/17 05:56 Glucose 121 mg/dL (70-105) H 09/07/17 05:56 POC Glucose 106 MG/DL (70 - 105) H 09/07/17 12:23 Hemoglobin A1c % 7.7 % (4.0-6.0) H 09/05/17 20:10 Whole Bld Lactic Acid 1.53 mmol/L (0.60-1.99) 09/05/17 20:10 Calcium 8.9 mg/dL (8.6-10.3) 09/07/17 05:56 Phosphorus 2.0 mg/dL (2.5-5.0) L 09/07/17 05:56 Magnesium 2.2 mg/dL (1.9-2.7) 09/07/17 05:56 Total Bilirubin 0.9 mg/dL (0.3-1.0) 09/07/17 05:56 AST 17 U/L (13-39) 09/07/17 05:56 ALT 22 U/L (7-52) 09/07/17 05:56 Alkaline Phosphatase 73 U/L (34-104) 09/07/17 05:56 Creatine Kinase 37 U/L (30-223) 09/05/17 20:10 Troponin I < 0.01 ng/mL (0.01-0.05) L 09/05/17 20:10 B-Natriuretic Peptide 34.9 pg/mL (5.0-100.0) 09/05/17 20:10 Total Protein 5.9 gm/dL (6.0-8.3) L 09/07/17 05:56 Albumin 3.7 gm/dL (4.2-5.5) L 09/07/17 05:56 Globulin 2.2 gm/dL 09/07/17 05:56 Albumin/Globulin Ratio 1.7 (1.0-1.8) 09/07/17 05:56 Triglycerides 64 mg/dL (<150) 09/06/17 06:33 Cholesterol 101 mg/dL (<200) 09/06/17 06:33 LDL Cholesterol Direct 44 mg/dL (75-193) L 09/06/17 06:33 HDL Cholesterol 44 mg/dL (23-92) 09/06/17 06:33 Amylase 52 U/L (29-103) 09/05/17 20:10 Lipase 22 U/L (11-82) 09/05/17 20:10 TSH 1.70 uIU/ml (0.34-5.60) 09/06/17 06:33 Urine Source MIDSTREAM 09/06/17 06:15 Urine Color YELLOW 09/06/17 06:15 Urine Clarity HAZY (CLEAR) 09/06/17 06:15 Urine pH 5.5 (4.6 - 8.0) 09/06/17 06:15 Ur Specific [place] 1.025 (1.005-1.030) 09/06/17 06:15 Urine Protein NEGATIVE mg/dL (NEGATIVE) 09/06/17 06:15 Urine Glucose (UA) NEGATIVE mg/dL (NEGATIVE) 09/06/17 06:15 Urine Ketones NEGATIVE mg/dL (NEGATIVE) 09/06/17 06:15 Urine Blood TRACE (NEGATIVE) 09/06/17 06:15 Urine Nitrate NEGATIVE (NEGATIVE) 09/06/17 06:15 Urine Bilirubin NEGATIVE (NEGATIVE) 09/06/17 06:15 Urine Urobilinogen 0.2 E.U./dL (0.2 - 1.0) 09/06/17 06:15 Ur Leukocyte Esterase NEGATIVE (NEGATIVE) 09/06/17 06:15 Urine RBC 0-2 /hpf (0-5) H 09/06/17 06:15 Urine WBC 10-25 /hpf (0-5) H 09/06/17 06:15 Ur Epithelial Cells FEW /lpf (FEW) 09/06/17 06:15 Urine Bacteria 1+ /hpf (NONE SEEN) H 09/06/17 06:15 Urine Creatinine 72.2 mg/dl (39.0-259.0) 09/06/17 15:55 - Physical Exam Vitals and I&O: Vital Signs Temp 97.0 F 09/07/17 04:06 Pulse 60 09/07/17 08:33 Resp 17 09/07/17 04:06 BP 149/62 09/07/17 08:33 Pulse Ox 95 09/07/17 04:06 Intake & Output 09/06/17 09/07/17 09/07/17 18:59 06:59 18:59 Intake Total 1895.833 Output Total 600 Balance 1895.833 -600 Weight (lbs) 172 lb 1.6 oz Intake: Intake, IV Amount 1895.833 Sodium Chloride 0.9% 1, 1895.833 000 ml @ 125 mls/hr IV . Q8H [facility] Rx#:[id number] Output: Urine 600 Stool 0 Other: Weight Source Bedscale Active Medications: Current Medications Atenolol (Tenormin) 25 mg PO DAILY [facility] Stop: 11/06/17 08:59 Last Admin: 09/07/17 08:33 Dose: 25 mg Atorvastatin Calcium (Lipitor) 10 mg PO DAILY [facility] PRN Reason: Protocol Stop: 11/06/17 08:59 Last Admin: 09/07/17 08:32 Dose: 10 mg Clotrimazole (Lotrimin 1% Cream) 1 appl TP BID [facility] Stop: 11/06/17 16:59 Diphenhydramine HCl (Benadryl) 25 mg PO Q8HR PRN PRN Reason: Itching Stop: 11/05/17 16:45 Donepezil HCl (Aricept) 10 mg PO HS [facility] Stop: 11/05/17 20:59 Last Admin: 09/06/17 22:58 Dose: 10 mg Enoxaparin Sodium (Lovenox) 100 mg SUBQ DAILY [facility] Stop: 11/06/17 08:59 Last Admin: 09/07/17 08:33 Dose: 100 mg Glipizide (Glucotrol) 5 mg PO DAILY [facility] Stop: 11/06/17 08:59 Last Admin: 09/07/17 12:35 Dose: 5 mg Sodium Chloride (Nacl 0.9%) 1,000 mls @ 125 mls/hr IV .Q8H [facility] Stop: 11/05/17 01:14 Last Admin: 09/06/17 21:10 Dose: 125 mls/hr Insulin Aspart (Novolog Insulin Sliding Scale) 0 units SUBQ ACHS [facility] PRN Reason: Protocol Stop: 11/05/17 20:59 Last Admin: 09/07/17 12:33 Dose: Not Given Lorazepam (Ativan) 0.5 mg PO Q6H PRN; Protocol PRN Reason: Anxiety Stop: 11/05/17 16:45 Methimazole (Tapazole) 10 mg PO DAILY [facility] Stop: 11/06/17 08:59 Last Admin: 09/07/17 08:32 Dose: 10 mg Mirtazapine (Remeron) 15 mg PO HS [facility] PRN Reason: Protocol Stop: 11/05/17 20:59 Multivitamins/Vitamin C (Theragran) 1 tab PO DAILY [facility] Stop: 11/06/17 08:59 Last Admin: 09/07/17 08:32 Dose: 1 tab Ondansetron HCl (Zofran) 4 mg IV Q4H PRN PRN Reason: Nausea / Vomiting Stop: 11/05/17 13:59 Pantoprazole Sodium (Protonix) 40 mg PO DAILY [facility] Stop: 11/05/17 13:59 Last Admin: 09/07/17 08:33 Dose: 40 mg General: alert HEENT: NC/AT, PERRLA Neck: Supple Lungs: CTAB Cardiovascular: RRR, Normal S1, Normal S2, without murmur Abdomen: soft, non-tender, non-distended, positive bowel sound Internal Medicine Assmt/Plan - Assessment Assessment: dehydration pre-renal azotemia kidney failure abd pain dm hyperglycemia hx confusion dementia - Plan Plan: pain mgmt gi follow up cbc/bmp in am continue current plan of care Nutritional Asmnt/Malnutr-PDOC - Dietary Evaluation Malnutrition Findings (Please click <Entered> for more info): Nutritional Asmnt/Malnutrition Start: 09/06/17 15: 24 Text: Status: Complete Freq: Document 09/06/17 15:24 KERLINEADONAY (Rec: 09/06/17 15:40 KERLINEADONAY [id number]) Nutritional Asmnt/Malnutrition Patient General Information Nutritional Screening Moderate Risk Diagnosis encephalopathy, dehydration Pertinent Medical Hx/Surgical Hx HTN, DM, dyslipidemia, thyroid disorder, arthritis, dementia , alzheimer Subjective Information Pt seen sitting up in bed, awake, Upper Sor[place] speaking noted. blood sugar 241 at admission noted. No diet order at this time. A diet order of clear liquid was added after lunch. Current Diet Order/ Nutrition Support no diet order Pertinent Medications novolog, protonix, nacl 0.9% Pertinent Labs 09/06 na 139, K 4.2, cl 111, bun 22, Cr 0.8, Glucose 128 09/05 glucose 241 Nutritional Hx/Data Height 5 ft 5 in Height (Calculated Centimeters) 165.1 Current Weight (lbs) 170 lb Weight (Calculated Kilograms) 77.1 Weight (Calculated Grams) 77403.7 [place] Body Weight 136 % [place] Body Weight 125 Body Mass Index (BMI) 28.3 Weight Status Overweight GI Symptoms GI Symptoms None Last BM no record Difficult in: None Skin Integrity/Comment: intact Estimated Nutritional Goals BEE in Kcals: Adj wt of IBW Calories/Kcals/Kg 25-30 Kcals Calculated 6464-5724 Protein: Adj wt of IBW Protein g/k-1.2 Protein Calculated 66-79 Fluid: ml 1650-1980ml (1ml/kcal) Nutritional Problem 1. Problem Problem altered nutrition related lab value Etiology hx of DM Signs/Symptoms: Glucose 128-241 Malnutrition Alert Protein-Calorie Malnutrition N/A Is there a minimum of two criteria No selected? Query Text:Check all the applicable criteria. A minimum of two criteria are recommended for diagnosis of either severe or non-severe malnutrition. Intervention/Recommendation Comments 1. Continue with current diet as ordered. If diet advanced, recommend CCHO-60gm diet to better control blood sugar. 2. Monitor PO intake, wt, labs and skin integrity 3. F/U as high risk in 2-3 days, 09/08-09/09 Expected Outcomes/Goals Expected Outcomes/Goals 1. PO intake to meet at least 75% of nutritional needs. 2. Wt stability, skin to remain intact, labs to approach WNL.
--- NOTE | 2017-09-10 11:25 | Discharge Summary ---
General Discharge Summary - Discharge Summary Date of Admission: 09/05/17 Home Medications: Home Medication Medication Instructions Recorded Type Atenolol [Tenormin*] 25 mg PO DAILY tab 01/25/17 Rx Donepezil Hcl [Aricept] 10 mg PO HS tab 01/25/17 Rx Glipizide [Glucotrol] 5 mg PO DAILY tab 01/25/17 Rx Multivitamin [Theragran] 1 tab PO DAILY tab 01/25/17 Rx Insulin Aspart Sliding Scale See Protocol SUBQ ACHS 04/22/17 History [NovoLOG INSULIN SLIDING SCALE] Methimazole [Tapazole] 10 mg PO DAILY 04/22/17 History cloNIDine HCl [Catapres] 0.1 mg PO Q8HR PRN 04/22/17 History Atorvastatin Calcium [Lipitor] 10 mg PO DAILY tab 07/05/17 Rx Enoxaparin [Lovenox] 100 mg SUBQ DAILY syr 07/05/17 Rx Lorazepam [Ativan] 0.5 mg PO Q6H PRN tab 07/05/17 Rx Mirtazapine [Remeron] 15 mg PO HS tab 07/05/17 Rx Diphenhydramine HCL [Benadryl] 25 mg PO Q8HR PRN 09/05/17 History Clotrimazole 1% Cream [Lotrimin 1% 1 appl TP BID appl 09/07/17 Rx Cream] Pantoprazole [Protonix] 40 mg PO DAILY pkt 09/07/17 Rx Consults and Follow-Up: Mar Amin [Primary Care Provider] - Instructions: Hepatic Encephalopathy, Dehydration, Adult
== END 2017-09-07 17:15 | DRG 682 ==
LOC: ER 21:14 → MSI 23:45
PROVIDERS: ADMIT Internal Medicine; ATTEND Internal Medicine
DX: N17.9 Acute kidney failure, unspecified (principal); G93.40 Encephalopathy, unspecified; K52.9 Noninfective gastroenteritis and colitis, unspecified; E11.65 Type 2 diabetes mellitus with hyperglycemia; E86.0 Dehydration; D64.9 Anemia, unspecified; G30.9 Alzheimer's disease, unspecified; F02.80 Dementia in other diseases classified elsewhere, unspecified severity, without behavioral disturbance, psychotic disturbance, mood disturbance, and anxiety; I10 Essential (primary) hypertension; R00.1 Bradycardia, unspecified; B35.6 Tinea cruris; M19.90 Unspecified osteoarthritis, unspecified site; I25.10 Atherosclerotic heart disease of native coronary artery without angina pectoris; E78.5 Hyperlipidemia, unspecified; E03.9 Hypothyroidism, unspecified; F41.9 Anxiety disorder, unspecified; Z86.718 Personal history of other venous thrombosis and embolism; Z83.3 Family history of diabetes mellitus; Z82.49 Family history of ischemic heart disease and other diseases of the circulatory system
CPT/HCPCS: 36415-UA; 70450-TC; 80048-TC; 80053-TC; 80061-TC; 81001-TC; 82043-90; 82150-TC; 82550-TC; 82570-TC; 82948-90; 83036-90; 83605; 83690-TC; 83735-TC; 83880-TC; 84100-TC; 84443-TC; 84484-TC; 85007-TC; 85025-TC; 85027-TC; 85610-TC; 85730-TC; 87086-90; 93005; J1650; J1815; J7030; J7042; Z7610

== ENCOUNTER 2017-10-01 18:31 | Inpatient (IN) | payer MEDICARE, MEDICAID ==
--- NOTE | 2017-10-01 18:50 | ED Physician Chart ---
ED Chief Complaint/HPI - Patient Information Date Seen:: 10/01/17 Time Seen:: 18:30 Chief Complaint:: Back Pain History of Present Illness:: onset x 2 weeks of back pain; no report of trauma, H/As, S/T, neck pain, C/P, SOB, Abd. Pain, A/n/V/D/C, fever, chills, or urinary s/s Allergies:: Allergies Allergy/AdvReac Type Severity Reaction Status Date / Time No Known Allergies Allergy Verified 09/05/17 21:28 Historian:: Patient, EMS Review:: Nurse's Note Reviewed, Old Chart Reviewed, EMS run form Reviewed ED Review of Systems - Review of Systems General/Constitutional: No fever, No chills, No weight loss, No weakness, No diaphoresis, No edema, No loss of appetite Skin: No skin lesions, No rash, No bruising Head: No headache, No light-headedness Eyes: No loss of vision, No pain, No diplopia ENT: No earache, No nasal drainage, No sore throat, No tinnitus Neck: No neck pain, No swelling, No thyromegaly, No stiffness, No mass noted Cardio Vascular: No chest pain, No palpitations, No PND, No orthopnea, No edema Pulmonary: No SOB, No cough, No sputum, No wheezing GI: No nausea, No vomiting, No diarrhea, No pain, No melena, No hematochezia, No constipation, No hematemesis G/U: No dysuria, No frequency, No hematuria, No nacturia Musculoskeletal: Bone or joint pain, Back pain, Muscle pain Endocrine: No polyuria, No polydipsia Psychiatric: Prior psych history, No depression, Anxiety, No suicidal ideation, No homicidal ideation, No auditory hallucination, No visual hallucination Hematopoietic: No bruising, No lymphadenopathy Allergic/Immuno: No urticaria, No angioedema Neurological: No syncope, No focal symptoms, No weakness, No paresthesia, No headache, No seizure, No dizziness, No confusion, No vertigo ED Past Medical History - Past Medical History Obtainable: Yes Past Medical History: HTN, DM, CAD, Dyslipidemia, Dementia Family History: Diabetes Melitus, HTN Social History: Non Smoker, No Alcohol, No Drug Use, Single, Care Facility Surgical History: None Psychiatricy History: Dementia Medication: Reviewed Family Medical History - Family Member Mother History Unknown: Yes Ethnicity: Living Status: ED Physical Exam - Physical Examination General/Constitutional: Awake, Well-developed, well-nourished, Alert, No distress, GCS 15, Non-toxic appearing, Ambulatory Head: Atraumatic Eyes: Lids, conjuctiva normal, PERRL, EOMI Skin: Nl inspection, No rash, No skin lesions, No ecchymosis, Well hydrated, No lymphadenopathy ENMT: External ears, nose nl, TM canals nl, Nasal exam nl, Lips, teeth, gums nl , Oropharynx nl, Tonsils nl Neck: Nontender, Full ROM w/o pain, No JVD, No nuchal rigidity, No bruit, No mass, No stridor Other Neck comments:: supple; no meningeal signs; no cervical tenderness Respiratory: Nl effort/Exclusion, Clear to Auscultation, No Wheeze/Rhonchi/Rales Cardio Vascular: RRR, No murmur, gallop, rubs, NL S1 S2, Carotid/Femoral/Distal pulses equal bilaterally GI: No tenderness/rebounding/guarding, No organomegaly, No hernia, Normal BS's, Nondistended, No mass/bruits, No McBurney tenderness, Rectum exam nl Other GI comments:: no pulsatile masses : No CVA tenderness Extremities: No tenderness or effusion, Full ROM, normal strength in all extremities, No edema, Normal digits & nails Neuro/Psych: Alert/oriented, DTR's symmetric, Normal sensory exam, Normal motor strength, Judgement/insight normal, Mood normal, Normal gait, No focal deficits Misc: Normal back, No paraspinal tenderness ED Septic Shock - . Is Septic Shock (SBP<90, OR Lactate>4 mmol\L) present?: No ED Reassessment (Disposition) - Reassessment Reassessment Condition:: Improved - Diagnosis Diagnosis:: Back Pain; DM; HTN; Dementia - Aftercare/Follow up Instructions Aftercare/Follow-Up Instructions:: Counseled pt regarding lab results/diagnosis & need follow up, Counseled pt & family regarding lab results/diagnosis & need follow up - Patient Disposition Discharge/Transfer:: Acute Care w/in this hosp Accepting Physician:: Dr. Amin Time Called:: 1899 Time Responded:: 19:00 Admitted to:: Telemetry Spoke to:: Dr. Amin Admitting Medical Physician:: Dr. Amin Condition at Disposition:: Stable, Improved
[2017-10-01 19:23] LABS: % BASOPHILS 0.4 % (0.0-2.0); % EOSINOPHILS 4.6 % (0.0-5.0); % LYMPHOCYTES 34.4 % (20.0-50.0); % MONOCYTES 10.1 % (2.0-10.0); % NEUTROPHILS 50.5 % (40.0-80.0); EOSINOPHILE ABSOLUTE 0.2 Th/cmm (0.1-0.4); HEMATOCRIT 41.3 % (41.0-60); HEMOGLOBIN 13.6 gm/dL (12-16); LYMPHOCYTE ABSOLUTE 1.6 Th/cmm (1.5-3.0); MEAN CELL VOLUME 87.9 fl (80-99); MEAN CORPUSCULAR HEMOGLOBIN 28.9 pg (27.0-31.0); MEAN CORPUSCULAR HGB CONC 32.9 pg (28.0-36.0); MEAN PLATELET VOLUME 8.1 fl; MONOCYTE ABSOLUTE 0.5 Th/cmm (0.3-1.0); NEUTROPHILE ABSOLUTE 2.3 Th/cmm (1.8-8.0); PLATELET COUNT 128 Th/cmm (150-400); RED CELL DISTRIBUTION WIDTH 14.4 % (11.5-20.0); WHITE BLOOD COUNT 4.6 Th/cmm (4.8-10.8)
[2017-10-01 19:43] LABS: ALB/GLOB RATIO 1.5 (1.0-1.8); ALKALINE PHOSPHATASE 94 U/L (34-104); ANION GAP 10.9 (7.0-16.0); BILIRUBIN,TOTAL 0.5 mg/dL (0.3-1.0); BUN - UREA NITROGEN 30 mg/dL (7-25); CALCIUM SERUM 9.5 mg/dL (8.6-10.3); CARBON DIOXIDE 23.2 mEq/L (21.0-31.0); CHLORIDE 107 mEq/L (98-107); CHOLESTEROL 125 mg/dL (<200); CREATININE KINASE 34 U/L (30-223); GLUCOSE 209 mg/dL (70-105); HDL -HIGH DENSITY LIPOPROTEIN 41 mg/dL (23-92); INR 0.9 (0.5-1.4); POTASSIUM SERUM 4.1 mEq/L (3.5-5.1); PROTHROMBIN TIME (TEST) 9.3 SECONDS (9.5-11.5); SGOT 17 U/L (13-39); SGPT/ALT 26 U/L (7-52); SODIUM SERUM 137 mEq/L (136-145); TOTAL PROTEIN,SERUM 6.7 gm/dL (6.0-8.3); TRIGLYCERIDES 188 mg/dL (<150)
[2017-10-01] MEDS ORDERED: Morphine Sulfate 4 mg/mL 1mL Syr IVP PRN ×2 (22:43→22:44)
[2017-10-01] MEDS: INSULIN ASPART SLIDING SCALE 100 UNITS/ML UNIT SUBQ SCH (23:03)
[2017-10-02 01:29] LABS: URINE MICROSCOPIC INDICATED? YES; URINE SOURCE CLEAN C
[2017-10-02 01:36] LABS: URINE BILIRUBIN NEGATIVE (NEGATIVE); URINE BLOOD SMALL (NEGATIVE); URINE GLUCOSE (UA) NEGATIVE (NEGATIVE); URINE KETONE NEGATIVE (NEGATIVE); URINE LEUKOCYTE ESTERASE NEGATIVE (NEGATIVE); URINE NITRATE NEGATIVE (NEGATIVE); URINE PH 5.5 (4.6 - 8.0); URINE PROTEIN NEGATIVE (NEGATIVE); URINE UROBILINOGEN 0.2 E.U./dL (0.2 - 1.0)
[2017-10-02 01:39] LABS: URINE CLARITY HAZY (CLEAR); URINE COLOR YELLOW; URINE EPITHELIAL CELLS FEW /lpf (FEW); URINE RBC 0-2 /hpf (0-5); URINE WBC 0-2 /hpf (0-5)
[2017-10-02 01:41] LABS: URINE BACTERIA NONE SEEN /hpf (NONE SEEN)
[2017-10-02 04:48] LABS: % BASOPHILS 0.6 % (0.0-2.0); % EOSINOPHILS 4.8 % (0.0-5.0); % LYMPHOCYTES 38.5 % (20.0-50.0); % MONOCYTES 11.5 % (2.0-10.0); % NEUTROPHILS 44.6 % (40.0-80.0); EOSINOPHILE ABSOLUTE 0.2 Th/cmm (0.1-0.4); HEMATOCRIT 38.8 % (41.0-60); HEMOGLOBIN 12.8 gm/dL (12-16); LYMPHOCYTE ABSOLUTE 1.8 Th/cmm (1.5-3.0); MEAN CELL VOLUME 88.6 fl (80-99); MEAN CORPUSCULAR HEMOGLOBIN 29.3 pg (27.0-31.0); MEAN CORPUSCULAR HGB CONC 33.1 pg (28.0-36.0); MEAN PLATELET VOLUME 8.7 fl; MONOCYTE ABSOLUTE 0.5 Th/cmm (0.3-1.0); NEUTROPHILE ABSOLUTE 2.2 Th/cmm (1.8-8.0); PLATELET COUNT 117 Th/cmm (150-400); RED BLOOD COUNT 4.38 Mil/cmm (3.80-5.80); RED CELL DISTRIBUTION WIDTH 14.5 % (11.5-20.0); WHITE BLOOD COUNT 4.7 Th/cmm (4.8-10.8)
[2017-10-02 05:23] LABS: ANION GAP 10.2 (7.0-16.0); BUN - UREA NITROGEN 26 mg/dL (7-25); CARBON DIOXIDE 24.8 mEq/L (21.0-31.0); CHLORIDE 110 mEq/L (98-107); CREATININE - SERUM 0.9 mg/dL (0.7-1.3); SODIUM SERUM 141 mEq/L (136-145)
[2017-10-02 05:31] LABS: GLUCOSE 102 mg/dL (70-105)
[2017-10-02] MEDS: INSULIN ASPART SLIDING SCALE 100 UNITS/ML UNIT SUBQ SCH ×4 (06:31→20:18)
--- NOTE | 2017-10-02 07:41 | Diagnostic Imaging Report ---
CHEST X-RAY: AP view INDICATION: pain COMPARISON: 06/30/2017 FINDINGS: Chronic lung changes are seen with linear left mid lung and right basal densities. No focal consolidation or effusions. Mild cardiomegaly is noted with atherosclerosis. Low lung volumes are noted. Degenerative changes of the spine are noted. IMPRESSION: Chronic lung changes with areas of subsegmental atelectasis versus scarring. Low lung volumes are noted. No focal consolidation is identified. Mild Cardiomegaly and atherosclerotic vascular disease.
[2017-10-02] MEDS: Lactulose 10 Gm/15 mL 30mL UDC PO SCH ×3 (08:41→20:18)
[2017-10-02] MEDS: Pantoprazole 40 mg/Packet PO SCH (08:41)
[2017-10-02] MEDS: Atorvastatin Calcium 10 MG TAB PO SCH (08:43)
[2017-10-02] MEDS: Multivitamin Tab PO SCH (08:43)
[2017-10-02] MEDS: Enoxaparin 100 mg/mL 1mL Syr SUBQ SCH (08:45)
--- NOTE | 2017-10-02 09:20 | Diagnostic Imaging Report ---
CT scan lumbar spine HISTORY: Pain Total DLP equals 1112 CTDI equals 34.2 Axial sections were obtained through the lumbar spine. Additional sagittal and coronal reformatted images are provided. The exam the L5-S1 level demonstrates spondylolisthesis of L5 on S1 (approximately 10%). Finding associated with bilateral spondylolysis. Hypertrophic changes also noted about the posterior elements. Air is seen within the interspace reflecting degenerative disc disease. There is a mild (2 mm)-disc protrusion the results in obscuration of anterior epidural fat. The L4-5 level demonstrates a moderate (3. 4 mm) disc protrusion with corresponding extradural indentation on the anterior subarachnoid space. The L3-4 level demonstrates a mild to moderate (2 to 3 mm) central disc protrusion. Calcification noted within the disc annulus. The L2-3 level demonstrates severe narrowing of the disc and interspace. Spur formation noted about the vertebral endplates. Spur formation results in a mild extradural indentation on the anterior spinal canal. The L1-2 level appears normal. There is complete compression involving the body of T12. There is a moderate (3 mm) extradural indentation on the anterior spinal canal at the T11-T12 level related to the posterior superior margin of the body of T12. An inferior vena cava filter is seen. There is aneurysmal dilatation of the abdominal aorta above the level of the bifurcation. Maximum diameter equals approximately 3.0 cm. 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 IMPRESSION: 1. Severe diffuse degenerative changes 2. Complete compression involving the body of T12. Findings are associated with a moderate (3 mm) extradural indentation on the anterior spinal canal. 3. Spondylolisthesis of L5 on S1 (approximately 10% displacement). Findings are associated with bilateral spondylolysis and degenerative changes. 4. Severe narrowing of the disc interspace associated with degenerative changes L2-3. 5. Abdominal aortic aneurysm (maximum diameter equals approximately 3.0 cm) as described above associated with calcification and findings consistent with a segment of chronic dissection. 6. Inferior vena cava filter
--- NOTE | 2017-10-02 10:15 | Consultation ---
Consult Note - Consult Note Service Date: 10/02/17 Referring Physician: Mar Amin Consult Note: PHYSICIAN Consultation Note: Date of Admission: 10/01/17 Purpose of Consultation: scrotal itchiness. Chief Complaint: Patient JEFERSON FLEMING was admitted to [facility] Telemetry with BACK PAIN,DM, HTN & BRADYCARDIA. 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 However it was noted that there is no redness. He stated that he was really bothered by itchiness of his scrotal area. 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 Allergies Allergy/AdvReac Type Severity Reaction Status Date / Time No Known Allergies Allergy Verified 09/05/17 21:28 Vital Signs Temp 96.6 F 10/02/17 07:54 Pulse 75 10/02/17 08:41 Resp 17 10/02/17 07:54 BP 135/68 10/02/17 08:41 Pulse Ox 97 10/02/17 07:54 Intake & Output 10/01/17 10/02/17 10/02/17 18:59 06:59 18:59 Intake Total 240 Output Total 250 Balance -10 Weight (lbs) 72.575 kg Intake: Oral 240 Output: Urine 250 Other: Weight Source Bedscale Laboratory Results - last 24 hr 10/01/17 10/01/17 10/01/17 19:10 19:10 19:10 WBC 4.6 L RBC 4.70 Hgb 13.6 Hct 41.3 MCV 87.9 MCH 28.9 MCHC Differential 32.9 RDW 14.4 Plt Count 128 L MPV 8.1 Neutrophils % 50.5 Lymphocytes % 34.4 Monocytes % 10.1 H Eosinophils % 4.6 Basophils % 0.4 PT 9.3 L INR 0.90 Sodium 137 Potassium 4.1 Chloride 107 Carbon Dioxide 23.2 Anion Gap 10.9 BUN 30 H Creatinine 1.0 Est GFR ( Amer) TNP Est GFR (Non-Af Amer) TNP BUN/Creatinine Ratio 30.0 Glucose 209 H POC Glucose Calcium 9.5 Total Bilirubin 0.5 AST 17 ALT 26 Alkaline Phosphatase 94 Creatine Kinase 34 Troponin I B-Natriuretic Peptide Total Protein 6.7 Albumin 4.0 L Globulin 2.7 Albumin/Globulin Ratio 1.5 Triglycerides 188 H Cholesterol 125 LDL Cholesterol Direct 49 L HDL Cholesterol 41 TSH Urine Source Urine Color Urine Clarity Urine pH Ur Specific [place] Urine Protein Urine Glucose (UA) Urine Ketones Urine Blood Urine Nitrate Urine Bilirubin Urine Urobilinogen Ur Leukocyte Esterase Urine RBC Urine WBC Ur Epithelial Cells Urine Bacteria 10/01/17 10/01/17 10/01/17 19:10 19:10 22:29 WBC RBC Hgb Hct MCV MCH MCHC Differential RDW Plt Count MPV Neutrophils % Lymphocytes % Monocytes % Eosinophils % Basophils % PT INR Sodium Potassium Chloride Carbon Dioxide Anion Gap BUN Creatinine Est GFR ( Amer) Est GFR (Non-Af Amer) BUN/Creatinine Ratio Glucose POC Glucose 181 H Calcium Total Bilirubin AST ALT Alkaline Phosphatase Creatine Kinase Troponin I 0.01 B-Natriuretic Peptide 56.1 Total Protein Albumin Globulin Albumin/Globulin Ratio Triglycerides Cholesterol LDL Cholesterol Direct HDL Cholesterol TSH Urine Source Urine Color Urine Clarity Urine pH Ur Specific [place] Urine Protein Urine Glucose (UA) Urine Ketones Urine Blood Urine Nitrate Urine Bilirubin Urine Urobilinogen Ur Leukocyte Esterase Urine RBC Urine WBC Ur Epithelial Cells Urine Bacteria 10/02/17 10/02/17 10/02/17 01:11 04:00 04:00 WBC 4.7 L RBC 4.38 Hgb 12.8 Hct 38.8 L MCV 88.6 MCH 29.3 MCHC Differential 33.1 RDW 14.5 Plt Count 117 L MPV 8.7 Neutrophils % 44.6 Lymphocytes % 38.5 Monocytes % 11.5 H Eosinophils % 4.8 Basophils % 0.6 PT INR Sodium 141 Potassium 4.0 Chloride 110 H Carbon Dioxide 24.8 Anion Gap 10.2 BUN 26 H Creatinine 0.9 Est GFR ( Amer) TNP Est GFR (Non-Af Amer) TNP BUN/Creatinine Ratio 28.9 Glucose 102 D POC Glucose Calcium 9.0 Total Bilirubin AST ALT Alkaline Phosphatase Creatine Kinase Troponin I B-Natriuretic Peptide Total Protein Albumin Globulin Albumin/Globulin Ratio Triglycerides Cholesterol LDL Cholesterol Direct HDL Cholesterol TSH Urine Source CLEAN C Urine Color YELLOW Urine Clarity HAZY Urine pH 5.5 Ur Specific [place] 1.025 Urine Protein NEGATIVE Urine Glucose (UA) NEGATIVE Urine Ketones NEGATIVE Urine Blood SMALL H Urine Nitrate NEGATIVE Urine Bilirubin NEGATIVE Urine Urobilinogen 0.2 Ur Leukocyte Esterase NEGATIVE Urine RBC 0-2 H Urine WBC 0-2 Ur Epithelial Cells FEW Urine Bacteria NONE SEEN 10/02/17 10/02/17 10/02/17 04:00 04:00 06:11 WBC RBC Hgb Hct MCV MCH MCHC Differential RDW Plt Count MPV Neutrophils % Lymphocytes % Monocytes % Eosinophils % Basophils % PT INR Sodium Potassium Chloride Carbon Dioxide Anion Gap BUN Creatinine Est GFR ( Amer) Est GFR (Non-Af Amer) BUN/Creatinine Ratio Glucose POC Glucose 119 H Calcium Total Bilirubin AST ALT Alkaline Phosphatase Creatine Kinase Troponin I 0.01 B-Natriuretic Peptide Total Protein Albumin Globulin Albumin/Globulin Ratio Triglycerides Cholesterol LDL Cholesterol Direct HDL Cholesterol TSH 2.31 Urine Source Urine Color Urine Clarity Urine pH Ur Specific [place] Urine Protein Urine Glucose (UA) Urine Ketones Urine Blood Urine Nitrate Urine Bilirubin Urine Urobilinogen Ur Leukocyte Esterase Urine RBC Urine WBC Ur Epithelial Cells Urine Bacteria Home Medication Medication Instructions Recorded Type Atenolol [Tenormin*] 25 mg PO DAILY tab 01/25/17 Rx Donepezil Hcl [Aricept] 10 mg PO HS tab 01/25/17 Rx Glipizide [Glucotrol] 5 mg PO DAILY tab 01/25/17 Rx Multivitamin [Theragran] 1 tab PO DAILY tab 01/25/17 Rx Insulin Aspart Sliding Scale See Protocol SUBQ ACHS 04/22/17 History [NovoLOG INSULIN SLIDING SCALE] Methimazole [Tapazole] 10 mg PO DAILY 04/22/17 History cloNIDine HCl [Catapres] 0.1 mg PO Q8HR PRN 04/22/17 History Atorvastatin Calcium [Lipitor] 10 mg PO DAILY tab 07/05/17 Rx Enoxaparin [Lovenox] 100 mg SUBQ DAILY syr 07/05/17 Rx Lorazepam [Ativan] 0.5 mg PO Q6H PRN tab 07/05/17 Rx Mirtazapine [Remeron] 15 mg PO HS tab 07/05/17 Rx Diphenhydramine HCL [Benadryl] 25 mg PO Q8HR PRN 09/05/17 History Clotrimazole 1% Cream [Lotrimin 1% 1 appl TP BID appl 09/07/17 Rx Cream] Pantoprazole [Protonix] 40 mg PO DAILY pkt 09/07/17 Rx Baclofen [Baclofen*] 20 mg PO TID 10/01/17 History Hydrocodone/Acetaminophen [[place] 1 tab PO BID PRN 10/01/17 History 7.5-325 Tablet] Lactulose 20 gm PO TID 10/01/17 History Zinc Gluconate 220 mg PO DAILY 10/01/17 History Current Medications Generic Name Dose Route Start Last Admin Trade Name Freq PRN Reason Stop Dose Admin Acetaminophen/Hydrocodone Bitart 1 tab 10/02/17 08:08 [place] 5mg/325mg PO BID PRN Pain (Moderate) Atenolol 25 mg 10/02/17 09:00 10/02/17 08:41 Tenormin PO 12/01/17 08:59 25 mg DAILY ABNER Administration Atorvastatin Calcium 10 mg 10/02/17 09:00 10/02/17 08:43 Lipitor PO 12/01/17 08:59 10 mg DAILY ABNER Administration Protocol Baclofen 20 mg 10/02/17 09:00 10/02/17 08:43 Lioresal PO 12/01/17 08:59 20 mg TID ABNER Administration Clotrimazole 1 appl 10/02/17 09:00 Lotrimin 1% Cream TP 12/01/17 08:59 BID ABNER Clotrimazole 1 appl 10/02/17 09:00 Lotrimin 1% Cream TP 12/01/17 08:59 BID ABNER Diphenhydramine HCl 25 mg 10/02/17 08:08 Benadryl PO 12/01/17 08:07 Q8HR PRN Itching Donepezil HCl 10 mg 10/02/17 21:00 Aricept PO 12/01/17 20:59 HS ABNER Enoxaparin Sodium 100 mg 10/02/17 09:00 10/02/17 08:45 Lovenox SUBQ 12/01/17 08:59 100 mg DAILY ABNER Administration Glipizide 5 mg 10/02/17 09:00 10/02/17 08:43 Glucotrol PO 12/01/17 08:59 5 mg DAILY ABNER Administration Insulin Aspart 0 units 10/02/17 11:30 Novolog Insulin Sliding Scale SUBQ 12/01/17 11:29 ACHS ABNER Protocol Lactulose 20 gm 10/02/17 09:00 10/02/17 08:41 Cephulac PO 12/01/17 08:59 20 gm TID ABNER Administration Lorazepam 0.5 mg 10/02/17 08:08 Ativan PO 12/01/17 08:07 Q6H PRN Anxiety Protocol Methimazole 10 mg 10/02/17 09:00 10/02/17 08:44 Tapazole PO 12/01/17 08:59 10 mg DAILY ABNER Administration Mirtazapine 15 mg 10/02/17 21:00 Remeron PO 12/01/17 20:59 HS ABNER Protocol Morphine Sulfate 2 mg 10/01/17 22:43 Morphine IVP 11/30/17 22:42 Q3HR PRN MODERATE PAIN Morphine Sulfate 4 mg 10/01/17 22:44 10/02/17 01:08 Morphine IVP 11/30/17 22:43 4 mg Q3H PRN Administration Severe Pain Multivitamins/Vitamin C 1 tab 10/02/17 09:00 10/02/17 08:43 Theragran PO 12/01/17 08:59 1 tab DAILY ABNER Administration Ondansetron HCl 4 mg 10/01/17 22:45 Zofran IV 11/30/17 22:44 Q6H PRN Nausea / Vomiting Pantoprazole Sodium 40 mg 10/02/17 09:00 10/02/17 08:41 Protonix PO 12/01/17 08:59 40 mg DAILY ABNER Administration Zinc Sulfate 220 mg 10/02/17 09:00 10/02/17 08:43 Zinc Sulfate PO 12/01/17 08:59 220 mg DAILY ABNER Administration Review of Systems: A 12 point ROS was reviewed with the pertinent positive and negatives noted in the HPI. Social History Lives at nursing facility. No history of smoking alcohol or drug use. Family Medical History Noncontributory Physical Exam: General: Comfortable not in acute distress. Well-nourished well-developed. HEENT: Head: Normocephalic, atraumatic. Oral cavity: Moist, pink tongue. Eyes : Pallor is present. No icterus. Pupil PERRLA. EOMI. Neck: Supple, no Edie to be no use of accessory neck muscles. Cardio: S1 and S2 within normal limits regular rhythm no murmur no gallop. Respiratory: Vesicular breath sound no crackles no wheezing. Abdominal: Soft, nontender nondistended bowel sounds present. There is no bilaterally lesion. Genital/Urinary: Genital area is has no abnormality. No swelling or erythema. Extremities: No cyanosis, no clubbing no edema. Neurological: LAD, awake, oriented 3. Assessment: 1. Itchiness of scrotal skin probably tinea cruris. 2. Hypertension 3. Chronic back pain. 4. DJD. 5. Bradycardia. Plan: Will give Lotrisone cream, apply topically. Thank you, Dr. Amin for involving me in taking care of this patient. Signed, John White M.D. 10/02/[id number]
[2017-10-02] MEDS: Betamethasone/Clotrimazole Cream 15 gm Tube TP SCH (16:18)
[2017-10-02 17:07] LABS: A1C % 8.3 % (4.0-6.0)
--- NOTE | 2017-10-03 08:50 | Infectious Disease Prog Note ---
Infectious Disease Subjective - Review of Systems Service Date: 10/03/17 Subjective: No change. Infectious Disease Objective - Results Result Diagrams: 10/02/17 04:00 10/02/17 04:00 Recent Labs: Laboratory Last Values WBC 4.7 Th/cmm (4.8-10.8) L 10/02/17 04:00 RBC 4.38 Mil/cmm (3.80-5.80) 10/02/17 04:00 Hgb 12.8 gm/dL (12-16) 10/02/17 04:00 Hct 38.8 % (41.0-60) L 10/02/17 04:00 MCV 88.6 fl (80-99) 10/02/17 04:00 MCH 29.3 pg (27.0-31.0) 10/02/17 04:00 MCHC Differential 33.1 pg (28.0-36.0) 10/02/17 04:00 RDW 14.5 % (11.5-20.0) 10/02/17 04:00 Plt Count 117 Th/cmm (150-400) L 10/02/17 04:00 MPV 8.7 fl 10/02/17 04:00 Neutrophils % 44.6 % (40.0-80.0) 10/02/17 04:00 Lymphocytes % 38.5 % (20.0-50.0) 10/02/17 04:00 Monocytes % 11.5 % (2.0-10.0) H 10/02/17 04:00 Eosinophils % 4.8 % (0.0-5.0) 10/02/17 04:00 Basophils % 0.6 % (0.0-2.0) 10/02/17 04:00 PT 9.3 SECONDS (9.5-11.5) L 10/01/17 19:10 INR 0.90 (0.5-1.4) 10/01/17 19:10 Sodium 141 mEq/L (136-145) 10/02/17 04:00 Potassium 4.0 mEq/L (3.5-5.1) 10/02/17 04:00 Chloride 110 mEq/L (98-107) H 10/02/17 04:00 Carbon Dioxide 24.8 mEq/L (21.0-31.0) 10/02/17 04:00 Anion Gap 10.2 (7.0-16.0) 10/02/17 04:00 BUN 26 mg/dL (7-25) H 10/02/17 04:00 Creatinine 0.9 mg/dL (0.7-1.3) 10/02/17 04:00 Est GFR ( Amer) TNP 10/02/17 04:00 Est GFR (Non-Af Amer) TNP 10/02/17 04:00 BUN/Creatinine Ratio 28.9 10/02/17 04:00 Glucose 102 mg/dL (70-105) D 10/02/17 04:00 POC Glucose 163 MG/DL (70 - 105) H 10/03/17 05:17 Hemoglobin A1c % 8.3 % (4.0-6.0) H 10/02/17 04:00 Calcium 9.0 mg/dL (8.6-10.3) 10/02/17 04:00 Total Bilirubin 0.5 mg/dL (0.3-1.0) 10/01/17 19:10 AST 17 U/L (13-39) 10/01/17 19:10 ALT 26 U/L (7-52) 10/01/17 19:10 Alkaline Phosphatase 94 U/L (34-104) 10/01/17 19:10 Creatine Kinase 34 U/L (30-223) 10/01/17 19:10 Troponin I 0.01 ng/mL (0.01-0.05) 10/02/17 20:15 B-Natriuretic Peptide 56.1 pg/mL (5.0-100.0) 10/01/17 19:10 Total Protein 6.7 gm/dL (6.0-8.3) 10/01/17 19:10 Albumin 4.0 gm/dL (4.2-5.5) L 10/01/17 19:10 Globulin 2.7 gm/dL 10/01/17 19:10 Albumin/Globulin Ratio 1.5 (1.0-1.8) 10/01/17 19:10 Triglycerides 188 mg/dL (<150) H 10/01/17 19:10 Cholesterol 125 mg/dL (<200) 10/01/17 19:10 LDL Cholesterol Direct 49 mg/dL (75-193) L 10/01/17 19:10 HDL Cholesterol 41 mg/dL (23-92) 10/01/17 19:10 TSH 2.31 uIU/ml (0.34-5.60) 10/02/17 04:00 Urine Source CLEAN C 10/02/17 01:11 Urine Color YELLOW 10/02/17 01:11 Urine Clarity HAZY (CLEAR) 10/02/17 01:11 Urine pH 5.5 (4.6 - 8.0) 10/02/17 01:11 Ur Specific [place] 1.025 (1.005-1.030) 10/02/17 01:11 Urine Protein NEGATIVE mg/dL (NEGATIVE) 10/02/17 01:11 Urine Glucose (UA) NEGATIVE mg/dL (NEGATIVE) 10/02/17 01:11 Urine Ketones NEGATIVE mg/dL (NEGATIVE) 10/02/17 01:11 Urine Blood SMALL (NEGATIVE) H 10/02/17 01:11 Urine Nitrate NEGATIVE (NEGATIVE) 10/02/17 01:11 Urine Bilirubin NEGATIVE (NEGATIVE) 10/02/17 01:11 Urine Urobilinogen 0.2 E.U./dL (0.2 - 1.0) 10/02/17 01:11 Ur Leukocyte Esterase NEGATIVE (NEGATIVE) 10/02/17 01:11 Urine RBC 0-2 /hpf (0-5) H 10/02/17 01:11 Urine WBC 0-2 /hpf (0-5) 10/02/17 01:11 Ur Epithelial Cells FEW /lpf (FEW) 10/02/17 01:11 Urine Bacteria NONE SEEN /hpf (NONE SEEN) 10/02/17 01:11 - Physical Exam Vitals and I&O: Vital Signs Temp 96.3 F 10/03/17 08:31 Pulse 53 10/03/17 08:31 Resp 18 10/03/17 08:31 BP 122/61 10/03/17 08:31 Pulse Ox 99 10/03/17 08:31 Intake & Output 10/02/17 10/03/17 10/03/17 18:59 06:59 18:59 Intake Total 500 240 Output Total 350 Balance 150 240 Weight (lbs) 72.575 kg 73.21 kg Intake: Oral 500 240 Output: Urine 350 Other: # Voids 3 # Bowel Movements 1 Stool Characteristics Formed Weight Source Bedscale Bedscale Active Medications: Current Medications Acetaminophen/Hydrocodone Bitart ([place] 5mg/325mg) 1 tab PO BID PRN PRN Reason: Pain (Moderate) Atenolol (Tenormin) 25 mg PO DAILY [facility] Stop: 12/01/17 08:59 Last Admin: 10/02/17 08:41 Dose: 25 mg Atorvastatin Calcium (Lipitor) 10 mg PO DAILY [facility] PRN Reason: Protocol Stop: 12/01/17 08:59 Last Admin: 10/02/17 08:43 Dose: 10 mg Baclofen (Lioresal) 20 mg PO TID [facility] Stop: 12/01/17 08:59 Last Admin: 10/02/17 20:18 Dose: 20 mg Betamethasone/Clotrimazole (Lotrisone Cream) 1 appl TP BID [facility] Stop: 10/07/17 16:59 Last Admin: 10/02/17 16:18 Dose: 1 appl Diphenhydramine HCl (Benadryl) 25 mg PO Q8HR PRN PRN Reason: Itching Stop: 12/01/17 08:07 Last Admin: 10/02/17 23:26 Dose: 25 mg Donepezil HCl (Aricept) 10 mg PO HS [facility] Stop: 12/01/17 20:59 Last Admin: 10/02/17 20:18 Dose: 10 mg Enoxaparin Sodium (Lovenox) 100 mg SUBQ DAILY [facility] Stop: 12/01/17 08:59 Last Admin: 10/02/17 08:45 Dose: 100 mg Glipizide (Glucotrol) 5 mg PO DAILY [facility] Stop: 12/01/17 08:59 Last Admin: 10/02/17 08:43 Dose: 5 mg Insulin Aspart (Novolog Insulin Sliding Scale) 0 units SUBQ ACHS [facility] PRN Reason: Protocol Stop: 12/01/17 11:29 Last Admin: 10/02/17 20:18 Dose: 4 units Lactulose (Cephulac) 20 gm PO TID [facility] Stop: 12/01/17 08:59 Last Admin: 10/02/17 20:18 Dose: 20 gm Lorazepam (Ativan) 0.5 mg PO Q6H PRN; Protocol PRN Reason: Anxiety Stop: 12/01/17 08:07 Methimazole (Tapazole) 10 mg PO DAILY [facility] Stop: 12/01/17 08:59 Last Admin: 10/02/17 08:44 Dose: 10 mg Mirtazapine (Remeron) 15 mg PO HS [facility] PRN Reason: Protocol Stop: 12/01/17 20:59 Morphine Sulfate (Morphine) 2 mg IVP Q3HR PRN PRN Reason: MODERATE PAIN Stop: 11/30/17 22:42 Morphine Sulfate (Morphine) 4 mg IVP Q3H PRN PRN Reason: Severe Pain Stop: 11/30/17 22:43 Last Admin: 10/02/17 01:08 Dose: 4 mg Multivitamins/Vitamin C (Theragran) 1 tab PO DAILY [facility] Stop: 12/01/17 08:59 Last Admin: 10/02/17 08:43 Dose: 1 tab Ondansetron HCl (Zofran) 4 mg IV Q6H PRN PRN Reason: Nausea / Vomiting Stop: 11/30/17 22:44 Pantoprazole Sodium (Protonix) 40 mg PO DAILY [facility] Stop: 12/01/17 08:59 Last Admin: 10/02/17 08:41 Dose: 40 mg Zinc Sulfate (Zinc Sulfate) 220 mg PO DAILY [facility] Stop: 12/01/17 08:59 Last Admin: 10/02/17 08:43 Dose: 220 mg General: no acute distress, well developed, well nourished HEENT: atraumatic, normocephalic, PERRLA Neck: supple, no thyromegaly, no lymphadenopathy Cardiovascular: S1S2, regular Lungs: clear to auscultation bilaterally, clear to percussion Abdomen: soft, no tender, no distended Extremities: no cyanosis, no clubbing, no edema Neurological: awake, alert, oriented Skin: intact Infectious Disease Assmt/Plan - Assessment Assessment: 1. Itchiness of scrotal skin probably tinea cruris. 2. Hypertension 3. Chronic back pain. 4. DJD. 5. Bradycardia. - Plan Plan: Lotrisone. CPM. Nutritional Asmnt/Malnutr-PDOC - Dietary Evaluation Malnutrition Findings (Please click <Entered> for more info): Nutritional Asmnt/Malnutrition Start: 10/02/17 15: 48 Text: Status: Complete Freq: Document 10/02/17 15:48 LCHENG (Rec: 10/02/17 15:58 LCHENG [email or web address]) Nutritional Asmnt/Malnutrition Patient General Information Nutritional Screening High Risk Consult Diagnosis back pain, DM, bradycardia Pertinent Medical Hx/Surgical Hx HTN, DM, CAD, dyslipidemia, dementai Subjective Information Pt seen lying in bed at time of vist, awake and alert. Pt is Korean speaking, not approriate for interview or nutrition education at this time. Current Diet Order/ Nutrition Support [facility] [address] [place] Pertinent Medications glucotrol, novolog, cephulac, remeron, theragran, protonix, zinc Pertinent Labs 10/02 Cl 110, BUN 26, glucose 102, POC 119 10/01 BUN 30, glucose 209, POC 181 Nutritional Hx/Data Height 1.68 m Height (Calculated Centimeters) 167.6 Current Weight (lbs) 72.575 kg Weight (Calculated Kilograms) 72.6 Weight (Calculated Grams) 84534.8 [place] Body Weight 142 Body Mass Index (BMI) 25.8 Weight Status Overweight GI Symptoms GI Symptoms None Last BM no record Difficult in: None Skin Integrity/Comment: bilateral lower extremities discoloration Estimated Nutritional Goals BEE in Kcals: Using Current wt Calories/Kcals/Kg 25-30 Kcals Calculated 3472-3847 Protein g/k-1.2 Protein Calculated 73-87 Fluid: ml 1825-2190ml (1ml/kcal) Nutritional Problem 1. Problem Problem altered nutrition related labs Etiology hx of DM Signs/Symptoms: glucose 102-209, POC 119-181 Malnutrition Alert Protein-Calorie Malnutrition N/A Is there a minimum of two criteria No selected? Query Text:Check all the applicable criteria. A minimum of two criteria are recommended for diagnosis of either severe or non-severe malnutrition. Intervention/Recommendation Comments 1. [facility] with [facility] [address] diet as ordered. 2. Monitor PO intake, wt, labs and skin integrity 3. F/U as high risk in 2-3 days, 10/04-10/05 Expected Outcomes/Goals Expected Outcomes/Goals 1. PO intake to meet at least 75% of nutritional needs. 2. Wt stability, skin to remain intact, labs to approach WNL.
[2017-10-03] MEDS: Multivitamin Tab PO SCH (08:56)
[2017-10-03] MEDS: Atorvastatin Calcium 10 MG TAB PO SCH (08:56)
[2017-10-03] MEDS: Lactulose 10 Gm/15 mL 30mL UDC PO SCH ×3 (08:57→20:18)
[2017-10-03] MEDS: Enoxaparin 100 mg/mL 1mL Syr SUBQ SCH (08:58)
[2017-10-03] MEDS: INSULIN ASPART SLIDING SCALE 100 UNITS/ML UNIT SUBQ SCH ×4 (08:59→20:17)
--- NOTE | 2017-10-03 09:00 | General Progress Note ---
Subjective - Review of Systems Events since last encounter: no fever in no acute distress Objective - Results Result Diagrams: 10/02/17 04:00 10/02/17 04:00 Recent Labs: Laboratory Last Values WBC 4.7 Th/cmm (4.8-10.8) L 10/02/17 04:00 RBC 4.38 Mil/cmm (3.80-5.80) 10/02/17 04:00 Hgb 12.8 gm/dL (12-16) 10/02/17 04:00 Hct 38.8 % (41.0-60) L 10/02/17 04:00 MCV 88.6 fl (80-99) 10/02/17 04:00 MCH 29.3 pg (27.0-31.0) 10/02/17 04:00 MCHC Differential 33.1 pg (28.0-36.0) 10/02/17 04:00 RDW 14.5 % (11.5-20.0) 10/02/17 04:00 Plt Count 117 Th/cmm (150-400) L 10/02/17 04:00 MPV 8.7 fl 10/02/17 04:00 Neutrophils % 44.6 % (40.0-80.0) 10/02/17 04:00 Lymphocytes % 38.5 % (20.0-50.0) 10/02/17 04:00 Monocytes % 11.5 % (2.0-10.0) H 10/02/17 04:00 Eosinophils % 4.8 % (0.0-5.0) 10/02/17 04:00 Basophils % 0.6 % (0.0-2.0) 10/02/17 04:00 PT 9.3 SECONDS (9.5-11.5) L 10/01/17 19:10 INR 0.90 (0.5-1.4) 10/01/17 19:10 Sodium 141 mEq/L (136-145) 10/02/17 04:00 Potassium 4.0 mEq/L (3.5-5.1) 10/02/17 04:00 Chloride 110 mEq/L (98-107) H 10/02/17 04:00 Carbon Dioxide 24.8 mEq/L (21.0-31.0) 10/02/17 04:00 Anion Gap 10.2 (7.0-16.0) 10/02/17 04:00 BUN 26 mg/dL (7-25) H 10/02/17 04:00 Creatinine 0.9 mg/dL (0.7-1.3) 10/02/17 04:00 Est GFR ( Amer) TNP 10/02/17 04:00 Est GFR (Non-Af Amer) TNP 10/02/17 04:00 BUN/Creatinine Ratio 28.9 10/02/17 04:00 Glucose 102 mg/dL (70-105) D 10/02/17 04:00 POC Glucose 163 MG/DL (70 - 105) H 10/03/17 05:17 Hemoglobin A1c % 8.3 % (4.0-6.0) H 10/02/17 04:00 Calcium 9.0 mg/dL (8.6-10.3) 10/02/17 04:00 Total Bilirubin 0.5 mg/dL (0.3-1.0) 10/01/17 19:10 AST 17 U/L (13-39) 10/01/17 19:10 ALT 26 U/L (7-52) 10/01/17 19:10 Alkaline Phosphatase 94 U/L (34-104) 10/01/17 19:10 Creatine Kinase 34 U/L (30-223) 10/01/17 19:10 Troponin I 0.01 ng/mL (0.01-0.05) 10/02/17 20:15 B-Natriuretic Peptide 56.1 pg/mL (5.0-100.0) 10/01/17 19:10 Total Protein 6.7 gm/dL (6.0-8.3) 10/01/17 19:10 Albumin 4.0 gm/dL (4.2-5.5) L 10/01/17 19:10 Globulin 2.7 gm/dL 10/01/17 19:10 Albumin/Globulin Ratio 1.5 (1.0-1.8) 10/01/17 19:10 Triglycerides 188 mg/dL (<150) H 10/01/17 19:10 Cholesterol 125 mg/dL (<200) 10/01/17 19:10 LDL Cholesterol Direct 49 mg/dL (75-193) L 10/01/17 19:10 HDL Cholesterol 41 mg/dL (23-92) 10/01/17 19:10 TSH 2.31 uIU/ml (0.34-5.60) 10/02/17 04:00 Urine Source CLEAN C 10/02/17 01:11 Urine Color YELLOW 10/02/17 01:11 Urine Clarity HAZY (CLEAR) 10/02/17 01:11 Urine pH 5.5 (4.6 - 8.0) 10/02/17 01:11 Ur Specific [place] 1.025 (1.005-1.030) 10/02/17 01:11 Urine Protein NEGATIVE mg/dL (NEGATIVE) 10/02/17 01:11 Urine Glucose (UA) NEGATIVE mg/dL (NEGATIVE) 10/02/17 01:11 Urine Ketones NEGATIVE mg/dL (NEGATIVE) 10/02/17 01:11 Urine Blood SMALL (NEGATIVE) H 10/02/17 01:11 Urine Nitrate NEGATIVE (NEGATIVE) 10/02/17 01:11 Urine Bilirubin NEGATIVE (NEGATIVE) 10/02/17 01:11 Urine Urobilinogen 0.2 E.U./dL (0.2 - 1.0) 10/02/17 01:11 Ur Leukocyte Esterase NEGATIVE (NEGATIVE) 10/02/17 01:11 Urine RBC 0-2 /hpf (0-5) H 10/02/17 01:11 Urine WBC 0-2 /hpf (0-5) 10/02/17 01:11 Ur Epithelial Cells FEW /lpf (FEW) 10/02/17 01:11 Urine Bacteria NONE SEEN /hpf (NONE SEEN) 10/02/17 01:11 - Physical Exam Vitals and I&O: Vital Signs Temp 96.3 F 10/03/17 08:31 Pulse 55 10/03/17 08:55 Resp 18 10/03/17 08:31 BP 122/50 10/03/17 08:55 Pulse Ox 99 10/03/17 08:31 Intake & Output 10/02/17 10/03/17 10/03/17 18:59 06:59 18:59 Intake Total 500 240 Output Total 350 Balance 150 240 Weight (lbs) 72.575 kg 73.21 kg Intake: Oral 500 240 Output: Urine 350 Other: # Voids 3 # Bowel Movements 1 Stool Characteristics Formed Weight Source Bedscale Bedscale Active Medications: Current Medications Acetaminophen/Hydrocodone Bitart ([place] 5mg/325mg) 1 tab PO BID PRN PRN Reason: Pain (Moderate) Atenolol (Tenormin) 25 mg PO DAILY [facility] Stop: 12/01/17 08:59 Last Admin: 10/03/17 08:55 Dose: Not Given Atorvastatin Calcium (Lipitor) 10 mg PO DAILY [facility] PRN Reason: Protocol Stop: 12/01/17 08:59 Last Admin: 10/03/17 08:56 Dose: 10 mg Baclofen (Lioresal) 20 mg PO TID [facility] Stop: 12/01/17 08:59 Last Admin: 10/03/17 08:56 Dose: 20 mg Betamethasone/Clotrimazole (Lotrisone Cream) 1 appl TP BID [facility] Stop: 10/07/17 16:59 Last Admin: 10/02/17 16:18 Dose: 1 appl Diphenhydramine HCl (Benadryl) 25 mg PO Q8HR PRN PRN Reason: Itching Stop: 12/01/17 08:07 Last Admin: 10/02/17 23:26 Dose: 25 mg Donepezil HCl (Aricept) 10 mg PO HS [facility] Stop: 12/01/17 20:59 Last Admin: 10/02/17 20:18 Dose: 10 mg Enoxaparin Sodium (Lovenox) 100 mg SUBQ DAILY [facility] Stop: 12/01/17 08:59 Last Admin: 10/03/17 08:58 Dose: 100 mg Glipizide (Glucotrol) 5 mg PO DAILY [facility] Stop: 12/01/17 08:59 Last Admin: 10/03/17 08:57 Dose: 5 mg Insulin Aspart (Novolog Insulin Sliding Scale) 0 units SUBQ ACHS [facility] PRN Reason: Protocol Stop: 12/01/17 11:29 Last Admin: 10/02/17 20:18 Dose: 4 units Lactulose (Cephulac) 20 gm PO TID [facility] Stop: 12/01/17 08:59 Last Admin: 10/03/17 08:57 Dose: 20 gm Lorazepam (Ativan) 0.5 mg PO Q6H PRN; Protocol PRN Reason: Anxiety Stop: 12/01/17 08:07 Methimazole (Tapazole) 10 mg PO DAILY [facility] Stop: 12/01/17 08:59 Last Admin: 10/03/17 08:55 Dose: 10 mg Mirtazapine (Remeron) 15 mg PO HS [facility] PRN Reason: Protocol Stop: 12/01/17 20:59 Morphine Sulfate (Morphine) 2 mg IVP Q3HR PRN PRN Reason: MODERATE PAIN Stop: 11/30/17 22:42 Morphine Sulfate (Morphine) 4 mg IVP Q3H PRN PRN Reason: Severe Pain Stop: 11/30/17 22:43 Last Admin: 10/02/17 01:08 Dose: 4 mg Multivitamins/Vitamin C (Theragran) 1 tab PO DAILY [facility] Stop: 12/01/17 08:59 Last Admin: 10/03/17 08:56 Dose: 1 tab Ondansetron HCl (Zofran) 4 mg IV Q6H PRN PRN Reason: Nausea / Vomiting Stop: 11/30/17 22:44 Pantoprazole Sodium (Protonix) 40 mg PO DAILY [facility] Stop: 12/01/17 08:59 Last Admin: 10/02/17 08:41 Dose: 40 mg Zinc Sulfate (Zinc Sulfate) 220 mg PO DAILY [facility] Stop: 12/01/17 08:59 Last Admin: 10/03/17 08:55 Dose: 220 mg Nutritional Asmnt/Malnutr-PDOC - Dietary Evaluation Malnutrition Findings (Please click <Entered> for more info): Nutritional Asmnt/Malnutrition Start: 10/02/17 15: 48 Text: Status: Complete Freq: Document 10/02/17 15:48 LCHENG (Rec: 10/02/17 15:58 LCHENG [id number]) Nutritional Asmnt/Malnutrition Patient General Information Nutritional Screening High Risk Consult Diagnosis back pain, DM, bradycardia Pertinent Medical Hx/Surgical Hx HTN, DM, CAD, dyslipidemia, dementai Subjective Information Pt seen lying in bed at time of vist, awake and alert. Pt is Mold[place] speaking, not approriate for interview or nutrition education at this time. Current Diet Order/ Nutrition Support [facility] [address] Pertinent Medications glucotrol, novolog, cephulac, remeron, theragran, protonix, zinc Pertinent Labs 10/02 Cl 110, BUN 26, glucose 102, POC 119 10/01 BUN 30, glucose 209, POC 181 Nutritional Hx/Data Height 1.68 m Height (Calculated Centimeters) 167.6 Current Weight (lbs) 72.575 kg Weight (Calculated Kilograms) 72.6 Weight (Calculated Grams) 18339.8 [place] Body Weight 142 Body Mass Index (BMI) 25.8 Weight Status Overweight GI Symptoms GI Symptoms None Last BM no record Difficult in: None Skin Integrity/Comment: bilateral lower extremities discoloration Estimated Nutritional Goals BEE in Kcals: Using Current wt Calories/Kcals/Kg 25-30 Kcals Calculated 9832-8051 Protein g/k-1.2 Protein Calculated 73-87 Fluid: ml 1825-2190ml (1ml/kcal) Nutritional Problem 1. Problem Problem altered nutrition related labs Etiology hx of DM Signs/Symptoms: glucose 102-209, POC 119-181 Malnutrition Alert Protein-Calorie Malnutrition N/A Is there a minimum of two criteria No selected? Query Text:Check all the applicable criteria. A minimum of two criteria are recommended for diagnosis of either severe or non-severe malnutrition. Intervention/Recommendation Comments 1. [facility] [address] diet as ordered. 2. Monitor PO intake, wt, labs and skin integrity 3. F/U as high risk in 2-3 days, 10/04-10/05 Expected Outcomes/Goals Expected Outcomes/Goals 1. PO intake to meet at least 75% of nutritional needs. 2. Wt stability, skin to remain intact, labs to approach WNL.
[2017-10-03] MEDS: Pantoprazole 40 mg/Packet PO SCH (12:18)
[2017-10-03] MEDS: Betamethasone/Clotrimazole Cream 15 gm Tube TP SCH ×2 (12:18→18:33)
[2017-10-03] MEDS: Hydrocodone/APAP 5mg/325mg Tab PO PRN (17:25)
--- NOTE | 2017-10-03 23:22 | Consultation ---
DATE OF CONSULTATION: 10/03/2017 HISTORY AND PHYSICAL: This is an 81-year-old male patient who came to the Emergency Room with itching of the scrotum. The patient was found to have hypertension with bradycardia and hence cardiac consult is requested. PAST MEDICAL HISTORY: Hypertension, hyperlipidemia, lumbosacral disk disease, narcotic dependence, GERD. FAMILY HISTORY: Unremarkable. SOCIAL HISTORY: No history of smoking, alcohol abuse. ALLERGIES: None. PHYSICAL EXAMINATION: VITAL SIGNS: Blood pressure 130/80, pulse 50, respirations 28. HEAD: Normocephalic. No lumps or bumps. EYES: Pupils equal, reactive to light. Fundi showing nicking, sclerae white, conjunctivae pink. NECK: Carotid 2+. Normal upstroke. JVD flat. Thyroid not palpable. Lymph nodes not palpable. CHEST: ____ AP diameter. No kyphosis, scoliosis. LUNGS: Bilateral vesicular breath sounds. HEART: PMI fifth intercostal space with lateral to midclavicular line. S1, S2. No S3, S4, soft systolic murmur. ABDOMEN: Soft. Liver, spleen not palpable. No organomegaly. Bowel sounds active. NEUROLOGIC: Unremarkable. EXTREMITIES: Peripheral pulses 2+. No pedal edema. SCROTUM: Shows slight irritation. CONCLUSION: 1. Hypertension. 2. Diabetes mellitus type 2. 3. Insulin-dependent diabetes mellitus. 4. Hyperthyroidism. 5. Hypertension. 6. Gastroesophagel reflux disease. 7. Tenia cruris of the scrotum. 8. Bradycardia, most likely secondary to atenolol. PLAN: Admit the patient. We will stop the atenolol. Continue present care. JOB# [id number]
[2017-10-04] MEDS: INSULIN ASPART SLIDING SCALE 100 UNITS/ML UNIT SUBQ SCH ×4 (07:38→20:12)
[2017-10-04] MEDS: Lactulose 10 Gm/15 mL 30mL UDC PO SCH ×3 (08:22→20:12)
[2017-10-04] MEDS: Betamethasone/Clotrimazole Cream 15 gm Tube TP SCH ×2 (08:22→16:34)
[2017-10-04] MEDS: Pantoprazole 40 mg/Packet PO SCH (08:23)
[2017-10-04] MEDS: Multivitamin Tab PO SCH (08:23)
[2017-10-04] MEDS: Atorvastatin Calcium 10 MG TAB PO SCH (08:23)
[2017-10-04] MEDS: Enoxaparin 100 mg/mL 1mL Syr SUBQ SCH (08:25)
--- NOTE | 2017-10-04 08:47 | General Progress Note ---
Subjective - Review of Systems Events since last encounter: in no distress Objective - Results Result Diagrams: 10/02/17 04:00 10/02/17 04:00 Recent Labs: Laboratory Last Values WBC 4.7 Th/cmm (4.8-10.8) L 10/02/17 04:00 RBC 4.38 Mil/cmm (3.80-5.80) 10/02/17 04:00 Hgb 12.8 gm/dL (12-16) 10/02/17 04:00 Hct 38.8 % (41.0-60) L 10/02/17 04:00 MCV 88.6 fl (80-99) 10/02/17 04:00 MCH 29.3 pg (27.0-31.0) 10/02/17 04:00 MCHC Differential 33.1 pg (28.0-36.0) 10/02/17 04:00 RDW 14.5 % (11.5-20.0) 10/02/17 04:00 Plt Count 117 Th/cmm (150-400) L 10/02/17 04:00 MPV 8.7 fl 10/02/17 04:00 Neutrophils % 44.6 % (40.0-80.0) 10/02/17 04:00 Lymphocytes % 38.5 % (20.0-50.0) 10/02/17 04:00 Monocytes % 11.5 % (2.0-10.0) H 10/02/17 04:00 Eosinophils % 4.8 % (0.0-5.0) 10/02/17 04:00 Basophils % 0.6 % (0.0-2.0) 10/02/17 04:00 PT 9.3 SECONDS (9.5-11.5) L 10/01/17 19:10 INR 0.90 (0.5-1.4) 10/01/17 19:10 Sodium 141 mEq/L (136-145) 10/02/17 04:00 Potassium 4.0 mEq/L (3.5-5.1) 10/02/17 04:00 Chloride 110 mEq/L (98-107) H 10/02/17 04:00 Carbon Dioxide 24.8 mEq/L (21.0-31.0) 10/02/17 04:00 Anion Gap 10.2 (7.0-16.0) 10/02/17 04:00 BUN 26 mg/dL (7-25) H 10/02/17 04:00 Creatinine 0.9 mg/dL (0.7-1.3) 10/02/17 04:00 Est GFR ( Amer) TNP 10/02/17 04:00 Est GFR (Non-Af Amer) TNP 10/02/17 04:00 BUN/Creatinine Ratio 28.9 10/02/17 04:00 Glucose 102 mg/dL (70-105) D 10/02/17 04:00 POC Glucose 157 MG/DL (70 - 105) H 10/04/17 05:32 Hemoglobin A1c % 8.3 % (4.0-6.0) H 10/02/17 04:00 Calcium 9.0 mg/dL (8.6-10.3) 10/02/17 04:00 Total Bilirubin 0.5 mg/dL (0.3-1.0) 10/01/17 19:10 AST 17 U/L (13-39) 10/01/17 19:10 ALT 26 U/L (7-52) 10/01/17 19:10 Alkaline Phosphatase 94 U/L (34-104) 10/01/17 19:10 Creatine Kinase 34 U/L (30-223) 10/01/17 19:10 Troponin I 0.01 ng/mL (0.01-0.05) 10/02/17 20:15 B-Natriuretic Peptide 56.1 pg/mL (5.0-100.0) 10/01/17 19:10 Total Protein 6.7 gm/dL (6.0-8.3) 10/01/17 19:10 Albumin 4.0 gm/dL (4.2-5.5) L 10/01/17 19:10 Globulin 2.7 gm/dL 10/01/17 19:10 Albumin/Globulin Ratio 1.5 (1.0-1.8) 10/01/17 19:10 Triglycerides 188 mg/dL (<150) H 10/01/17 19:10 Cholesterol 125 mg/dL (<200) 10/01/17 19:10 LDL Cholesterol Direct 49 mg/dL (75-193) L 10/01/17 19:10 HDL Cholesterol 41 mg/dL (23-92) 10/01/17 19:10 TSH 2.31 uIU/ml (0.34-5.60) 10/02/17 04:00 Urine Source CLEAN C 10/02/17 01:11 Urine Color YELLOW 10/02/17 01:11 Urine Clarity HAZY (CLEAR) 10/02/17 01:11 Urine pH 5.5 (4.6 - 8.0) 10/02/17 01:11 Ur Specific [place] 1.025 (1.005-1.030) 10/02/17 01:11 Urine Protein NEGATIVE mg/dL (NEGATIVE) 10/02/17 01:11 Urine Glucose (UA) NEGATIVE mg/dL (NEGATIVE) 10/02/17 01:11 Urine Ketones NEGATIVE mg/dL (NEGATIVE) 10/02/17 01:11 Urine Blood SMALL (NEGATIVE) H 10/02/17 01:11 Urine Nitrate NEGATIVE (NEGATIVE) 10/02/17 01:11 Urine Bilirubin NEGATIVE (NEGATIVE) 10/02/17 01:11 Urine Urobilinogen 0.2 E.U./dL (0.2 - 1.0) 10/02/17 01:11 Ur Leukocyte Esterase NEGATIVE (NEGATIVE) 10/02/17 01:11 Urine RBC 0-2 /hpf (0-5) H 10/02/17 01:11 Urine WBC 0-2 /hpf (0-5) 10/02/17 01:11 Ur Epithelial Cells FEW /lpf (FEW) 10/02/17 01:11 Urine Bacteria NONE SEEN /hpf (NONE SEEN) 10/02/17 01:11 - Physical Exam Vitals and I&O: Vital Signs Temp 98.5 F 10/04/17 08:00 Pulse 51 10/04/17 08:22 Resp 18 10/04/17 08:00 BP 124/47 10/04/17 08:22 Pulse Ox 97 10/04/17 08:00 Intake & Output 10/03/17 10/04/17 10/04/17 18:59 06:59 18:59 Intake Total 360 Balance 360 Weight (lbs) 74.389 kg Intake: Oral 360 Other: Weight Source Bedscale Active Medications: Current Medications Acetaminophen/Hydrocodone Bitart ([place] 5mg/325mg) 1 tab PO BID PRN PRN Reason: Pain (Moderate) Last Admin: 10/03/17 17:25 Dose: 1 tab Atenolol (Tenormin) 25 mg PO DAILY [facility] Stop: 12/01/17 08:59 Last Admin: 10/04/17 08:22 Dose: 25 mg Atorvastatin Calcium (Lipitor) 10 mg PO DAILY [facility] PRN Reason: Protocol Stop: 12/01/17 08:59 Last Admin: 10/04/17 08:23 Dose: 10 mg Baclofen (Lioresal) 20 mg PO TID [facility] Stop: 12/01/17 08:59 Last Admin: 10/04/17 08:23 Dose: 20 mg Betamethasone/Clotrimazole (Lotrisone Cream) 1 appl TP BID [facility] Stop: 10/07/17 16:59 Last Admin: 10/04/17 08:22 Dose: 1 appl Diphenhydramine HCl (Benadryl) 25 mg PO Q8HR PRN PRN Reason: Itching Stop: 12/01/17 08:07 Last Admin: 10/03/17 21:09 Dose: 25 mg Donepezil HCl (Aricept) 10 mg PO HS [facility] Stop: 12/01/17 20:59 Last Admin: 10/03/17 20:18 Dose: 10 mg Enoxaparin Sodium (Lovenox) 100 mg SUBQ DAILY [facility] Stop: 12/01/17 08:59 Last Admin: 10/04/17 08:25 Dose: 100 mg Glipizide (Glucotrol) 5 mg PO DAILY [facility] Stop: 12/01/17 08:59 Last Admin: 10/04/17 08:22 Dose: 5 mg Insulin Aspart (Novolog Insulin Sliding Scale) 0 units SUBQ ACHS [facility] PRN Reason: Protocol Stop: 12/01/17 11:29 Last Admin: 10/04/17 07:38 Dose: 2 units Lactulose (Cephulac) 20 gm PO TID [facility] Stop: 12/01/17 08:59 Last Admin: 10/04/17 08:22 Dose: 20 gm Lorazepam (Ativan) 0.5 mg PO Q6H PRN; Protocol PRN Reason: Anxiety Stop: 12/01/17 08:07 Methimazole (Tapazole) 10 mg PO DAILY [facility] Stop: 12/01/17 08:59 Last Admin: 10/04/17 08:23 Dose: 10 mg Mirtazapine (Remeron) 15 mg PO HS [facility] PRN Reason: Protocol Stop: 12/03/17 20:59 Morphine Sulfate (Morphine) 2 mg IVP Q3HR PRN PRN Reason: MODERATE PAIN Stop: 11/30/17 22:42 Morphine Sulfate (Morphine) 4 mg IVP Q3H PRN PRN Reason: Severe Pain Stop: 11/30/17 22:43 Last Admin: 10/02/17 01:08 Dose: 4 mg Multivitamins/Vitamin C (Theragran) 1 tab PO DAILY [facility] Stop: 12/01/17 08:59 Last Admin: 10/04/17 08:23 Dose: 1 tab Mupirocin (Bactroban Oint) 1 appl NS BID [facility] Stop: 10/08/17 17:01 Ondansetron HCl (Zofran) 4 mg IV Q6H PRN PRN Reason: Nausea / Vomiting Stop: 11/30/17 22:44 Pantoprazole Sodium (Protonix) 40 mg PO DAILY [facility] Stop: 12/01/17 08:59 Last Admin: 10/04/17 08:23 Dose: 40 mg Zinc Sulfate (Zinc Sulfate) 220 mg PO DAILY [facility] Stop: 12/01/17 08:59 Last Admin: 10/04/17 08:23 Dose: 220 mg Nutritional Asmnt/Malnutr-PDOC - Dietary Evaluation Malnutrition Findings (Please click <Entered> for more info): Nutritional Asmnt/Malnutrition Start: 10/02/17 15: 48 Text: Status: Complete Freq: Document 10/02/17 15:48 LCEVELING (Rec: 10/02/17 15:58 [facility] Nutritional Asmnt/Malnutrition Patient General Information Nutritional Screening High Risk Consult Diagnosis back pain, DM, bradycardia Pertinent Medical Hx/Surgical Hx HTN, DM, CAD, dyslipidemia, dementai Subjective Information Pt seen lying in bed at time of vist, awake and alert. Pt is Serbian speaking, not approriate for interview or nutrition education at this time. Current Diet Order/ Nutrition Support [facility] 1800 ADA Pertinent Medications glucotrol, novolog, cephulac, remeron, theragran, protonix, zinc Pertinent Labs 10/02 Cl 110, BUN 26, glucose 102, POC 119 10/01 BUN 30, glucose 209, POC 181 Nutritional Hx/Data Height 1.68 m Height (Calculated Centimeters) 167.6 Current Weight (lbs) 72.575 kg Weight (Calculated Kilograms) 72.6 Weight (Calculated Grams) 82757.8 [place] Body Weight 142 Body Mass Index (BMI) 25.8 Weight Status Overweight GI Symptoms GI Symptoms None Last BM no record Difficult in: None Skin Integrity/Comment: bilateral lower extremities discoloration Estimated Nutritional Goals BEE in Kcals: Using Current wt Calories/Kcals/Kg 25-30 Kcals Calculated 4229-9586 Protein g/k-1.2 Protein Calculated 73-87 Fluid: ml 1825-2190ml (1ml/kcal) Nutritional Problem 1. Problem Problem altered nutrition related labs Etiology hx of DM Signs/Symptoms: glucose 102-209, POC 119-181 Malnutrition Alert Protein-Calorie Malnutrition N/A Is there a minimum of two criteria No selected? Query Text:Check all the applicable criteria. A minimum of two criteria are recommended for diagnosis of either severe or non-severe malnutrition. Intervention/Recommendation Comments 1. [facility] ADA diet as ordered. 2. Monitor PO intake, wt, labs and skin integrity 3. F/U as high risk in 2-3 days, 10/04-10/05 Expected Outcomes/Goals Expected Outcomes/Goals 1. PO intake to meet at least 75% of nutritional needs. 2. Wt stability, skin to remain intact, labs to approach WNL.
[2017-10-04] MEDS: Hydrocodone/APAP 5mg/325mg Tab PO PRN (14:53)
--- NOTE | 2017-10-04 18:35 | Infectious Disease Prog Note ---
Infectious Disease Subjective - Review of Systems Service Date: 10/04/17 Subjective: No change. Infectious Disease Objective - Results Result Diagrams: 10/02/17 04:00 10/02/17 04:00 Recent Labs: Laboratory Last Values WBC 4.7 Th/cmm (4.8-10.8) L 10/02/17 04:00 RBC 4.38 Mil/cmm (3.80-5.80) 10/02/17 04:00 Hgb 12.8 gm/dL (12-16) 10/02/17 04:00 Hct 38.8 % (41.0-60) L 10/02/17 04:00 MCV 88.6 fl (80-99) 10/02/17 04:00 MCH 29.3 pg (27.0-31.0) 10/02/17 04:00 MCHC Differential 33.1 pg (28.0-36.0) 10/02/17 04:00 RDW 14.5 % (11.5-20.0) 10/02/17 04:00 Plt Count 117 Th/cmm (150-400) L 10/02/17 04:00 MPV 8.7 fl 10/02/17 04:00 Neutrophils % 44.6 % (40.0-80.0) 10/02/17 04:00 Lymphocytes % 38.5 % (20.0-50.0) 10/02/17 04:00 Monocytes % 11.5 % (2.0-10.0) H 10/02/17 04:00 Eosinophils % 4.8 % (0.0-5.0) 10/02/17 04:00 Basophils % 0.6 % (0.0-2.0) 10/02/17 04:00 PT 9.3 SECONDS (9.5-11.5) L 10/01/17 19:10 INR 0.90 (0.5-1.4) 10/01/17 19:10 Sodium 141 mEq/L (136-145) 10/02/17 04:00 Potassium 4.0 mEq/L (3.5-5.1) 10/02/17 04:00 Chloride 110 mEq/L (98-107) H 10/02/17 04:00 Carbon Dioxide 24.8 mEq/L (21.0-31.0) 10/02/17 04:00 Anion Gap 10.2 (7.0-16.0) 10/02/17 04:00 BUN 26 mg/dL (7-25) H 10/02/17 04:00 Creatinine 0.9 mg/dL (0.7-1.3) 10/02/17 04:00 Est GFR ( Amer) TNP 10/02/17 04:00 Est GFR (Non-Af Amer) TNP 10/02/17 04:00 BUN/Creatinine Ratio 28.9 10/02/17 04:00 Glucose 102 mg/dL (70-105) D 10/02/17 04:00 POC Glucose 115 MG/DL (70 - 105) H 10/04/17 16:33 Hemoglobin A1c % 8.3 % (4.0-6.0) H 10/02/17 04:00 Calcium 9.0 mg/dL (8.6-10.3) 10/02/17 04:00 Total Bilirubin 0.5 mg/dL (0.3-1.0) 10/01/17 19:10 AST 17 U/L (13-39) 10/01/17 19:10 ALT 26 U/L (7-52) 10/01/17 19:10 Alkaline Phosphatase 94 U/L (34-104) 10/01/17 19:10 Creatine Kinase 34 U/L (30-223) 10/01/17 19:10 Troponin I 0.01 ng/mL (0.01-0.05) 10/02/17 20:15 B-Natriuretic Peptide 56.1 pg/mL (5.0-100.0) 10/01/17 19:10 Total Protein 6.7 gm/dL (6.0-8.3) 10/01/17 19:10 Albumin 4.0 gm/dL (4.2-5.5) L 10/01/17 19:10 Globulin 2.7 gm/dL 10/01/17 19:10 Albumin/Globulin Ratio 1.5 (1.0-1.8) 10/01/17 19:10 Triglycerides 188 mg/dL (<150) H 10/01/17 19:10 Cholesterol 125 mg/dL (<200) 10/01/17 19:10 LDL Cholesterol Direct 49 mg/dL (75-193) L 10/01/17 19:10 HDL Cholesterol 41 mg/dL (23-92) 10/01/17 19:10 TSH 2.31 uIU/ml (0.34-5.60) 10/02/17 04:00 Urine Source CLEAN C 10/02/17 01:11 Urine Color YELLOW 10/02/17 01:11 Urine Clarity HAZY (CLEAR) 10/02/17 01:11 Urine pH 5.5 (4.6 - 8.0) 10/02/17 01:11 Ur Specific [place] 1.025 (1.005-1.030) 10/02/17 01:11 Urine Protein NEGATIVE mg/dL (NEGATIVE) 10/02/17 01:11 Urine Glucose (UA) NEGATIVE mg/dL (NEGATIVE) 10/02/17 01:11 Urine Ketones NEGATIVE mg/dL (NEGATIVE) 10/02/17 01:11 Urine Blood SMALL (NEGATIVE) H 10/02/17 01:11 Urine Nitrate NEGATIVE (NEGATIVE) 10/02/17 01:11 Urine Bilirubin NEGATIVE (NEGATIVE) 10/02/17 01:11 Urine Urobilinogen 0.2 E.U./dL (0.2 - 1.0) 10/02/17 01:11 Ur Leukocyte Esterase NEGATIVE (NEGATIVE) 10/02/17 01:11 Urine RBC 0-2 /hpf (0-5) H 10/02/17 01:11 Urine WBC 0-2 /hpf (0-5) 10/02/17 01:11 Ur Epithelial Cells FEW /lpf (FEW) 10/02/17 01:11 Urine Bacteria NONE SEEN /hpf (NONE SEEN) 10/02/17 01:11 - Physical Exam Vitals and I&O: Vital Signs Temp 97.6 F 10/04/17 15:48 Pulse 51 10/04/17 15:48 Resp 18 10/04/17 15:48 BP 117/58 10/04/17 15:48 Pulse Ox 97 10/04/17 15:48 Intake & Output 10/03/17 10/04/17 10/04/17 18:59 06:59 18:59 Intake Total 360 600 Output Total 1 Balance 360 599 Weight (lbs) 74.389 kg 74.389 kg Intake: Oral 360 600 Output: Stool 1 Other: # Voids 4 Weight Source Bedscale Bedscale Active Medications: Current Medications Acetaminophen/Hydrocodone Bitart ([place] 5mg/325mg) 1 tab PO BID PRN PRN Reason: Pain (Moderate) Last Admin: 10/04/17 14:53 Dose: 1 tab Atorvastatin Calcium (Lipitor) 10 mg PO DAILY [facility] PRN Reason: Protocol Stop: 12/01/17 08:59 Last Admin: 10/04/17 08:23 Dose: 10 mg Baclofen (Lioresal) 20 mg PO TID [facility] Stop: 12/01/17 08:59 Last Admin: 10/04/17 13:16 Dose: 20 mg Betamethasone/Clotrimazole (Lotrisone Cream) 1 appl TP BID [facility] Stop: 10/07/17 16:59 Last Admin: 10/04/17 16:34 Dose: 1 appl Diphenhydramine HCl (Benadryl) 25 mg PO Q8HR PRN PRN Reason: Itching Stop: 12/01/17 08:07 Last Admin: 10/03/17 21:09 Dose: 25 mg Donepezil HCl (Aricept) 10 mg PO HS [facility] Stop: 12/01/17 20:59 Last Admin: 10/03/17 20:18 Dose: 10 mg Enoxaparin Sodium (Lovenox) 100 mg SUBQ DAILY [facility] Stop: 12/01/17 08:59 Last Admin: 10/04/17 08:25 Dose: 100 mg Glipizide (Glucotrol) 5 mg PO DAILY [facility] Stop: 12/01/17 08:59 Last Admin: 10/04/17 08:22 Dose: 5 mg Insulin Aspart (Novolog Insulin Sliding Scale) 0 units SUBQ ACHS [facility] PRN Reason: Protocol Stop: 12/01/17 11:29 Last Admin: 10/04/17 16:34 Dose: Not Given Lactulose (Cephulac) 20 gm PO TID [facility] Stop: 12/01/17 08:59 Last Admin: 10/04/17 13:16 Dose: 20 gm Lorazepam (Ativan) 0.5 mg PO Q6H PRN; Protocol PRN Reason: Anxiety Stop: 12/01/17 08:07 Methimazole (Tapazole) 10 mg PO DAILY [facility] Stop: 12/01/17 08:59 Last Admin: 10/04/17 08:23 Dose: 10 mg Mirtazapine (Remeron) 15 mg PO HS [facility] PRN Reason: Protocol Stop: 12/03/17 20:59 Morphine Sulfate (Morphine) 2 mg IVP Q3HR PRN PRN Reason: MODERATE PAIN Stop: 11/30/17 22:42 Morphine Sulfate (Morphine) 4 mg IVP Q3H PRN PRN Reason: Severe Pain Stop: 11/30/17 22:43 Last Admin: 10/02/17 01:08 Dose: 4 mg Multivitamins/Vitamin C (Theragran) 1 tab PO DAILY [facility] Stop: 12/01/17 08:59 Last Admin: 10/04/17 08:23 Dose: 1 tab Mupirocin (Bactroban Oint) 1 appl NS BID [facility] Stop: 10/08/17 17:01 Last Admin: 10/04/17 16:34 Dose: 1 appl Ondansetron HCl (Zofran) 4 mg IV Q6H PRN PRN Reason: Nausea / Vomiting Stop: 11/30/17 22:44 Pantoprazole Sodium (Protonix) 40 mg PO DAILY [facility] Stop: 12/01/17 08:59 Last Admin: 10/04/17 08:23 Dose: 40 mg Zinc Sulfate (Zinc Sulfate) 220 mg PO DAILY [facility] Stop: 12/01/17 08:59 Last Admin: 10/04/17 08:23 Dose: 220 mg General: no acute distress, well developed, well nourished HEENT: atraumatic, normocephalic, PERRLA, EOMI, dry Neck: supple, no thyromegaly, no lymphadenopathy Cardiovascular: S1S2, regular Lungs: clear to auscultation bilaterally, clear to percussion Abdomen: soft, no tender, no rebound Extremities: no cyanosis, no clubbing Neurological: awake, alert, oriented Skin: intact Infectious Disease Assmt/Plan - Assessment Assessment: 1. Itchiness of scrotal skin probably tinea cruris. 2. Hypertension 3. Chronic back pain. 4. DJD. 5. Bradycardia. - Plan Plan: Lotrisone. CPM. Nutritional Asmnt/Malnutr-PDOC - Dietary Evaluation Malnutrition Findings (Please click <Entered> for more info): Nutritional Asmnt/Malnutrition Start: 10/02/17 15: 48 Text: Status: Complete Freq: Document 10/02/17 15:48 LCHENG (Rec: 10/02/17 15:58 MICHAELG [id number]) Nutritional Asmnt/Malnutrition Patient General Information Nutritional Screening High Risk Consult Diagnosis back pain, DM, bradycardia Pertinent Medical Hx/Surgical Hx HTN, DM, CAD, dyslipidemia, dementai Subjective Information Pt seen lying in bed at time of vist, awake and alert. Pt is Salvadorean speaking, not approriate for interview or nutrition education at this time. Current Diet Order/ [facility] ADA Pertinent Medications glucotrol, novolog, cephulac, remeron, theragran, protonix, zinc Pertinent Labs 10/02 Cl 110, BUN 26, glucose 102, POC 119 10/01 BUN 30, glucose 209, POC 181 Nutritional Hx/Data Height 1.68 m Height (Calculated Centimeters) 167.6 Current Weight (lbs) 72.575 kg Weight (Calculated Kilograms) 72.6 Weight (Calculated Grams) 06452.8 [place] Body Weight 142 Body Mass Index (BMI) 25.8 Weight Status Overweight GI Symptoms GI Symptoms None Last BM no record Difficult in: None Skin Integrity/Comment: bilateral lower extremities discoloration Estimated Nutritional Goals BEE in Kcals: Using Current wt Calories/Kcals/Kg 25-30 Kcals Calculated 8546-7810 Protein g/k-1.2 Protein Calculated 73-87 Fluid: ml 1825-2190ml (1ml/kcal) Nutritional Problem 1. Problem Problem altered nutrition related labs Etiology hx of DM Signs/Symptoms: glucose 102-209, POC 119-181 Malnutrition Alert Protein-Calorie Malnutrition N/A Is there a minimum of two criteria No selected? Query Text:Check all the applicable criteria. A minimum of two criteria are recommended for diagnosis of either severe or non-severe malnutrition. Intervention/Recommendation Comments 1. [facility] ADA diet as ordered. 2. Monitor PO intake, wt, labs and skin integrity 3. F/U as high risk in 2-3 days, 10/04-10/05 Expected Outcomes/Goals Expected Outcomes/Goals 1. PO intake to meet at least 75% of nutritional needs. 2. Wt stability, skin to remain intact, labs to approach WNL.
--- NOTE | 2017-10-05 01:33 | Consultation ---
DATE OF CONSULTATION: 10/04/2017 ORTHOPEDIC SURGERY CONSULTATION HISTORY OF PRESENT ILLNESS: The patient is an 81-year-old gentleman admitted to [facility] on 10/01/2017 after he presented to the Emergency Room with the main complaint of severe itching of the scrotum. Additional past history includes chronic back pain, diabetes, hypertension, and bradycardia. I was called in orthopedic consultation regarding complaints of back pain. PAST MEDICAL HISTORY: The patient lives at [facility]. He takes medications regarding his diabetes and hypertension. PAST MEDICAL HISTORY: He could not remember having had any surgeries. It is little hard to get information with the patient, he speaks primarily [place]ar[place]. EXAMINATION: The patient was examined in his hospital room at [facility]. He is able to stand and move about quite well. Moderate dorsal kyphosis. When I asked where his pain is located, he touched the right lower lumbar area -- not over the spine. Lumbar range of motion 60-70% -- no apparent pain. Neurologically, straight leg raising - he is very tight to the low back and glutei, but otherwise normal. IMAGING STUDIES: I reviewed a CT of the patient's back performed on 10/02/2017. There are moderate degenerative changes throughout the lumbar region. The vertebrae form a irregular pattern. There is a bilateral pars defect of L5 allowing a spondylolisthesis of L5 on S1 on several millimeters. There is a compression fracture of T12 with significant loss of height of the vertebra. ORTHOPEDIC DIAGNOSES: 1. Chronic low back pain. 2. Healed compression fracture T12 vertebra, old. 3. Spondylolisthesis of L5 on S1, chronic. RECOMMENDATIONS: The patient is stable regarding his back situation, his complaints are chronic and of a longstanding nature. The compression fracture of T12 vertebra appears healed and solid - cannot tell me how long ago that might have happened. If he should have significant back pain, he could have physical therapy of heat electrical slim ultrasound and massage. He could also take NSAIDs and analgesics as appropriate. He does not require any active orthopedic intervention regarding his back complaints at this time. Thank you for this interesting referral. JOB# [id number]
--- NOTE | 2017-10-06 10:49 | Discharge Summary ---
DATE OF DISCHARGE: 10/04/2017 HOSPITAL COURSE: This is a patient I know from [facility]. The patient was complaining of severe back pain, difficulty walking, and was admitted for severe back pain, possible spinal stenosis, diabetes, hypertension, and dementia. The patient was admitted and had a complete workup showed severe osteoarthritis. The patient was given physical therapy. The patient improved. The patient was in stable condition. On 10/04/2017, was discharged back to [facility] with the diagnoses of severe osteoarthritis, history of hypertension, diabetes, and dementia. I will follow the patient. Condition at the time of discharge was stable. [facility]# [id number]
== END 2017-10-04 21:15 | DRG 552 ==
LOC: ER 18:31 → TELE 19:00
PROVIDERS: ADMIT Internal Medicine; ATTEND Internal Medicine
DX: M47.897 Other spondylosis, lumbosacral region (principal); L29.1 Pruritus scroti; M48.061 Spinal stenosis, lumbar region without neurogenic claudication; B35.6 Tinea cruris; G89.29 Other chronic pain; K21.9 Gastro-esophageal reflux disease without esophagitis; M51.87 Other intervertebral disc disorders, lumbosacral region; E21.3 Hyperparathyroidism, unspecified; M43.17 Spondylolisthesis, lumbosacral region; R00.1 Bradycardia, unspecified; E11.9 Type 2 diabetes mellitus without complications; I11.9 Hypertensive heart disease without heart failure; F03.90 Unspecified dementia, unspecified severity, without behavioral disturbance, psychotic disturbance, mood disturbance, and anxiety; I25.10 Atherosclerotic heart disease of native coronary artery without angina pectoris; E78.5 Hyperlipidemia, unspecified; Z83.3 Family history of diabetes mellitus; Z82.49 Family history of ischemic heart disease and other diseases of the circulatory system; Z79.899 Other long term (current) drug therapy; Z79.4 Long term (current) use of insulin
CPT/HCPCS: 36415-UA; 71045-TC; 72131-TC; 80048-TC; 80053-TC; 80061-TC; 81001-TC; 82550-TC; 82948-90; 83036-90; 83880-TC; 84443-TC; 84484-TC; 85025-TC; 85610-TC; 87086-90; 93005; 94760; 97530; J1650; J1815; X3904; Z7610

== ENCOUNTER 2017-11-05 15:42 | Inpatient (IN) | payer MEDICARE, MEDICAID ==
--- NOTE | 2017-11-05 16:41 | ED Physician Chart ---
ED Chief Complaint/HPI - Patient Information Date Seen:: 11/05/17 Time Seen:: 17:41 Chief Complaint:: GENERALIZED SWELLING OF THE FACE History of Present Illness:: THIS 81-YEAR-OLD MALE WAS BROUGHT TO THE EMERGENCY DEPARTMENT BY EMS FROM HIS NURSING FACILITY FOR EVALUATION OF FACIAL SWELLING AND CONFUSION. THE PATIENT COMPLAINS OF A RASH WHICH IS ITCHY INVOLVING THE GROIN AND RECTAL REGION WHICH HAS BEEN PRESENT FOR MANY MONTHS. HE IS ALSO COMPLAINING OF ORAL PAIN AND DISCOMFORT OVER THE FOREHEAD AND THE CHEEKS. PATIENT DENIES ANY FEVER, CHILLS OR DIAPHORESIS. THE PATIENT HAS SORENESS OF HIS MOUTH WHEN EATING AND SWELLING OF BOTH SIDES OF HIS FACE. BECAUSE OF THE SWELLING IS UNCLEAR. PATIENT HAS HAD SIMILAR EPISODES IN THE PAST. Allergies:: Allergies Allergy/AdvReac Type Severity Reaction Status Date / Time No Known Allergies Allergy Verified 09/05/17 21:28 Vitals:: Vital Signs - 8 hr 11/05/17 16:03 Temp 97.1 F HR 66 RR 18 BP 154/71 O2 Sat % 97 ED Review of Systems - Review of Systems General/Constitutional: No fever, No chills, Other Skin: Skin lesions, Rash, No bruising, Other (FPC ITCHING IN GENITAL) Head: No headache, No light-headedness Eyes: No loss of vision, No diplopia ENT: No earache, Sore throat, No tinnitus Neck: No neck pain, No swelling, No mass noted Cardio Vascular: No chest pain, No palpitations, No orthopnea, No edema Pulmonary: SOB, No cough, No sputum GI: No nausea, No vomiting, No diarrhea, No pain, No hematemesis G/U: No dysuria, No hematuria Musculoskeletal: No bone or joint pain, No back pain, No muscle pain Allergic/Immuno: No urticaria Neurological: No syncope, No focal symptoms, Weakness (LOCKED weakness is generalized.), No headache, No seizure, Confusion Family Medical History - Family Member Mother History Unknown: Yes Ethnicity: Living Status: ED Physical Exam - Physical Examination General/Constitutional: Well-developed, well-nourished, No distress, Non-toxic appearing Other Gen/Cons comments:: THE PATIENT COMPLAINS OF MILD DISCOMFORT IN THE FACE ON BOTH SIDES AND RASH IN THE GENITAL AREA. THE PT IS CONFUSED AND APPEARS TO BE DEMENTED. Head: Atraumatic Eyes: PERRL Other Eyes comments:: CONJUNCTIVA APPEAR PALE. Other Skin comments:: THE PATIENT HAS VERY DRY SKIN OVER THE CHEST, ABDOMEN AND EXTENDING INTO THE GENITAL REGION. THE GENITALS ARE COVERED WITH A GENEROUS AMOUNT OF POWDER WHICH OBSCURES VISUALIZATION. ENMT: External ears, nose nl, Nasal exam nl Other ENMT comments:: EDENTULOUS WITH DENTURES. MILD ERYTHEMA IN THE POSTERIOR PHARYNX. NO TONSILLAR ENLARGEMENT OR PERITONSILLAR MASSES. TONSILLAR EXUDATES. Neck: Nontender, No JVD, No nuchal rigidity, No mass, No stridor Other Neck comments:: THE PATIENT HAS DIFFUSE, MILD WHEEZING THROUGHOUT MOST LUNG VALDIVIA. HE IS MOVING AIR WELL AND HAS AN O2 SATURATION IN THE DRY SOUNDING RALES CAN BE AUSCULTATED IN THE LEFT BASILAR REGION. Other Respiratory comments:: MILD SCATERED WHEEZING AND A FEW DRY RALES IN THE LT LOWER BASE. SATTING IN THE HIGH 90'S ON ROOM AIR. Cardio Vascular: No murmur, gallop, rubs, Carotid/Femoral/Distal pulses equal bilaterally Other Cardio Vascular comments:: THERE IS A WELL-HEALED SURGICAL SCAR IN THE LOWER ABDOMEN THAT WAS FROM PRIOR SURGERY FOR PEPTIC ULCER DISEASE. THE PATIENT STILL HAS HIS APPENDIX AND GALLBLADDER. THE ABDOMEN IS SOFT AND NONTENDER TO PALPATION WITH NO REBOUND OR GUARDING. NO ORGANOMEGALY OR MASSES GI: No tenderness/rebounding/guarding, No organomegaly, No hernia, Nondistended , No mass/bruits, No McBurney tenderness Other GI comments:: RECTAL EXAMINATION DEFERRED AT MY DISCRETION. : No CVA tenderness Extremities: normal strength in all extremities Other Extremities comments:: THE PATIENT'S SKIN IS VERY DRY OVER THE DISTAL LOWER EXTREMITIES AND THERE IS ALMOST TOTAL COVERAGE OF HIS NAILS WITH FUNGAL INFECTION. Neuro/Psych: Normal sensory exam, Mood normal, No focal deficits Misc: Normal back, No paraspinal tenderness ED Labs/Radiology/EKG Results - Lab Results Results: Laboratory Results - last 24 hr 11/05/17 11/05/17 11/05/17 18:16 18:16 18:16 WBC 5.3 RBC 4.64 Hgb 13.9 Hct 41.4 MCV 89.1 MCH 30.0 MCHC Differential 33.7 RDW 14.4 Plt Count 152 MPV 7.7 Neutrophils % 57.3 Lymphocytes % 29.8 Monocytes % 8.4 Eosinophils % 4.1 Basophils % 0.4 Sodium 138 Potassium 4.3 Chloride 107 Carbon Dioxide 24.7 Anion Gap 10.6 BUN 26 H Creatinine 0.9 Est GFR ( Amer) TNP Est GFR (Non-Af Amer) TNP BUN/Creatinine Ratio 28.9 Glucose 217 H Whole Bld Lactic Acid 1.19 Calcium 9.3 Total Bilirubin 0.6 AST 23 ALT 35 Alkaline Phosphatase 87 Total Protein 6.5 Albumin 3.9 L Globulin 2.6 Albumin/Globulin Ratio 1.5 KEREN IS CBC IS UNREMARKABLEIN THAT THERE IS NO LEUKOCYTOSISOR ANEMIA.METABOLIC STUDIESSHOBALEADER LIGHTS WITHIN THE NORMAL PARAMETERS, NORMAL RENAL FUNCTIONAND THEY GLUCOSE IN THE LOW 200S WHICH IS PROBABLYI OF NO CLINICAL SIGNIFICANCE. ED Septic Shock - . Is Septic Shock (SBP<90, OR Lactate>4 mmol\L) present?: No - <6hrs of presentation: Vital Signs: Vital Signs - 8 hr 11/05/18 16:03 Temp 97.1 F HR 66 RR 18 BP 154/71 O2 Sat % 97 THE CBC IS UNREMARKABLE. THEREIS NO LEUKOCYTOSIS OR ANEMIA. ED Discharge Plan - Patient Disposition Admit/Discharge/Transfer: Acute Care w/in this hosp Condition at Disposition: Stable
[2017-11-05 18:25] LABS: % BASOPHILS 0.4 % (0.0-2.0); % EOSINOPHILS 4.1 % (0.0-5.0); % LYMPHOCYTES 29.8 % (20.0-50.0); % MONOCYTES 8.4 % (2.0-10.0); % NEUTROPHILS 57.3 % (40.0-80.0); EOSINOPHILE ABSOLUTE 0.2 Th/cmm (0.1-0.4); HEMATOCRIT 41.4 % (41.0-60); HEMOGLOBIN 13.9 gm/dL (12-16); LYMPHOCYTE ABSOLUTE 1.6 Th/cmm (1.5-3.0); MEAN CELL VOLUME 89.1 fl (80-99); MEAN CORPUSCULAR HGB CONC 33.7 pg (28.0-36.0); MEAN PLATELET VOLUME 7.7 fl; MONOCYTE ABSOLUTE 0.4 Th/cmm (0.3-1.0); NEUTROPHILE ABSOLUTE 3.1 Th/cmm (1.8-8.0); PLATELET COUNT 152 Th/cmm (150-400); RED BLOOD COUNT 4.64 Mil/cmm (3.80-5.80); RED CELL DISTRIBUTION WIDTH 14.4 % (11.5-20.0); WHITE BLOOD COUNT 5.3 Th/cmm (4.8-10.8)
[2017-11-05 18:42] LABS: ALB/GLOB RATIO 1.5 (1.0-1.8); ALBUMIN 3.9 gm/dL (4.2-5.5); ALKALINE PHOSPHATASE 87 U/L (34-104); ANION GAP 10.6 (7.0-16.0); BILIRUBIN,TOTAL 0.6 mg/dL (0.3-1.0); BUN - UREA NITROGEN 26 mg/dL (7-25); CALCIUM SERUM 9.3 mg/dL (8.6-10.3); CARBON DIOXIDE 24.7 mEq/L (21.0-31.0); CHLORIDE 107 mEq/L (98-107); CREATININE - SERUM 0.9 mg/dL (0.7-1.3); GLUCOSE 217 mg/dL (70-105); POTASSIUM SERUM 4.3 mEq/L (3.5-5.1); SGOT 23 U/L (13-39); SGPT/ALT 35 U/L (7-52); SODIUM SERUM 138 mEq/L (136-145); TOTAL PROTEIN,SERUM 6.5 gm/dL (6.0-8.3)
[2017-11-05 20:12] LABS: URINE MICROSCOPIC INDICATED? YES; URINE SOURCE RANDOM
[2017-11-05 20:17] LABS: URINE BILIRUBIN NEGATIVE (NEGATIVE); URINE BLOOD TRACE (NEGATIVE); URINE GLUCOSE (UA) NEGATIVE (NEGATIVE); URINE KETONE NEGATIVE (NEGATIVE); URINE LEUKOCYTE ESTERASE NEGATIVE (NEGATIVE); URINE NITRATE NEGATIVE (NEGATIVE); URINE PH 5.5 (4.6 - 8.0); URINE PROTEIN NEGATIVE (NEGATIVE); URINE UROBILINOGEN 0.2 E.U./dL (0.2 - 1.0)
[2017-11-05 20:20] LABS: URINE CLARITY CLEAR (CLEAR); URINE COLOR YELLOW
[2017-11-05 20:21] LABS: URINE BACTERIA NONE SEEN /hpf (NONE SEEN); URINE EPITHELIAL CELLS NONE SEEN /lpf (FEW); URINE WBC NONE SEEN /hpf (0-5)
[2017-11-05] MEDS ORDERED: Fluconazole 100mg/50mL 100 MG/50 ML BOTTLE IV SCH (21:00)
[2017-11-05 23:01] VITALS: BP 159/71
[2017-11-06] MEDS: D5-0.45NS 1,000 ML IV SCH (00:09)
[2017-11-06] MEDS: INSULIN ASPART SLIDING SCALE 100 UNITS/ML UNIT SUBQ SCH ×5 (06:49→21:00)
--- NOTE | 2017-11-06 08:33 | Diagnostic Imaging Report ---
Portable chest x-ray HISTORY: Shortness of breath There is a very poor inspiration. Heart size difficult to assess, but appears to be generous. Atherosclerotic calcification seen in the aorta. Faint linear densities noted in the right lower lobe unchanged from 10/01/2017 consistent with scarring. No acute pulmonary parenchymal processes. IMPRESSION: 1. No acute abnormalities 2. Suggestion of cardiomegaly with atherosclerotic vascular changes
[2017-11-06] MEDS: Fluconazole 100mg/50mL 100 MG/50 ML BOTTLE IV SCH (09:26)
[2017-11-06] MEDS ORDERED: Hydrocodone/APAP 5mg/325mg Tab PO PRN (12:33)
--- NOTE | 2017-11-06 13:37 | Consultation ---
Consult Note - Consult Note Service Date: 11/06/17 Referring Physician: Mar Amin Consult Note: PHYSICIAN Consultation Note: Date of Admission: 11/05/17 Purpose of Consultation: Facial cellulitis. Chief Complaint: Patient JEFERSON FLEMING was admitted to [facility] with SEVERE DERMATITIS. History of Present Illness:81-year-old male with a past medical history of hepatic failure, diabetes mellitus type 2, generalized muscle weakness, hypertension, hyperlipidemia, atherosclerotic heart disease, DVT of lower extending, hyperparathyroidism, dementia, depression, anxiety disorder, DJD brought from nursing facility for right perioral swelling and erythema. He has also complained of bilateral groin and perirectal rash with itchiness. No fever. No chills. Occasional cough. Past Medical History: Allergies Allergy/AdvReac Type Severity Reaction Status Date / Time No Known Allergies Allergy Verified 09/05/17 21:28 Vital Signs Temp 97.0 F 11/06/17 12:00 Pulse 65 11/06/17 12:00 Resp 18 11/06/17 12:00 BP 121/68 11/06/17 12:00 Pulse Ox 97 11/06/17 12:00 Intake & Output 11/05/17 11/06/17 11/06/17 18:59 06:59 18:59 Intake Total 240 Output Total 600 Balance -360 Weight (lbs) 77.474 kg Intake: Oral 240 Output: Urine 600 Other: Weight Source Bedscale Laboratory Results - last 24 hr 11/05/17 11/06/17 11/06/17 20:10 06:19 11:58 POC Glucose 173 H 231 H Urine Source RANDOM Urine Color YELLOW Urine Clarity CLEAR Urine pH 5.5 Ur Specific [place] 1.025 Urine Protein NEGATIVE Urine Glucose (UA) NEGATIVE Urine Ketones NEGATIVE Urine Blood TRACE Urine Nitrate NEGATIVE Urine Bilirubin NEGATIVE Urine Urobilinogen 0.2 Ur Leukocyte Esterase NEGATIVE Urine RBC 2-5 H Urine WBC NONE SEEN Ur Epithelial Cells NONE SEEN Urine Bacteria NONE SEEN Home Medication Medication Instructions Recorded Type Donepezil Hcl [Aricept] 10 mg PO HS tab 01/25/17 Rx Glipizide [Glucotrol] 5 mg PO DAILY tab 01/25/17 Rx Insulin Aspart Sliding Scale See Protocol SUBQ ACHS 04/22/17 History [NovoLOG INSULIN SLIDING SCALE] Methimazole [Tapazole] 10 mg PO DAILY 04/22/17 History cloNIDine HCl [Catapres] 0.1 mg PO Q8HR PRN 04/22/17 History Enoxaparin [Lovenox] 100 mg SUBQ DAILY syr 07/05/17 Rx Mirtazapine [Remeron] 15 mg PO HS tab 07/05/17 Rx Diphenhydramine HCL [Benadryl] 25 mg PO Q8HR PRN 09/05/17 History Baclofen [Baclofen*] 20 mg PO TID 10/01/17 History Hydrocodone/Acetaminophen [[place] 1 tab PO Q12H PRN 10/01/17 History 7.5-325 Tablet] Lactulose 20 gm PO TID 10/01/17 History Zinc Gluconate 220 mg PO DAILY 10/01/17 History Atorvastatin Calcium [Lipitor] 10 mg PO HS 11/05/17 History Multivitamin w/ Minerals 1 tab PO DAILY 11/05/17 History [[place] M] Pectin [Throat Drops] 6 mg MM Q4H PRN 11/05/17 History Current Medications Generic Name Dose Route Start Last Admin Trade Name Freq PRN Reason Stop Dose Admin Acetaminophen/Hydrocodone Bitart 1 tab 11/06/17 12:33 [place] 5mg/325mg PO 01/05/18 12:32 Q12H PRN PAIN MANAGEMENT Atorvastatin Calcium 10 mg 11/06/17 21:00 Lipitor PO 01/05/18 20:59 HS ABNER Protocol Baclofen 20 mg 11/06/17 14:00 Lioresal PO 01/05/18 13:59 TID ABNER Benzocaine/Menthol 1 maggy 11/06/17 12:36 Cepacol MM 01/05/18 12:35 Q4H PRN Sore Throat Diphenhydramine HCl 25 mg 11/06/17 12:13 Benadryl PO 01/05/18 12:12 Q8HR PRN Itching Donepezil HCl 10 mg 11/06/17 21:00 Aricept PO 01/05/18 20:59 HS ABNER Enoxaparin Sodium 100 mg 11/07/17 09:00 Lovenox SUBQ 01/06/18 08:59 DAILY ABNER Glipizide 5 mg 11/07/17 09:00 Glucotrol PO 01/06/18 08:59 DAILY ABNER Dextrose/Sodium Chloride 1,000 mls @ 75 mls/hr 05/28/18 21:00 11/06/17 00:09 D5-0.45ns IV 01/04/18 20:59 75 mls/hr .[id number] ABNER Administration Fluconazole 100 mg in 50 mls @ 50 mls/hr 11/06/17 09:00 11/06/17 09:26 Diflucan IV 01/05/18 08:59 50 mls/hr Q24HR ABNER Administration Insulin Aspart 0 units 11/06/17 07:30 11/06/17 12:44 Novolog Insulin Sliding Scale SUBQ 01/05/18 07:29 4 units ACHS ABNER Administration Protocol Insulin Aspart 0 units 11/06/17 16:30 Novolog Insulin Sliding Scale SUBQ 01/05/18 16:29 ACHS ABNER Protocol Lactulose 20 gm 11/06/17 14:00 Cephulac PO 01/05/18 13:59 TID ABNER Methimazole 10 mg 11/07/17 09:00 Tapazole PO 01/06/18 08:59 DAILY ABNER Mirtazapine 15 mg 11/06/17 21:00 Remeron PO 01/05/18 20:59 HS ABNER Zinc Sulfate 220 mg 11/07/17 09:00 Zinc Sulfate PO 01/06/18 08:59 DAILY ABNER Review of Systems: A 12 point ROS was reviewed with the pertinent positive and negatives noted in the HPI. Social History Smoking Status Former smoker Family Medical History Family Medical History Start: 11/05/17 21: 36 Freq: ONCE Status: Active Document 11/05/17 23:01 MIMA (Rec: 11/05/17 23:01 [id number]) Family Medical History Mother History Unknown Yes Ethnicity Physical Exam: General: Well-nourished well-developed. HEENT: Head: Normocephalic. atraumatic. Oral cavity: Moist, pink tongue. Eyes : Pallor is present. No icterus. Pupil PERRLA EOMI. Face: Right periorbital redness and swelling is almost resolved. Neck: Supple, no JVD. No use of accessory neck muscles. Cardio: S1 and S2 within normal limits. Regular rhythm. Respiratory: CTAP. Abdominal: Soft, nontender, nondistended bowel sounds present Genital/Urinary: deferred. Extremities: No cyanosis no clubbing no edema. Neurological: Alert and awake oriented 3 no focal neuro deficit. Assessment: 1. Facial cellulitis. 2. Tinea cruris. 3. Dementia. 4. Hypertension. Plan: Start vancomycin IV. Apply Lotrisone cream to the groin. Thank you, Dr. Amin, for involving me in taking care of this patient. Signed, John White M.D. 11/06/[id number]
[2017-11-06] MEDS: Lactulose 10 Gm/15 mL 30mL UDC PO SCH ×2 (14:07→21:27)
[2017-11-06 14:52] LABS: % EOSINOPHILS 3.5 % (0.0-5.0); % LYMPHOCYTES 26.1 % (20.0-50.0); % MONOCYTES 7.2 % (2.0-10.0); % NEUTROPHILS 63.2 % (40.0-80.0); EOSINOPHILE ABSOLUTE 0.2 Th/cmm (0.1-0.4); HEMATOCRIT 38.3 % (41.0-60); HEMOGLOBIN 13.3 gm/dL (12-16); LYMPHOCYTE ABSOLUTE 1.3 Th/cmm (1.5-3.0); MEAN CORPUSCULAR HEMOGLOBIN 30.8 pg (27.0-31.0); MEAN CORPUSCULAR HGB CONC 34.6 pg (28.0-36.0); MEAN PLATELET VOLUME 7.7 fl; MONOCYTE ABSOLUTE 0.4 Th/cmm (0.3-1.0); NEUTROPHILE ABSOLUTE 3.2 Th/cmm (1.8-8.0); PLATELET COUNT 140 Th/cmm (150-400); RED BLOOD COUNT 4.31 Mil/cmm (3.80-5.80); RED CELL DISTRIBUTION WIDTH 14.6 % (11.5-20.0); WHITE BLOOD COUNT 5.1 Th/cmm (4.8-10.8)
[2017-11-06 15:12] LABS: ANION GAP 10.7 (7.0-16.0); BUN - UREA NITROGEN 20 mg/dL (7-25); CALCIUM SERUM 8.9 mg/dL (8.6-10.3); CARBON DIOXIDE 24.3 mEq/L (21.0-31.0); CHLORIDE 105 mEq/L (98-107); CHOLESTEROL 110 mg/dL (<200); CREATININE - SERUM 0.9 mg/dL (0.7-1.3); GLUCOSE 148 mg/dL (70-105); HDL -HIGH DENSITY LIPOPROTEIN 40 mg/dL (23-92); SODIUM SERUM 136 mEq/L (136-145); TRIGLYCERIDES 156 mg/dL (<150)
[2017-11-06] MEDS ORDERED: Vancomycin HCl 1.5 GM in Sodium Chloride 0.9% 500 ML IV SCH (16:00)
[2017-11-06 16:49] LABS: A1C % 7.5 % (4.0-6.0)
[2017-11-06] MEDS ORDERED: Betamethasone/Clotrimazole Cream 15 gm Tube TP SCH (17:00)
[2017-11-06] MEDS ORDERED: Atorvastatin Calcium 10 MG TAB PO SCH (21:00)
[2017-11-06] MEDS: Betamethasone/Clotrimazole Cream 15 gm Tube TP SCH (22:22)
[2017-11-07] MEDS: INSULIN ASPART SLIDING SCALE 100 UNITS/ML UNIT SUBQ SCH ×3 (07:25→16:43)
[2017-11-07] MEDS: Lactulose 10 Gm/15 mL 30mL UDC PO SCH ×3 (08:37→13:10)
[2017-11-07] MEDS: D5-0.45NS 1,000 ML IV SCH (08:40)
[2017-11-07] MEDS ORDERED: Multivitamin w/ Minerals Tab PO SCH (09:00)
[2017-11-07] MEDS ORDERED: Enoxaparin 100 mg/mL 1mL Syr SUBQ SCH (09:00)
[2017-11-07] MEDS: Betamethasone/Clotrimazole Cream 15 gm Tube TP SCH (09:35)
[2017-11-07] MEDS ORDERED: Probiotic Screen MC PRN (10:30)
[2017-11-07] MEDS: Fluconazole 100mg/50mL 100 MG/50 ML BOTTLE IV SCH (10:49)
[2017-11-07] MEDS ORDERED: Lactobacillus Rhamnosus GG 15 Billion CFU CAP.SPRINK PO SCH (11:00)
--- NOTE | 2017-11-07 13:47 | Infectious Disease Prog Note ---
Infectious Disease Subjective - Review of Systems Service Date: 11/07/17 Subjective: Doing well, no fever, the periorbital erythema has resolved. There is some focal swelling of right upper eye lid. Infectious Disease Objective - Results Result Diagrams: 11/06/17 14:45 11/06/17 14:45 Recent Labs: Laboratory Last Values WBC 5.1 Th/cmm (4.8-10.8) 11/06/17 14:45 RBC 4.31 Mil/cmm (3.80-5.80) 11/06/17 14:45 Hgb 13.3 gm/dL (12-16) 11/06/17 14:45 Hct 38.3 % (41.0-60) L 11/06/17 14:45 MCV 89.0 fl (80-99) 11/06/17 14:45 MCH 30.8 pg (27.0-31.0) 11/06/17 14:45 MCHC Differential 34.6 pg (28.0-36.0) 11/06/17 14:45 RDW 14.6 % (11.5-20.0) 11/06/17 14:45 Plt Count 140 Th/cmm (150-400) L 11/06/17 14:45 MPV 7.7 fl 11/06/17 14:45 Neutrophils % 63.2 % (40.0-80.0) 11/06/17 14:45 Lymphocytes % 26.1 % (20.0-50.0) 11/06/17 14:45 Monocytes % 7.2 % (2.0-10.0) 11/06/17 14:45 Eosinophils % 3.5 % (0.0-5.0) 11/06/17 14:45 Basophils % 0.0 % (0.0-2.0) 11/06/17 14:45 Sodium 136 mEq/L (136-145) 11/06/17 14:45 Potassium 4.0 mEq/L (3.5-5.1) 11/06/17 14:45 Chloride 105 mEq/L (98-107) 11/06/17 14:45 Carbon Dioxide 24.3 mEq/L (21.0-31.0) 11/06/17 14:45 Anion Gap 10.7 (7.0-16.0) 11/06/17 14:45 BUN 20 mg/dL (7-25) 11/06/17 14:45 Creatinine 0.9 mg/dL (0.7-1.3) 11/06/17 14:45 Est GFR ( Amer) TNP 11/06/17 14:45 Est GFR (Non-Af Amer) TNP 11/06/17 14:45 BUN/Creatinine Ratio 22.2 11/06/17 14:45 Glucose 148 mg/dL (70-105) H 11/06/17 14:45 POC Glucose 243 MG/DL (70 - 105) H 11/07/17 11:43 Hemoglobin A1c % 7.5 % (4.0-6.0) H 11/05/17 18:16 Whole Bld Lactic Acid 1.19 mmol/L (0.60-1.99) 11/05/17 18:16 Calcium 8.9 mg/dL (8.6-10.3) 11/06/17 14:45 Total Bilirubin 0.6 mg/dL (0.3-1.0) 11/05/17 18:16 AST 23 U/L (13-39) 11/05/17 18:16 ALT 35 U/L (7-52) 11/05/17 18:16 Alkaline Phosphatase 87 U/L (34-104) 11/05/17 18:16 Total Protein 6.5 gm/dL (6.0-8.3) 11/05/17 18:16 Albumin 3.9 gm/dL (4.2-5.5) L 11/05/17 18:16 Globulin 2.6 gm/dL 11/05/17 18:16 Albumin/Globulin Ratio 1.5 (1.0-1.8) 11/05/17 18:16 Triglycerides 156 mg/dL (<150) H 11/06/17 14:45 Cholesterol 110 mg/dL (<200) 11/06/17 14:45 LDL Cholesterol Direct 45 mg/dL (75-193) L 11/06/17 14:45 HDL Cholesterol 40 mg/dL (23-92) 11/06/17 14:45 TSH 0.31 uIU/ml (0.34-5.60) L 11/06/17 14:45 Urine Source RANDOM 11/05/17 20:10 Urine Color YELLOW 11/05/17 20:10 Urine Clarity CLEAR (CLEAR) 11/05/17 20:10 Urine pH 5.5 (4.6 - 8.0) 11/05/17 20:10 Ur Specific [place] 1.025 (1.005-1.030) 11/05/17 20:10 Urine Protein NEGATIVE mg/dL (NEGATIVE) 11/05/17 20:10 Urine Glucose (UA) NEGATIVE mg/dL (NEGATIVE) 11/05/17 20:10 Urine Ketones NEGATIVE mg/dL (NEGATIVE) 11/05/17 20:10 Urine Blood TRACE (NEGATIVE) 11/05/17 20:10 Urine Nitrate NEGATIVE (NEGATIVE) 11/05/17 20:10 Urine Bilirubin NEGATIVE (NEGATIVE) 11/05/17 20:10 Urine Urobilinogen 0.2 E.U./dL (0.2 - 1.0) 11/05/17 20:10 Ur Leukocyte Esterase NEGATIVE (NEGATIVE) 11/05/17 20:10 Urine RBC 2-5 /hpf (0-5) H 11/05/17 20:10 Urine WBC NONE SEEN /hpf (0-5) 11/05/17 20:10 Ur Epithelial Cells NONE SEEN /lpf (FEW) 11/05/17 20:10 Urine Bacteria NONE SEEN /hpf (NONE SEEN) 11/05/17 20:10 - Physical Exam Vitals and I&O: Vital Signs Temp 97.5 F 11/07/17 08:00 Pulse 50 11/07/17 08:00 Resp 20 11/07/17 08:00 BP 117/41 11/07/17 08:00 Pulse Ox 96 11/07/17 08:00 Intake & Output 11/06/17 11/07/17 11/07/17 18:59 06:59 18:59 Intake Total 1300 200 Output Total 400 Balance 1300 -200 Weight (lbs) 77.474 kg Intake: Intake, IV Amount 1300 D5-0.45NS 1,000 ml @ 75 1000 mls/hr IV .[id number] ABNER Rx #:[id number] Fluconazole 100mg/50mL 50 100 mg In 50 ml @ 50 mls/ hr IV Q24HR ABNER Rx#: [id number] Vancomycin HCl 1.25 gm In 250 Sodium Chloride 0.9% 250 ml @ 165 mls/hr IV Q24H ABNER Rx#:[id number] Oral 200 Output: Urine 400 Other: Weight Source Bedscale Active Medications: Current Medications Acetaminophen/Hydrocodone Bitart ([place] 5mg/325mg) 1 tab PO Q12H PRN PRN Reason: PAIN MANAGEMENT Stop: 01/05/18 12:32 Atorvastatin Calcium (Lipitor) 10 mg PO HS ABNER; Protocol Stop: 01/05/18 20:59 Last Admin: 11/06/17 21:27 Dose: 10 mg Baclofen (Lioresal) 20 mg PO TID ABNER Stop: 01/05/18 13:59 Last Admin: 11/07/17 13:12 Dose: 20 mg Benzocaine/Menthol (Cepacol) 1 maggy MM Q4H PRN PRN Reason: Sore Throat Stop: 01/05/18 12:35 Betamethasone/Clotrimazole (Lotrisone Cream) 1 appl TP Q12HR ABNER Stop: 01/05/18 20:59 Last Admin: 11/07/17 09:35 Dose: 1 appl Diphenhydramine HCl (Benadryl) 25 mg PO Q8HR PRN PRN Reason: Itching Stop: 01/05/18 12:12 Donepezil HCl (Aricept) 10 mg PO HS [facility] Stop: 01/05/18 20:59 Last Admin: 11/06/17 21:28 Dose: 10 mg Enoxaparin Sodium (Lovenox) 100 mg SUBQ DAILY [facility] Stop: 01/06/18 08:59 Last Admin: 11/07/17 08:38 Dose: Not Given Glipizide (Glucotrol) 5 mg PO DAILY [facility] Stop: 01/06/18 08:59 Last Admin: 11/07/17 08:37 Dose: 5 mg Dextrose/Sodium Chloride (D5-0.45ns) 1,000 mls @ 75 mls/hr IV .[id number] [facility] Stop: 01/04/18 20:59 Last Admin: 11/07/17 08:40 Dose: 75 mls/hr Fluconazole (Diflucan) 100 mg in 50 mls @ 50 mls/hr IV Q24HR [facility] Stop: 01/05/18 08:59 Last Admin: 11/07/17 10:49 Dose: 50 mls/hr Vancomycin HCl 1.25 gm/ Sodium (Chloride) 250 mls @ 165 mls/hr IV Q24HR@0900 [facility] Stop: 01/06/18 10:59 Last Admin: 11/07/17 12:01 Dose: 165 mls/hr Insulin Aspart (Novolog Insulin Sliding Scale) 0 units SUBQ ACHS [facility]; Protocol Stop: 01/05/18 16:29 Last Admin: 11/07/17 12:28 Dose: 4 units Lactobacillus Rhamnosus (Culturelle 15b) 1 each PO DAILY [facility] Stop: 01/06/18 10:59 Last Admin: 11/07/17 12:43 Dose: 1 each Lactulose (Cephulac) 20 gm PO TID [facility] Stop: 01/05/18 13:59 Last Admin: 11/07/17 13:10 Dose: 20 gm Methimazole (Tapazole) 10 mg PO DAILY [facility] Stop: 01/06/18 08:59 Last Admin: 11/07/17 08:37 Dose: 10 mg Mirtazapine (Remeron) 15 mg PO HS [facility] Stop: 01/05/18 20:59 Last Admin: 11/06/17 21:27 Dose: 15 mg Miscellaneous (Vancomycin Iv Per Pharmacy) 1 ea MC PRN [facility] Stop: 01/05/18 14:59 Miscellaneous (Probiotic Screen) 1 ea MC PRN PRN PRN Reason: PROTOCOL Stop: 01/06/18 10:29 Mupirocin (Bactroban Oint) 1 appl TP Q12HR [facility] Stop: 11/11/17 20:59 Last Admin: 11/07/17 09:44 Dose: 1 appl Zinc Sulfate (Zinc Sulfate) 220 mg PO DAILY [facility] Stop: 01/06/18 08:59 Last Admin: 11/07/17 08:37 Dose: 220 mg General: no acute distress, well developed, well nourished HEENT: atraumatic, normocephalic, PERRLA, EOMI, moist mucous membrane, dry, other (Non-tender upper eye lid swelling.) Neck: supple, no thyromegaly Cardiovascular: S1S2, regular Lungs: clear to auscultation bilaterally, clear to percussion Abdomen: soft, no tender, no distended Extremities: no cyanosis, no clubbing, no edema Neurological: awake, alert, oriented Skin: intact Infectious Disease Assmt/Plan - Problem List Patient Problems: All Active Problems FACIAL SWELLING AND SORE THROAT (Acute) - Assessment Assessment: 1. Right upper eye lid chalazion. 2. Tinea cruris 3. Right facial swelling resolved. 4. Hypertension. 5. Dementia. - Plan Plan: Continue vancomycin IV. May consider ophthalmology consult as outpatient. Nutritional Asmnt/Malnutr-PDOC - Dietary Evaluation Malnutrition Findings (Please click <Entered> for more info): Nutritional Asmnt/Malnutrition Start: 11/06/17 13: 43 Text: Status: Complete Freq: Protocol: Document 11/06/17 13:43 [facility] (Rec: 11/06/17 13:57 HEN [id number]) Nutritional Asmnt/Malnutrition Patient General Information Nutritional Screening High Risk Consult Diagnosis severe dermatitis Pertinent Medical Hx/Surgical Hx no H&P indicated in ER report at this time Subjective Information Consult received for high glucose level. Admission glucose 217. Per nurse not , pt was alert with episodes of confusion, good PO intake. Current Diet Order/ Nutrition Support CCHO-60gm Pertinent Medications D5-0.45ns, glucotrol, novolog, cephulac, remeron, zinc Pertinent Labs 11/05 BUN 26, glucose 217 11/06 POC 173-231 Nutritional Hx/Data Height 1.68 m Height (Calculated Centimeters) 167.6 Current Weight (lbs) 77.564 kg Weight (Calculated Kilograms) 77.6 Weight (Calculated Grams) 22165.3 [place] Body Weight 142 % [place] Body Weight 120 Body Mass Index (BMI) 27.6 Weight Status Overweight GI Symptoms GI Symptoms None Last BM not indicated Difficult in: None Skin Integrity/Comment: rash to buttocks, left/right groin reddened to right eye Estimated Nutritional Goals Calories/Kcals/Kg 25-30 based on IBW 65kg Kcals Calculated [id number] Protein g/k-1.2 Protein Calculated 65-78 Fluid: ml 1625-1950ml (1ml/kcal) Nutritional Problem 1. Problem Problem altered nutrition related labs Etiology endocrine dysfunction Signs/Symptoms: glucose 217, POC 173-231 Intervention/Recommendation Comments 1. Continue with [facility] diet as ordered. 2. MD to adjust insulin for optimal glycemic control. 3. Monitor PO intake, wt, labs and skin integrity 4. F/U as high risk in 2-3 days, 11/08-11/09 Expected Outcomes/Goals Expected Outcomes/Goals 1. PO intake to meet at least 75% of nutritional needs. 2. Wt stability, skin to remain intact, labs to approach WNL.
--- NOTE | 2017-11-07 15:59 | General Progress Note ---
Subjective - Review of Systems Events since last encounter: right upper eye lid Objective - Results Result Diagrams: 11/06/17 14:45 11/06/17 14:45 Recent Labs: Laboratory Last Values WBC 5.1 Th/cmm (4.8-10.8) 11/06/17 14:45 RBC 4.31 Mil/cmm (3.80-5.80) 11/06/17 14:45 Hgb 13.3 gm/dL (12-16) 11/06/17 14:45 Hct 38.3 % (41.0-60) L 11/06/17 14:45 MCV 89.0 fl (80-99) 11/06/17 14:45 MCH 30.8 pg (27.0-31.0) 11/06/17 14:45 MCHC Differential 34.6 pg (28.0-36.0) 11/06/17 14:45 RDW 14.6 % (11.5-20.0) 11/06/17 14:45 Plt Count 140 Th/cmm (150-400) L 11/06/17 14:45 MPV 7.7 fl 11/06/17 14:45 Neutrophils % 63.2 % (40.0-80.0) 11/06/17 14:45 Lymphocytes % 26.1 % (20.0-50.0) 11/06/17 14:45 Monocytes % 7.2 % (2.0-10.0) 11/06/17 14:45 Eosinophils % 3.5 % (0.0-5.0) 11/06/17 14:45 Basophils % 0.0 % (0.0-2.0) 11/06/17 14:45 Sodium 136 mEq/L (136-145) 11/06/17 14:45 Potassium 4.0 mEq/L (3.5-5.1) 11/06/17 14:45 Chloride 105 mEq/L (98-107) 11/06/17 14:45 Carbon Dioxide 24.3 mEq/L (21.0-31.0) 11/06/17 14:45 Anion Gap 10.7 (7.0-16.0) 11/06/17 14:45 BUN 20 mg/dL (7-25) 11/06/17 14:45 Creatinine 0.9 mg/dL (0.7-1.3) 11/06/17 14:45 Est GFR ( Amer) TNP 11/06/17 14:45 Est GFR (Non-Af Amer) TNP 11/06/17 14:45 BUN/Creatinine Ratio 22.2 11/06/17 14:45 Glucose 148 mg/dL (70-105) H 11/06/17 14:45 POC Glucose 243 MG/DL (70 - 105) H 11/07/17 11:43 Hemoglobin A1c % 7.5 % (4.0-6.0) H 11/05/17 18:16 Whole Bld Lactic Acid 1.19 mmol/L (0.60-1.99) 11/05/17 18:16 Calcium 8.9 mg/dL (8.6-10.3) 11/06/17 14:45 Total Bilirubin 0.6 mg/dL (0.3-1.0) 11/05/17 18:16 AST 23 U/L (13-39) 11/05/17 18:16 ALT 35 U/L (7-52) 11/05/17 18:16 Alkaline Phosphatase 87 U/L (34-104) 11/05/17 18:16 Total Protein 6.5 gm/dL (6.0-8.3) 11/05/17 18:16 Albumin 3.9 gm/dL (4.2-5.5) L 11/05/17 18:16 Globulin 2.6 gm/dL 11/05/17 18:16 Albumin/Globulin Ratio 1.5 (1.0-1.8) 11/05/17 18:16 Triglycerides 156 mg/dL (<150) H 11/06/17 14:45 Cholesterol 110 mg/dL (<200) 11/06/17 14:45 LDL Cholesterol Direct 45 mg/dL (75-193) L 11/06/17 14:45 HDL Cholesterol 40 mg/dL (23-92) 11/06/17 14:45 TSH 0.31 uIU/ml (0.34-5.60) L 11/06/17 14:45 Urine Source RANDOM 11/05/17 20:10 Urine Color YELLOW 11/05/17 20:10 Urine Clarity CLEAR (CLEAR) 11/05/17 20:10 Urine pH 5.5 (4.6 - 8.0) 11/05/17 20:10 Ur Specific [place] 1.025 (1.005-1.030) 11/05/17 20:10 Urine Protein NEGATIVE mg/dL (NEGATIVE) 11/05/17 20:10 Urine Glucose (UA) NEGATIVE mg/dL (NEGATIVE) 11/05/17 20:10 Urine Ketones NEGATIVE mg/dL (NEGATIVE) 11/05/17 20:10 Urine Blood TRACE (NEGATIVE) 11/05/17 20:10 Urine Nitrate NEGATIVE (NEGATIVE) 11/05/17 20:10 Urine Bilirubin NEGATIVE (NEGATIVE) 11/05/17 20:10 Urine Urobilinogen 0.2 E.U./dL (0.2 - 1.0) 11/05/17 20:10 Ur Leukocyte Esterase NEGATIVE (NEGATIVE) 11/05/17 20:10 Urine RBC 2-5 /hpf (0-5) H 11/05/17 20:10 Urine WBC NONE SEEN /hpf (0-5) 11/05/17 20:10 Ur Epithelial Cells NONE SEEN /lpf (FEW) 11/05/17 20:10 Urine Bacteria NONE SEEN /hpf (NONE SEEN) 11/05/17 20:10 - Physical Exam Vitals and I&O: Vital Signs Temp 97.5 F 11/07/17 08:00 Pulse 50 11/07/17 08:00 Resp 20 11/07/17 08:00 BP 117/41 11/07/17 08:00 Pulse Ox 96 11/07/17 08:00 Intake & Output 11/06/17 11/07/17 11/07/17 18:59 06:59 18:59 Intake Total 1300 200 Output Total 400 Balance 1300 -200 Weight (lbs) 77.474 kg Intake: Intake, IV Amount 1300 D5-0.45NS 1,000 ml @ 75 1000 mls/hr IV .[id number] [facility] Rx #:[id number] Fluconazole 100mg/50mL 50 100 mg In 50 ml @ 50 mls/ hr IV Q24HR [facility] Rx#: [id number] Vancomycin HCl 1.25 gm In 250 Sodium Chloride 0.9% 250 ml @ 165 mls/hr IV Q24H [facility] Rx#:[id number] Oral 200 Output: Urine 400 Other: Weight Source Bedscale Active Medications: Current Medications Acetaminophen/Hydrocodone Bitart ([place] 5mg/325mg) 1 tab PO Q12H PRN PRN Reason: PAIN MANAGEMENT Stop: 01/05/18 12:32 Atorvastatin Calcium (Lipitor) 10 mg PO HS [facility]; Protocol Stop: 01/05/18 20:59 Last Admin: 11/06/17 21:27 Dose: 10 mg Baclofen (Lioresal) 20 mg PO TID [facility] Stop: 01/05/18 13:59 Last Admin: 11/07/17 13:12 Dose: 20 mg Benzocaine/Menthol (Cepacol) 1 maggy MM Q4H PRN PRN Reason: Sore Throat Stop: 01/05/18 12:35 Betamethasone/Clotrimazole (Lotrisone Cream) 1 appl TP Q12HR [facility] Stop: 01/05/18 20:59 Last Admin: 11/07/17 09:35 Dose: 1 appl Diphenhydramine HCl (Benadryl) 25 mg PO Q8HR PRN PRN Reason: Itching Stop: 01/05/18 12:12 Donepezil HCl (Aricept) 10 mg PO HS [facility] Stop: 01/05/18 20:59 Last Admin: 11/06/17 21:28 Dose: 10 mg Enoxaparin Sodium (Lovenox) 100 mg SUBQ DAILY [facility] Stop: 01/06/18 08:59 Last Admin: 11/07/17 08:38 Dose: Not Given Glipizide (Glucotrol) 5 mg PO DAILY [facility] Stop: 01/06/18 08:59 Last Admin: 11/07/17 08:37 Dose: 5 mg Dextrose/Sodium Chloride (D5-0.45ns) 1,000 mls @ 75 mls/hr IV .[id number] [facility] Stop: 01/04/18 20:59 Last Admin: 11/07/17 08:40 Dose: 75 mls/hr Fluconazole (Diflucan) 100 mg in 50 mls @ 50 mls/hr IV Q24HR [facility] Stop: 01/05/18 08:59 Last Admin: 11/07/17 10:49 Dose: 50 mls/hr Vancomycin HCl 1.25 gm/ Sodium (Chloride) 250 mls @ 165 mls/hr IV Q24HR@0900 [facility] Stop: 01/06/18 10:59 Last Admin: 11/07/17 12:01 Dose: 165 mls/hr Insulin Aspart (Novolog Insulin Sliding Scale) 0 units SUBQ ACHS [facility]; Protocol Stop: 01/05/18 16:29 Last Admin: 11/07/17 12:28 Dose: 4 units Lactobacillus Rhamnosus (Culturelle 15b) 1 each PO DAILY [facility] Stop: 01/06/18 10:59 Last Admin: 11/07/17 12:43 Dose: 1 each Lactulose (Cephulac) 20 gm PO TID [facility] Stop: 01/05/18 13:59 Last Admin: 11/07/17 13:10 Dose: 20 gm Methimazole (Tapazole) 10 mg PO DAILY [facility] Stop: 01/06/18 08:59 Last Admin: 11/07/17 08:37 Dose: 10 mg Mirtazapine (Remeron) 15 mg PO HS [facility] Stop: 01/05/18 20:59 Last Admin: 11/06/17 21:27 Dose: 15 mg Miscellaneous (Vancomycin Iv Per Pharmacy) 1 ea PRN [facility] Stop: 01/05/18 14:59 Miscellaneous (Probiotic Screen) 1 [facility] PRN PRN PRN Reason: PROTOCOL Stop: 01/06/18 10:29 Mupirocin (Bactroban Oint) 1 appl TP Q12HR [facility] Stop: 11/11/17 20:59 Last Admin: 11/07/17 09:44 Dose: 1 appl Zinc Sulfate (Zinc Sulfate) 220 mg PO DAILY [facility] Stop: 01/06/18 08:59 Last Admin: 11/07/17 08:37 Dose: 220 mg Assessment/Plan - Problem List Patient Problems: All Active Problems FACIAL SWELLING AND SORE THROAT (Acute) Nutritional Asmnt/Malnutr-PDOC - Dietary Evaluation Malnutrition Findings (Please click <Entered> for more info): Nutritional Asmnt/Malnutrition Start: 11/06/17 13: 43 Text: Status: Complete Freq: Protocol: Document 11/06/17 13:43 LCEVELING (Rec: 11/06/17 13:57 LCEVELING [id number]) Nutritional Asmnt/Malnutrition Patient General Information Nutritional Screening High Risk Consult Diagnosis severe dermatitis Pertinent Medical Hx/Surgical Hx no H&P indicated in ER report at this time Subjective Information Consult received for high glucose level. Admission glucose 217. Per nurse not , pt was alert with episodes of confusion, good PO intake. Current Diet Order/ Nutrition Support CCHO-60gm Pertinent Medications D5-0.45ns, glucotrol, novolog, cephulac, remeron, zinc Pertinent Labs 11/05 BUN 26, glucose 217 11/06 POC 173-231 Nutritional Hx/Data Height 1.68 m Height (Calculated Centimeters) 167.6 Current Weight (lbs) 77.564 kg Weight (Calculated Kilograms) 77.6 Weight (Calculated Grams) 89876.3 [place] Body Weight 142 % [place] Body Weight 120 Body Mass Index (BMI) 27.6 Weight Status Overweight GI Symptoms GI Symptoms None Last BM not indicated Difficult in: None Skin Integrity/Comment: rash to buttocks, left/right groin reddened to right eye Estimated Nutritional Goals Calories/Kcals/Kg 25-30 based on IBW 65kg Kcals Calculated 9353-2826 Protein g/k-1.2 Protein Calculated 65-78 Fluid: ml 1625-1950ml (1ml/kcal) Nutritional Problem 1. Problem Problem altered nutrition related labs Etiology endocrine dysfunction Signs/Symptoms: glucose 217, POC 173-231 Intervention/Recommendation Comments 1. Continue with [facility] diet as ordered. 2. MD to adjust insulin for optimal glycemic control. 3. Monitor PO intake, wt, labs and skin integrity 4. F/U as high risk in 2-3 days, 11/08-11/09 Expected Outcomes/Goals Expected Outcomes/Goals 1. PO intake to meet at least 75% of nutritional needs. 2. Wt stability, skin to remain intact, labs to approach WNL.
--- NOTE | 2017-11-07 17:46 | History & Physical ---
ADMIT DATE: 11/05/2017 BRIEF SUMMARY HISTORY OF PRESENT ILLNESS: An 81-year-old male patient admitted for severe itching all over the body, severe dermatitis, and possible eczema. An 81-year-old male patient known to have history of hepatic failure, history of diabetes type 2, history of hypertension, hyperlipidemia, atherosclerotic heart disease, DVT, hyperparathyroidism, dementia, depression, DJD from the senior care complaining of right perioral swelling, erythema; complaining of bilateral groin and perirectal rash, itching; and erythematous rash and some blisters. He was admitted for infectious disease consult. REVIEW OF SYSTEM: As noted above. PHYSICAL EXAMINATION: HEAD: Normal. ENT: Normal. NECK: Supple, nontender. LUNGS: Clear. CARDIOVASCULAR SYSTEM: S1, S2 heard. ABDOMEN: Soft. Bowel sounds are heard. CENTRAL NERVOUS SYSTEM: The patient has severe cellulitis of the facial area and tinea pedis. DIAGNOSES: Facial cellulitis, tinea pedis, dementia, hypertension, history of hepatic failure, history of diabetes type 2, muscle weakness, hypertension, hyperlipidemia, atherosclerotic heart disease, history of deep vein thrombosis on lower extremities, history of hyperparathyroidism, anxiety disorder. PLAN: The patient is being admitted. I will have infectious disease doctor see the patient. I will do a sepsis workup and I will follow the patient. JOB# [id number]
== END 2017-11-07 18:10 | DRG 603 ==
LOC: ER 15:42 → MSI 19:54
PROVIDERS: ADMIT Internal Medicine; ATTEND Internal Medicine
DX: L03.211 Cellulitis of face (principal); I10 Essential (primary) hypertension; E11.8 Type 2 diabetes mellitus with unspecified complications; E78.5 Hyperlipidemia, unspecified; I25.10 Atherosclerotic heart disease of native coronary artery without angina pectoris; E21.3 Hyperparathyroidism, unspecified; M19.90 Unspecified osteoarthritis, unspecified site; F32.9 Major depressive disorder, single episode, unspecified; Z86.718 Personal history of other venous thrombosis and embolism; B35.6 Tinea cruris; F03.90 Unspecified dementia, unspecified severity, without behavioral disturbance, psychotic disturbance, mood disturbance, and anxiety; F41.9 Anxiety disorder, unspecified
CPT/HCPCS: 36415-UA; 71045-TC; 80048-TC; 80053-TC; 80061-TC; 81001-TC; 82948-90; 83036-90; 83605; 84443-TC; 85025-TC; 87086-90; J1650; J1815; J3370; J7040; J7042; Z7610